=== PATIENT | female | born 1995 | race Caucasian/White ===

== ENCOUNTER 2020-10-10 13:25 | Outpatient (REF) | payer MEDICAID, SELFPAY | END 2020-10-10 13:26 | disposition home or self-care (01) | LOC: HO.LAB 13:25 | PROVIDERS: Visit Provider Internal Medicine | DX: Z20.828 Contact with and (suspected) exposure to other viral communicable diseases (principal) | CPT/HCPCS: C9803; U0003 ==

== ENCOUNTER → 2020-11-06 15:25 | Outpatient (BNVA) | payer MEDICAID, SELFPAY | PROVIDERS: Visit Provider Nurse Practitioner | DX: Z76.89 Persons encountering health services in other specified circumstances (principal) ==

== ENCOUNTER 2020-11-26 09:46 | Outpatient (REF) | payer MEDICAID, SELFPAY | END 2020-11-26 09:47 | disposition home or self-care (01) | LOC: HO.LAB 09:46 | PROVIDERS: Visit Provider Internal Medicine | DX: Z20.822 Contact with and (suspected) exposure to COVID-19 (principal) | CPT/HCPCS: 36415; C9803; U0003 ==

== ENCOUNTER 2021-01-14 09:36 | Outpatient (REF) | payer MEDICAID, SELFPAY ==
[2021-01-14 10:18] LABS: MANUAL DIFF FLAG NO
[2021-01-14 10:24] LABS: Basophils Percent Auto 0.3 % (0-2); Eosinophils Absolute Auto 0.7 X10*3/uL (0.0-0.4); Eosinophils Percent Auto 7.1 % (0-4); Hematocrit 39.8 % (37-47); Hemoglobin 12.4 g/dl (12.0-16.0); Imm Gran Abs Auto 0.04 X10*3/uL (0.00-0.03); Imm Gran Pct Auto 0.4 % (0.0-0.4); Lymphocytes Absolute Auto 2.7 X10*3/uL (1.2-4.9); Lymphocytes Percent Auto 28.2 % (20-40); Mean Corpuscular HGB Conc 31.2 g/dl (31.0-35.0); Mean Corpuscular Hemoglobin 26.5 pg (27.0-33.0); Mean Platelet Volume 11.3 fL (9.4-12.3); Monocytes Absolute Auto 0.8 X10*3/uL (0.1-1.2); Monocytes Percent Auto 8.2 % (2-11); Neutrophils Absolute Auto 5.3 X10*3/uL (2.0-8.3); Neutrophils Percent Auto 55.8 % (45-73); Platelet Count 372 X10*3/uL (160-400); Red Blood Count 4.68 X10*6/uL (4.20-5.50); Red Cell Distribution Width 13.8 % (11.0-16.0); White Blood Count 9.5 X10*3/uL (4.8-10.8)
[2021-01-14 10:44] LABS: Glucose Urine UA NEG (NEG); Leukocyte Esterase Urine TRACE (NEG); Nitrite Urine NEG (NEG); Specific Gravity - Urine >= 1.030 (1.005-1.025); Urine Blood 1+ (NEG); Urine Ketones 5 MG/DL (NEG); Urine Protein TRACE MG/DL (NEG-TRACE)
[2021-01-14 10:54] LABS: Alanine Aminotransferase 12 U/L (0-31); Albumin Level 4.3 g/dL (3.5-5.0); Alkaline Phosphatase 60 U/L (39-117); Anion Gap 12 (12-20); Appearance Urine HAZY; Aspartate Amino Transferase 13 U/L (5-31); Blood Urea Nitrogen 17 mg/dL (9-16); C Reactive Protein 0.44 mg/dL (< or = 0.50); Calcium 9.4 mg/dL (8.4-10.2); Carbon Dioxide 27 mmol/L (22-29); Chloride 105 mmol/L (96-108); Color Urine YELLOW; Estimated Glomerular Filt Rate > 60; Glucose Random 85 mg/dL (60-115); Lipase 8 U/L (8-78); Potassium 4.6 mmol/L (3.3-5.1); Sodium 139 mmol/L (135-145); Total Protein 8.2 g/dL (6.5-8.0)
[2021-01-14 11:10] LABS: Bacteria Urine TRACE /LPF; Mucus Urine 1+ /LPF; Squamous Epithelial Cell Urine 3+ /LPF
== END 2021-01-14 09:37 | disposition home or self-care (01) ==
LOC: HO.LAB 09:36
PROVIDERS: Visit Provider Nurse Practitioner
DX: R19.7 Diarrhea, unspecified (principal); R11.2 Nausea with vomiting, unspecified
CPT/HCPCS: 36415; 80053; 81001; 83690; 85025; 86140

== ENCOUNTER 2021-01-15 12:14 | Outpatient (REF) | payer MEDICAID, SELFPAY | END 2021-01-15 12:15 | disposition home or self-care (01) | LOC: HO.LNP 12:14 | PROVIDERS: Visit Provider Nurse Practitioner | DX: R19.7 Diarrhea, unspecified (principal) | CPT/HCPCS: 87045; 87046 ==

== ENCOUNTER 2021-01-16 12:13 | Outpatient (REF) | payer MEDICAID, SELFPAY ==
--- NOTE | ~2021-01-16 | CT_ITS ---
EXAMINATION: CT ABDOMEN AND PELVIS WITH CONTRAST CLINICAL INFORMATION: Unspecified abdominal pain COMPARISON: Abdominal ultrasound 10/19/2019 TECHNIQUE: Multidetector volumetric images were obtained from the superior aspect of the liver through the pubic symphysis following administration 85 mL of Omnipaque 350 intravenous contrast. Sagittal and coronal reformatted images were obtained on the technologist's workstation. Oral contrast: No This CT examination was performed using dose optimization techniques as appropriate, variously including the following: *Automated exposure control *Adjustment of mA and/or kV according to patient size (this includes techniques or standardized protocols for targeted exams where dose is matched to indication/reason for exam; i.e. extremities or head) *Use of iterative reconstruction technique DLP: 523 mGy-cm FINDINGS: LUNG BASES: The visualized lung bases are unremarkable. LIVER, GALLBLADDER, AND BILIARY TREE: The liver is normal in size, shape, and attenuation. No focal hepatic lesion or biliary ductal dilatation is present. The gallbladder is unremarkable with no evidence of radiopaque gallstones, gallbladder wall thickening, or obvious pericholecystic inflammatory changes. PANCREAS: Unremarkable. SPLEEN: Unremarkable. ADRENAL GLANDS: Unremarkable. KIDNEYS AND URETERS: The kidneys are normal in size, shape, and attenuation. No hydronephrosis, hydroureter, or calculi seen. No perinephric stranding. BLADDER: Unremarkable. GASTROINTESTINAL TRACT: The small and large bowel are unremarkable. The appendix is unremarkable. ABDOMINAL WALL: Fat-containing umbilical hernia. LYMPH NODES: Normal. VASCULAR: Unremarkable. PELVIC VISCERA: Normal CT appearance of the uterus and ovaries for age. OSSEOUS STRUCTURES: Unremarkable. CT/CT abdomen pelvis w con IMPRESSION: No acute CT findings to explain abdominal pain.
[2021-01-16] MEDS: iohexoL 350 MG/ML 100 ML INFUS..BTL 85 ML IV (14:42)
[2021-01-16] MEDS: Barium Sulfate Oral (Mocha) 450 ML ORAL.SUSP 900 ML PO (14:42)
== END 2021-01-16 12:14 | disposition home or self-care (01) ==
LOC: HO.CT 12:13
PROVIDERS: Visit Provider Nurse Practitioner
DX: R10.9 Unspecified abdominal pain (principal); R11.2 Nausea with vomiting, unspecified; R19.7 Diarrhea, unspecified
CPT/HCPCS: 74177; Q9967

== ENCOUNTER → 2021-01-18 11:44 | Outpatient (BNVA) | payer MEDICAID, SELFPAY | PROVIDERS: PCP Physician Assistant; Visit Provider Nurse Practitioner | DX: N39.0 Urinary tract infection, site not specified (principal) ==

== ENCOUNTER 2021-01-22 12:19 | Outpatient (REF) | payer MEDICAID, SELFPAY ==
[2021-01-22 13:05] LABS: Glucose Urine UA NEG (NEG); Leukocyte Esterase Urine 2+ (NEG); Nitrite Urine NEG (NEG); PH 6.5 (5.0-8.0); Specific Gravity - Urine 1.025 (1.005-1.025); Urine Blood TRACE (NEG); Urine Ketones NEG (NEG); Urine Protein NEG (NEG-TRACE)
[2021-01-22 13:06] LABS: Appearance Urine HAZY; Color Urine YELLOW
[2021-01-22 13:09] LABS: Bacteria Urine TRACE /LPF; RBC Urine 0-2 /HPF (0); Squamous Epithelial Cell Urine 3+ /LPF
[2021-01-23 22:11] LABS: Prot Elec - Albumin 4.1 g/dL (3.8-4.8); Prot Elec - Alpha1 0.3 g/dL (0.2-0.3); Prot Elec - Alpha2 0.8 g/dL (0.5-0.9); Prot Elec - Beta 1 0.5 g/dL (0.4-0.6); Prot Elec - Beta 2 0.4 g/dL (0.2-0.5); Prot Elec - Gamma 1.8 g/dL (0.8-1.7); Prot Elec - Total Protein 7.9 g/dL (6.1-8.1)
== END 2021-01-22 12:20 | disposition home or self-care (01) ==
LOC: HO.LAB 12:19
PROVIDERS: PCP Physician Assistant; Visit Provider Nurse Practitioner
DX: B99.9 Unspecified infectious disease (principal); R11.2 Nausea with vomiting, unspecified; R19.7 Diarrhea, unspecified
CPT/HCPCS: 36415; 81001; 84155; 84165

== ENCOUNTER → 2021-02-11 14:55 | Outpatient (BNVA) | payer MEDICAID, SELFPAY | PROVIDERS: PCP Physician Assistant; Visit Provider Nurse Practitioner ==

== ENCOUNTER → 2021-03-26 09:17 | Outpatient (BNVA) | payer MEDICAID, SELFPAY | PROVIDERS: PCP Physician Assistant; Visit Provider Internal Medicine Gastroenterology ==

== ENCOUNTER 2021-05-16 09:07 | Emergency (ER) | payer MEDICAID, SELFPAY ==
--- NOTE | ~2021-05-16 | US_ITS ---
EXAMINATION: ULTRASOUND PELVIS COMPLETE CLINICAL INFORMATION: Pain and spotting COMPARISON: None TECHNIQUE: Transabdominal and transvaginal imaging of pelvis is performed. FINDINGS: The uterus is retroverted and retroflexed measuring 7.9 cm in length, 3.7 cm in AP and 5.0 cm in transverse dimension. No focal lesions seen. Endometrial thickness is 0.7 cm. Small nabothian cysts seen in the cervix. Right ovary measures 3.7 x 2.9 x 2.6 cm and volume 14.6 mL. Previously it measured 4.1 x 2.2 x 2.2 cm. There are small multiple follicles visualized. Left ovary measures 4.0 x 2.7 x 2.5 cm and volume 14.1 mL. There are multiple small follicles noted. A dominant follicle measures 1.6 x 1.6 x 1.5 cm. There is a left adnexal cyst measuring 1.6 x 1.5 x 2.3 cm . There is small to moderate free fluid in the pelvis. US/US pelvic complete IMPRESSION: Unremarkable uterus. Small nabothian cysts in the cervix. Bilateral multiple ovarian follicles with a dominant follicle left ovary. Left adnexal cyst measuring 1.6 x 1.5 x 2.3 cm. Small to moderate amount of free fluid in the pelvis
--- NOTE | ~2021-05-16 | US_ITS ---
EXAMINATION: ULTRASOUND PELVIS COMPLETE CLINICAL INFORMATION: Pain and spotting COMPARISON: None TECHNIQUE: Transabdominal and transvaginal imaging of pelvis is performed. FINDINGS: The uterus is retroverted and retroflexed measuring 7.9 cm in length, 3.7 cm in AP and 5.0 cm in transverse dimension. No focal lesions seen. Endometrial thickness is 0.7 cm. Small nabothian cysts seen in the cervix. Right ovary measures 3.7 x 2.9 x 2.6 cm and volume 14.6 mL. Previously it measured 4.1 x 2.2 x 2.2 cm. There are small multiple follicles visualized. Left ovary measures 4.0 x 2.7 x 2.5 cm and volume 14.1 mL. There are multiple small follicles noted. A dominant follicle measures 1.6 x 1.6 x 1.5 cm. There is a left adnexal cyst measuring 1.6 x 1.5 x 2.3 cm . There is small to moderate free fluid in the pelvis. US/US transvaginal IMPRESSION: Unremarkable uterus. Small nabothian cysts in the cervix. Bilateral multiple ovarian follicles with a dominant follicle left ovary. Left adnexal cyst measuring 1.6 x 1.5 x 2.3 cm. Small to moderate amount of free fluid in the pelvis
--- NOTE | ~2021-05-16 | CT_ITS ---
EXAMINATION: CT ABDOMEN AND PELVIS WITH CONTRAST CLINICAL INFORMATION: Lower abdominal pain with increased white count COMPARISON: January 16, 2021 TECHNIQUE: Multidetector volumetric images were obtained from the superior aspect of the liver through the pubic symphysis following administration 85 mL of Omnipaque 350 intravenous contrast. Sagittal and coronal reformatted images were obtained on the technologist's workstation. Oral contrast: No This CT examination was performed using dose optimization techniques as appropriate, variously including the following: *Automated exposure control *Adjustment of mA and/or kV according to patient size (this includes techniques or standardized protocols for targeted exams where dose is matched to indication/reason for exam; i.e. extremities or head) *Use of iterative reconstruction technique DLP: 686 mGy-cm FINDINGS: LUNG BASES: The visualized lung bases are unremarkable. No pleural or pericardial effusion. LIVER, GALLBLADDER, AND BILIARY TREE: The liver is normal in size, shape, and attenuation. No focal hepatic lesion or biliary ductal dilatation is present. The gallbladder is unremarkable with no evidence of radiopaque gallstones, gallbladder wall thickening, or obvious pericholecystic inflammatory changes. PANCREAS: Unremarkable. No peripancreatic inflammatory change. SPLEEN: Unremarkable. ADRENAL GLANDS: Unremarkable. KIDNEYS AND URETERS: The kidneys are normal in size, shape, and attenuation. No hydronephrosis, hydroureter, or calculi seen. No perinephric stranding. BLADDER: Unremarkable. GASTROINTESTINAL TRACT: No dilated loops of large or small bowel. No free fluid or free gas. No pericolonic inflammatory change. The appendix appears unremarkable. ABDOMINAL WALL: There is a small fat-containing umbilical hernia present. LYMPH NODES: No lymphadenopathy appreciated. VASCULAR: Unremarkable. PELVIC VISCERA: No abnormal mass or free fluid is appreciated. OSSEOUS STRUCTURES: No suspicious destructive bony lesions identified. 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 CT/CT abdomen pelvis w con IMPRESSION: No significant abnormality identified to explain patient's symptoms.
--- NOTE | 2021-05-16 09:26 | ED.FEMALEGU ---
HPI - Female Genitourinary General Chief complaint: Abdominal Pain Stated complaint: pelvic pain, multiple complaints Time Seen by Provider: 05/16/21 09:20 Source: patient Mode of arrival: ambulatory Limitations: no limitations History of Present Illness HPI Narrative: c/o 2 weeks pain in pelvic area, possible UTI one week ago completed amoxicillin, negative STI panel, had short irregular period recently and now still spotting, sent by OB to ED for US MD elicited complaint: vaginal bleeding and pelvic pain Pertinent past history: recurrent UTIs and other (endometriosis) Onset (ago): week(s) (2) Location of symptoms: suprapubic Severity: moderate Quality of pain: cramping, dull and aching Consistency: constant Vaginal discharge: none Vaginal bleeding: scant (spotting) Urinary symptoms: Urgency Exacerbating factors: none Relieving factors: none Associated symptoms: nausea, vomiting and other (some diarrhea) Treatment prior to arrival: none Related Data Previous Rx's Medication Instructions Recorded sulfamethoxazole 800 1 tab PO BID 5 Days #10 tab 01/15/21 mg-trimethoprim 160 mg tablet sucralfate 1 gram tablet 2 g PO BID 30 Days #120 tab 02/11/21 doxycycline hyclate 100 mg PO BID 10 Days #20 cap 05/16/21 hydrocodone-acetaminophen 1 tab PO Q6H PRN #12 tab 05/16/21 metoclopramide HCl [Reglan] 10 mg PO Q6H PRN #20 tab 05/16/21 metronidazole 500 mg PO BID 10 Days #20 tab 05/16/21 Allergies Allergy/AdvReac Type Severity Reaction Status Date / Time ondansetron [From ZOFRAN] AdvReac Intermediate INCREASED Verified 02/11/21 14:56 VOMTING none Allergy Unknown Unknown Uncoded 11/06/20 15:26 Review of Systems Review of Systems: Constitutional : No Weight loss, No Fever, No Chills ENT/Mouth : No sore throat, No Rhinorrhea Eyes: No Swelling, No Redness Cardiovascular : No Chest Pain, No SOB, NoEdema Respiratory : No Cough, No Sputum, No Wheezing Gastrointestinal : Positive Nausea, Positive Vomiting, positive Diarrhea, positive abdominal Pain, No Hematochezia, No Melena Genitourinary : No Dysuria, No Urinary Frequency, No Hematuria, No Urgency, pos irregular bleeding Musculoskeletal : No joint pain, No Myalgias, No Joint Swelling Skin : No Skin Lesions, No rash Neuro : No Weakness, No Numbness, No Dizziness, No Headache Psych : No Anxiety/Panic, No Depression Heme/Lymph: No Bruising, No Lymphadenopathy Endocrine : No Polyuria, No Polydipsia All other systems reviewed and are negative. [facility] Past Medical History Attestation statement: The following information was validated with the patient. Medical History Ankylosing spondylitis Endometriosis Endometriosis determined by laparoscopy GERD (gastroesophageal reflux disease) Surgical History Hx of section Hx of colonoscopy Tubal ligation status Family History Family History Father Colon cancer HTN (hypertension) Diabetes Hypercholesteremia Stage 4 lung cancer Mother Diabetes HTN (hypertension) Hypercholesteremia Social History Social History (Updated 05/16/21 @ 09:39 by Moriah Ryan DO) Household Members: Children Alcohol intake: current Alcohol intake frequency: does not drink Patient Tobacco Use Status: Never used Tobacco Use of substances other than those prescribed or required for medical reasons: No Advance Directives: No Advance Directives Information Provided: No Current occupational status: unemployed and disabled Current occupation: [employer] Physical Exam Vital Signs: Vital Signs: Last Vital Signs Temp 98.4 F 05/16/21 09:38 Pulse 47 L 05/16/21 09:38 Resp 16 05/16/21 09:38 BP 132/73 05/16/21 09:38 Pulse Ox 97 05/16/21 09:38 Body Mass Index 31.5 Appearance: Alert. Oriented X3. No acute distress. Eyes: Pupils equal, round and reactive to light. ENT: Pharynx normal. Neck: Normal inspection. Neck supple. CVS: Normal heart rate and rhythm. Pulses normal. Respiratory: No respiratory distress. Breath sounds normal. Abdomen: Soft and mild suprapubic ttp no rebound or guarding : no CMT no adnexal ttp no discharge Skin: Skin warm and dry. Normal skin color. Normal skin turgor. Extremities: No lower extremity edema. No calf ttp Neuro: Oriented X 3. No motor deficit. No sensory deficit. Course Course Course Narrative: markedly high WBC count - cultures, lactic acid and CT Scan for possible abscess ordered as well, HR in 40s stable BP, EKG ordered elevated WBC count, no fevers, neg lactic acid, no appy or abscess on exam no CMT on PE will treat as PID at this time MDM - Female Genitourinary MDM Narrative Medical decision making narrative: 25 yo female with suprapubic and pelvic pain x 2 weeks possible recent UTI last week given amoxicillin no response, had STI negative panel as well, worried she is after tubal - on exam pain is suprapubic in nature, no RLQ/LLQ pain - at this time labs, US to evaluate cyst, IV toradol for pain dispo per results and findings. Lab Data Result diagrams: 05/16/21 09:42 05/16/21 09:42 Labs: Lab Results 05/16/21 05/16/21 05/16/21 Range/Units 09:42 09:42 10:55 WBC 21.6 H (4.8-10.8) X10*3/uL RBC 4.12 L (4.20-5.50) X10*6/uL Hgb 11.3 L (12.0-16.0) g/dl Hct 36.1 L (37-47) % MCV 87.6 (80-98) fL MCH 27.4 (27.0-33.0) pg MCHC 31.3 (31.0-35.0) g/dl RDW 14.3 (11.0-16.0) % Plt Count 320 (160-400) X10*3/uL MPV 11.4 (9.4-12.3) fL Immature Gran % (Auto) 1.2 H (0.0-0.4) % Neut % (Auto) 80.7 H (45-73) % Lymph % (Auto) 9.3 L (20-40) % [place] % (Auto) 8.7 (2-11) % Eos % (Auto) 0.0 (0-4) % Baso % (Auto) 0.1 (0-2) % Lymph # (Auto) 2.0 (1.2-4.9) X10*3/uL [place] # (Auto) 1.9 H (0.1-1.2) X10*3/uL Eos # (Auto) 0.0 (0.0-0.4) X10*3/uL Baso # (Auto) 0.0 (0.0-0.2) X10*3/uL Abs Immat Gran (auto) 0.27 H (0.00-0.03) X10*3/uL Absolute Neuts (auto) 17.4 H (2.0-8.3) X10*3/uL Absolute Nucleated RBC 0.000 (0.0-0.012) X10*3/uL Nucleated RBC % (auto) 0.0 (0.0-0.2) /100WBC Smear Tech's Comments VERIFIED Sodium 140 (135-145) mmol/L Potassium 4.2 (3.3-5.1) mmol/L Chloride 105 (96-108) mmol/L Carbon Dioxide 27 (22-29) mmol/L Anion Gap 12 (12-20) BUN 20 H (9-16) mg/dL Creatinine 0.74 (0.5-1.4) mg/dL Estim Creat Clear Calc 115.9 Estimated GFR > 60 Random Glucose 141 H D (60-115) mg/dL Lactic Acid (0.5-2.0) mmol/L Calcium 9.2 (8.4-10.2) mg/dL Magnesium 2.8 H (1.6-2.6) mg/dL Total Bilirubin 0.3 (0.0-1.0) mg/dL Direct Bilirubin < 0.2 (0.0-0.5) mg/dL AST 11 (5-31) U/L ALT 17 (0-31) U/L Alkaline Phosphatase 52 (39-117) U/L Total Protein 7.5 (6.5-8.0) g/dL Albumin 4.0 (3.5-5.0) g/dL Lipase 12 (8-78) U/L Beta HCG, Quant < 2 mIU/mL Urine Color YELLOW Urine Appearance CLEAR Urine pH 6.5 (5.0-8.0) Ur Specific [place] 1.020 (1.005-1.025) Urine Protein TRACE (NEG-TRACE) MG/DL Urine Glucose (UA) NEG (NEG) MG/DL Urine Ketones NEG (NEG) MG/DL Urine Blood NEG (NEG) Urine Nitrite NEG (NEG) Ur Leukocyte Esterase NEG (NEG) 06/24/21 Range/Units 11:03 WBC (4.8-10.8) X10*3/uL RBC (4.20-5.50) X10*6/uL Hgb (12.0-16.0) g/dl Hct (37-47) % MCV (80-98) fL MCH (27.0-33.0) pg MCHC (31.0-35.0) g/dl RDW (11.0-16.0) % Plt Count (160-400) X10*3/uL MPV (9.4-12.3) fL Immature Gran % (Auto) (0.0-0.4) % Neut % (Auto) (45-73) % Lymph % (Auto) (20-40) % [place] % (Auto) (2-11) % Eos % (Auto) (0-4) % Baso % (Auto) (0-2) % Lymph # (Auto) (1.2-4.9) X10*3/uL [place] # (Auto) (0.1-1.2) X10*3/uL Eos # (Auto) (0.0-0.4) X10*3/uL Baso # (Auto) (0.0-0.2) X10*3/uL Abs Immat Gran (auto) (0.00-0.03) X10*3/uL Absolute Neuts (auto) (2.0-8.3) X10*3/uL Absolute Nucleated RBC (0.0-0.012) X10*3/uL Nucleated RBC % (auto) (0.0-0.2) /100WBC Smear Tech's Comments Sodium (135-145) mmol/L Potassium (3.3-5.1) mmol/L Chloride (96-108) mmol/L Carbon Dioxide (22-29) mmol/L Anion Gap (12-20) BUN (9-16) mg/dL Creatinine (0.5-1.4) mg/dL Estim Creat Clear Calc Estimated GFR Random Glucose (60-115) mg/dL Lactic Acid 1.8 (0.5-2.0) mmol/L Calcium (8.4-10.2) mg/dL Magnesium (1.6-2.6) mg/dL Total Bilirubin (0.0-1.0) mg/dL Direct Bilirubin (0.0-0.5) mg/dL AST (5-31) U/L ALT (0-31) U/L Alkaline Phosphatase (39-117) U/L Total Protein (6.5-8.0) g/dL Albumin (3.5-5.0) g/dL Lipase (8-78) U/L Beta HCG, Quant mIU/mL Urine Color Urine Appearance Urine pH (5.0-8.0) Ur Specific [place] (1.005-1.025) Urine Protein (NEG-TRACE) MG/DL Urine Glucose (UA) (NEG) MG/DL Urine Ketones (NEG) MG/DL Urine Blood (NEG) Urine Nitrite (NEG) Ur Leukocyte Esterase (NEG) ECG Data Attestation: I personally reviewed and interpreted this ECG as follows: ECG interpretation date: 05/16/21 ECG interpretation time: 11:52 Interpretation: Rate: 46 Rhythm: sinus bradycardia Boykins: normal Normal P waves. Normal FRANCOIS. Normal QRS complex. ST T wave : normal no VANDA qTC: normal prior studies: no acute ischemia The study has been interpreted contemporaneously by me. . Discharge Plan Discharge Clinical Impression: Acute pelvic inflammatory disease (PID), Bradycardia, sinus Leukocytosis Qualifiers: Leukocytosis type: unspecified Qualified Code(s): D72.829 - Elevated white blood cell count, unspecified Patient Disposition: Home, Self-Care Instructions: Pelvic Inflammatory Disease (ED), Bradycardia (ED) Additional Instructions: return to ED for any worsening symptoms or concerns stop taking amoxicillin Prescriptions: New doxycycline hyclate 100 mg capsule 100 mg PO BID 10 Days Qty: 20 RF: 0 hydrocodone-acetaminophen 5-325 mg tablet 1 tab PO Q6H PRN (Reason: pain) Qty: 12 RF: 0 metoclopramide HCl [Reglan] 10 mg tablet 10 mg PO Q6H PRN (Reason: nausea and vomiting) Qty: 20 RF: 0 metronidazole 500 mg tablet 500 mg PO BID 10 Days Qty: 20 RF: 0 No Action sucralfate [Carafate] 1 gram tablet 2 g PO BID 30 Days Qty: 120 RF: 3 sulfamethoxazole-trimethoprim [Bactrim DS] 800-160 mg tablet 1 tab PO BID 5 Days Qty: 10 RF: 0 Referrals: Pamela Campbell PA [Primary Care Provider] - 5 days (follow up Thursday)
[2021-05-16 09:32] VITALS: BP 132/73; PULSE 47; RESP 16; TEMP 36.9; O2SAT 97; BMI 31.5
[2021-05-16 09:38] VITALS: BP 132/73; PULSE 47; RESP 16; TEMP 36.9; O2SAT 97
[2021-05-16] MEDS: Ketorolac Tromethamine 30 MG/ML VIAL IVPUSH (09:51)
[2021-05-16] MEDS: 0.9 % Sodium Chloride 1,000 ML 999 ML IVCONT (09:51)
[2021-05-16 09:52] LABS: Basophils Percent Auto 0.1 % (0-2); Hematocrit 36.1 % (37-47); Hemoglobin 11.3 g/dl (12.0-16.0); Imm Gran Abs Auto 0.27 X10*3/uL (0.00-0.03); Imm Gran Pct Auto 1.2 % (0.0-0.4); Lymphocytes Percent Auto 9.3 % (20-40); MANUAL DIFF FLAG SCAN; Mean Corpuscular HGB Conc 31.3 g/dl (31.0-35.0); Mean Corpuscular Hemoglobin 27.4 pg (27.0-33.0); Mean Corpuscular Volume 87.6 fL (80-98); Mean Platelet Volume 11.4 fL (9.4-12.3); Monocytes Absolute Auto 1.9 X10*3/uL (0.1-1.2); Monocytes Percent Auto 8.7 % (2-11); Neutrophils Absolute Auto 17.4 X10*3/uL (2.0-8.3); Neutrophils Percent Auto 80.7 % (45-73); Platelet Count 320 X10*3/uL (160-400); Red Blood Count 4.12 X10*6/uL (4.20-5.50); Red Cell Distribution Width 14.3 % (11.0-16.0); SCAN SMEAR FLAG 1; White Blood Count 21.6 X10*3/uL (4.8-10.8)
--- NOTE | 2021-05-16 09:59 | ECG_ITS ---
Test Reason : AB PAIN Blood Pressure : / mmHG Vent. Rate : 053 BPM Atrial Rate : 053 BPM P-R Int : 160 ms QRS Dur : 086 ms QT Int : 470 ms P-R-T Axes : 048 016 018 degrees QTc Int : 441 ms Sinus bradycardia Otherwise normal ECG When compared with ECG of 21-MAR-2015 10:41, Nonspecific T wave abnormality no longer evident in Anterior leads Referred By: Moriah Ryan Electronically Signed By:Thomas Matos
[2021-05-16 10:08] LABS: SLIDE REVIEW VERIFIED
[2021-05-16 10:21] LABS: Alanine Aminotransferase 17 U/L (0-31); Alkaline Phosphatase 52 U/L (39-117); Anion Gap 12 (12-20); Aspartate Amino Transferase 11 U/L (5-31); Bilirubin Direct < 0.2 mg/dL (0.0-0.5); Bilirubin Total 0.3 mg/dL (0.0-1.0); Blood Urea Nitrogen 20 mg/dL (9-16); Calcium 9.2 mg/dL (8.4-10.2); Carbon Dioxide 27 mmol/L (22-29); Chloride 105 mmol/L (96-108); Creatinine Clr Calc Pharmacy 115.9; Estimated Glomerular Filt Rate > 60; Glucose Random 141 mg/dL (60-115); Lipase 12 U/L (8-78); Magnesium 2.8 mg/dL (1.6-2.6); Potassium 4.2 mmol/L (3.3-5.1); Sodium 140 mmol/L (135-145); Total Protein 7.5 g/dL (6.5-8.0)
[2021-05-16 10:29] LABS: HCG Quantitative < 2 mIU/mL
[2021-05-16 11:02] LABS: Appearance Urine CLEAR; Color Urine YELLOW; Glucose Urine UA NEG (NEG); Leukocyte Esterase Urine NEG (NEG); Nitrite Urine NEG (NEG); PH 6.5 (5.0-8.0); Urine Blood NEG (NEG); Urine Ketones NEG (NEG); Urine Protein TRACE MG/DL (NEG-TRACE)
[2021-05-16] MEDS: iohexoL 350 MG/ML 100 ML INFUS..BTL 85 ML IV (11:12)
[2021-05-16 11:32] LABS: Lactic Acid 1.8 mmol/L (0.5-2.0)
[2021-05-16] MEDS: cefTRIAXone sodium 1 GM in 0.9 % Sodium Chloride 50 ML IV (11:36)
== END 2021-05-16 12:26 | disposition home or self-care (01) ==
PROVIDERS: Emergency Provider Emergency Medicine; PCP Physician Assistant
DX: N73.0 Acute parametritis and pelvic cellulitis (principal); R00.1 Bradycardia, unspecified; D72.829 Elevated white blood cell count, unspecified
CPT/HCPCS: 36415; 74177; 76830; 76856; 80048; 80076; 81003; 83605; 83690; 83735; 84702; 85025; 87040; 93005; 96361; 96365; 96374; 96375; 99285; J0696; J1885; Q9967

== ENCOUNTER 2021-08-06 13:54 | Outpatient (REF) | payer MEDICAID, SELFPAY | END 2021-08-06 13:55 | disposition home or self-care (01) | LOC: HO.US 13:54 | PROVIDERS: Visit Provider Internal Medicine Gastroenterology | DX: Z13.89 Encounter for screening for other disorder (principal) ==

== ENCOUNTER → 2021-09-27 09:30 | Outpatient (BNVA) | payer MEDICAID, SELFPAY | PROVIDERS: PCP Physician Assistant; Visit Provider Internal Medicine Gastroenterology ==

== ENCOUNTER 2021-10-20 18:36 | Emergency (ER) | payer MEDICAID, SELFPAY ==
--- NOTE | 2021-10-20 | ECG_ITS ---
Test Reason : CHEST PAIN Blood Pressure : / mmHG Vent. Rate : 090 BPM Atrial Rate : 090 BPM P-R Int : 164 ms QRS Dur : 074 ms QT Int : 370 ms P-R-T Axes : 042 013 009 degrees QTc Int : 452 ms Normal sinus rhythm Nonspecific T wave abnormality RSR' or QR pattern in V1 suggests right ventricular conduction delay Abnormal ECG When compared with ECG of 16-MAY-2021 11:44, Vent. rate has increased BY 37 BPM Nonspecific T wave abnormality now evident in Anterolateral leads Referred By: Generic ED Physician Electronically Signed By:ELIDIA CASTRO MD
--- NOTE | ~2021-10-20 | XR_ITS ---
EXAMINATION: XR CHEST CLINICAL INFORMATION: Chest pain. COMPARISON: Chest radiograph dated from 03/21/2020. TECHNIQUE: 2 views of the chest were obtained. FINDINGS: No significant abnormality is noted involving the heart, lungs, mediastinum, bony thorax or soft tissues. XR/XR chest 2V IMPRESSION: Unremarkable examination.
[2021-10-20 20:49] VITALS: BP 115/71; PULSE 83; RESP 18; TEMP 36.3; O2SAT 99; BMI 31.5
--- NOTE | 2021-10-21 00:19 | ED.CHESTPAIN ---
HPI - Chest Pain General Chief Complaint: Chest Pain Stated Complaint: chest pain x3 hours Time Seen by Provider: 10/21/21 00:19 Source: patient Mode of arrival: ambulatory Limitations: no limitations History of Present Illness HPI narrative: Patient with a significant cardiac history in the past complaining of right-sided chest pain for last few hours increases with palpation on movements does have history of ankylosing spondylosis , patient tried ibuprofen without any relief no shortness of breath no fever or chills no cough Related Data Previous Rx's Medication Instructions Recorded sulfamethoxazole 800 1 tab PO BID 5 Days #10 tab 01/15/21 mg-trimethoprim 160 mg tablet (Bactrim DS) sucralfate 1 gram tablet (Carafate) 2 g PO BID 30 Days #120 tab 02/11/21 doxycycline hyclate 100 mg capsule 100 mg PO BID 10 Days #20 cap 05/16/21 hydrocodone 5 mg-acetaminophen 325 1 tab PO Q6H PRN #12 tab 05/16/21 mg tablet metronidazole 500 mg tablet 500 mg PO BID 10 Days #20 tab 05/16/21 nortriptyline 10 mg capsule 10 mg PO BEDTIME #30 cap 09/27/21 peg 3350 240 gram-electrolytes 240 ml PO Q10M #4000 ml 09/27/21 22.72 gram-6.72 g-5.84 g powdr for soln (Gavilyte-C) prochlorperazine maleate 5 mg 5 mg PO Q8H PRN #14 tab 09/27/21 tablet ibuprofen 600 mg tablet 600 mg PO Q6H PRN #20 tab 10/21/21 prednisone 20 mg tablet 40 mg PO DAILY #10 tab 10/21/21 tramadol 50 mg tablet 50 mg PO Q6H PRN #20 tab 10/21/21 Allergies Allergy/AdvReac Type Severity Reaction Status Date / Time ondansetron [From ZOFRAN] AdvReac Intermediate INCREASED Verified 10/20/21 20:49 VOMTING none Allergy Unknown Unknown Uncoded 10/20/21 20:49 Review of Systems Review of Systems: Yes all other systems are reviewed and are negative PMFSH Past Medical History Medical History Ankylosing spondylitis Endometriosis Endometriosis determined by laparoscopy GERD (gastroesophageal reflux disease) Surgical History Hx of section Hx of colonoscopy Tubal ligation status Family History Family History Father Colon cancer HTN (hypertension) Diabetes Hypercholesteremia Stage 4 lung cancer Mother Diabetes HTN (hypertension) Hypercholesteremia Social History Social History Household Members: Children Alcohol intake: current Alcohol intake frequency: does not drink Patient Tobacco Use Status: Never used Tobacco Advance Directives: No Advance Directives Information Provided: No Patient : No Current occupational status: unemployed and disabled Current occupation: [employer] Physical Exam Vital Signs: Vital Signs: Last Vital Signs Temp 97.3 F 10/20/21 20:49 Pulse 77 10/21/21 00:52 Resp 17 10/21/21 00:52 BP 120/68 10/21/21 00:52 Pulse Ox 95 10/21/21 00:52 Body Mass Index 31.5 Appearance: Alert. Oriented X3. No acute distress. ENT: Pharynx normal. Oral Mucosa moist Neck: Normal inspection. Neck supple. CVS: Normal heart rate and rhythm. Pulses normal. Respiratory: No respiratory distress. Equal air entry bilateral, no wheezing/rales/rhonchi, tenderness right intercostal space Abdomen: Soft and nontender. Skin: Skin warm and dry. Normal skin color. Normal skin turgor. Extremities: No lower extremity edema. No calf tenderness Neuro: Oriented X 3. MDM - Chest Pain ECG Data ECG #1: Attestation: I personally reviewed and interpreted this ECG as follows: Interpretation: Normal sinus rhythm heart rate 90 beats per minute nonspecific ST-T changes no acute ischemia normal intervals normal axis Discharge Plan Discharge Clinical Impression: Costalchondritis Patient Disposition: Home, Self-Care Instructions: Costochondritis (ED) Additional Instructions: Take pain medication as prescribed and follow with PCP Prescriptions: New prednisone 20 mg tablet 40 mg PO DAILY Qty: 10 RF: 0 tramadol 50 mg tablet 50 mg PO Q6H PRN (Reason: pain) Qty: 20 RF: 0 ibuprofen 600 mg tablet 600 mg PO Q6H PRN (Reason: pain) Qty: 20 RF: 0 No Action doxycycline hyclate 100 mg capsule 100 mg PO BID 10 Days Qty: 20 RF: 0 hydrocodone-acetaminophen 5-325 mg tablet 1 tab PO Q6H PRN (Reason: pain) Qty: 12 RF: 0 metronidazole 500 mg tablet 500 mg PO BID 10 Days Qty: 20 RF: 0 sucralfate [Carafate] 1 gram tablet 2 g PO BID 30 Days Qty: 120 RF: 3 sulfamethoxazole-trimethoprim [Bactrim DS] 800-160 mg tablet 1 tab PO BID 5 Days Qty: 10 RF: 0 nortriptyline 10 mg capsule 10 mg PO BEDTIME Qty: 30 RF: 2 peg 3350-electrolytes [Gavilyte-C] 240-22.72-6.72 -5.84 gram recon soln 240 ml PO Q10M Qty: 4000 RF: 0 prochlorperazine maleate 5 mg tablet 5 mg PO Q8H PRN (Reason: nausea and vomiting) Qty: 14 RF: 0 Stand Alone Forms: Work/School Release Interventions: ED Discharge Assessment Last Done: 10/21/21 01:05
[2021-10-21 00:52] VITALS: BP 120/68; PULSE 77; RESP 17; O2SAT 95
[2021-10-21] MEDS: Ketorolac Tromethamine 60 MG/2 ML VIAL IM (00:54)
== END 2021-10-21 01:06 | disposition home or self-care (01) ==
PROVIDERS: Emergency Provider Internal Medicine; PCP Physician Assistant
DX: M94.0 Chondrocostal junction syndrome [Tietze] (principal)
CPT/HCPCS: 71046; 93005; 96372; 99284; J1885

== ENCOUNTER 2021-12-26 11:53 | Day surgery (SDC) | payer MEDICAID, SELFPAY ==
--- NOTE | 2021-12-25 10:39 | HO.ANESPROP2 ---
Documented by User: Renee Irizarry NP 12/25/21 10:43 HPI - Anesthesia Eval Consult details Narrative: 26yo F for Upper Endoscopy and Colonoscopy PMFSH Active Problems Active Problems: All Active Problems (Updated 10/22/21 @ 00:01 by Bea Dockery) Recurrent infections (Acute) UTI (urinary tract infection) (Acute) Abdominal pain (Acute) Family history of colon cancer (Acute) Diarrhea (Acute) Nausea and vomiting (Acute) Past Medical History Medical History Ankylosing spondylitis Endometriosis Endometriosis determined by laparoscopy GERD (gastroesophageal reflux disease) Family History Family History Father Colon cancer HTN (hypertension) Diabetes Hypercholesteremia Stage 4 lung cancer Mother Diabetes HTN (hypertension) Hypercholesteremia Surgical History Surgical History (Updated 12/26/21 @ 12:32 by Ramya Cohn RN) Hx of section Hx of colonoscopy Hx of esophagogastroduodenoscopy Tubal ligation status Social History Social History Household Members: Children Alcohol intake: current Alcohol intake frequency: does not drink Patient Tobacco Use Status: Never used Tobacco Use of substances other than those prescribed or required for medical reasons: No Are you DNR?: No Advance Directives: No Advance Directives Information Provided: Yes Current occupational status: unemployed and disabled Current occupation: [employer] Meds Allergies Allergy/AdvReac Type Severity Reaction Status Date / Time ondansetron [From ZOFRAN] AdvReac Intermediate INCREASED Verified 12/26/21 12:32 VOMTING Exam Exam Date and Time: December 25, 2021 1039 Pertinent Lab Results Pertinent Lab Results: Laboratory Tests 05/16/21 05/16/21 09:42 09:42 WBC 21.6 H Hgb 11.3 L Hct 36.1 L Plt Count 320 Sodium 140 Potassium 4.2 Chloride 105 Carbon Dioxide 27 BUN 20 H Creatinine 0.74 Assessment and Plan Assessment Anesthesia Assessment: Chart Reviewed Documented by User: Tatiana Mcmillan MD 12/26/21 14:34 PMFSH Past Medical History Medical History Ankylosing spondylitis Endometriosis Endometriosis determined by laparoscopy GERD (gastroesophageal reflux disease) Functional capacity: independent ambulation Patient : No Family History Family History Father Colon cancer HTN (hypertension) Diabetes Hypercholesteremia Stage 4 lung cancer Mother Diabetes HTN (hypertension) Hypercholesteremia Family history of problems with anesthesia: No Surgical History Surgical History (Updated 12/26/21 @ 12:32 by Ramya Cohn RN) Hx of section Hx of colonoscopy Hx of esophagogastroduodenoscopy Tubal ligation status History of Problems with Anesthesia: No Social History Social History Household Members: Children Alcohol intake: current Alcohol intake frequency: does not drink Patient Tobacco Use Status: Never used Tobacco Use of substances other than those prescribed or required for medical reasons: No Are you DNR?: No Advance Directives: No Advance Directives Information Provided: Yes Current occupational status: unemployed and disabled Current occupation: [employer] Meds Allergies Allergy/AdvReac Type Severity Reaction Status Date / Time ondansetron [From ZOFRAN] AdvReac Intermediate INCREASED Verified 12/26/21 12:32 VOMTING Exam Airway Mallampati Class: III TM Dist: >3cm Neck ROM: Full Heart: RRR Lungs: CTA Assessment and Plan Final Anesthetic Review Family History of Problems with Anesthesia: No History of Problems with Anesthesia: No ASA Class: III Final Preanesthetic Review: No Changes in Pt Med Stat and Consent Obtained/Reviewed Patient Risk: Low Procedure Risk: Low Anesthetic Plan Anesthetic Plan: MAC: Disposition: Standard PACU
[2021-12-26 12:33] VITALS: BMI 31.5
[2021-12-26 13:03] VITALS: BP 106/66; PULSE 84; RESP 16; TEMP 36.9; O2SAT 100
[2021-12-26] MEDS: Sodium Phosphate,Mono-Dibasic 133 ML ENEMA PR (13:06)
[2021-12-26] MEDS: Lactated Ringers 1,000 ML 100 ML IVCONT (13:08)
--- NOTE | 2021-12-26 13:43 | MHC.SHP ---
Pre-Procedural Eval Section A Date of Service: 12/26/21 Section B Chief Complaint: Nausea with Vomiting unspecified, Epigastric pain Relevant Family History (Specify if Yes): No Relevant Social History: None Present Medications: see Short Stay Collaborative assessment Medical History: Significant History (Ankylosing spondylitis Endometriosis Endometriosis determined by laparoscopy GERD (gastroesophageal reflux disease)) History of Previous Operations: Relevant previous surgery/procedure and date(s) (Hx of section Hx of colonoscopy Tubal ligation status) Allergies: Allergies Allergy/AdvReac Type Severity Reaction Status Date / Time ondansetron [From ZOFRAN] AdvReac Intermediate INCREASED Verified 12/26/21 12:32 VOMTING Review of Systems Sugical H&P ROS: Negative: Constitution, Cardiovascular, Respiratory, Neurological, Psychiatric, Hem-Onc, Allergic/Immunologic, Gastrointestinal, Genitourinary, Musculoskeletal, Integumentary, Endocrine and Eyes/Ears/Nose/Throat Exam Surgical H&P Exam: Normal: HEENT, Normal: Heart, Normal: Lungs, Normal: Extremities, Normal: Abdomen, Normal: Skin and Normal: Neurological Plan Diagnosis/Plan: Unchanged I have reviewed the history and physical and performed a pertinent physical examination on my patient. No changes have occurred unless specified.
--- NOTE | 2021-12-26 13:44 | PM.OP ---
Brief Operative Note Date of Service: 12/26/21 Pre-op diagnosis: nausea, vomiting, abdominal pain Post-op diagnosis: same Procedure: see op note Surgeon: Es Joy MD Anesthesia: MAC Was an Green Building Design Specialist used for this Procedure?: No Estimated blood loss (mL): 0 Condition: stable Disposition: PACU
--- NOTE | 2021-12-26 13:44 | W.PM.OPN ---
Operative Note Operative Note Date of Service: 12/26/21 Narrative: Operative Information Procedure Description: EGD, Colonoscopy FLEXIBLE TRANSORAL UPPER GASTROINTESTINAL ENDOSCOPY AND COLONOSCOPY PROCEDURE NOTE UPPER ENDOSCOPY Consent: Indications for the procedure and potential complications of bleeding, perforation, reaction to medications and missed diagnosis were discussed with the patient and informed consent was obtained. Instrument: Olympus GIF H 190 J mid size upper endoscope Monitoring: Vital signs and clinical assessment, continuous EKG monitoring, Pulse oximetry, Carbon Dioxide monitoring and blood pressure monitoring were done throughout the procedure. Procedure: The patient was placed in the left lateral decubitis position and pre-procedure medications were administered and a bite block was placed. The endoscope was inserted into the mouth and advanced under direct vision to the third part of duodenum. A careful inspection was made as the upper endoscope was withdrawn including a retroflexed examination of the proximal stomach; Findings and interventions are described below. Findings: Larynx:normal Esophagus: GE junction at 34 cm, diaphragm hiatus at 36 cm, consistent with 2 cm sliding hiatal hernia, erosive esophagitis with indurated distal esophageal mucosa with bogginess and edema. Bx taken from GEJ, and distal and proximal esophagus in separate jars. Stomach: Normal mucosa. Biopsies were obtained. Grade 2 flap valve on retroflexed examination of the cardia. Duodenum: moderate severe erythema in bulb, bx taken Intervention: Biopsies as noted above Sigmoidoscopy (initially plan was for colonoscopy, patient unable to take prep so sigmoidoscopy done) Instrument: as above Colonoscopy Monitoring: Vital signs and clinical assessment, continuous EKG monitoring, Pulse oximetry, Carbon Dioxide monitoring and blood pressure monitoring were done throughout the procedure. Procedure: The patient was placed in the left lateral decubitis position and pre-procedure medications were administered. After a digital rectal examination of the ano-rectum, the video colonoscope was inserted into the rectum and advanced through the colon to transverse colon The colonoscope was slowly withdrawn in a retrograde panoramic fashion and the colon mucosa was carefully examined including a retroflexed view of the rectum. Findings and interventions are described below. Procedure Difficulty:easy Findings: Transverse Colon -normal Descending Colon:normal Sigmoid Colon: normal Rectum: Retroflexion with small internal hemorrhoids, grade I random colon bx taken Anorectum - normal Impression and Post Procedure Diagnosis: Endoscopy Findings: erosive esophagitis duodenitis hiatal hernia Colonoscopy Findings: internal hemorrhoids Plan: Await Pathology results reassess prep for colonoscopy pending path above High fiber diet leaflet avoid straining at stool, epsom salts and sitz bath, anusol supps or cream trial of high dose PPI Above findings were reviewed with the patient and relevant handouts were provided if indicated.
[2021-12-26 14:30] VITALS: BP 100/52; PULSE 88; RESP 16; TEMP -13.8; TEMP 7; O2SAT 96
--- NOTE | 2021-12-26 14:33 | HO.POSTANES ---
Post Anesthesia Evaluation Post Anesthesia Evaluation Vital Signs: Vital Signs Temp Pulse Resp BP Pulse Ox 12/26/21 13:03 98.5 F 84 16 106/66 100
--- NOTE | 2021-12-26 14:35 | HO.POSTANES ---
Post Anesthesia Evaluation Post Anesthesia Evaluation Vital Signs: Vital Signs Temp Pulse Resp BP Pulse Ox 12/26/21 13:03 98.5 F 84 16 106/66 100 Anesthesia: Monitored Mental Status: Awake Pain Control: Satisfactory Nausea/Vomiting: None Hydration: Adequate Anesthesia-Related Issues: No Anes. Related Issues
[2021-12-26 14:44] VITALS: BP 106/62; PULSE 77; RESP 18; O2SAT 97
== END 2021-12-26 15:31 | disposition home or self-care (01) ==
PROVIDERS: PCP Physician Assistant; Visit Provider Internal Medicine Gastroenterology
PROC: (CPT 45331; principal; 2021-12-26 13:40)
DX: R10.13 Epigastric pain (principal); R11.2 Nausea with vomiting, unspecified; R19.7 Diarrhea, unspecified; Z80.0 Family history of malignant neoplasm of digestive organs; K64.0 First degree hemorrhoids; K20.80 Other esophagitis without bleeding; K29.80 Duodenitis without bleeding; K44.9 Diaphragmatic hernia without obstruction or gangrene; K21.9 Gastro-esophageal reflux disease without esophagitis; M45.9 Ankylosing spondylitis of unspecified sites in spine
CPT/HCPCS: 45331; 43239; 88305; 88342

== ENCOUNTER 2022-01-10 15:17 | Outpatient (REF) | payer MEDICAID, SELFPAY ==
[2022-01-11 13:44] LABS: H Pylori Breath Test Negative (Negative)
== END 2022-01-10 15:18 | disposition home or self-care (01) ==
LOC: HO.LNP 15:17
PROVIDERS: PCP Physician Assistant; Visit Provider Internal Medicine Gastroenterology
DX: R10.9 Unspecified abdominal pain (principal); R11.2 Nausea with vomiting, unspecified
CPT/HCPCS: 83013; 99211

== ENCOUNTER 2022-09-26 09:08 | Emergency (ER) | payer MEDICAID, SELFPAY ==
[2022-09-26 09:20] VITALS: BP 112/67; PULSE 79; RESP 16; TEMP 36.6; O2SAT 99; BMI 33.1
--- NOTE | 2022-09-26 09:43 | ED_ITS ---
HPI - General Adult General Chief complaint: Nausea/Vomiting/Diarrhea Stated complaint: headache, vomiting Time Seen by Provider: 09/26/22 09:42 Source: patient Mode of arrival: ambulatory Limitations: no limitations History of Present Illness HPI narrative: Patient is a 26 year old assigned female at with no medical history presenting to the emergency department today feeling generally unwell. Patient states that for the last few days her and her two children have felt generally unwell. Patient denies any current dizziness, lightheadedness, abdominal pain, nausea, vomiting, fever, chills, blurry vision, double vision, loss of vision, chest pain, difficulty breathing, shortness of breath, back pain, night sweats, pain with urination, increased urinary frequency, increased urinary urgency, blood in her urine or stool, syncope or a near syncopal episode, recent trauma or falls, bowel incontinence, bladder incontinence, bowel retention, bladder retention, or any other complaints at this time. Onset (ago): day(s) (2) Severity: mild Severity scale (1-10): 2 Relieving factors: none Exacerbating factors: none Associated symptoms: denies other symptoms Treatments prior to arrival: none Related Data Previous Rx's Medication Instructions Recorded sulfamethoxazole 800 1 tab PO BID 5 days #10 tabs 01/15/21 mg-trimethoprim 160 mg tablet (Bactrim DS) sucralfate 1 gram tablet (Carafate) 2 g PO BID 30 days #120 tabs 02/11/21 doxycycline hyclate 100 mg capsule 100 mg PO BID 10 days #20 caps 05/16/21 hydrocodone 5 mg-acetaminophen 325 1 tab PO Q6H PRN pain #12 tabs 05/16/21 mg tablet metronidazole 500 mg tablet 500 mg PO BID 10 days #20 tabs 05/16/21 nortriptyline 10 mg capsule 10 mg PO BEDTIME #30 caps 09/27/21 peg 3350 240 gram-electrolytes 240 ml PO Q10M #4,000 mL 09/27/21 22.72 gram-6.72 g-5.84 g powdr for soln (Gavilyte-C) ibuprofen 600 mg tablet 600 mg PO Q6H PRN pain #20 tabs 10/21/21 prednisone 20 mg tablet 40 mg PO DAILY #10 tabs 10/21/21 tramadol 50 mg tablet 50 mg PO Q6H PRN pain #20 tabs 10/21/21 prochlorperazine maleate 5 mg 5 mg PO Q6H PRN nausea and 12/25/21 tablet vomiting 1 day #4 tabs pantoprazole 40 mg tablet,delayed 40 mg PO BID #60 tabs 12/26/21 release Allergies Allergy/AdvReac Type Severity Reaction Status Date / Time ondansetron [From ZOFRAN] AdvReac Intermediate INCREASED Verified 12/26/21 12:32 VOMTING Review of Systems Constitutional: Constitutional: Reports no additional constitutional complaints, Denies chills, Denies fever(s) and Denies night sweats Eyes: Eyes: Reports no additional eye complaints, Denies blurry vision, Denies change in vision, Denies diplopia, Denies eye discharge, Denies loss of vision and Denies eye pain ENT: Denies dizziness Cardiovascular: Cardiovascular: Reports no additional cardiovascular complaints, Denies chest pain, Denies lightheadedness, Denies Loss of Consciousness and Denies dyspnea Respiratory: Respiratory: Reports no additional respiratory complaints and Denies dyspnea Gastrointestinal: Gastrointestinal: Reports no additional gastrointestinal complaints, Denies abdominal pain, Denies melena, Denies hematochezia, Denies change in bowel habits and Denies change in stool character Genitourinary: Genitourinary: Denies hematuria, Denies urinary frequency, Denies dysuria, Denies urinary incontinence, Denies urinary hesitancy and Denies urinary urgency Musculoskeletal: Musculoskeletal: Reports no additional musculoskeletal co mplaints, Denies numbness and Denies tingling Neurologic: Denies dizziness, Denies loss of vision, Denies numbness and Denies tingling Psychiatric: Psychiatric: Reports no additional psychiatric complaints Endocrine: Endocrine: Reports no additional endocrine complaints Hematologic/Lymphatic: Hematologic/Lymphatic: Reports no additional hematologic/lymphatic complaints Allergic/Immunologic: Allergic/Immunologic: Reports no additional allergic/immunologic complaints [facility] Past Medical History Attestation statement: The following information was validated with the patient. Source: old records reviewed Medical History Ankylosing spondylitis Endometriosis Endometriosis determined by laparoscopy GERD (gastroesophageal reflux disease) Surgical History Hx of section Hx of colonoscopy Hx of esophagogastroduodenoscopy Tubal ligation status Family History Family History Father Colon cancer HTN (hypertension) Diabetes Hypercholesteremia Stage 4 lung cancer Mother Diabetes HTN (hypertension) Hypercholesteremia Social History Social History Household Members: Children Alcohol intake: current Alcohol intake frequency: does not drink Patient Tobacco Use Status: Never used Tobacco Advance Directives: No Advance Directives Information Provided: No Current occupational status: unemployed and disabled Current occupation: [employer] Physical Exam ED Vital Signs: Vital Signs - 24 hr 09/26/22 09:20 Temperature 97.9 F Pulse Rate 79 Respiratory Rate 16 Blood Pressure 112/67 Pulse Oximetry 99 Oxygen Delivery Method Room Air BMI result Body Mass Index 33.1 Const General: cooperative, no acute distress, alert and awake Nutritional Appearance: well nourished Orientation/consciousness: patient oriented x3 Limitations: no limitations HENMT Head: Yes normal to inspection and Yes atraumatic Ears: hearing grossly normal bilaterally and external ears normal General nose exam: Normal external nose present, no nasal discharge noted and no epistaxis Face and sinus: Yes normal facial exam, No abrasion and No laceration Mouth: Normal oral and palatal mucosa present, no drooling and no muffled voice Eyes General: appearance normal, both eyes and all related structures Periorbital: periorbital findings normal Eyelids: Yes eyelids normal Conjunctivae: conjunctivae normal Pupils: Equal, round and reactive pupils present EOM: EOMs intact bilaterally Neck Neck: Yes normal visual inspection, Yes full ROM and Yes no lymphadenopathy Chest Chest palpation & inspection: normal inspection of the chest Resp Effort & Inspection: normal respiratory effort and able to speak in complete sentences Auscultation: clear to auscultation bilaterally Cardio Rate: regular rate Rhythm: regular rhythm GI Inspection: Yes normal to inspection Neuro General: patient oriented x3 and moves all extremities Cranial nerves: Yes Equal, round and reactive pupils present Cognition (Neuro): normal cognition Motor exam (neuro): 5/5 motor strength present throughout Sensory Exam: Normal double simultaneous stimulation for sensation Coordination: [id number] test normal Extrem General: Yes normal to inspection, Yes full ROM and Yes capillary refill normal Psych Appearance: grossly normal Mental Status: mental status grossly normal Affect: normal affect Attitude: cooperative Thought process: Normal thought process present Thought content: Normal thought content present Insight: Good insight present (Psych) Medical Decision Making MDM Narrative Medical decision making narrative: Patient is a 26 year old assigned female at with no medical history presenting to the emergency department today feeling generally unwell. Patient's physical exam was unremarkable. Patient's rapid COVID-19, influenza, and RSV tests were negative. I explained my physical exam findings as well as all test results to the patient. I answered all questions asked by the patient. I stressed the importance of the patient taking her medication as prescribed. I stressed the importance of the patient following up with her primary care provider. I stressed the importance of the patient returning to the emergency department immediately if her symptoms were to worsen or if she were to develop any dizziness, shortness of breath, difficulty breathing, chest pain, blurry vision, loss of vision, nausea, vomiting, abdominal pain, fever, chills, back pain, or any other complaints. Patient verbalized agreement and understanding with this treatment plan and discharge. Medical Records Medical records reviewed: Yes I reviewed the patient's medical records. Lab Data Lab results reviewed: Yes I reviewed the patient's lab results. Labs: Lab Results 09/26/22 Range/Units 09:24 Influenza Type A (PCR) NEGATIVE (Negative) Influenza Type B (PCR) NEGATIVE (Negative) RSV RNA Qual (PCR) NEGATIVE (Negative) SARS-CoV-2 RNA (RT-PCR) NEGATIVE (Negative) Discharge Plan Discharge Clinical Impression: Viral illness Patient Disposition: Home, Self-Care Instructions: Viral Syndrome (ED) Additional Instructions: Follow up with your primary care provider. Return to the emergency department immediately if your symptoms worsen or if you develop any dizziness, shortness of breath, difficulty breathing, chest pain, blurry vision, loss of vision, nausea, vomiting, abdominal pain, fever, chills, back pain, or any other complaints. Prescriptions: No Action prochlorperazine maleate 5 mg tablet 5 mg PO Q6H PRN (Reason: nausea and vomiting) 1 Days Qty: 4 0RF doxycycline hyclate 100 mg capsule 100 mg PO BID 10 Days Qty: 20 0RF hydrocodone-acetaminophen 5-325 mg tablet 1 tab PO Q6H PRN (Reason: pain) Qty: 12 0RF metronidazole 500 mg tablet 500 mg PO BID 10 Days Qty: 20 0RF Rx Instructions: do not drink alcohol pantoprazole 40 mg tablet,delayed release (DR/EC) 40 mg PO BID Qty: 60 2RF Rx Instructions: take 1/2 hr before eating on an empty stomach prednisone 20 mg tablet 40 mg PO DAILY Qty: 10 0RF tramadol 50 mg tablet 50 mg PO Q6H PRN (Reason: pain) Qty: 20 0RF ibuprofen 600 mg tablet 600 mg PO Q6H PRN (Reason: pain) Qty: 20 0RF sucralfate [Carafate] 1 gram tablet 2 g PO BID 30 Days Qty: 120 3RF sulfamethoxazole-trimethoprim [Bactrim DS] 800-160 mg tablet 1 tab PO BID 5 Days Qty: 10 0RF nortriptyline 10 mg capsule 10 mg PO BEDTIME Qty: 30 2RF peg 3350-electrolytes [GaviLyte-C] 240-22.72-6.72 -5.84 gram recon soln 240 ml PO Q10M Qty: 4000 0RF Rx Instructions: until fecal effluent is clear Referrals: [facility] Family Medicine [Provider Group] (Call to establish and follow up with a primary care provider. If you already have a primary care provider, please follow up with them. ) [facility] [Provider Group] [facility] [Provider Group] Stand Alone Forms: Work/School Release Print Language: Lithuanian
[2022-09-26 10:23] LABS: Influenza A PCR NEGATIVE (Negative); Influenza B PCR NEGATIVE (Negative); Resp Syncy Virus RNA Qual PCR NEGATIVE (Negative); SARS COV2 PCR INHOUSE NEGATIVE (Negative)
--- NOTE | 2022-09-26 11:00 | PC.NURSE ---
PT EVALUATED BY PROVIDER. SKIN WARM AND DRY. RESP UNLABORED. SPEAKING IN FULL CLEAR SENTENCES. SWAB RESULTS PROVIDED TO PATIENT.
== END 2022-09-26 11:05 | disposition home or self-care (01) ==
PROVIDERS: Emergency Provider Emergency Medicine
DX: B34.9 Viral infection, unspecified (principal); R51.9 Headache, unspecified; Z20.822 Contact with and (suspected) exposure to COVID-19; Z79.899 Other long term (current) drug therapy
CPT/HCPCS: 0241U; 99282; 99283

== ENCOUNTER 2022-11-23 10:39 | Emergency (ER) | payer MEDICAID, SELFPAY ==
[2022-11-23 10:50] VITALS: BP 128/53; PULSE 62; RESP 17; TEMP 36.6; O2SAT 98; BMI 31.5
[2022-11-23 12:08] LABS: MANUAL DIFF FLAG NO
[2022-11-23 12:09] LABS: Basophils Percent Auto 0.3 % (0-2); Eosinophils Absolute Auto 0.6 X10*3/uL (0.0-0.4); Eosinophils Percent Auto 5.3 % (0-4); Hematocrit 37.5 % (37.0-47.0); Imm Gran Abs Auto 0.05 X10*3/uL (0.00-0.03); Imm Gran Pct Auto 0.4 % (0.0-0.4); Lymphocytes Percent Auto 24.7 % (20-40); Mean Corpuscular Hemoglobin 27.1 pg (27.0-33.0); Mean Corpuscular Volume 84.7 fL (80.0-98.0); Mean Platelet Volume 10.6 fL (9.4-12.3); Monocytes Percent Auto 8.5 % (2-11); Neutrophils Absolute Auto 7.3 x10*3/uL (2.0-8.3); Neutrophils Percent Auto 60.8 % (45-73); Platelet Count 328 X10*3/uL (160-400); Red Blood Count 4.43 X10*6/uL (4.20-5.50); Red Cell Distribution Width 13.4 % (11.0-16.0); White Blood Count 11.9 X10*3/uL (4.8-10.8)
[2022-11-23 12:22] LABS: Anion Gap 10 (12-20)
[2022-11-23 12:26] LABS: Alanine Aminotransferase 16 U/L (0-31); Albumin Level 3.9 g/dL (3.5-5.0); Alkaline Phosphatase 56 U/L (39-117); Aspartate Amino Transferase 13 U/L (5-31); Bilirubin Total 0.4 mg/dL (0.0-1.0); Blood Urea Nitrogen 13 mg/dL (9-16); Calcium 9.1 mg/dL (8.4-10.2); Carbon Dioxide 26 mmol/L (22-29); Chloride 106 mmol/L (96-108); Creatinine Clr Calc Pharmacy 119.7; Estimated Glomerular Filt Rate > 60; Glucose Random 103 mg/dL (60-115); Magnesium 2.1 mg/dL (1.6-2.6); Sodium 138 mmol/L (135-145); Total Protein 7.4 g/dL (6.5-8.0)
[2022-11-23 12:28] LABS: Lipase 15 U/L (8-78)
[2022-11-23] MEDS: Metoclopramide HCl 10 MG/2 ML VIAL IVPUSH (12:30)
[2022-11-23] MEDS: 0.9 % Sodium Chloride 1,000 ML 999 ML IVCONT (12:30)
[2022-11-23] MEDS: Ketorolac Tromethamine 30 MG/ML VIAL IVPUSH (12:30)
[2022-11-23 12:36] LABS: Appearance Urine Turbid; Color Urine Yellow; Glucose Urine UA Negative (Negative); Leukocyte Esterase Urine Moderate (2+) (Negative); Nitrite Urine Negative (Negative); PH 5.5 (5.0-9.0); Specific Gravity - Urine >= 1.030 (1.005-1.025); UMIC TRIGGER UACC YES; Urine Blood Negative (Negative); Urine Ketones Negative (Negative); Urine Protein Trace mg/dL (Neg-Trace)
[2022-11-23 12:50] LABS: HCG Quantitative < 2 mIU/mL
[2022-11-23 12:51] LABS: Bacteria Urine Trace (None Seen); RBC Urine 0-2 /HPF (0-2); Squamous Epithelial Cell Urine >20 /HPF (0-2); WBC Urine 0-5 /HPF (0-5)
--- NOTE | 2022-11-23 13:00 | ED.ABDPAIN ---
HPI - Abdominal Pain General Chief Complaint: Abdominal Pain Stated Complaint: back pain Time Seen by Provider: 11/23/22 11:55 Source: patient Mode of arrival: ambulatory Limitations: no limitations History of Present Illness HPI narrative: 26-year-old female with a past medical history of recurrent UTIs, endometriosis, GERD and ankylosing spondylitis presenting to the ER with complaints of abdominal pain and lower back pain for the past 4 days worse today. She reports some URI symptoms as well. She denies any recent travel or sick contacts. She denies any measured fevers, headaches, neck pain/stiffness, trouble swallowing or breathing, chest pain or shortness of breath, dysuria, hematuria, abnormal vaginal discharge, vomiting, diarrhea, constipation, vomiting, black or bloody stools, rashes, urinary bowel incontinence or retention, IV drug use or any other symptoms complaints or concerns at this time. MD elicited complaint: abdominal pain Onset (ago): day(s) (4) Pain Consistency: constant Location: periumbilical, RLQ and R flank Severity: mild Quality: aching Radiation: back Exacerbating factors: nothing Relieving factors: nothing Associated symptoms: nausea and chills Related Data Previous Rx's Medication Instructions Recorded sulfamethoxazole 800 1 tab PO BID 5 days #10 tabs 01/15/21 mg-trimethoprim 160 mg tablet (Bactrim DS) sucralfate 1 gram tablet (Carafate) 2 g PO BID 30 days #120 tabs 02/11/21 doxycycline hyclate 100 mg capsule 100 mg PO BID 10 days #20 caps 05/16/21 hydrocodone 5 mg-acetaminophen 325 1 tab PO Q6H PRN pain #12 tabs 05/16/21 mg tablet metronidazole 500 mg tablet 500 mg PO BID 10 days #20 tabs 05/16/21 nortriptyline 10 mg capsule 10 mg PO BEDTIME #30 caps 09/27/21 peg 3350 240 gram-electrolytes 240 ml PO Q10M #4,000 mL 09/27/21 22.72 gram-6.72 g-5.84 g powdr for soln (Gavilyte-C) ibuprofen 600 mg tablet 600 mg PO Q6H PRN pain #20 tabs 10/21/21 prednisone 20 mg tablet 40 mg PO DAILY #10 tabs 10/21/21 tramadol 50 mg tablet 50 mg PO Q6H PRN pain #20 tabs 10/21/21 prochlorperazine maleate 5 mg 5 mg PO Q6H PRN nausea and 12/25/21 tablet vomiting 1 day #4 tabs pantoprazole 40 mg tablet,delayed 40 mg PO BID #60 tabs 12/26/21 release metoclopramide HCl 10 mg tablet 10 mg PO Q6H PRN nausea and 11/23/22 (Reglan) vomiting #14 tabs nitrofurantoin 100 mg PO BID 7 days #14 caps 11/23/22 monohydrate/macrocrystals 100 mg capsule (Macrobid) Allergies Allergy/AdvReac Type Severity Reaction Status Date / Time ondansetron [From ZOFRAN] AdvReac Intermediate INCREASED Verified 12/26/21 12:32 VOMTING Review of Systems Review of Systems Constitutional : No Weight loss, No Fever, + Chills, No Night Sweats, + Fatigue, + Malaise ENT/Mouth : No Hearing loss, No Ear Pain, No Nasal Congestion, No Sinus Pain, No Hoarseness, No sore throat, No Rhinorrhea, No Swallowing Difficulty Eyes: No Eye Pain, No Swelling, No Redness, No Foreign Body, No Discharge, No Vision Changes Cardiovascular : No Chest Pain, No SOB, No Dyspnea on Exertion, No Orthopnea, No Edema, No Palpitations Respiratory : No Cough, No Sputum, No Wheezing, No Smoke Exposure, No Dyspnea Gastrointestinal : + Nausea, No Vomiting, No Diarrhea, No Constipation, + abdominal Pain, No Hematochezia, No Melena Genitourinary : no irregular bleeding, No Dysuria, No Urinary Frequency, No Hematuria, No Urinary Incontinence, No Urgency, + Flank Pain, No Urinary Flow Changes, No Hesitancy Musculoskeletal : No joint pain, + Myalgias, No Joint Swelling Skin : No Skin Lesions, No rash Neuro : No Weakness, No Numbness, No Paresthesias, No Loss of Consciousness, No Dizziness, No Headache Psych : No Anxiety/Panic, No Depression, No SI/HI/AH/VH, No Social Issues, Heme/Lymph: No Bruising, No Bleeding,No Lymphadenopathy Endocrine : No Polyuria, No Polydipsia, No Temperature Intolerance Yes all other systems are reviewed and are negative PMFSH Past Medical History Attestation statement: The following information was validated with the patient. Source: old records reviewed and nursing notes reviewed Medical History Ankylosing spondylitis Endometriosis Endometriosis determined by laparoscopy GERD (gastroesophageal reflux disease) Surgical History Hx of section Hx of colonoscopy Hx of esophagogastroduodenoscopy Tubal ligation status Family History Family History Father Colon cancer HTN (hypertension) Diabetes Hypercholesteremia Stage 4 lung cancer Mother Diabetes HTN (hypertension) Hypercholesteremia Social History Social History Household Members: Children Alcohol intake: never Patient Tobacco Use Status: Never used Tobacco Smoked in Last 30 Days: No Advance Directives: No Advance Directives Information Provided: No Patient : No Current occupational status: unemployed and disabled Current occupation: [employer] Physical Exam ED Vital Signs: Vital Signs - 24 hr 11/23/22 10:50 Temperature 98 F Pulse Rate 62 Respiratory Rate 17 Blood Pressure 128/53 L Pulse Oximetry 98 Oxygen Delivery Method Room Air BMI result Body Mass Index 31.5 Vital signs have been reviewed and all within normal limits Appearance: Alert. Oriented X3. No acute distress. Head: Normal external exam. Normocephalic. Eyes: PERRLA. EOMI. Conjunctiva and sclera normal. Eyelids normal. ENT: Pharynx normal. Uvula midline. Moist mucous membranes. No trismus noted. No drooling noted. No muffled voice noted. Neck: Normal inspection. Neck supple. FROM. No adenopathy. No meningeal signs. CVS: Normal heart rate and rhythm. Heart sound normal. No murmurs noted. Pulses normal throughout. Respiratory: No respiratory distress. Painless inspiration. Breath sounds normal. No wheezes/rales/rhonchi noted. Chest nontender. No accessory muscle usage noted or decreased air movement noted. Abdomen: Soft and mild tenderness diffusely no point tenderness is noted. Nondistended. No guarding. No rigidity. Bowel sounds normal in all 4 quadrants. No distention noted. No organomegaly noted. No visible injury noted. No rebound tenderness. Negative Rovsing sign. Negative obturator's sign. Negative psoas sign. Negative Coombs sign. Back: No CVA tenderness. Full range of motion noted. Skin: Skin warm and dry. Normal skin color. Normal skin turgor. No rashes/lesions/lacerations noted. Extremities: Extremities exhibit normal range of motion. Extremities nontender. Neuro: Oriented X 3. No motor deficit. No sensory deficit. Reflexes normal. Normal steady gait. CN's II-XII intact bilaterally? Course Course Course Narrative: 26-year-old female with a past medical history of recurrent UTIs, endometriosis, GERD and ankylosing spondylitis presenting to the ER with complaints of abdominal pain and lower back pain for the past 4 days worse today. She reports some URI symptoms as well. She denies any recent travel or sick contacts. She denies any measured fevers, headaches, neck pain/stiffness, trouble swallowing or breathing, chest pain or shortness of breath, dysuria, hematuria, abnormal vaginal discharge, vomiting, diarrhea, constipation, vomiting, black or bloody stools, rashes, urinary bowel incontinence or retention, IV drug use or any other symptoms complaints or concerns at this time. Labs were ordered and patient leukocytosis of 11,000. Anion gap 10. Otherwise all other labs were within normal limits. Serum quant negative for . Patient noted to have leukocytes most likely with UTI. I did order CT scan abdomen pelvis to evaluate for any other acute processes such as kidney stones/pyelonephritis or appendicitis and if that was negative else going to order an ultrasound to evaluate her ovaries although patient called me over reported that she had to be discharged right away due to her son was having emergency and was crying for her therefore she wanted to be discharged I explained her that she should return due to I am unable to rule out any other acute processes such as appendicitis/kidney stone/pyelonephritis or any other processes and patient understands she will return. Medical Decision Making Lab Data MDM Lab Attestation statement: I reviewed the patient's lab results. Result Diagrams: 11/23/22 12:03 11/23/22 12:03 Labs: Lab Results 11/23/22 11/23/22 11/23/22 Range/Units 12:03 12:03 12:03 WBC 11.9 H (4.8-10.8) X10*3/uL RBC 4.43 (4.20-5.50) X10*6/uL Hgb 12.0 (12.0-16.0) g/dl Hct 37.5 (37.0-47.0) % MCV 84.7 (80.0-98.0) fL MCH 27.1 (27.0-33.0) pg MCHC 32.0 (31.0-35.0) g/dl RDW 13.4 (11.0-16.0) % Plt Count 328 (160-400) X10*3/uL MPV 10.6 (9.4-12.3) fL Immature Gran % (Auto) 0.4 (0.0-0.4) % Neut % (Auto) 60.8 (45-73) % Lymph % (Auto) 24.7 (20-40) % [place] % (Auto) 8.5 (2-11) % Eos % (Auto) 5.3 H (0-4) % Baso % (Auto) 0.3 (0-2) % Lymph # (Auto) 3.0 (1.2-4.9) X10*3/uL [place] # (Auto) 1.0 (0.1-1.2) X10*3/uL Eos # (Auto) 0.6 H (0.0-0.4) X10*3/uL Baso # (Auto) 0.0 (0.0-0.2) X10*3/uL Abs Immat Gran (auto) 0.05 H (0.00-0.03) X10*3/uL Absolute Neuts (auto) 7.3 (2.0-8.3) x10*3/uL Absolute Nucleated RBC 0.000 (0.0-0.012) X10*3/uL Nucleated RBC % (auto) 0.0 (0.0-0.2) /100WBC Sodium 138 (135-145) mmol/L Potassium 4.0 (3.3-5.1) mmol/L Chloride 106 (96-108) mmol/L Carbon Dioxide 26 (22-29) mmol/L Anion Gap 10 L (12-20) BUN 13 (9-16) mg/dL Creatinine 0.71 (0.5-1.4) mg/dL Estim Creat Clear Calc 119.7 Estimated GFR > 60 Random Glucose 103 (60-115) mg/dL Calcium 9.1 (8.4-10.2) mg/dL Magnesium 2.1 (1.6-2.6) mg/dL Total Bilirubin 0.4 (0.0-1.0) mg/dL AST 13 (5-31) U/L ALT 16 (0-31) U/L Alkaline Phosphatase 56 (39-117) U/L Total Protein 7.4 (6.5-8.0) g/dL Albumin 3.9 (3.5-5.0) g/dL Lipase 15 (8-78) U/L Beta HCG, Quant < 2 mIU/mL Urine Color Yellow Urine Appearance Turbid Urine pH 5.5 (5.0-9.0) Ur Specific [place] >= 1.030 H (1.005-1.025) Urine Protein Trace (Neg-Trace) mg/dL Urine Glucose (UA) Negative (Negative) mg/dL Urine Ketones Negative (Negative) mg/dL Urine Blood Negative (Negative) Urine Nitrite Negative (Negative) Ur Leukocyte Esterase Moderate (2+) H (Negative) Urine RBC 0-2 (0-2) /HPF Urine WBC 0-5 (0-5) /HPF Ur Squamous Epith Cells >20 (0-2) /HPF Urine Bacteria Trace (None Seen) Hyaline Casts 3-5 (0-2) /LPF Medications Administered Discontinued Medications Generic Name Dose Route Start Last Admin Trade Name Freq PRN Reason Stop Dose Admin Sodium Chloride 1,000 mls @ 999 mls/hr 11/23/22 12:15 11/23/22 12:30 Ns IVCONT 11/23/22 13:15 999 mls/hr .Q1H1M ABDULKADIR Administration Ketorolac Tromethamine 30 mg 11/23/22 12:06 11/23/22 12:30 Ketorolac Tromethamine 30 Mg/Ml Vial IVPUSH 11/23/22 12:07 30 mg ONCE ONE Administration Metoclopramide HCl 10 mg 11/23/22 12:20 11/23/22 12:30 Metoclopramide Hcl 10 Mg/2 Ml Vial IVPUSH 11/23/22 12:21 10 mg ONCE ONE Administration Discharge Plan Discharge Clinical Impression: UTI (urinary tract infection) Patient Disposition: Home, Self-Care Instructions: Urinary Tract Infection in Women (ED) Additional Instructions: You had to leave today therefore we were unable to scan your abdomen and pelvis you could possibly have appendicitis or kidney stone please return as soon as possible for this repeat scan. Prescriptions: New nitrofurantoin monohyd/m-cryst [Macrobid] 100 mg capsule 100 mg PO BID 7 Days Qty: 14 0RF Rx Instructions: must administer with a meal/food metoclopramide HCl [Reglan] 10 mg tablet 10 mg PO Q6H PRN (Reason: nausea and vomiting) Qty: 14 0RF No Action prochlorperazine maleate 5 mg tablet 5 mg PO Q6H PRN (Reason: nausea and vomiting) 1 Days Qty: 4 0RF doxycycline hyclate 100 mg capsule 100 mg PO BID 10 Days Qty: 20 0RF hydrocodone-acetaminophen 5-325 mg tablet 1 tab PO Q6H PRN (Reason: pain) Qty: 12 0RF metronidazole 500 mg tablet 500 mg PO BID 10 Days Qty: 20 0RF Rx Instructions: do not drink alcohol pantoprazole 40 mg tablet,delayed release (DR/EC) 40 mg PO BID Qty: 60 2RF Rx Instructions: take 1/2 hr before eating on an empty stomach prednisone 20 mg tablet 40 mg PO DAILY Qty: 10 0RF tramadol 50 mg tablet 50 mg PO Q6H PRN (Reason: pain) Qty: 20 0RF ibuprofen 600 mg tablet 600 mg PO Q6H PRN (Reason: pain) Qty: 20 0RF sucralfate [Carafate] 1 gram tablet 2 g PO BID 30 Days Qty: 120 3RF sulfamethoxazole-trimethoprim [Bactrim DS] 800-160 mg tablet 1 tab PO BID 5 Days Qty: 10 0RF nortriptyline 10 mg capsule 10 mg PO BEDTIME Qty: 30 2RF peg 3350-electrolytes [GaviLyte-C] 240-22.72-6.72 -5.84 gram recon soln 240 ml PO Q10M Qty: 4000 0RF Rx Instructions: until fecal effluent is clear Referrals: Physician,Unknown J [Primary Care Provider] - (your pcp) Interventions: ED Discharge Assessment Last Done: 11/23/22 13:12 Discharge Date/Time: 11/23/22 13:25
== END 2022-11-23 13:25 | disposition home or self-care (01) ==
PROVIDERS: Physician Assistant Medical; Emergency Provider Emergency Medicine
DX: N39.0 Urinary tract infection, site not specified (principal); M54.50 Low back pain, unspecified; R11.2 Nausea with vomiting, unspecified; R10.9 Unspecified abdominal pain; Z79.899 Other long term (current) drug therapy
CPT/HCPCS: 36415; 80053; 81001; 83690; 83735; 84702; 85025; 96361; 96374; 96375; 99284; 99285; J1885; J2765

== ENCOUNTER 2023-07-07 11:05 | Outpatient (AMB) | payer MEDICAID, SELFPAY ==
--- NOTE | 2023-07-07 11:06 | A.OFFVIS_ITS ---
Intake Vital Signs 07/07/23 11:07 Height 5 ft 3 in Weight 186 lb 8.177 oz BMI 33.0 BP 112/74 Blood Pressure Location Lt brachial Position Sitting Pulse 74 Pulse Source Pulse Oximeter Temp 97.3 F Temp Source Skin Pulse Oximetry (%) 98 Oxygen Delivery Method Room Air Intake Visit Reasons: Ankylosing spondylitis Intake Note: New patient here for ankylosing spondylitis. Previously seen by Dr. Childers at [facility] over a year ago. Dental Patient Coordinator Required: No Accompanied by: Self / Same As Patient Allergies ondansetron [From ZOFRAN] Adverse Reaction (Intermediate, Verified 07/07/23 11:07) INCREASED VOMTING HPI HPI Comments History of Present Illness Details The patient presents for evaluation of multiple areas of pain. She says symptoms began in the lower back when she was about 17. They gradually involved the whole spine up into the thoracic spine and neck region. Other areas that have painful have included the buttock region, lateral hips, knees, and shoulders. She is referred from [facility]. Apparently she did see Dr. Rosa but they did not send any of her notes. The patient states she saw the doctor on a telehealth visit only once. The diagnosis of ankylosing spondylitis was discussed. Her back pain is pretty much constant, it is worse when she rests. There is some radiation of the lumbar pain into the lateral and posterior buttock region. She does recall some MRI scans that were done possibly when she was with [employer]. She has been prescribed various NSAIDs in the past which she said were not helpful but it sounds like also she had significant problems tolerating them in that she had nausea and hea rtburn. Presently she does have a prescription for diclofenac 50 mg that she takes occasionally and she does not think it is helpful. In December 2021 she did have upper endoscopy done that showed some erosive esophagitis. She also gets frequent loose stools but there was no finding of inflammation seen on a colonoscopy at that point. She does not see any hematochezia. She also has problems with the eyes. She had some painful episodes in the left eye with visual deficits. She was told she had optic neuritis and was prescribed some eyedrops but is not sure what they were. She says there was a dispute between the ldr rn and the real estate specialist as to what to do with her prescriptions. She also it sounds like had seen a neurologist once but does not know who that is.Her disrupted care she says is due to COVID restrictions in care. [facility] Medical History Ankylosing spondylitis Endometriosis Endometriosis determined by laparoscopy GERD (gastroesophageal reflux disease) Surgical History Hx of section Hx of colonoscopy Hx of esophagogastroduodenoscopy Tubal ligation status Family History (Updated 07/07/23 @ 11:20 by MARINE Romero) Father Colon cancer HTN (hypertension) Diabetes Hypercholesteremia Stage 4 lung cancer Mother Diabetes HTN (hypertension) Hypercholesteremia Maternal Grandmother Arthritis Multiple sclerosis Paternal Grandmother Arthritis Social History (Updated 07/07/23 @ 11:16 by MARINE Romero) Household Members: Children Household Members Other:: brother Alcohol intake: never Patient Tobacco Use Status: Never used Tobacco Current occupational status: employed, unemployed and disabled 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 She has difficulty moving around because of back and buttock pain. Negative for appetite change, weight change, fever, chills, malaise and fatigue Eyes Details: History of eye inflammation more in the left eye. There was redness, pain and visual changes. Presently however she says that seems to be stable for now. Negative for vision change, dry eyes,headaches and dizziness ENT Details: Negative for hearing change, tinnitus, oral ulcer, nose bleeds and oral dryness. Card Details: Negative chest pain, edema and syncope Resp Details: Negative for SOB, cough and wheezing GI Details: Intermittent heartburn and nausea. Loose nonbloody stools. Negative abdominal pain, bowel changes, constipation and bloody stool. Details: She had a tubal ligation in the past. Negative for dysuria, hematuria, nocturia, decreased force/flow and genital discharge Skin/Breast Details: Negative for itching, rash, hives, Raynaud's symptoms, sun sensitivity, and skin cancer Neuro Details: Negative for epilepsy, palsy, stroke, changes in speech, tingling and weakness Psych Details: Negative for anxiety, depression and stress Endo Details: Negative for polyuria and polydypsia Jon/Lymph Details: Negative for excessive bruising or bleeding. Physical Exam Vital Signs: Last Vital Signs Temp 97.3 F 07/07/23 11:07 Pulse 74 07/07/23 11:07 BP 112/74 07/07/23 11:07 Pulse Ox 98 07/07/23 11:07 Oxygen Delivery Method Room Air 07/07/23 11:07 BMI result Body Mass Index 33.0 APPEARANCE: Patient in no acute distress EYES no redness, pupils equal and reactive to light, eyelids normal EARS: External ear normal, canal clear and tympanic membrane normal. NOSE/SINUS: Airflow through both nares, no nasal discharge, no bleeding THROAT: Oral mucosa moist, no ulcerations NECK: No thyromegaly or masses, no adenopathy, trachea midline. HEART: Regulrar rhythm, S1-S2 heard, no murmurs, rubs or gallops. LUNG: Clear to percussion and auscultation ABD: Normal bowel sounds, no organomegaly, masses. There is some slight mid abdominal tenderness without rebound. EXTREMITIES: No edema, no calf tenderness, normal peripheral pulses. NEURO: Oriented and alert x3. No focal weakness. Reflexes symmetric. Gait normal. SKIN: No inflammatory or neoplastic lesions. Normal color and turgor JOINT EXAM:.?? Cervical Spine:.? Slight pain with extremes of normal range of motion. No tenderness. Thoracic Spine:.? No scoliosis.? Mild pain with lateral flexion or rotation. This seems to be referred to the lower thoracic region. No tenderness on palpation. Lumbar Spine:.? Alignment normal.? Mild to moderate pain with flexion at 30 degrees or any attempted hyperextension. Sirena's test may be gives 2 cm of flexion. There is some paraspinal muscle tenderness. Chest Wall:.? Slight tenderness in the parasternal region but no swelling, increased warmth or erythema. Hands:.? Normal pain-free range of motion with slight tenderness across the MCP joints. No swelling, increased warmth or erythema. 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 Wrists:.? Mild pain with flexion extension at 75 degrees. Slight tenderness but no swelling, increased warmth or erythema. Elbows:. Normal pain-free range of motion without tenderness, swelling, increased warmth or erythema. Shoulders:.?? Mild pain with extremes of normal range of motion. Most this pain is up over the trapezius muscle and laterally. Mild anterior, subacromial and posterior tenderness. No adenopathy, weakness, swelling, increased warmth or erythema. Hips:.? Flexion at 90 degrees or more than 10 degrees of internal or external rotation causes lumbar and lateral buttock pain in both hips. The lateral pain radiates around to the groin as well.. Hip bursa:.? Mild bilateral trochanteric tenderness. Knees:.?? Normal pain-free range of motion without tenderness, swelling, increased warmth or erythema.? There is no effusion or crepitation Ankles:.? Normal pain-free range of motion with slight tenderness medially laterally but no swelling, increased warmth or erythema. Feet:.? Normal pain-free range of motion with slight tenderness across the MTP joints. No sausage digits. No other areas of, swelling, increased warmth or erythema. Tender points:.? Mild tenderness to digital palpation at the occiput, trapezius, second rib, lateral epicondyle, knees, greater trochanter area bilaterally. ? Assessment & Plan Assessment & Plan (1) Low back pain: Code(s): M54.50 - Low back pain, unspecified (2) Hip pain, chronic: Code(s): M25.559 - Pain in unspecified hip; G89.29 - Other chronic pain Plan Low back pain and gradually becoming spinal pain that started when she was 17. Symptoms are bothersome even at rest so this does have the flavor of inflammatory back disease. There use of NSAIDs is equivocal since she cannot really tolerate them because of GI side effects. We need to get more data as to the previous imaging studies. We need more data as to the pathology seen in her eyes. If indeed she had optic neuritis, a potential part of MS, then use of TNF inhibitors would be contraindicated. We will see if we can get the MRIs done at [facility], records from her eye doctor, records from the previous real estate specialist, and records from [facility]. We will check sacroiliac films to see if there is evidence for sacroiliitis. HLA B27, metabolic panel, CRP, CBC and sed rate are also ordered. I am afraid we cannot safely use the NSAIDs because of her erosive esophagitis picture noted about a year ago. We will await the return of some more data and see her back in month or so. In the meantime I think she could take acetaminophen up to 1 g t.i.d.. Orders: Orders HLA B27 Today M54.50 - Low back pain, unspecified XR sacroiliac joint min 3V Today G89.29 - Other chronic pain, M25.559 - Pain in unspecified hip, M54.50 - Low back pain, unspecified Comprehensive Met. Panel Today G89.29 - Other chronic pain, M25.559 - Pain in unspecified hip, M54.50 - Low back pain, unspecified C Reactive Protein Today G89.29 - Other chronic pain, M25.559 - Pain in unspecified hip, M54.50 - Low back pain, unspecified Complete Blood Count Auto Diff Today G89.29 - Other chronic pain, M25.559 - Pain in unspecified hip, M54.50 - Low back pain, unspecified Erythrocyte Sedimentation Rate Today G89.29 - Other chronic pain, M25.559 - Pain in unspecified hip, M54.50 - Low back pain, unspecified Coding Level of Care Code New Pt Level 4 (64872) Diagnoses Low back pain M54.50 Hip pain, chronic M25.559; G8929
[2023-07-07 11:07] VITALS: BP 112/74; PULSE 74; TEMP 36.3; O2SAT 98; BMI 33.0
== END 2023-07-07 12:17 | disposition home or self-care (01) ==
PROVIDERS: PCP Nurse Practitioner Family; Visit Provider Internal Medicine Rheumatology
DX: M54.50 Low back pain, unspecified (principal); M25.559 Pain in unspecified hip; G89.29 Other chronic pain
CPT/HCPCS: 99204

== ENCOUNTER → 2023-07-07 11:05 | Outpatient (BNVA) | payer MEDICAID, SELFPAY | PROVIDERS: PCP Nurse Practitioner Family; Visit Provider Internal Medicine Rheumatology | DX: G89.29 Other chronic pain (principal); M25.559 Pain in unspecified hip; M54.50 Low back pain, unspecified | CPT/HCPCS: 99202 ==

== ENCOUNTER 2023-07-17 08:55 | Outpatient (REF) | payer MEDICAID, SELFPAY ==
--- NOTE | ~2023-07-17 | XR_ITS ---
EXAMINATION: XR SACROILIAC JOINTS CLINICAL INFORMATION: Low back pain, unspecified. COMPARISON: CT abdomen/pelvis 05/16/2021. TECHNIQUE: 3 views of the sacroiliac joints FINDINGS: Symmetric increased sclerosis of the bilateral SI joints. No asymmetric widening. Pelvic rim and pubic symphysis are maintained. No acute fractures or subluxation. No significant soft tissue abnormality. XR/XR sacroiliac joint min 3V IMPRESSION: Symmetric increased sclerosis of the bilateral SI joints, which can be seen in the setting of sacroiliitis. Correlate clinically.
[2023-07-17 09:12] LABS: MANUAL DIFF FLAG NO
[2023-07-17 10:02] LABS: Basophils Absolute Auto 0.1 X10*3/uL (0.0-0.2); Basophils Percent Auto 0.4 % (0-2); Eosinophils Absolute Auto 0.2 X10*3/uL (0.0-0.4); Eosinophils Percent Auto 1.2 % (0-4); Hematocrit 38.5 % (37.0-47.0); Imm Gran Abs Auto 0.05 X10*3/uL (0.00-0.03); Imm Gran Pct Auto 0.4 % (0.0-0.4); Mean Corpuscular HGB Conc 31.2 g/dl (31.0-35.0); Mean Corpuscular Hemoglobin 27.5 pg (27.0-33.0); Mean Corpuscular Volume 88.1 fL (80.0-98.0); Mean Platelet Volume 10.8 fL (9.4-12.3); Monocytes Absolute Auto 0.9 X10*3/uL (0.1-1.2); Monocytes Percent Auto 7.2 % (2-11); Neutrophils Absolute Auto 9.2 x10*3/uL (2.0-8.3); Neutrophils Percent Auto 74.8 % (45-73); Platelet Count 409 X10*3/uL (160-400); Red Blood Count 4.37 X10*6/uL (4.20-5.50); Red Cell Distribution Width 13.5 % (11.0-16.0); White Blood Count 12.3 X10*3/uL (4.8-10.8)
[2023-07-17 10:46] LABS: Erythrocyte Sedimentation Rate 34 MM/HR (0-20)
[2023-07-17 11:01] LABS: Alanine Aminotransferase 13 U/L (0-31); Albumin Level 4.1 g/dL (3.5-5.0); Alkaline Phosphatase 54 U/L (39-117); Anion Gap 11 (12-20); Aspartate Amino Transferase 13 U/L (5-31); Bilirubin Total 0.4 mg/dL (0.0-1.0); Blood Urea Nitrogen 11 mg/dL (9-16); C Reactive Protein 0.51 mg/dL (< or = 0.50); Calcium 9.7 mg/dL (8.4-10.2); Carbon Dioxide 26 mmol/L (22-29); Chloride 107 mmol/L (96-108); Estimated Glomerular Filt Rate > 60; Glucose Random 89 mg/dL (60-115); Potassium 3.9 mmol/L (3.3-5.1); Sodium 140 mmol/L (135-145); Total Protein 8.4 g/dL (6.5-8.0)
[2023-07-18 04:30] LABS: HBS Num1 0.12 mIU/mL (0-7.99); HBc Num1 0.25 S/CO (0.00-0.79); HBsAGNum1 0.37 S/CO (0.00-0.99); Hepatitis A Antibody IgM 0.21 Index (0-0.79); Hepatitis B Core Antibody Nonreactive (Nonreactive); Hepatitis B Surface Antigen Negative (Negative); ~HepC Num1 0.15 S/CO (0.00-0.79); ~Hepatitis A Antibody IgM Nonreactive (Nonreactive); ~Hepatitis B Surface Antibody NONREACTIVE (Nonreactive); ~Hepatitis C Antibody Nonreactive (Nonreactive)
[2023-07-20 15:28] LABS: TS Negative Control Passed; TS Panel A 0; TS Panel B 0; TS Positive Control Passed; TSpotTB Negative (Negative)
[2023-07-23 22:58] LABS: HLA B27 Positive (Negative)
== END 2023-07-17 08:56 | disposition home or self-care (01) ==
LOC: HO.LAB 08:55
PROVIDERS: Visit Provider Internal Medicine Rheumatology
DX: Z11.1 Encounter for screening for respiratory tuberculosis (principal); G89.29 Other chronic pain; M25.559 Pain in unspecified hip; M54.50 Low back pain, unspecified; Z79.899 Other long term (current) drug therapy
CPT/HCPCS: 36415; 72202; 80053; 85025; 85652; 86140; 86481; 86704; 86706; 86709; 86803; 86812; 87340

== ENCOUNTER 2023-08-02 10:54 | Emergency (ER) | payer MEDICAID, SELFPAY ==
[2023-08-02 10:57] VITALS: BP 137/67; PULSE 94; RESP 20; TEMP 36.6; O2SAT 95; BMI 33.7
--- NOTE | 2023-08-02 12:32 | ECG_ITS ---
Test Reason : chest pain Blood Pressure : / mmHG Vent. Rate : 075 BPM Atrial Rate : 075 BPM P-R Int : 160 ms QRS Dur : 084 ms QT Int : 380 ms P-R-T Axes : 038 010 011 degrees QTc Int : 424 ms Normal sinus rhythm with sinus arrhythmia Minimal voltage criteria for LVH, may be normal variant ( R in aVL ) Borderline ECG When compared with ECG of 20-OCT-2021 18:54, Nonspecific T wave abnormality no longer evident in Anterior leads Referred By: Saritha Hernandez Electronically Signed By:DORETHA PEREZ
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
[2023-08-02 12:38] VITALS: BP 124/65; PULSE 74; RESP 18; TEMP 525; TEMP 977; O2SAT 97
[2023-08-02 12:40] VITALS: O2SAT 99
--- NOTE | 2023-08-02 12:43 | ED_ITS ---
HPI - URI/Sore Throat General Chief Complaint: Upper Respiratory Symptoms Stated Complaint: Chest pain/Cough Time Seen by Provider: 08/02/23 12:32 Source: patient Mode of arrival: ambulatory Limitations: no limitations History of Present Illness HPI Narrative: Patient is a 27 year old female with history of GERD and endometriosis who presents to the ED due to upper respiratory symptoms. She was cleaning her house with ajax powder and started to experience a cough, SOB, and chest tightness prior to arrival. She reports that this has happened 2 times before while using the cleaning solution. She explains that the condition was self-limiting the times she experienced it, but she was prompted to go to the ED today due to the chest tightness. She has difficulty taking a deep breath and vomited bile while she was cleaning. She denies a rash, fever, or nausea. Related Data Home Medications Medication Instructions Recorded Confirmed diclofenac sodium 1 % topical gel 2 g topical TID PRN 07/07/23 diclofenac sodium 50 mg 50 mg PO BID PRN 07/07/23 tablet,delayed release famotidine 20 mg tablet 20 mg PO BID 07/07/23 prednisolone acetate 1 % eye 1 drp ophthalmic (eye) QID 07/07/23 drops,suspension Previous Rx's Medication Instructions Recorded metoclopramide HCl 10 mg tablet 10 mg PO Q6H PRN nausea and 11/23/22 (Reglan) vomiting #14 tabs nitrofurantoin 100 mg PO BID 7 days #14 caps 11/23/22 monohydrate/macrocrystals 100 mg capsule (Macrobid) Allergies Allergy/AdvReac Type Severity Reaction Status Date / Time ondansetron [From ZOFRAN] AdvReac Intermediate INCREASED Verified 08/02/23 10:57 VOMTING Review of Systems Review of Systems: Yes all other systems are reviewed and are negative Constitutional: Constitutional: Reports no additional constitutional complaints, Denies body ache(s), Denies chills, Denies fever(s), Denies headache(s) and Denies weakness Eyes: Eyes: Reports no additional eye complaints and Denies change in vision ENT: Reports system reviewed and no additional complaints, except as documented, Denies dizziness, Denies headache(s), Denies nasal congestion, Denies nasal discharge and Denies neck pain Cardiovascular: Cardiovascular: Reports no additional cardiovascular complaints, Reports chest pain, Denies leg edema and Reports dyspnea Respiratory: Respiratory: Reports no additional respiratory complaints, Reports cough and Reports dyspnea Gastrointestinal: Gastrointestinal: Reports no additional gastrointestinal complaints, Denies abdominal pain, Denies diarrhea, Denies nausea and Reports vomiting Genitourinary: Genitourinary: Reports no additional female genitourinary complaints and Denies urinary incontinence Musculoskeletal: Musculoskeletal: Reports no additional musculoskeletal complaints, Denies back pain, Denies arthralgias, Denies joint swelling, Denies neck pain, Denies numbness and Denies tingling Integumentary/Breasts: Skin/Breast: Reports system reviewed and no additional complaints, except as docu and Denies rash Neurologic: Reports system reviewed and no additional complaints, except as documented, Denies Abnormal speech present, Denies dizziness, Denies headache(s), Denies numbness, Denies tingling and Denies weakness PMFSH Past Medical History Attestation statement: The following information was validated with the patient. Source: old records reviewed and nursing notes reviewed Medical History Endometriosis determined by laparoscopy Endometriosis Ankylosing spondylitis GERD (gastroesophageal reflux disease) Surgical History Hx of esophagogastroduodenoscopy Tubal ligation status Hx of section Hx of colonoscopy Family History Family History Father Colon cancer HTN (hypertension) Diabetes Hypercholesteremia Stage 4 lung cancer Mother Diabetes HTN (hypertension) Hypercholesteremia Maternal Grandmother Arthritis Multiple sclerosis Paternal Grandmother Arthritis Social History Social History Household Members: Children Household Members Other:: brother Alcohol intake: never Patient Tobacco Use Status: Never used Tobacco Smoked in Last 30 Days: No Use of substances other than those prescribed or required for medical reasons: No Advance Directives: No Current occupational status: employed, unemployed and disabled 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 Physical Exam Vital Signs: Vital Signs: Last Vital Signs Temp 977 F H 08/02/23 12:38 Pulse 74 08/02/23 12:38 Resp 18 08/02/23 12:38 BP 124/65 08/02/23 12:38 Pulse Ox 99 08/02/23 12:40 O2 Del Method Room Air 08/02/23 12:40 BMI result Body Mass Index 33.7 Const: General: cooperative, healthy appearing, comfortable and no acute distress Orientation/consciousness: patient oriented x3 Limitations: no limitations HEENT: Head: Yes normal to inspection Ears: hearing grossly normal bilaterally General nose exam: Normal external nose present Face and sinus: Yes normal facial exam Mouth: Normal oral and palatal mucosa present Throat: Yes posterior oropharynx normal Eyes: General: appearance normal, both eyes and all related structures Pupils: Equal, round and reactive pupils present Neck: Neck: Yes normal visual inspection Chest: Chest palpation & inspection: normal inspection of the chest Resp: Effort & Inspection: normal respiratory effort Auscultation: clear to auscultation bilaterally Cardio: Rate: regular rate Rhythm: regular rhythm Peripheral pulses: Peripheral pulses 2+ throughout GI: Inspection: Yes normal to inspection Palpation (GI): Soft to palpation and nontender Auscultation: normal bowel sounds Back/Spine/Pelvis: Thoracic/Lumbar Spine: thoracic and lumbar spine normal to inspection Skin: General skin exam: no rashes or lesions noted Neuro: General: patient oriented x3, no focal motor deficits and normal sensation to monofilament Cranial nerves: Yes Equal, round and reactive pupils present Cognition (Neuro): normal cognition Speech: No Abnormal speech present Gait exam (Neuro): Normal gait present Motor exam (neuro): 5/5 motor strength present throughout Extrem: General: Yes normal to inspection Course Course Course Narrative: 1330-Nursing informed me the patient eloped from radiology Medical Decision Making Medical Decision Making [facility] Narrative: Patient is a 27 year old female with history of GERD and endometriosis who presents to the ED due to upper respiratory symptoms. She was cleaning her house with ajax powder and started to experience a cough, SOB, and chest tightness prior to arrival. She reports that this has happened 2 times before while using the cleaning solution. She explains that the condition was self-limiting the times she experienced it, but she was prompted to go to the ED today due to the chest tightness. She has difficulty taking a deep breath and vomited bile while she was cleaning. She denies a rash, fever, or nausea. on exam vitals are stable. Lungs are clear. Patient is well-appearing Will obtain chest x-ray, EKG. Differential Diagnosis Differential Diagnoses: The differential diagnosis associated with the presentation includes Chemical exposure pneumonitis Admission/Observation Consideration of admission/observation: Escalation of care including admission/observation considered Independent Interpretation I performed an independent interpretation of an: EKG and Plain X-Ray Interpretation: I independently reviewed the EKG which shows sinus rhythm with a rate of 75, normal [place], normal QRS, normal QT Radiology Impression Discussion of test interpretation with radiology: I have reviewed the radiologist's reading. Discharge Plan Discharge Clinical Impression: Chest pain Patient Disposition: Elopement Prescriptions: No Action nitrofurantoin monohyd/m-cryst [Macrobid] 100 mg capsule 100 mg PO BID 7 Days Qty: 14 0RF Rx Instructions: must administer with a meal/food metoclopramide HCl [Reglan] 10 mg tablet 10 mg PO Q6H PRN (Reason: nausea and vomiting) Qty: 14 0RF diclofenac sodium 50 mg tablet,delayed release (DR/EC) 50 mg PO BID PRN diclofenac sodium 1 % gel 2 g topical TID PRN famotidine 20 mg tablet 20 mg PO BID prednisolone acetate 1 % drops,suspension 1 drp ophthalmic (eye) QID Discharge Date/Time: 08/02/23 13:24
--- NOTE | 2023-08-02 13:01 | PC.NURSE ---
pa came to bedside to eval- pt c/o cough/cp on inspiration- anterior/center. c/o sob at times at respir. even breathing/+o2 on RA.
== END 2023-08-02 13:24 | disposition left against medical advice (07) ==
LOC: HO.ED 12:37
PROVIDERS: Emergency Provider Emergency Medicine
DX: R07.89 Other chest pain (principal); R05.9 Cough, unspecified; R06.02 Shortness of breath; Z79.899 Other long term (current) drug therapy
CPT/HCPCS: 93005; 99283; 99285

== ENCOUNTER 2023-08-04 08:31 | Outpatient (AMB) | payer MEDICAID, SELFPAY ==
--- NOTE | 2023-08-04 08:13 | A.OFFVIS_ITS ---
Intake Intake Visit Reasons: Ankylosing spondylitis Intake Note: Patient following up on ankylosing spondylitis. 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 She reports still ongoing back pain. She has stopped the anti-inflammatories since she has known esophagitis. She did see her primary doctor apparently at some point at the end of May or early June. She was given an injection. It did not seem to help her pain much. She does know what the injection was. It also seemed to be followed by lightheadedness, sleepiness and more back pain. She currently does not really have any urinary symptoms. She has a tubal ligation and was also told she had endometriosis. I was able to locate MRI scan showing edema at the SI joints. Her x-ray also showed sclerosis at the SI joints. The notes from Ophthalmology indicated they thought she had iritis and not optic neuritis. [facility], [facility] Medical History Endometriosis determined by laparoscopy Endometriosis Ankylosing spondylitis GERD (gastroesophageal reflux disease) Surgical History Hx of esophagogastroduodenoscopy Tubal ligation status Hx of section Hx of colonoscopy Family History Father Colon cancer HTN (hypertension) Diabetes Hypercholesteremia Stage 4 lung cancer Mother Diabetes HTN (hypertension) Hypercholesteremia Maternal Grandmother Arthritis Multiple sclerosis Paternal Grandmother Arthritis Social History Household Members: Children Household Members Other:: brother Alcohol intake: never Patient Tobacco Use Status: Never used Tobacco Current occupational status: employed, unemployed and disabled 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 Negative for appetite change, weight change, fever, chills, malaise Eyes Details: Negative for vision change, dry eyes,headaches and dizziness GI Details: Negative indigestion/heartburn, nausea, abdominal pain, bowel changes, diarrhea, constipation and bloody stool. Details: Negative for dysuria, hematuria, nocturia, decreased force/flow and genital discharge Skin/Breast Details: Negative for itching, rash, hives, Raynaud's symptoms, sun sensitivity, and skin cancer Psych Details: Negative for anxiety, depression and stress Jon/Lymph Details: Negative for excessive bruising or bleeding. Physical Exam No exam today this was a telephonic visit. ? Results Reviewed Results Reviewed: Lab work from July 17: Creatinine 0.74, CRP 0.51, hemoglobin 12.3, ESR 34, transaminases normal, B [address] [address] XRay Report Signed Patient: Zulema Renner MR#: [id number] : 1995 Acct:[id number] Age/Sex: 27 / F ADM Date: 07/17/[address]: Rivera Green MD Ordering Physician: Rivera Green MD Date of Service: 07/17/23 Procedure(s): XR sacroiliac joint min 3V Accession Number(s): [id number] cc: Rivera Green MD~ EXAMINATION: XR SACROILIAC JOINTS CLINICAL INFORMATION: Low back pain, unspecified. COMPARISON: CT abdomen/pelvis 05/16/2021. TECHNIQUE: 3 views of the sacroiliac joints FINDINGS: Symmetric increased sclerosis of the bilateral SI joints. No asymmetric widening. Pelvic rim and pubic symphysis are maintained. No acute fractures or subluxation. No significant soft tissue abnormality. XR/XR sacroiliac joint min 3V IMPRESSION: Symmetric increased sclerosis of the bilateral SI joints, which can be seen in the setting of sacroiliitis. Correlate clinically. Dictated By: Maritza Jensen Assessment & Plan Assessment & Plan (1) Ankylosing spondylitis: Comment: B 27 pos - right SI joint show sacroiliitis on MRI scan from 2016 at [facility] Code(s): M45.9 - Ankylosing spondylitis of unspecified sites in spine Plan HLA B27 positive ankylosing spondylitis. Back and hip pain symptoms have continued. She is not a candidate to take any more NSAIDs because of the finding of esophagitis on endoscopy. The the NSAIDs were also not all that helpful at relieving her symptoms. TNF inhibitor therapy is recommended. She expressed worries about her recurrent UTI. I told her as long she was symptomatic she should seek care for when that occurred. I think it is worth a try to see how she can tolerate Enbrel. A shorter acting TNF inhibitor like Enbrel may allow her to go off the drug quickly if needed during times of infection. I do not think it would affect her endometriosis symptoms. In the meantime she will stay with acetaminophen up to 1 g t.i.d. We will work on getting prior authorization for the use of Enbrel. She will need some teaching in the office on its administration when she gets the product. I am not sure what product she received as an injection from her primary doctor's office. Given the side effects it might have just been some opioid analgesic. It is possible it could have been some ketorolac for a steroid injection. We will try to get some information from that office. The telephone visit today took 15 minutes. Telehealth Telehealth Location of provider rendering services: practice address Location of patient: address on file Patient Identification confirmed using: Name, : Yes Telehealth method: voice only Patient verbally consented to treatment: Yes Patient verbally consented to billing insurance company: Yes Patient informed of any privacy concerns related to visit: Yes Coding Level of Care Code Tele Est Pt Level 3 (18037) Diagnoses Ankylosing spondylitis M45.9
== END 2023-08-04 09:18 | disposition home or self-care (01) ==
LOC: HO.RHE 08:31
PROVIDERS: Visit Provider Internal Medicine Rheumatology
DX: M45.9 Ankylosing spondylitis of unspecified sites in spine (principal)
CPT/HCPCS: 99213

== ENCOUNTER → 2023-08-04 08:31 | Outpatient (BNVA) | payer MEDICAID, SELFPAY | PROVIDERS: Visit Provider Internal Medicine Rheumatology ==

== ENCOUNTER 2023-08-27 09:39 | Emergency (ER) | payer MEDICAID, SELFPAY ==
[2023-08-27 09:56] VITALS: BP 119/68; PULSE 76; RESP 16; TEMP 36.6; O2SAT 100; BMI 33.1
[2023-08-27 10:09] VITALS: BP 115/68; PULSE 58; RESP 18; TEMP 36.6; O2SAT 100
--- NOTE | 2023-08-27 10:17 | PC.NURSE ---
pt c/o dizziness, off balance/room spinning since yesterday morning. n/v. hx of endometriosis, tubes tied 5 yrs ago. pain with palpation lower abd, pressure with urination. denies blood in urine
--- NOTE | 2023-08-27 10:34 | ED.GENADULT ---
HPI - General Adult General Chief complaint: Dizziness Stated complaint: dizzy nausea Time Seen by Provider: 08/27/23 10:34 Source: patient Mode of arrival: ambulatory Limitations: no limitations History of Present Illness HPI narrative: Patient is a 27 year old assigned female at with a history of endometriosis presenting to the emergency department today with dizziness, nausea, and vomiting. Patient states that over the last day she has had dizziness where she feels as though the room is spinning that is worse with movement, nausea, and vomiting. Patient denies any lightheadedness, fever, chills, blurry vision, double vision, loss of vision, chest pain, difficulty breathing, shortness of breath, back pain, night sweats, pain with urination, increased urinary frequency, increased urinary urgency, blood in her urine or stool, syncope or a near syncopal episode, recent trauma or falls, bowel incontinence, bladder incontinence, bowel retention, bladder retention, or any other complaints at this time. Onset (ago): day(s) Relieving factors: none Exacerbating factors: movement Associated symptoms: nausea/vomiting Treatments prior to arrival: none Related Data Home Medications Medication Instructions Recorded Confirmed diclofenac sodium 1 % topical gel 2 g topical TID PRN 07/07/23 Previous Rx's Medication Instructions Recorded etanercept 50 mg/mL (1 mL) 50 mg subcut QWEEK #4 mL 08/06/23 subcutaneous pen injector (Enbrel SureClick) meclizine 25 mg tablet 25 mg PO BID PRN dizziness #14 tabs 08/27/23 Allergies Allergy/AdvReac Type Severity Reaction Status Date / Time ondansetron [From ZOFRAN] AdvReac Intermediate INCREASED Verified 08/27/23 09:56 VOMTING Review of Systems Constitutional: Constitutional: Reports no additional constitutional complaints, Denies chills, Denies fever(s) and Denies night sweats Eyes: Eyes: Reports no additional eye complaints, Denies blurry vision, Denies change in vision, Denies diplopia, Denies eye discharge, Denies loss of vision, Denies eye pain, Denies photophobia and Denies spots in vision ENT: Reports dizziness Cardiovascular: Cardiovascular: Reports no additional cardiovascular complaints, Denies chest pain, Denies lightheadedness, Denies Loss of Consciousness and Denies dyspnea Respiratory: Respiratory: Reports no additional respiratory complaints and Denies dyspnea Gastrointestinal: Gastrointestinal: Reports no additional gastrointestinal complaints, Denies melena, Denies hematochezia, Denies change in bowel habits, Denies change in stool character, Denies constipation, Reports nausea and Reports vomiting (one episode) Genitourinary: Genitourinary: Denies hematuria, Denies urinary frequency, Denies dysuria, Denies urinary incontinence, Denies urinary hesitancy and Denies urinary urgency Musculoskeletal: Musculoskeletal: Reports no additional musculoskeletal complaints, Denies numbness and Denies tingling Neurologic: Reports dizziness, Denies loss of vision, Denies numbness and Denies tingling Comments: reports constant spinning sensation Psychiatric: Psychiatric: Reports no additional psychiatric complaints Endocrine: Endocrine: Reports no additional endocrine complaints Hematologic/Lymphatic: Hematologic/Lymphatic: Reports no additional hematologic/lymphatic complaints Allergic/Immunologic: Allergic/Immunologic: Reports no additional allergic/immunologic complaints PMFSH Past Medical History Attestation statement: The following information was validated with the patient. Source: old records reviewed and nursing notes reviewed Medical History Endometriosis determined by laparoscopy Endometriosis Ankylosing spondylitis GERD (gastroesophageal reflux disease) Surgical History Hx of esophagogastroduodenoscopy Tubal ligation status Hx of section Hx of colonoscopy Family History Family History Father Colon cancer HTN (hypertension) Diabetes Hypercholesteremia Stage 4 lung cancer Mother Diabetes HTN (hypertension) Hypercholesteremia Maternal Grandmother Arthritis Multiple sclerosis Paternal Grandmother Arthritis Social History Social History Household Members: Children Household Members Other:: brother Alcohol intake: never Patient Tobacco Use Status: Never used Tobacco Smoked in Last 30 Days: No Use of substances other than those prescribed or required for medical reasons: No Advance Directives: No Advance Directives Information Provided: Yes Patient : No Current occupational status: employed, unemployed and disabled Current occupation: [employer] Physical Exam ED Vital Signs: Vital Signs - 24 hr 08/27/23 09:56 08/27/23 10:09 08/27/23 10:51 Temperature 98 F 97.8 F Pulse Rate 76 58 89 Respiratory Rate 16 18 Blood Pressure 119/68 115/68 123/69 Pulse Oximetry 100 100 Oxygen Delivery Method Room Air Room Air 08/27/23 10:51 08/27/23 10:52 08/27/23 11:26 Temperature 97.9 F Pulse Rate 81 82 79 Respiratory Rate 16 Blood Pressure 130/67 125/77 128/72 Pulse Oximetry 98 Oxygen Delivery Method Room Air BMI result Body Mass Index 33.1 Const General: cooperative, no acute distress, alert and awake Nutritional Appearance: well nourished Orientation/consciousness: patient oriented x3 Limitations: no limitations HENMT Head: Yes normal to inspection and Yes atraumatic Ears: hearing grossly normal bilaterally and external ears normal General nose exam: Normal external nose present, no nasal discharge noted and no epistaxis Face and sinus: Yes normal facial exam, No abrasion and No laceration Mouth: Normal oral and palatal mucosa present, no drooling and no muffled voice Eyes General: appearance normal, both eyes and all related structures Periorbital: periorbital findings normal Eyelids: Yes eyelids normal Conjunctivae: conjunctivae normal Pupils: Equal, round and reactive pupils present EOM: EOMs intact bilaterally Direct Ophthalmoscopy: No photophobia Neck Neck: Yes normal visual inspection, Yes full ROM and Yes no lymphadenopathy Chest Chest palpation & inspection: normal inspection of the chest Resp Effort & Inspection: normal respiratory effort and able to speak in complete sentences Auscultation: clear to auscultation bilaterally Cardio Rate: regular rate Rhythm: regular rhythm GI Other: Tenderness to palpation of the lower abdomen. Abdomen symmetric, nondistended. Inspection: Yes normal to inspection Palpation (GI): Soft to palpation, not firm, nontender and no guarding Percussion: Yes normal to percussion Auscultation: normal bowel sounds Neuro General: patient oriented x3 and moves all extremities Cranial nerves: Yes Equal, round and reactive pupils present Cognition (Neuro): normal cognition Motor exam (neuro): 5/5 motor strength present throughout Sensory Exam: Normal double simultaneous stimulation for sensation Coordination: [id number] test normal Extrem General: Yes normal to inspection, Yes full ROM and Yes capillary refill normal Psych Appearance: grossly normal Mental Status: mental status grossly normal Affect: normal affect Attitude: cooperative Thought process: Normal thought process present Thought content: Normal thought content present Insight: Good insight present (Psych) Medications Administered Discontinued Medications Generic Name Dose Route Start Last Admin Trade Name Marv PRN Reason Stop Dose Admin Meclizine HCl 50 mg 08/27/23 13:01 08/27/23 13:45 Meclizine Hcl 25 Mg Tablet PO 08/27/23 13:02 50 mg ONCE ONE Administration Medical Decision Making Medical Decision Making [facility] Narrative: Patient is a 27 year old assigned female at with a history of endometriosis presenting to the emergency department today with dizziness, nausea, and vomiting. Patient's physical exam was unremarkable. Patient's blood work was unremarkable. Patient's urine showed no acute process. Patient's EKG was unremarkable. Patient's head CT showed no acute process. I explained my physical exam findings as well as all test results to the patient. I answered all questions asked by the patient. Patient received PO Meclazine which she stated helped her symptoms significantly. I stressed the importance of the patient taking her medication as prescribed. I stressed the importance of the patient following up with her primary care provider. I stressed the importance of the patient returning to the emergency department immediately if her symptoms were to worsen or if she were to develop any dizziness, shortness of breath, difficulty breathing, chest pain, blurry vision, loss of vision, nausea, vomiting, abdominal pain, fever, chills, back pain, or any other complaints. Patient verbalized agreement and understanding with this treatment plan and discharge. Differential Diagnosis Differential Diagnoses: The differential diagnosis associated with the presentation includes BPPV Dizziness Admission/Observation Consideration of admission/observation: Escalation of care including admission/observation considered Patient would have been admitted to the hospital had her work up had any findings where hospital admission was appropriate and her clinical presentation warranted hospital admission. Lab Data MDM Lab Attestation statement: I reviewed the patient's lab results. My interpretation of these studies and their corresponding values is that they are grossly normal. 08/27/23 10:45 08/27/23 10:45 Labs: Lab Results 08/27/23 08/27/23 08/27/23 Range/Units 10:45 10:54 12:49 WBC 12.6 H (4.8-10.8) X10*3/uL RBC 4.56 (4.20-5.50) X10*6/uL Hgb 12.6 (12.0-16.0) g/dl Hct 39.5 (37.0-47.0) % MCV 86.6 (80.0-98.0) fL MCH 27.6 (27.0-33.0) pg MCHC 31.9 (31.0-35.0) g/dl RDW 13.4 (11.0-16.0) % Plt Count 361 (160-400) X10*3/uL MPV 10.3 (9.4-12.3) fL Immature Gran % (Auto) 0.3 (0.0-0.4) % Neut % (Auto) 73.0 (45-73) % Lymph % (Auto) 19.7 L (20-40) % [place] % (Auto) 5.2 (2-11) % Eos % (Auto) 1.4 (0-4) % Baso % (Auto) 0.4 (0-2) % Lymph # (Auto) 2.5 (1.2-4.9) X10*3/uL [place] # (Auto) 0.7 (0.1-1.2) X10*3/uL Eos # (Auto) 0.2 (0.0-0.4) X10*3/uL Baso # (Auto) 0.1 (0.0-0.2) X10*3/uL Abs Immat Gran (auto) 0.04 H (0.00-0.03) X10*3/uL Absolute Neuts (auto) 9.2 H (2.0-8.3) x10*3/uL Absolute Nucleated RBC 0.000 (0.0-0.012) X10*3/uL Nucleated RBC % (auto) 0.0 (0.0-0.2) /100WBC Sodium 137 (135-145) mmol/L Potassium 4.0 (3.3-5.1) mmol/L Chloride 104 (96-108) mmol/L Carbon Dioxide 22 (22-29) mmol/L Anion Gap 15 (12-20) BUN 10 (9-16) mg/dL Creatinine 0.67 (0.5-1.4) mg/dL Estim Creat Clear Calc 128.9 Estimated GFR > 60 Random Glucose 117 H (60-115) mg/dL Calcium 9.5 (8.4-10.2) mg/dL Total Bilirubin 0.4 (0.0-1.0) mg/dL AST 12 (5-31) U/L ALT 11 (0-31) U/L Alkaline Phosphatase 53 (39-117) U/L Total Protein 8.2 H (6.5-8.0) g/dL Albumin 3.9 (3.5-5.0) g/dL Beta HCG, Quant < 2 mIU/mL Urine Color Yellow Urine Appearance Clear Urine pH 6.5 (5.0-9.0) Ur Specific [place] 1.020 (1.005-1.025) Urine Protein Negative (Neg-Trace) mg/dL Urine Glucose (UA) Negative (Negative) mg/dL Urine Ketones Negative (Negative) mg/dL Urine Blood Negative (Negative) Urine Nitrite Negative (Negative) Ur Leukocyte Esterase Negative (Negative) Urine Test NEGATIVE (NEGATIVE) Influenza Type A (PCR) NEGATIVE (Negative) Influenza Type B (PCR) NEGATIVE (Negative) RSV RNA Qual (PCR) NEGATIVE (Negative) SARS-CoV-2 RNA (RT-PCR) NEGATIVE (Negative) Independent Interpretation I performed an independent interpretation of an: CT Scan Interpretation: My interpretation is in agreement with the radiologist's impression of this imaging study. EXAMINATION: CT HEAD WITHOUT CONTRAST CLINICAL INFORMATION: Dizziness COMPARISON: None available. TECHNIQUE: Contiguous axial imaging was performed from the skull base to vertex without intravenous administration of contrast. This CT examination was performed using dose optimization techniques as appropriate, variously including the following: *Automated exposure control *Adjustment of mA and/or kV according to patient size (this includes techniques or standardized protocols for targeted exams where dose is matched to indication/reason for exam; i.e. extremities or head) *Use of iterative reconstruction technique DLP: 613 mGy-cm FINDINGS: No intra or extra-axial fluid collection or hemorrhage, mass or mass effect. Sulci and ventricles normal. Calvarium intact. CT/CT head/brain wo IV con IMPRESSION: No acute intracranial pathology. Dictated By: Live Wen MD Signed By: Electronically signed by Live Wen MD 08/27/23 9957 Radiology Impression Discussion of test interpretation with radiology: I have reviewed the radiologist's reading. Prescription Management I considered prescription management with: Other (patient prescribed meclazine) Discharge Plan Discharge Clinical Impression: Vertigo Patient Disposition: Home, Self-Care Instructions: Vertigo (DC), Dizziness (ED) Additional Instructions: Follow up with your primary care provider. Return to the emergency department immediately if your symptoms worsen or if you develop any dizziness, shortness of breath, difficulty breathing, chest pain, blurry vision, loss of vision, nausea, vomiting, abdominal pain, fever, chills, back pain, or any other complaints. Prescriptions: New meclizine 25 mg tablet 25 mg PO BID PRN (Reason: dizziness) Qty: 14 0RF No Action Enbrel SureClick 50 mg/mL (1 mL) pen injector 50 mg subcut QWEEK Qty: 4 5RF diclofenac sodium 1 % gel 2 g topical TID PRN Referrals: Pamela Campbell PA [Primary Care Provider] - Stand Alone Forms: Work/School Release Interventions: ED Discharge Assessment Last Done: 08/27/23 13:57 Discharge Date/Time: 08/27/23 13:57 Print Language: [place]at[place]
[2023-08-27 10:51] VITALS: BP 123/69; BP 130/67; PULSE 81; PULSE 89
[2023-08-27 10:52] VITALS: BP 125/77; PULSE 82
[2023-08-27 11:26] VITALS: BP 128/72; PULSE 79; RESP 16; TEMP 36.6; O2SAT 98
--- NOTE | 2023-08-27 11:27 | PC.NURSE ---
vss and up to date. pt verbalizing 6/10 pelvic pain that started about a week ago. pt states that the pain is a stabbing sensation. pt still verbalizing that she is dizzy and that the room feels like it is still sitting. light dimmed to comfort. pt resting comfortably in no apparent distress. partner bedside for support. call ayers laced within reach.
--- NOTE | 2023-08-27 12:53 | PC.NURSE ---
flu/rsv/covid swab obtained and sent to lab.
--- NOTE | 2023-08-27 13:01 | PC.NURSE ---
pt speaking w/ provider - pt aware of plan of care at this time.
--- NOTE | 2023-08-27 13:47 | PC.NURSE ---
pt medicated per provider order. pt now awaiting d/c paperwork to be put in provider. will discharge pt when able.
== END 2023-08-27 13:57 | disposition home or self-care (01) ==
PROVIDERS: Emergency Provider Emergency Medicine; PCP Physician Assistant
DX: R42 Dizziness and giddiness (principal); Z20.822 Contact with and (suspected) exposure to COVID-19; Z79.899 Other long term (current) drug therapy
CPT/HCPCS: 0241U; 36415; 70450; 80053; 81003; 81025; 84702; 85025; 99284

== ENCOUNTER 2023-10-28 09:05 | Emergency (ER) | payer MEDICAID, SELFPAY ==
--- NOTE | ~2023-10-28 | XR_ITS ---
EXAMINATION: XR CHEST CLINICAL INFORMATION: SOB COMPARISON: None available. TECHNIQUE: 2 views of the chest were obtained. FINDINGS: No significant abnormality is noted involving the heart, lungs, mediastinum, bony thorax or soft tissues. XR/XR chest 2V IMPRESSION: Unremarkable chest examination.
[2023-10-28 10:57] VITALS: BP 123/46; PULSE 75; RESP 18; TEMP 36.4; O2SAT 100; BMI 33.2
--- NOTE | 2023-10-28 11:04 | ED_ITS ---
HPI - Back Pain/Injury General Chief Complaint: Back Pain/Injury Stated Complaint: Back and Side Pain Time Seen by Provider: 10/28/23 13:28 Related Data Home Medications Medication Instructions Recorded Confirmed diclofenac sodium 1 % topical gel 2 g topical TID PRN 07/07/23 Previous Rx's Medication Instructions Recorded etanercept 50 mg/mL (1 mL) 50 mg subcut QWEEK #4 mL 08/06/23 subcutaneous pen injector (Enbrel SureClick) meclizine 25 mg tablet 25 mg PO BID PRN dizziness #14 tabs 08/27/23 Allergies Allergy/AdvReac Type Severity Reaction Status Date / Time ondansetron [From ZOFRAN] AdvReac Intermediate INCREASED Verified 08/27/23 09:56 VOMTING PMFSH Past Medical History Medical History Endometriosis determined by laparoscopy Endometriosis Ankylosing spondylitis GERD (gastroesophageal reflux disease) Surgical History Hx of esophagogastroduodenoscopy Tubal ligation status Hx of section Hx of colonoscopy Family History Family History Father Colon cancer HTN (hypertension) Diabetes Hypercholesteremia Stage 4 lung cancer Mother Diabetes HTN (hypertension) Hypercholesteremia Maternal Grandmother Arthritis Multiple sclerosis Paternal Grandmother Arthritis Social History Social History Household Members: Children Household Members Other:: brother Alcohol intake: never Patient Tobacco Use Status: Never used Tobacco Advance Directives: No Advance Directives Information Provided: No Current occupational status: employed, unemployed and disabled 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 This is a [id number] presenting to the emergency department with a co mplaint of back pain x 4 days. No trauma or injury, Hx of anklysoing spondylosis. Reporting some shortness of breath with laying down. TTP diffusely throughout back. No fevers, chills, abdominal pain, nausea, vomiting or diarrhea. No urinary symptoms. Ambulatory with steady gait Plan: cxr, viral swabs Reevaluation(s) Reevaluation #1: pt eloped prior to being evaluated. Medical Decision Making Lab Data Labs: Lab Results 10/28/23 10/28/23 Range/Units 12:28 13:10 Urine Color Yellow Urine Appearance Clear Urine pH 6.0 (5.0-9.0) Ur Specific [place] 1.025 (1.005-1.025) Urine Protein Negative (Neg-Trace) mg/dL Urine Glucose (UA) Negative (Negative) mg/dL Urine Ketones Negative (Negative) mg/dL Urine Blood Trace H (Negative) Urine Nitrite Negative (Negative) Ur Leukocyte Esterase Negative (Negative) Urine RBC 3-5 H (0-2) /HPF Urine WBC 0-5 (0-5) /HPF Ur Squamous Epith Cells 3-5 (0-2) /HPF Urine Bacteria None Seen (None Seen) Hyaline Casts 0-2 (0-2) /LPF Influenza Type A (PCR) NEGATIVE (Negative) Influenza Type B (PCR) NEGATIVE (Negative) RSV RNA Qual (PCR) NEGATIVE (Negative) SARS-CoV-2 RNA (RT-PCR) NEGATIVE (Negative) Discharge Plan Discharge Clinical Impression: Back pain Patient Disposition: Left W/O Completing Treatment Prescriptions: No Action Enbrel SureClick 50 mg/mL (1 mL) pen injector 50 mg subcut QWEEK Qty: 4 5RF meclizine 25 mg tablet 25 mg PO BID PRN (Reason: dizziness) Qty: 14 0RF diclofenac sodium 1 % gel 2 g topical TID PRN Discharge Date/Time: 10/28/23 15:05
[2023-10-28 13:20] LABS: Appearance Urine Clear; Color Urine Yellow; Glucose Urine UA Negative (Negative); Leukocyte Esterase Urine Negative (Negative); Nitrite Urine Negative (Negative); Specific Gravity - Urine 1.025 (1.005-1.025); UMIC TRIGGER UACC YES; Urine Blood Trace (Negative); Urine Ketones Negative (Negative); Urine Protein Negative (Neg-Trace)
[2023-10-28 13:22] LABS: Bacteria Urine None Seen (None Seen); Hyaline Casts Urine 0-2 /LPF (0-2); WBC Urine 0-5 /HPF (0-5)
[2023-10-28 13:55] LABS: Influenza A PCR NEGATIVE (Negative); Influenza B PCR NEGATIVE (Negative); Resp Syncy Virus RNA Qual PCR NEGATIVE (Negative); SARS COV2 PCR INHOUSE NEGATIVE (Negative)
== END 2023-10-28 15:05 | disposition left against medical advice (07) ==
PROVIDERS: Physician Assistant Medical; Emergency Provider Emergency Medicine; PCP Physician Assistant
DX: M54.9 Dorsalgia, unspecified (principal); R06.02 Shortness of breath; Z20.822 Contact with and (suspected) exposure to COVID-19; Z20.828 Contact with and (suspected) exposure to other viral communicable diseases
CPT/HCPCS: 0241U; 71046; 81001; 99282; 99283

== ENCOUNTER 2024-02-21 16:27 | Emergency (ER) | payer MEDICAID, SELFPAY ==
[2024-02-21 16:43] VITALS: BP 148/64; PULSE 73; RESP 18; TEMP 36.9; O2SAT 98; BMI 33.4
--- NOTE | 2024-02-21 16:43 | ED.ABDPAIN ---
HPI - Abdominal Pain General Chief Complaint: Abdominal Pain Stated Complaint: severe stomach pain, hernia/ gallbladder? Time Seen by Provider: 02/21/24 18:51 Source: patient Mode of arrival: ambulatory Limitations: no limitations History of Present Illness HPI narrative: 28-year-old female who presents emergency department for evaluation of abdominal pain, abdominal bloating nausea vomiting and decreased appetite. The patient states she does have an umbilical hernia and over the last 2 days she states that the hernia change position and became larger. She states she is also having pain over her umbilical hernia area. Patient has chronic nausea secondary to esophagitis were states that her nausea got worse. She has had a decreased appetite and has not been able to eat or drink. She states the pain is a constant, sharp pain which is 8/10 at its worst. She had no vomiting. She had a bowel movement today at noon. She denied fever, chills, chest pain, shortness of breath. Related Data Home Medications Medication Instructions Recorded Confirmed diclofenac sodium 1 % topical gel 2 g topical TID PRN 07/07/23 Previous Rx's Medication Instructions Recorded etanercept 50 mg/mL (1 mL) 50 mg subcut QWEEK #4 mL 08/06/23 subcutaneous pen injector (Enbrel SureClick) meclizine 25 mg tablet 25 mg PO BID PRN dizziness #14 tabs 08/27/23 promethazine 25 mg tablet 25 mg PO Q6H PRN nausea and 02/21/24 vomiting #14 tabs Allergies Allergy/AdvReac Type Severity Reaction Status Date / Time ondansetron [From ZOFRAN] AdvReac Intermediate INCREASED Verified 02/21/24 16:42 VOMTING Review of Systems Review of Systems Yes all other systems are reviewed and are negative [facility] Past Medical History Medical History Endometriosis determined by laparoscopy Endometriosis Ankylosing spondylitis GERD (gastroesophageal reflux disease) Surgical History Hx of esophagogastroduodenoscopy Tubal ligation status Hx of section Hx of colonoscopy Family History Family History Father Colon cancer HTN (hypertension) Diabetes Hypercholesteremia Stage 4 lung cancer Mother Diabetes HTN (hypertension) Hypercholesteremia Maternal Grandmother Arthritis Multiple sclerosis Paternal Grandmother Arthritis Social History Social History Household Members: Children Household Members Other:: brother Alcohol intake: never Patient Tobacco Use Status: Never used Tobacco Smoked in Last 30 Days: No Use of substances other than those prescribed or required for medical reasons: No Advance Directives: No Advance Directives Information Provided: No Patient : No Current occupational status: employed, unemployed and disabled 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 Exam: General: Awake, alert in no distress Head: Normocephalic, atraumatic EENT: PERRL, Lids normal, sclera normal, conjunctiva normal, nose normal , ears normal, throat without erythema or exudates Neck: Supple, no adenopathy Lung: breath sounds symmetric, no wheezing, rales or rhonchi Chest: symmetric movement, nontender Heart: regular rate and rhythm, normal S1, S2 no murmurs or rubs Abdomen: Patient's abdomen is obese, patient does have periumbilical tenderness with no obvious hernia mass that I can palpate, patient does have a small defect palpable in the superior aspect of the umbilicus which is very tender to palpation, patient has normoactive bowel sounds, no rebound no voluntary or involuntary guarding Back: no vertebral tenderness, no CVAT Extremities: no deformities, moves all extremities symmetrically Neuro: Awake, alert, oriented, normal speech, cranial nerves intact, moves all extremities symmetrically Psych: Pleasant, cooperative Course Course Course Narrative: This is an RME: Additional HPI, ROS, PE not included below will be deferred to primary provider. Patient is a 28-year-old female who presents emergency department for evaluation of severe abdominal pain history of diagnosed 2 years ago, onset severe pain yesterday but worse today. Expressing concern that the palpable lump where her hernia was has migrated lower into the umbilical region, larger in size. Over the past 2 weeks has had difficulty tolerating oral intake without vomiting. Reports normal bowel movement this morning. Medical Decision Making Medical Decision Making [facility] Narrative: 28-year-old female who presents emergency department for evaluation of abdominal pain, abdominal bloating nausea vomiting and decreased appetite. Patient states that the size of her umbilical hernia change in she was very tender over the hernia area. Vital signs were normal. Exam did reveal tenderness palpation of the umbilical area but I do not feel a hernia, she does have tenderness palpation over the superior aspect of the umbilicus. Differential diagnosis: ?Includes but is not limited to to incarcerated umbilical hernia, fat hernia, small-bowel obstruction, viral syndrome, anemia, electrolyte abnormalities Following evaluation was ordered: CBC, CMP, lipase, quantitative beta-hCG, urinalysis, CT scan of the abdomen pelvis with IV and oral contrast Patient was initially treated with the following: Phenergan 12.5 mg IV, Toradol 15 mg IV, normal saline 1 L IV Course: 19:32 My independent interpretation patient's laboratory evaluation as follows: WBC elevated 15,600. CMP was normal. Lipase was normal. Quantitative beta-hCG was below detectable limits. 20:18 Patient did feel better after receiving the above treatment however she needs to leave the emergency department secondary to a family emergency. Patient was prescribed promethazine 25 mg tablets, 1 pill every 6 hours as needed for nausea and vomiting She was advised to follow-up with her GI doctor and to return to the emergency department if her symptoms get worse especially if you developed nausea vomiting, bloated sensation is unable to take medications, food or fluid Admission/Observation Consideration of admission/observation: Escalation of care including admission/observation considered Lab Data [facility] Lab Attestation statement: I reviewed the patient's lab results. 02/21/24 16:54 02/21/24 16:54 Labs: Lab Results 02/21/24 02/21/24 Range/Units 16:54 19:20 WBC 15.6 H (4.8-10.8) X10*3/uL RBC 4.54 (4.20-5.50) X10*6/uL Hgb 12.2 (12.0-16.0) g/dl Hct 38.5 (37.0-47.0) % MCV 84.8 (80.0-98.0) fL MCH 26.9 L (27.0-33.0) pg MCHC 31.7 (31.0-35.0) g/dl RDW 13.2 (11.0-16.0) % Plt Count 354 (160-400) X10*3/uL MPV 10.6 (9.4-12.3) fL Immature Gran % (Auto) 0.4 (0.0-0.4) % Neut % (Auto) 64.7 (45-73) % Lymph % (Auto) 23.8 (20-40) % Glenn % (Auto) 7.4 (2-11) % Eos % (Auto) 3.3 (0-4) % Baso % (Auto) 0.4 (0-2) % Lymph # (Auto) 3.7 (1.2-4.9) X10*3/uL Glenn # (Auto) 1.2 (0.1-1.2) X10*3/uL Eos # (Auto) 0.5 H (0.0-0.4) X10*3/uL Baso # (Auto) 0.1 (0.0-0.2) X10*3/uL Abs Immat Gran (auto) 0.07 H (0.00-0.03) X10*3/uL Absolute Neuts (auto) 10.1 H (2.0-8.3) x10*3/uL Absolute Nucleated RBC 0.000 (0.0-0.012) X10*3/uL Nucleated RBC % (auto) 0.0 (0.0-0.2) /100WBC Sodium 137 (135-145) mmol/L Potassium 3.9 (3.3-5.1) mmol/L Chloride 105 (96-108) mmol/L Carbon Dioxide 26 (22-29) mmol/L Anion Gap 10 L (12-20) BUN 13 (9-16) mg/dL Creatinine 0.75 (0.5-1.4) mg/dL Estim Creat Clear Calc 114.7 Estimated GFR > 60 Random Glucose 115 (60-115) mg/dL Calcium 9.6 (8.4-10.2) mg/dL Total Bilirubin 0.3 (0.0-1.0) mg/dL AST 15 (5-31) U/L ALT 18 (0-31) U/L Alkaline Phosphatase 54 (39-117) U/L Total Protein 8.3 H (6.5-8.0) g/dL Albumin 3.9 (3.5-5.0) g/dL Lipase 13 (8-78) U/L Beta HCG, Quant < 2 mIU/mL Urine Color Yellow Urine Appearance Clear Urine pH 5.5 (5.0-9.0) Ur Specific [place] 1.020 (1.005-1.025) Urine Protein Negative (Neg-Trace) mg/dL Urine Glucose (UA) Negative (Negative) mg/dL Urine Ketones Negative (Negative) mg/dL Urine Blood Trace H (Negative) Urine Nitrite Negative (Negative) Ur Leukocyte Esterase Negative (Negative) Urine RBC 0-2 (0-2) /HPF Urine WBC 0-5 (0-5) /HPF Ur Squamous Epith Cells 0-2 (0-2) /HPF Urine Bacteria None Seen (None Seen) Hyaline Casts 0-2 (0-2) /LPF Prescription Management I considered prescription management with: Other (Antiemetics) Medications Administered Generic Name Dose Route Start Last Admin Trade Name Freq PRN Reason Stop Dose Admin Sodium Chloride 1,000 mls @ 999 mls/hr 02/21/24 19:20 02/21/24 19:35 Ns IV 02/21/24 20:20 999 mls/hr .Q1H1M STA Administration Discontinued Medications Generic Name Dose Route Start Last Admin Trade Name Freq PRN Reason Stop Dose Admin Promethazine HCl 12.5 mg/ 50.5 mls @ 202 mls/hr 02/21/24 19:20 02/21/24 19:34 Sodium Chloride IV 02/21/24 19:21 202 mls/hr ONCE ONE Administration Ketorolac Tromethamine 15 mg 02/21/24 19:20 02/21/24 19:34 Ketorolac Tromethamine 15 Mg/Ml Vial IVPUSH 02/21/24 19:21 15 mg ONCE STA Administration Discharge Plan Discharge Clinical Impression: Hernia, umbilical, Abdominal pain Patient Disposition: Home, Self-Care Instructions: Umbilical Hernia (ED) Additional Instructions: Take Tylenol (acetaminophen) 500 mg pills, 2 pills every 6 hours as needed for pain or fever. Take Phenergan (promethazine) 25 mg tablets, 1 pill every 6 hours as needed for nausea and vomiting Follow-up with your doctor in 2 days. Please return to the emergency department if your symptoms get worse or if you develop any symptoms that are concerning to you. Prescriptions: New promethazine 25 mg tablet 25 mg PO Q6H PRN (Reason: nausea and vomiting) Qty: 14 0RF No Action Enbrel SureClick 50 mg/mL (1 mL) pen injector 50 mg subcut QWEEK Qty: 4 5RF meclizine 25 mg tablet 25 mg PO BID PRN (Reason: dizziness) Qty: 14 0RF diclofenac sodium 1 % gel 2 g topical TID PRN
[2024-02-21 16:58] LABS: MANUAL DIFF FLAG NO
[2024-02-21 17:16] LABS: Basophils Absolute Auto 0.1 X10*3/uL (0.0-0.2); Basophils Percent Auto 0.4 % (0-2); Eosinophils Absolute Auto 0.5 X10*3/uL (0.0-0.4); Eosinophils Percent Auto 3.3 % (0-4); Hematocrit 38.5 % (37.0-47.0); Hemoglobin 12.2 g/dl (12.0-16.0); Imm Gran Abs Auto 0.07 X10*3/uL (0.00-0.03); Imm Gran Pct Auto 0.4 % (0.0-0.4); Lymphocytes Absolute Auto 3.7 X10*3/uL (1.2-4.9); Lymphocytes Percent Auto 23.8 % (20-40); Mean Corpuscular HGB Conc 31.7 g/dl (31.0-35.0); Mean Corpuscular Hemoglobin 26.9 pg (27.0-33.0); Mean Corpuscular Volume 84.8 fL (80.0-98.0); Mean Platelet Volume 10.6 fL (9.4-12.3); Monocytes Absolute Auto 1.2 X10*3/uL (0.1-1.2); Monocytes Percent Auto 7.4 % (2-11); Neutrophils Absolute Auto 10.1 x10*3/uL (2.0-8.3); Neutrophils Percent Auto 64.7 % (45-73); Platelet Count 354 X10*3/uL (160-400); Red Blood Count 4.54 X10*6/uL (4.20-5.50); Red Cell Distribution Width 13.2 % (11.0-16.0); White Blood Count 15.6 X10*3/uL (4.8-10.8)
[2024-02-21 17:31] LABS: Alanine Aminotransferase 18 U/L (0-31); Albumin Level 3.9 g/dL (3.5-5.0); Alkaline Phosphatase 54 U/L (39-117); Anion Gap 10 (12-20); Aspartate Amino Transferase 15 U/L (5-31); Bilirubin Total 0.3 mg/dL (0.0-1.0); Blood Urea Nitrogen 13 mg/dL (9-16); Calcium 9.6 mg/dL (8.4-10.2); Carbon Dioxide 26 mmol/L (22-29); Chloride 105 mmol/L (96-108); Creatinine Clr Calc Pharmacy 114.7; Estimated Glomerular Filt Rate > 60; Glucose Random 115 mg/dL (60-115); Lipase 13 U/L (8-78); Potassium 3.9 mmol/L (3.3-5.1); Sodium 137 mmol/L (135-145); Total Protein 8.3 g/dL (6.5-8.0)
[2024-02-21 17:34] LABS: HCG Quantitative < 2 mIU/mL
[2024-02-21 19:24] VITALS: BP 119/68; PULSE 81; RESP 16; TEMP 36.9; O2SAT 96
[2024-02-21 19:28] LABS: Appearance Urine Clear; Color Urine Yellow; Glucose Urine UA Negative (Negative); Leukocyte Esterase Urine Negative (Negative); Nitrite Urine Negative (Negative); PH 5.5 (5.0-9.0); UMIC TRIGGER UACC YES; Urine Blood Trace (Negative); Urine Ketones Negative (Negative); Urine Protein Negative (Neg-Trace)
[2024-02-21 19:30] LABS: Bacteria Urine None Seen (None Seen); Hyaline Casts Urine 0-2 /LPF (0-2); RBC Urine 0-2 /HPF (0-2); Squamous Epithelial Cell Urine 0-2 /HPF (0-2); WBC Urine 0-5 /HPF (0-5)
[2024-02-21] MEDS: Ketorolac Tromethamine 15 MG/ML VIAL IVPUSH (19:34)
[2024-02-21] MEDS: 0.9 % Sodium Chloride 1,000 ML 999 ML IV (19:35)
[2024-02-21 20:27] VITALS: BP 119/68; PULSE 81; RESP 16; TEMP 36.9; O2SAT 96
== END 2024-02-21 20:28 | disposition home or self-care (01) ==
PROVIDERS: Nurse Practitioner Family; Emergency Provider Emergency Medicine Emergency Medical Services; PCP Physician Assistant
DX: K42.9 Umbilical hernia without obstruction or gangrene (principal); K20.90 Esophagitis, unspecified without bleeding
CPT/HCPCS: 36415; 80053; 81001; 83690; 84702; 85025; 96361; 96374; 96375; 99284; 99285; J1885; J2550

== ENCOUNTER 2024-02-29 08:13 | Outpatient (AMB) | payer MEDICAID, SELFPAY ==
--- NOTE | 2024-02-29 08:22 | A.OFFVIS_ITS ---
Intake Vital Signs 02/29/24 08:23 Height 5 ft 3 in Weight 186 lb 15.232 oz BMI 33.1 BP 104/68 Blood Pressure Location Rt brachial Position Sitting Pulse 89 Pulse Source Pulse Oximeter Pulse Oximetry (%) 98 Oxygen Delivery Method Room Air Intake Visit Reasons: Ankylosing spondylitis/unable to cm MF Intake Note: Pt last seen by Dr Green July 2023. Pain in body, back, in chest especially when sneezes; headaches. Has tried NSAIDS, Mentions she was told she would need injections Patient reports PCP did labs and chest xrays and was told all WNL Assistant Quality Manager Required: No Accompanied by: Self / Same As Patient Allergies ondansetron [From ZOFRAN] Adverse Reaction (Intermediate, Verified 02/29/24 08:31) INCREASED VOMTING Medication List - Last Reconciled 02/29/24 by Nehemias Damian MD diclofenac sodium 1% 2 grams topical TID PRN etanercept (Enbrel SureClick) 50 mg subcut QWEEK promethazine 25 mg PO Q6H PRN HPI HPI Comments History of Present Illness Details 28-year-old female with HLA B27 positive ankylosing spondylitis returns for follow-up. Patient states that she has been having bilateral paraspinal thoracic back pain recently, as well as chest pain. She also has been having bilateral aching and tingling in her right hand when holding the steering wheel. She has not had any episode of uveitis since 01/2023. She did not receive the Enbrel. Most recent history by Dr. Green 07/2023: The patient is called today for a telephonic visit. She reports still ongoing back pain. She has stopped the anti-inflammatories since she has known esophagitis. She did see her primary doctor apparently at some point at the end of May or early June. She was given an injection. It did not seem to help her pain much. She does know what the injection was. It also seemed to be followed by lightheadedness, sleepiness and more back pain. She currently does not really have any urinary symptoms. She has a tubal ligation and was also told she had endometriosis. I was able to locate MRI scan showing edema at the SI joints. Her x-ray also showed sclerosis at the SI joints. The notes from Ophthalmology indicated they thought she had iritis and not optic neuritis. PFSH Medical History (Updated 02/29/24 @ 09:00 by Nehemias Damian MD) Retrobulbar neuritis Iritis of left eye Endometriosis determined by laparoscopy Endometriosis Ankylosing spondylitis GERD (gastroesophageal reflux disease) Surgical History Hx of esophagogastroduodenoscopy Tubal ligation status Hx of section Hx of colonoscopy Family History (Updated 02/29/24 @ 08:56 by Nehemias Damian MD) Father Colon cancer HTN (hypertension) Diabetes Hypercholesteremia Stage 4 lung cancer Mother Diabetes HTN (hypertension) Hypercholesteremia Maternal Grandmother Arthritis Multiple sclerosis Paternal Grandmother Arthritis Sister Multiple sclerosis Social History Household Members: Children Household Members Other:: brother Alcohol intake: never Patient Tobacco Use Status: Never used Tobacco Current occupational status: employed, unemployed and disabled 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 Review of Systems Musc Reports back pain, Reports arthralgias, Reports stiffness and Reports tingling Neuro Reports tingling Physical Exam Vital Signs: Last Vital Signs Pulse 89 02/29/24 08:23 BP 104/68 02/29/24 08:23 Pulse Ox 98 02/29/24 08:23 Oxygen Delivery Method Room Air 02/29/24 08:23 BMI result Body Mass Index 33.1 Const General: cooperative, healthy appearing and comfortable Nutritional Appearance: obese Orientation/consciousness: patient oriented x3 Limitations: no limitations HEENT Head: Yes normocephalic and Yes atraumatic Mouth: moist mucous membranes Resp Effort & Inspection: normal respiratory effort and able to speak in complete sentences Auscultation: clear to auscultation bilaterally Cardio Rate: regular rate Back/Spine/Pelvis Other: Bilateral paraspinal muscle thoracic tenderness Sirena test 10-10.5 cm Bilateral trochanteric bursa area tenderness Neuro General: patient oriented x3 Extrem Other: No active peripheral synovitis Results Reviewed Results Reviewed: Lab work from July 17: Creatinine 0.74, CRP 0.51, hemoglobin 12.3, ESR 34, transaminases normal, B [address] [address] XRay Report Signed Patient: Zulema Renner MR#: [id number] : 1995 Acct:[id number] Age/Sex: 27 / F ADM Date: 07/17/[address]: Rivera Green MD Ordering Physician: Rivera Green MD Date of Service: 07/17/23 Procedure(s): XR sacroiliac joint min 3V Accession Number(s): [id number] cc: Rivera Green MD~ EXAMINATION: XR SACROILIAC JOINTS CLINICAL INFORMATION: Low back pain, unspecified. COMPARISON: CT abdomen/pelvis 05/16/2021. TECHNIQUE: 3 views of the sacroiliac joints FINDINGS: Symmetric increased sclerosis of the bilateral SI joints. No asymmetric widening. Pelvic rim and pubic symphysis are maintained. No acute fractures or subluxation. No significant soft tissue abnormality. XR/XR sacroiliac joint min 3V IMPRESSION: Symmetric increased sclerosis of the bilateral SI joints, which can be seen in the setting of sacroiliitis. Correlate clinically. Dictated By: Maritza Jensen Assessment & Plan Assessment & Plan (1) Ankylosing spondylitis: Comment: B 27 pos - right SI joint show sacroiliitis on MRI scan from 2017 at [facility] iritis Code(s): M45.9 - Ankylosing spondylitis of unspecified sites in spine Qualifiers: Ankylosing spondylitis location: multiple sites in spine Qualified Code(s): M45.0 - Ankylosing spondylitis of multiple sites in spine Plan: This is a 28-year-old female with HLA B27 positive ankylosing spondylitis who presents for follow-up. This is her 1st visit with me. She used to follow-up with Dr. Green. Continues to have axial symptoms and intermittent iritis. Will need to start DMARDs. Patient did not receive Enbrel. Patient's sister was recently diagnosed with multiple sclerosis, her grandmother also had multiple sclerosis. Was evaluated over the last few years for MS, there was no demyelination on imaging studies and CSF studies were unremarkable. However given reported association of TNF inhibitors with demyelinating conditions I would like to avoid it. Patient also has known history of esophagitis. I would also like to avoid IL 17 inhibitors given the association with inflammatory bowel disease. Discussed risks and benefits of Rinvoq. Patient has no history of DVT/PE. She has bilateral tubal ligation. Patient agreed to proceed. Will start prior authorization for Rinvoq. Advised patient to get the 1st dose of Shingrix vaccine before she starts Rinvoq Labs today and before next visit in 3 months (2) High risk medication use: Code(s): Z79.899 - Other jail (current) drug therapy Plan: Discussed risks and benefits of Rinvoq. Slightly increased risk of thrombo embolic events. However this was seen in older patients population with more significant risk factors. Patient denies any history of DVT/PE. She has not on any hormonal therapy. She has bilateral tubal ligation. Discussed increased risk of shingles infection. Advised patient to get the 1st dose of Shingrix before starting Rinvoq Plan I spent 47 minutes reviewing patient's chart, evaluating patient, ordering diagnostic workup, counseling patient and documenting in the chart Orders: Orders Comprehensive Met. Panel Today M25.50 - Pain in unspecified joint Erythrocyte Sedimentation Rate Today M25.50 - Pain in unspecified joint Protein Electrophoresis, Serum Today M25.50 - Pain in unspecified joint Cyclic Citrullinated Peptide Today M25.50 - Pain in unspecified joint Comprehensive Met. Panel 3 Months M45.9 - Ankylosing spondylitis of unspecified sites in spine C Reactive Protein 3 Months M45.9 - Ankylosing spondylitis of unspecified sites in spine Erythrocyte Sedimentation Rate 3 Months M45.9 - Ankylosing spondylitis of unspecified sites in spine Complete Blood Count Auto Diff Today M25.50 - Pain in unspecified joint C Reactive Protein Today M25.50 - Pain in unspecified joint Immunofixation Pnl, Serum Today M25.50 - Pain in unspecified joint Complete Blood Count Auto Diff 3 Months M45.9 - Ankylosing spondylitis of unspecified sites in spine Coding Level of Care Code Est Pt Level 5 (98258) Diagnoses Ankylosing spondylitis of multiple sites in spine M45.0 Ankylosing spondylitis location: multiple sites in spine High risk medication use Z79.899
[2024-02-29 08:23] VITALS: BP 104/68; PULSE 89; O2SAT 98; BMI 33.1
== END 2024-02-29 08:52 | disposition home or self-care (01) ==
PROVIDERS: PCP Physician Assistant; Visit Provider Student in an Organized Health Care Education/Training Program
DX: M45.0 Ankylosing spondylitis of multiple sites in spine (principal); Z79.899 Other long term (current) drug therapy
CPT/HCPCS: 99215

== ENCOUNTER → 2024-02-29 08:13 | Outpatient (BNVA) | payer MEDICAID, SELFPAY | PROVIDERS: PCP Physician Assistant; Visit Provider Student in an Organized Health Care Education/Training Program | DX: M45.0 Ankylosing spondylitis of multiple sites in spine (principal); Z79.899 Other long term (current) drug therapy | CPT/HCPCS: 99212 ==

== ENCOUNTER 2024-03-18 09:27 | Outpatient (REF) | payer MEDICAID, SELFPAY ==
[2024-03-18 09:53] LABS: MANUAL DIFF FLAG NO
[2024-03-18 10:15] LABS: Basophils Percent Auto 0.3 % (0-2); Eosinophils Absolute Auto 0.1 X10*3/uL (0.0-0.4); Eosinophils Percent Auto 1.6 % (0-4); Hematocrit 38.9 % (37.0-47.0); Hemoglobin 12.1 g/dl (12.0-16.0); Imm Gran Abs Auto 0.04 X10*3/uL (0.00-0.03); Imm Gran Pct Auto 0.4 % (0.0-0.4); Lymphocytes Absolute Auto 3.7 X10*3/uL (1.2-4.9); Lymphocytes Percent Auto 41.4 % (20-40); Mean Corpuscular HGB Conc 31.1 g/dl (31.0-35.0); Mean Corpuscular Hemoglobin 26.6 pg (27.0-33.0); Mean Corpuscular Volume 85.5 fL (80.0-98.0); Mean Platelet Volume 10.9 fL (9.4-12.3); Monocytes Absolute Auto 0.7 X10*3/uL (0.1-1.2); Monocytes Percent Auto 7.9 % (2-11); Neutrophils Absolute Auto 4.4 x10*3/uL (2.0-8.3); Neutrophils Percent Auto 48.4 % (45-73); Platelet Count 357 X10*3/uL (160-400); Red Blood Count 4.55 X10*6/uL (4.20-5.50); Red Cell Distribution Width 13.2 % (11.0-16.0)
[2024-03-18 10:33] LABS: Alanine Aminotransferase 17 U/L (0-31); Albumin Level 4.1 g/dL (3.5-5.0); Alkaline Phosphatase 58 U/L (39-117); Anion Gap 9 (12-20); Aspartate Amino Transferase 20 U/L (5-31); Bilirubin Total 0.4 mg/dL (0.0-1.0); Blood Urea Nitrogen 12 mg/dL (9-16); C Reactive Protein 0.25 mg/dL (< or = 0.50); Calcium 9.4 mg/dL (8.4-10.2); Carbon Dioxide 29 mmol/L (22-29); Chloride 105 mmol/L (96-108); Estimated Glomerular Filt Rate > 60; Glucose Random 96 mg/dL (60-115); Potassium 4.3 mmol/L (3.3-5.1); Sodium 139 mmol/L (135-145); Total Protein 8.4 g/dL (6.5-8.0)
[2024-03-18 10:54] LABS: Erythrocyte Sedimentation Rate 21 MM/HR (0-20)
[2024-03-21 13:04] LABS: Prot Elec - Albumin 4.1 g/dL (3.8-4.8); Prot Elec - Alpha1 0.3 g/dL (0.2-0.3); Prot Elec - Alpha2 0.7 g/dL (0.5-0.9); Prot Elec - Beta 1 0.5 g/dL (0.4-0.6); Prot Elec - Beta 2 0.5 g/dL (0.2-0.5); Prot Elec - Total Protein 8.1 g/dL (6.1-8.1)
[2024-03-21 19:08] LABS: Cyclic Citrullinated Peptide <16 UNITS
[2024-03-24 16:28] LABS: IgA 303 mg/dL (47-310); IgG 2023 mg/dL (600-1640); IgM 145 mg/dL (50-300)
== END 2024-03-18 09:28 | disposition home or self-care (01) ==
LOC: HO.LAB 09:27
PROVIDERS: PCP Physician Assistant; Visit Provider Student in an Organized Health Care Education/Training Program
DX: M25.50 Pain in unspecified joint (principal)
CPT/HCPCS: 36415; 80053; 82784; 84165; 85025; 85652; 86140; 86200; 86334

== ENCOUNTER 2024-03-21 13:11 | Outpatient (AMB) | payer MEDICAID, SELFPAY ==
--- NOTE | 2024-03-21 13:11 | A.OFFVIS_ITS ---
Intake Visit Reasons: ER follow up Intake Note: Zulema presents as a telehealth today. CC: She states that today she is having severe heartburn and today she is having diarrhea. She also has other GI concerns that she would like to discuss with the Dr. Allergies ondansetron [From ZOFRAN] Adverse Reaction (Intermediate, Verified 03/21/24 13:11) INCREASED VOMTING HPI HPI ER follow up: Details: 28 yr old f with (plan was for humira but never got it due to MS w/u) and endometriosis being seen for f/u RECAP: She had seen February Rubin before symptoms have been going on for years since young age c/o abdominal pain, usu upper abdomen, and in the epigastric area abdomen swells up and is hard nausea, with vomiting, occ can be coffee colored, or bilious she can have loose stools few times a week tries OTC meds like tums w/ mild relief she said she is being tested for MS (humira was stopped due to optic neuritis) dad with stage 4 CRC celiac testing has been negative, protein EP has been nml She went to the ED with abdo pain and elevated WCC 04/2021 CT without acute path transvag US with free fluid and ovarian cysts noted EGD/COLO: 12/26/21 Endoscopy Findings: erosive esophagitis duodenitis hiatal hernia Colonoscopy Findings: internal hemorrhoids Path: chronic active duodenitis, gastritis, active esophagitis with chronic inflammation at GEJ, reactive appearing lymphoid follicles INTERIM: she has been having choking, nausea she feels food get stuck, even with the first bite once a week going on for 3 months she still has stools which are loose has heartburn she takes pepto--doesnt help she is not losing poor sleep only 3-4 hrs no cannabis she started rinvoq for her A/P: 1/ Episodic sudden bouts of nausea, vomiting, pain, ddx: cyclic vomiting s yndrome, fucntional dyspepsia, gastroapresis, subclinical IBD, acid hypersecretion PLAN: 1/ tPPI with mesalamine 2/ EGD with dilation if no better with rx above [facility] Medical History (Updated 02/29/24 @ 09:00 by Nehemias Damian MD) Retrobulbar neuritis Iritis of left eye Endometriosis determined by laparoscopy Endometriosis Ankylosing spondylitis GERD (gastroesophageal reflux disease) Surgical History Hx of esophagogastroduodenoscopy Tubal ligation status Hx of section Hx of colonoscopy Family History (Updated 02/29/24 @ 08:56 by Nehemias Damian MD) Father Colon cancer HTN (hypertension) Diabetes Hypercholesteremia Stage 4 lung cancer Mother Diabetes HTN (hypertension) Hypercholesteremia Maternal Grandmother Arthritis Multiple sclerosis Paternal Grandmother Arthritis Sister Multiple sclerosis Social History Household Members: Children Household Members Other:: brother Alcohol intake: never Patient Tobacco Use Status: Never used Tobacco Current occupational status: employed, unemployed and disabled 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 Telehealth Platform: [employer] Location of provider rendering services: practice address Location of patient: address on file Patient Identification confirmed using: Name, : Yes Telehealth method: voice only Patient verbally consented to treatment: Yes Patient verbally consented to billing insurance company: Yes Patient informed of any privacy concerns related to visit: Yes Minutes spent on Phone/Video with Pt.: 10 Assessment & Plan Assessment & Plan (1) Diarrhea: Comment: Negative celiac panel, negative stool studies Code(s): R19.7 - Diarrhea, unspecified Category: Medical Plan: A/P: 1/ Episodic sudden bouts of nausea, vomiting, pain, ddx: cyclic vomiting syndrome, fucntional dyspepsia, gastroapresis, subclinical IBD, acid hypersecretion PLAN: 1/ tPPI with mesalamine 2/ EGD with dilation if no better with rx above (2) Nausea and vomiting: Code(s): R11.2 - Nausea with vomiting, unspecified Category: Medical Plan: A/P: 1/ Episodic sudden bouts of nausea, vomiting, pain, ddx: cyclic vomiting syndrome, fucntional dyspepsia, gastroapresis, subclinical IBD, acid hypersecretion PLAN: 1/ tPPI with mesalamine 2/ EGD with dilation if no better with rx above Medications: New mesalamine ER (Apriso) 1.5 grams (4 x 0.375 gram) PO QAM 120 caps 0RF pantoprazole 40 mg PO DAILY 90 tabs 2RF Coding Level of Care Code Tele Est Pt Level 3 (76208) Diagnoses Diarrhea R19.7 Nausea and vomiting R11.2
== END 2024-03-21 13:57 | disposition home or self-care (01) ==
LOC: HO.HGI 13:11
PROVIDERS: PCP Physician Assistant; Visit Provider Internal Medicine Gastroenterology
DX: R19.7 Diarrhea, unspecified (principal); R11.2 Nausea with vomiting, unspecified
CPT/HCPCS: 99213

== ENCOUNTER → 2024-03-21 13:11 | Outpatient (BNVA) | payer MEDICAID, SELFPAY | PROVIDERS: PCP Physician Assistant; Visit Provider Internal Medicine Gastroenterology ==

== ENCOUNTER 2024-03-29 08:22 | Day surgery (SDC) | payer MEDICAID, SELFPAY ==
[2024-03-29] VITALS (15 sets, daily range): BP systolic 107–148; BP diastolic 57–87; PULSE 52–83; RESP 12–20; TEMP 36.2–37.4; O2SAT 87–100; BMI 32.6
--- NOTE | ~2024-03-29 | CT_ITS ---
EXAMINATION: CT ABDOMEN AND PELVIS WITH CONTRAST CLINICAL INFORMATION: Abdominal pain COMPARISON: CT abdomen pelvis 05/16/2021 TECHNIQUE: Multidetector volumetric images were obtained from the superior aspect of the liver through the pubic symphysis following administration 85 mL of Omnipaque 350 intravenous contrast. Sagittal and coronal reformatted images were obtained on the technologist's workstation. Oral contrast: No This CT examination was performed using dose optimization techniques as appropriate, variously including the following: *Automated exposure control *Adjustment of mA and/or kV according to patient size (this includes techniques or standardized protocols for targeted exams where dose is matched to indication/reason for exam; i.e. extremities or head) *Use of iterative reconstruction technique DLP: 608 mGy-cm FINDINGS: LUNG BASES: The visualized lung bases are unremarkable. LIVER, GALLBLADDER, AND BILIARY TREE: The liver is enlarged at 19 cm in cephalocaudad dimension with decreased attenuation consistent with hepatic steatosis. No focal hepatic lesion or biliary ductal dilatation is present. The gallbladder is unremarkable with no evidence of radiopaque gallstones, gallbladder wall thickening, or obvious pericholecystic inflammatory changes. PANCREAS: Unremarkable. SPLEEN: Unremarkable. ADRENAL GLANDS: Unremarkable. KIDNEYS AND URETERS: The kidneys are normal in size, shape, and attenuation. No hydronephrosis, hydroureter, or calculi seen. No perinephric stranding. BLADDER: Unremarkable. GASTROINTESTINAL TRACT: The small and large bowel are unremarkable. The appendix is unremarkable. ABDOMINAL WALL: Small periumbilical hernia seen. A knuckle of portion of the wall of a loop of small bowel is in the hernia sac without obstruction or edema. LYMPH NODES: No retroperitoneal lymphadenopathy VASCULAR: Unremarkable. PELVIC VISCERA: The retroverted uterus and adnexa are unremarkable. A small amount of free fluid is present in the cul-de-sac OSSEOUS STRUCTURES: Unremarkable. CT/CT abdomen pelvis w IV con IMPRESSION: 1. A cause for the patient's abdominal pain has not been found. 2. Incidental note made of an enlarged fatty liver and a small periumbilical hernia. Fleischner guidelines were followed.
[2024-03-29 09:10] LABS: MANUAL DIFF FLAG NO
[2024-03-29 09:14] LABS: Basophils Percent Auto 0.5 % (0-2); Eosinophils Absolute Auto 0.1 X10*3/uL (0.0-0.4); Eosinophils Percent Auto 1.1 % (0-4); Hemoglobin 12.5 g/dl (12.0-16.0); Imm Gran Abs Auto 0.07 X10*3/uL (0.00-0.03); Imm Gran Pct Auto 0.8 % (0.0-0.4); Lymphocytes Absolute Auto 2.9 X10*3/uL (1.2-4.9); Lymphocytes Percent Auto 34.1 % (20-40); Mean Corpuscular HGB Conc 32.1 g/dl (31.0-35.0); Mean Corpuscular Hemoglobin 27.1 pg (27.0-33.0); Mean Corpuscular Volume 84.4 fL (80.0-98.0); Mean Platelet Volume 10.7 fL (9.4-12.3); Monocytes Absolute Auto 0.6 X10*3/uL (0.1-1.2); Neutrophils Absolute Auto 4.8 x10*3/uL (2.0-8.3); Neutrophils Percent Auto 56.5 % (45-73); Platelet Count 351 X10*3/uL (160-400); Red Blood Count 4.62 X10*6/uL (4.20-5.50); Red Cell Distribution Width 13.7 % (11.0-16.0); White Blood Count 8.5 X10*3/uL (4.8-10.8)
[2024-03-29 09:26] LABS: Alanine Aminotransferase 16 U/L (0-31); Alkaline Phosphatase 49 U/L (39-117); Anion Gap 12 (12-20); Aspartate Amino Transferase 15 U/L (5-31); Bilirubin Total 0.4 mg/dL (0.0-1.0); Blood Urea Nitrogen 11 mg/dL (9-16); Calcium 9.4 mg/dL (8.4-10.2); Carbon Dioxide 23 mmol/L (22-29); Chloride 108 mmol/L (96-108); Creatinine Clr Calc Pharmacy 111.9; Estimated Glomerular Filt Rate > 60; Glucose Random 103 mg/dL (60-115); Lipase 11 U/L (8-78); Potassium 4.3 mmol/L (3.3-5.1); Sodium 139 mmol/L (135-145); Total Protein 8.1 g/dL (6.5-8.0)
--- NOTE | 2024-03-29 10:30 | PC.NURSE ---
UMBILICAL HERNIA PAIN X 4. INCREASE PAIN X 4 DAYS.
[2024-03-29] MEDS: Acetaminophen 325 MG TABLET 975 MG PO (11:01)
[2024-03-29] MEDS: iohexoL 350 MG/ML 100 ML INFUS..BTL IV (11:42)
--- NOTE | 2024-03-29 12:59 | ED_ITS ---
HPI - Abdominal Pain General Chief Complaint: Abdominal Pain Stated Complaint: Abd pain-hernia Time Seen by Provider: 03/29/24 09:20 Source: patient Mode of arrival: ambulatory Limitations: no limitations History of Present Illness HPI narrative: 28 year old female hx of c- section years ago, obsity, umbilical hernia, GERD, endometriosis, presents w/ abd pain X months worsening acutely over the past four days. Patient tells me she has had an umbilical hernia for years and it has been bothersome but never this painful. Reports over the past four days it has been constant discomfort. Nothing makes it better or worse. Denies nausea, vomiting, fevers, chills, cp, sob, blood in urine, urinary sx, headache, vision changes. Related Data Previous Rx's ?Medication ?Instructions ?Recorded Rinvoq 15 mg tablet,extended 15 mg PO DAILY #30 tabs 03/02/24 release (upadacitinib) mesalamine 0.375 gram 1.5 g (4 x 0.375 gram) PO QAM #120 03/21/24 capsule,extended release 24 hr caps (Apriso) pantoprazole 40 mg tablet,delayed 40 mg PO DAILY #90 tabs 03/21/24 release Allergies Allergy/AdvReac Type Severity Reaction Status Date / Time ondansetron [From ZOFRAN] AdvReac Intermediate INCREASED Verified 03/29/24 08:54 VOMTING Review of Systems Review of Systems Yes all other systems are reviewed and are negative [facility] Past Medical History Attestation statement: The following information was validated with the patient. Source: old records reviewed and nursing notes reviewed Medical History Retrobulbar neuritis Iritis of left eye Endometriosis determined by laparoscopy Endometriosis Ankylosing spondylitis GERD (gastroesophageal reflux disease) Surgical History Hx of esophagogastroduodenoscopy Tubal ligation status Hx of section Hx of colonoscopy Family History Family History Father Colon cancer HTN (hypertension) Diabetes Hypercholesteremia Stage 4 lung cancer Mother Diabetes HTN (hypertension) Hypercholesteremia Maternal Grandmother Arthritis Multiple sclerosis Paternal Grandmother Arthritis Sister Multiple sclerosis Social History Social History Household Members: Children Household Members Other:: brother Alcohol intake: never Patient Tobacco Use Status: Never used Tobacco Smoked in Last 30 Days: No Use of substances other than those prescribed or required for medical reasons: No Advance Directives: No Advance Directives Information Provided: No Do you have a plan to hurt others: No Plan Patient : No Current occupational status: employed, unemployed and disabled 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 Oriented X3.? No acute distress.? Head: Normocephalic, atraumatic, no step-offs or deformities Eyes: Pupils equal, round and reactive to light.? CVS: Normal heart rate and rhythm.? Pulses normal.? Respiratory: No respiratory distress.? Breath sounds normal.? Abdomen: Soft and +small reducible umbilical hernia around 2 cm x 2 cm , no overlying skin changes normal skin color. TTP throughout abdomen .? Skin: Skin warm and dry.? Normal skin color.? Normal skin turgor.? Extremities: No lower extremity edema.? No calf ttp. 5/5 strength to bilateral upper and lower extremities Neuro: Oriented X 3.? No motor deficit.? No sensory deficit. CN 2-12 intact Course Reevaluation(s) Reevaluation #1: CBC unremarkable. Chemistry no acute findings. HCG negative. CT abdomen pelvis unable to identify a cause for patient's abdominal pain. Incidental note of enlarged fatty liver and a small periumbilical hernia. Patients initial presentation with significant pain and she states it after its reduced it slides back out and lately has become paiinful. Spoke to surgeon oncall Dr. Prajapati who will come evaluate patient. Time: 14:51 Reevaluation #2: Patient will go to the OR for umbilical hernia Dr. Prajapati will admit Time: 15:58 Medical Decision Making Medical Decision Making [facility] Narrative: 28 year old female presents w/ 4 days of severe pain overlying umbilical hernia. PE- small reducible umbilical hernia around 2 cm x 2 cm , no overlying skin changes normal skin color. Hx and pe concerning for umbilical hernia and ? intermittent incarceration/strangulation. Unlikely ischemic bowel. Unlikely appendicitis, cholecystitis, diverticulitis, obstruction. Plan- labs, urine, imaging Differential Diagnosis Differential Diagnoses: The differential diagnosis associated with the presentation includes Hx and pe concerning for umbilical hernia and ? intermittent incarceration/strangulation. Unlikely ischemic bowel. Unlikely appendicitis, cholecystitis, diverticulitis, obstruction. Admission/Observation Consideration of admission/observation: Escalation of care including admission/observation considered possible Consult Healthcare Provider Management of the patient was discussed with: Snapper On (general surgery ) Lab Data [facility] Lab Attestation statement: I reviewed the patient's lab results. 03/29/24 09:06 03/29/24 09:06 Labs: Lab Results 03/29/24 Range/Units 09:06 WBC 8.5 (4.8-10.8) X10*3/uL RBC 4.62 (4.20-5.50) X10*6/uL Hgb 12.5 (12.0-16.0) g/dl Hct 39.0 (37.0-47.0) % MCV 84.4 (80.0-98.0) fL MCH 27.1 (27.0-33.0) pg MCHC 32.1 (31.0-35.0) g/dl RDW 13.7 (11.0-16.0) % Plt Count 351 (160-400) X10*3/uL MPV 10.7 (9.4-12.3) fL Immature Gran % (Auto) 0.8 H (0.0-0.4) % Neut % (Auto) 56.5 (45-73) % Lymph % (Auto) 34.1 (20-40) % [place] % (Auto) 7.0 (2-11) % Eos % (Auto) 1.1 (0-4) % Baso % (Auto) 0.5 (0-2) % Lymph # (Auto) 2.9 (1.2-4.9) X10*3/uL [place] # (Auto) 0.6 (0.1-1.2) X10*3/uL Eos # (Auto) 0.1 (0.0-0.4) X10*3/uL Baso # (Auto) 0.0 (0.0-0.2) X10*3/uL Abs Immat Gran (auto) 0.07 H (0.00-0.03) X10*3/uL Absolute Neuts (auto) 4.8 (2.0-8.3) x10*3/uL Absolute Nucleated RBC 0.000 (0.0-0.012) X10*3/uL Nucleated RBC % (auto) 0.0 (0.0-0.2) /100WBC Sodium 139 (135-145) mmol/L Potassium 4.3 (3.3-5.1) mmol/L Chloride 108 (96-108) mmol/L Carbon Dioxide 23 (22-29) mmol/L Anion Gap 12 (12-20) BUN 11 (9-16) mg/dL Creatinine 0.76 (0.5-1.4) mg/dL Estim Creat Clear Calc 111.9 Estimated GFR > 60 Random Glucose 103 (60-115) mg/dL Calcium 9.4 (8.4-10.2) mg/dL Total Bilirubin 0.4 (0.0-1.0) mg/dL AST 15 (5-31) U/L ALT 16 (0-31) U/L Alkaline Phosphatase 49 (39-117) U/L Total Protein 8.1 H (6.5-8.0) g/dL Albumin 4.0 (3.5-5.0) g/dL Lipase 11 (8-78) U/L Beta HCG, Quant < 2 mIU/mL Independent Interpretation I performed an independent interpretation of an: CT Scan (CT/CT abdomen pelvis w IV con IMPRESSION: 1. A cause for the patient's abdominal pain has not been found. 2. Incidental note made of an enlarged fatty liver and a small periumbilical hernia. Fleischner guidelines were followed.) Radiology Impression Discussion of test interpretation with radiology: I have reviewed the radiologist's reading. External Record Review External record reviewed: Inpatient record, Office record, Outpatient record, Prior outpatient labs, Prior outpatient radiology, Primary care record and Outside ED record Prescription Management I considered prescription management with: Pain Medication (tylenol ) Medications Administered Discontinued Medications Generic Name Dose Route Start Last Admin Trade Name Marv PRN Reason Stop Dose Admin Acetaminophen 975 mg 03/29/24 10:40 03/29/24 11:01 Acetaminophen 325 Mg Tablet PO 03/29/24 10:41 975 mg ONCE ONE Administration Iohexol 100 ml 03/29/24 11:42 03/29/24 11:42 Iohexol 350 Mg/Ml 100 Ml Infus..Btl IV 03/29/24 11:43 85 ml ONCE ONE Administration Ketorolac Tromethamine 30 mg 03/29/24 09:59 03/29/24 11:03 Ketorolac Tromethamine 30 Mg/Ml Vial IVPUSH 03/29/24 10:00 Not Given ONCE ONE Critical Care Time Critical Care Time Critical Care Time: Yes Total Critical Care Time: 35 Attestation: I attest to this time spent taking care of the patient, obtaining history, physical, reviewing labs, imaging, speaking to my attending, specialist or hospitalist. Discharge Plan Discharge Clinical Impression: Hernia, umbilical Patient Disposition: Admitted As Inpatient Additional Instructions: Take your medications as prescribed. If you were prescribed antibiotics today, it is important that you take your medication to their entirety, do not skip any doses, do not finish them early. Follow-up with your primary care provider this week. Return to the emergency department with new or worsening symptoms. In case of emergency call 911 Print Language: Sami
[2024-03-29 14:49] LABS: HCG Quantitative < 2 mIU/mL
--- NOTE | 2024-03-29 16:11 | PHA.MEDREC ---
Pharmacy Consult ? Medication Reconciliation Pharmacy has completed the medication reconciliation. Patient reported she has not started pantoprazole or mesalamine therefore left unconfirmed. Giovanna Olivera, PharmD
--- NOTE | 2024-03-29 16:27 | PM.HPGS ---
History of Present Illness History of Present Illness Date of Service: 03/29/24 Chief complaint: Abd pain Narrative: Zulema Renner is a 28 year old female who comes in complaining of significant abdominal pain. Her labs were within normal limits had a CT scan was carried out which did not reveal any significant findings. She does have a small umbilical hernia with a little edge of knuckle of small bowel present but not causing any obstruction no inflammatory changes surrounding it. Patient complains her umbilical area swells up and then goes back down it has been causing a lot of pain. She denies any nausea vomiting has been passing gas. She has not had a hernia repair in the past. I can see from an old CT scan that she did have a fat containing small umbilical hernia about 4 5 years ago. The emergency room physician was able to push down and maybe reduce a bump that was present there so question whether the bowel may have been a little more jeopardized and plan will be to go in and evaluated better. Patient then went on to say that she has had issues with her gallbladder back in 2017 and 2019 when COVID was going on but kept putting off needing to get her gallbladder out. She is never seen a surgeon for this. She says that the pain that she is having however today is different than the pain with her gallbladder Review of Systems Review of Systems: Yes all other systems are reviewed and are negative PMFSH Past Medical History Medical History Retrobulbar neuritis Iritis of left eye Endometriosis determined by laparoscopy Endometriosis Ankylosing spondylitis GERD (gastroesophageal reflux disease) Family History Family History Father Colon cancer HTN (hypertension) Diabetes Hypercholesteremia Stage 4 lung cancer Mother Diabetes HTN (hypertension) Hypercholesteremia Maternal Grandmother Arthritis Multiple sclerosis Paternal Grandmother Arthritis Sister Multiple sclerosis Surgical History Surgical History Hx of esophagogastroduodenoscopy Tubal ligation status Hx of section Hx of colonoscopy Social History Social History Household Members: Children Household Members Other:: brother Alcohol intake: never Patient Tobacco Use Status: Never used Tobacco Smoked in Last 30 Days: No Use of substances other than those prescribed or required for medical reasons: No Advance Directives: No Advance Directives Information Provided: No Do you have a plan to hurt others: No Plan Patient : No Current occupational status: employed, unemployed and disabled 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 Allergies Allergy/AdvReac Type Severity Reaction Status Date / Time ondansetron [From ZOFRAN] AdvReac Intermediate INCREASED Verified 03/29/24 08:54 VOMTING Active Medications: Current Medications Dextrose/Sodium Chloride (D51/2ns) 1,000 mls @ 100 mls/hr IVCONT .Q10H ABDULKADIR Sodium Chloride (0.9 % Sodium Chloride Flush 3 Ml Syringe) 3 ml IVFLUSH QSHIFT ABDULKADIR Home Medications ?Medication ?Instructions ?Recorded ?Confirmed ?Last Taken ?Type acetaminophen 325 mg tablet 650 mg PO Q6H PRN Pain 03/29/24 03/29/24 Unknown History Physical Exam Vital Signs: Vital Signs: Last Vital Signs Temp 97.9 F 03/29/24 14:47 Pulse 52 03/29/24 14:47 Resp 12 03/29/24 14:47 BP 107/57 L 03/29/24 14:47 Pulse Ox 100 03/29/24 14:47 O2 Del Method Room Air 03/29/24 14:47 BMI result Body Mass Index 32.6 Const: General: cooperative and healthy appearing Orientation/consciousness: patient oriented x3 HEENT: Head: Yes normal to inspection Resp: Effort & Inspection: normal respiratory effort Auscultation: clear to auscultation bilaterally Cardio: Rate: regular rate Rhythm: regular rhythm GI: Other: Abdomen is soft but she is tender especially in the supraumbilical area but no masses noted. No skin changes. She has some guarding no peritoneal signs active bowel sounds Skin: General skin exam: no rashes or lesions noted Neuro: General: patient oriented x3 Cranial nerves: Yes CN's II-XII intact bilaterally Extrem: General: Yes normal to inspection Psych: Appearance: grossly normal Results Results Labs: Short CBC 03/29/24 Range/Units 09:06 WBC 8.5 (4.8-10.8) X10*3/uL Hgb 12.5 (12.0-16.0) g/dl Hct 39.0 (37.0-47.0) % Plt Count 351 (160-400) X10*3/uL BMP 03/29/24 09:06 Sodium 139 Potassium 4.3 Chloride 108 Carbon Dioxide 23 BUN 11 Creatinine 0.76 Calcium 9.4 Liver Function 03/29/24 Range/Units 09:06 Total Bilirubin 0.4 (0.0-1.0) mg/dL AST 15 (5-31) U/L ALT 16 (0-31) U/L Alkaline Phosphatase 49 (39-117) U/L Albumin 4.0 (3.5-5.0) g/dL Abdomen CT scan report/results: report reviewed and image reviewed CT scan - pelvis: report reviewed and image reviewed Additional studies: [address] [address] [address] Scan Report Signed Patient: Zulema Renner MR#: [id number] : 1995 Acct:[id number] Age/Sex: 28 / F ADM Date: 03/29/24 Loc: .ED Attending Dr: Ordering Physician: Nacho Montiel Date of Service: 03/29/24 Procedure(s): CT abdomen pelvis w IV con Accession Number(s): [id number] cc: Nacho Montiel; RUSLAN GUTIERREZ~ EXAMINATION: CT ABDOMEN AND PELVIS WITH CONTRAST CLINICAL INFORMATION: Abdominal pain COMPARISON: CT abdomen pelvis 05/16/2021 TECHNIQUE: Multidetector volumetric images were obtained from the superior aspect of the liver through the pubic symphysis following administration 85 mL of Omnipaque 350 intravenous contrast. Sagittal and coronal reformatted images were obtained on the technologist's workstation. Oral contrast: No This CT examination was performed using dose optimization techniques as appropriate, variously including the following: *Automated exposure control *Adjustment of mA and/or kV according to patient size (this includes techniques or standardized protocols for targeted exams where dose is matched to indication/reason for exam; i.e. extremities or head) *Use of iterative reconstruction technique DLP: 608 mGy-cm FINDINGS: LUNG BASES: The visualized lung bases are unremarkable. LIVER, GALLBLADDER, AND BILIARY TREE: The liver is enlarged at 19 cm in cephalocaudad dimension with decreased attenuation consistent with hepatic steatosis. No focal hepatic lesion or biliary ductal dilatation is present. The gallbladder is unremarkable with no evidence of radiopaque gallstones, gallbladder wall thickening, or obvious pericholecystic inflammatory changes. PANCREAS: Unremarkable. SPLEEN: Unremarkable. ADRENAL GLANDS: Unremarkable. KIDNEYS AND URETERS: The kidneys are normal in size, shape, and attenuation. No hydronephrosis, hydroureter, or calculi seen. No perinephric stranding. BLADDER: Unremarkable. GASTROINTESTINAL TRACT: The small and large bowel are unremarkable. The appendix is unremarkable. ABDOMINAL WALL: Small periumbilical hernia seen. A knuckle of portion of the wall of a loop of small bowel is in the hernia sac without obstruction or edema. LYMPH NODES: No retroperitoneal lymphadenopathy VASCULAR: Unremarkable. PELVIC VISCERA: The retroverted uterus and adnexa are unremarkable. A small amount of free fluid is present in the cul-de-sac OSSEOUS STRUCTURES: Unremarkable. CT/CT abdomen pelvis w IV con IMPRESSION: 1. A cause for the patient's abdominal pain has not been found. 2. Incidental note made of an enlarged fatty liver and a small periumbilical hernia. Fleischner guidelines were followed. Assessment and Plan (1) Hernia, umbilical: Status: Acute Plan 28-year-old female with longstanding umbilical hernia but recently with more of a mass that comes and goes and a lot more tenderness. She came in today with the area being extremely tender and CT scan of the abdomen pelvis looking relatively benign other than a small umbilical hernia with a knuckle of small bowel with just 1 edge the wall incorporated in the hernia sac. No surrounding changes that looked concerning and her white count is normal. However she is extremely tender and despite having the emergency room physician probably reduce this she is still complaining of pain. Plan to carry out laparoscopic look and primary repair of the umbilical hernia. She says that she was told in the past that she needs to have her gallbladder out but over the last several months she has not had any biliary symptoms. She says this is different than those symptoms. As a result today we will just focus on the umbilical hernia and deal with the emergent issues. Risks and benefits were discussed with the patient including but not limited to bleeding infection bowel injury and recurrence and despite this she wishes to proceed. We will plan on looking this and admitting her this afternoon Quality Stroke Does the patient have a stroke diagnosis?: No VTE Prior VTE?: No VTE Risk Level:: Surgical - low VTE Device Contraindication: Treatment Not Indicated VTE Drug Contraindication: Treatment Not Indicated Procedures Date of Service Date of Service: 03/29/24
[2024-03-29] MEDS: Dextrose 5 % and 0.45 % NaCl 1,000 ML 100 ML IVCONT (17:43)
[2024-03-29 19:29] LABS: Appearance Urine Clear; Color Urine Yellow; Glucose Urine UA Negative (Negative); Leukocyte Esterase Urine Negative (Negative); Nitrite Urine Negative (Negative); PH 6.5 (5.0-9.0); Urine Blood Negative (Negative); Urine Ketones Negative (Negative); Urine Protein Negative (Neg-Trace)
--- NOTE | 2024-03-29 20:53 | HO.ANESPROP2 ---
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) Hip pain, chronic (Acute) Low back pain (Acute) GERD (gastroesophageal reflux disease) (Acute) Ankylosing spondylitis (Acute) Endometriosis (Acute) Nausea and vomiting (Acute) Diarrhea (Acute) Family history of colon cancer (Acute) Abdominal pain (Acute) UTI (urinary tract infection) (Acute) Recurrent infections (Acute) Past Medical History Medical History Retrobulbar neuritis Iritis of left eye Endometriosis determined by laparoscopy Endometriosis Ankylosing spondylitis GERD (gastroesophageal reflux disease) Family History Family History Father Colon cancer HTN (hypertension) Diabetes Hypercholesteremia Stage 4 lung cancer Mother Diabetes HTN (hypertension) Hypercholesteremia Maternal Grandmother Arthritis Multiple sclerosis Paternal Grandmother Arthritis Sister Multiple sclerosis Family history of problems with anesthesia: No Surgical History Surgical History Hx of esophagogastroduodenoscopy Tubal ligation status Hx of section Hx of colonoscopy History of Problems with Anesthesia: No Social History Social History Household Members: Children Household Members Other:: brother Alcohol intake: never Patient Tobacco Use Status: Never used Tobacco Smoked in Last 30 Days: No Use of substances other than those prescribed or required for medical reasons: No Advance Directives: No Advance Directives Information Provided: No Do you have a plan to hurt others: No Plan Nutrition Risks: No Nutritional Risk Patient : No Current occupational status: employed, unemployed and disabled 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 Allergies Allergy/AdvReac Type Severity Reaction Status Date / Time ondansetron [From ZOFRAN] AdvReac Intermediate INCREASED Verified 03/29/24 08:54 VOMTING Active Medications: Current Medications Dextrose/Sodium Chloride (D51/2ns) 1,000 mls @ 100 mls/hr IVCONT .Q10H ABDULKADIR Last Admin: 03/29/24 17:43 Dose: 100 mls/hr Sodium Chloride (0.9 % Sodium Chloride Flush 3 Ml Syringe) 3 ml IVFLUSH QSHIFT [facility] Home Medications ?Medication ?Instructions ?Recorded ?Confirmed ?Last Taken ?Type acetaminophen 325 mg tablet 650 mg PO Q6H PRN Pain 03/29/24 03/29/24 Unknown History Exam Height,Weight and Vital Signs: Height 5 ft 3 in Weight 83.6 kg Last Vital Signs Temp 99.4 F 03/29/24 20:35 Pulse 67 03/29/24 20:35 Resp 18 03/29/24 20:35 BP 148/71 H 03/29/24 20:35 Pulse Ox 99 03/29/24 20:35 O2 Del Method Room Air 03/29/24 20:35 Pertinent Lab Results Pertinent Lab Results: Laboratory Tests 03/29/24 03/29/24 09:06 19:21 WBC 8.5 RBC 4.62 Hgb 12.5 Hct 39.0 MCV 84.4 MCH 27.1 MCHC 32.1 RDW 13.7 Plt Count 351 MPV 10.7 Immature Gran % (Auto) 0.8 H Neut % (Auto) 56.5 Lymph % (Auto) 34.1 [place] % (Auto) 7.0 Eos % (Auto) 1.1 Baso % (Auto) 0.5 Lymph # (Auto) 2.9 [place] # (Auto) 0.6 Eos # (Auto) 0.1 Baso # (Auto) 0.0 Abs Immat Gran (auto) 0.07 H Absolute Neuts (auto) 4.8 Absolute Nucleated RBC 0.000 Nucleated RBC % (auto) 0.0 Sodium 139 Potassium 4.3 Chloride 108 Carbon Dioxide 23 Anion Gap 12 BUN 11 Creatinine 0.76 Estim Creat Clear Calc 111.9 Estimated GFR > 60 Random Glucose 103 Calcium 9.4 Total Bilirubin 0.4 AST 15 ALT 16 Alkaline Phosphatase 49 Total Protein 8.1 H Albumin 4.0 Lipase 11 Beta HCG, Quant < 2 Urine Color Yellow Urine Appearance Clear Urine pH 6.5 Ur Specific [place] 1.020 Urine Protein Negative Urine Glucose (UA) Negative Urine Ketones Negative Urine Blood Negative Urine Nitrite Negative Ur Leukocyte Esterase Negative Airway Mallampati Class: II TM Dist: >3cm Neck ROM: Full Loose/Missing/Broken Teeth: No Heart: RRR Lungs: CTA Assessment and Plan Assessment Anesthesia Assessment: Anesthesia Plan Discussed and Chart Reviewed Final Anesthetic Review Family History of Problems with Anesthesia: No History of Problems with Anesthesia: No NPO: Yes ASA Class: III and Emergency Final Preanesthetic Review: No Changes in Pt Med Stat, Meds/Allgs Chart Reviewed, Consent Obtained/Reviewed and Anes Risks/Benef Reviewed Patient Risk: Intermediate Procedure Risk: Intermediate Anesthetic Plan Anesthetic Plan: GA Disposition: Standard PACU
--- NOTE | 2024-03-29 23:03 | W.PM.OPN ---
Operative Note Operative Note Date of Service: 03/29/24 Narrative: Preop diagnosis-= incarcerated umbilical hernia Postop diagnosis-incarcerated umbilical hernia with small bowel Procedure --exploratory laparoscopy with open repair of umbilical hernia Surgeon- Cheryl Anesthesia- general History- patient is a 28-year-old female came in with severe abdominal pain saying that her abdomen has been swelling up and going down on and off over the last couple of days and she has been having pain but it got worse today. She has had some nausea no vomiting burping but also passing gas and having some loose stools. On exam she was very tender on the CT scan of her abdomen and pelvis was done which showed a small umbilical hernia with a knuckle of small bowel incorporated into the hernia sac pending evidence of obstruction or inflammatory changes. Patient was moderately tender on palpation despite the emergency room doctor apparently reducing the hernia. As a result she comes in now for exploration and repair of umbilical hernia Findings- there was a small loop of small bowel that had some petechial erythematous changes which was most likely the piece of bowel that was incarcerated but the looked viable and fine. Umbilical hernia was repaired primarily Procedure--patient was brought to the operative room and under anesthesia guidance was intubated. She had compression stockings placed from before induction received preoperative antibiotics. Her abdomen was prepped and draped in standard surgical fashion. An infraumbilical incision was created after the area was palpated and a bulge was felt at the umbilicus and then reduced. Small fascial defect was felt but there was still a little bit of globular tissue noted under the umbilicus. Getting down into the fascia a Patsy clamp was used to circumferentially come across and around the umbilical stalk and the skin was transected the hernia sac was entered and immediately some small bowel and some fatty tissue was noted in this area. 5 mm trocar was introduced through the fascial defect which was about a cm and pneumoperitoneum established. The 5 mm 0 camera was introduced through the port at the umbilicus defect and the small bowel evaluated. There was a loop of traumatized small bowel noted the length of which had erythematous reaction was probably about 7 cm. Patient was put a little more in head down position to see if the loop would follow side so we could get the full evaluation of this loop of bowel but we were unable to do so. As a result another 5 mm port was then placed under direct visualization in the right upper quadrant area and a grasper was used to come into the peritoneal cavity and grasped the loop of bowel of concern. It was noted the the changes were not as concerning they start to look better and that there was no other bowel that was worrisome. Attention was now focused to the umbilical area and the port was removed and this big globular piece of fat that was now in the preperitoneal space and out through the hernia defect was most likely some of the falciform ligament. Using cautery this was dissected off at the edge of abdominal wall fascia circumferentially. One area that was bleeding and a small vessel was noted was suture ligated. This glob of fat was sent off as hernia sac. Once hemostasis was achieved and the fascial defect examined there was a bowel less than 2 cm but the tissue was fine. It was decided to do a primary repair using Ethibond 1. Suture. For [id number] sutures were used to close the defect and then local was used in this area. A 5 mm port in the right upper quadrant area was still in place and pneumoperitoneum was then reestablished and the camera introduced into the peritoneal cavity. The loop of intestine that had been incarcerated in the hernia looks better and fine and the fascial defect of the hernia looks great from the inside. This port was then removed 1st allowing the air to be evacuated through the port. The umbilicus was then imbricated with 2-0 Vicryl and then 4-0 Monocryl was used to approximate the skin edges in a running subcuticular fashion. Steri-Strips were placed. The port site in the right upper quadrant was also closed and Steri-Strips placed. At the end of the case all sponge instrument and needle counts were correct. Estimated blood loss was about 10 cc. Specimen sent was the hernia sac. Patient received about 500 cc of IV crystalloid. She returned stable to the recovery room after extubation.
[2024-03-29] MEDS: HYDROmorphone HCl 0.5 MG/0.5 ML SYRINGE IVPUSH ×2 (23:08→23:24)
[2024-03-29] MEDS: Metoclopramide HCl 10 MG/2 ML VIAL IVPUSH (23:36)
[2024-03-30] VITALS: BP 115/64; PULSE 53; RESP 20; TEMP 36.1; O2SAT 98
[2024-03-30 00:30] VITALS: BP 115/64; PULSE 55; RESP 20; TEMP 36.1; O2SAT 98; BMI 33.0
[2024-03-30] MEDS: Dextrose 5 % and 0.45 % NaCl 1,000 ML 100 ML IVCONT (01:14)
[2024-03-30 03:31] VITALS: BP 123/64; PULSE 76; RESP 20; TEMP 36.3; O2SAT 96
[2024-03-30] MEDS: Pantoprazole Sodium 40 MG/10 ML VIAL IVPUSH (04:26)
[2024-03-30] MEDS: oxyCODONE HCl Immed Release 5 MG TABLET 10 MG PO (04:26)
[2024-03-30] MEDS: diphenhydrAMINE HCL 50 MG/ML VIAL 25 MG IVPUSH (04:27)
[2024-03-30 07:21] VITALS: BP 94/50; PULSE 73; RESP 18; TEMP 36.7; O2SAT 98
--- NOTE | 2024-03-30 07:38 | PM.PNGS ---
Subjective Subjective Date of Service: 03/30/24 <Susan Gonzalez PA-C - Last Filed: 03/30/24 07:40> 03/30/24 <Danilo Daniels MD - Last Filed: 03/30/24 09:14> Interval history: Feels overall ok, sore at incision sites. Tolerating water and crackers. OOB to bathroom. <Susan Gonzalez PA-C - Last Filed: 03/30/24 07:40> Physical Exam Vital Signs: Vital Signs: Last Vital Signs Temp 98.1 F 03/30/24 07:21 Pulse 73 03/30/24 07:21 Resp 18 03/30/24 07:21 BP 94/50 L 03/30/24 07:21 Pulse Ox 98 03/30/24 07:21 O2 Del Method Room Air 03/30/24 07:21 O2 Flow Rate 94 03/30/24 01:24 BMI result Body Mass Index 33.0 <CARLOS Steward Last Filed: 03/30/24 07:40> Const: General: comfortable, no acute distress and alert <Susan Gonzalez PA-C - Last Filed: 03/30/24 07:40> Orientation/consciousness: patient oriented x3 <CARLOS Steward Last Filed: 03/30/24 07:40> Resp: Effort & Inspection: normal respiratory effort <Susan Gonzalez PA-C - Last Filed: 03/30/24 07:40> GI: Inspection: No distended and Yes incision (dressings intact) <CARLOS Steward Last Filed: 03/30/24 07:40> Palpation (GI): Soft to palpation, Tenderness to palpation present (GI) (incisional) and no guarding <CARLOS Steward Last Filed: 03/30/24 07:40> Percussion: Yes normal to percussion <CARLOS Steward Last Filed: 03/30/24 07:40> Skin: General skin exam: no rashes or lesions noted <CARLOS Steward Last Filed: 03/30/24 07:40> Neuro: General: patient oriented x3 <Susan Gonzalez PA-C - Last Filed: 03/30/24 07:40> Objective Data Active Medications Dextrose/Sodium Chloride (D51/2ns) 1,000 mls @ 100 mls/hr IVCONT .Q10H [facility] Last Admin: 03/30/24 01:14 Dose: 100 mls/hr Documented By: MARGA Metoclopramide HCl (Metoclopramide Hcl 10 Mg/2 Ml Vial) 10 mg IVPUSH Q6H PRN PRN Reason: Nausea and Vomiting Last Admin: 03/29/24 23:36 Dose: 10 mg Documented By: ROSANA Morphine Sulfate (Morphine Sulfate 2 Mg/Ml Cartridge) 2 mg IVPUSH Q3H PRN; Protocol PRN Reason: Pain, Severe (Pain Scale 7-10) Oxycodone HCl (Oxycodone Hcl Immed Release 5 Mg Tablet) 10 mg PO Q4H PRN PRN Reason: Pain, Moderate(Pain Scale 4-6) Last Admin: 03/30/24 04:26 Dose: 10 mg Documented By: MARGA Pantoprazole Sodium (Pantoprazole Sodium 40 Mg/10 Ml Vial) 40 mg IVPUSH DAILY@0630 [facility] Last Admin: 03/30/24 04:26 Dose: 40 mg Documented By: MARGA Sodium Chloride (0.9 % Sodium Chloride Flush 3 Ml Syringe) 3 ml IVFLUSH QSHIFT [facility] Last Admin: 03/30/24 03:48 Dose: Not Given Documented By: MARGA Non-Admin Reason: IV Running <Susan Gonzalez PA-C - Last Filed: 03/30/24 07:40> Labs CBC & Chem 7: 03/29/24 09:06 03/29/24 09:06 <Susan Gonzalez PA-C - Last Filed: 03/30/24 07:40> Labs: Laboratory Results - last 24 hr 03/29/24 03/29/24 09:06 19:21 MCV 84.4 MCH 27.1 MCHC 32.1 RDW 13.7 Plt Count 351 MPV 10.7 Immature Gran % (Auto) 0.8 H Neut % (Auto) 56.5 Lymph % (Auto) 34.1 Chaves % (Auto) 7.0 Eos % (Auto) 1.1 Baso % (Auto) 0.5 Lymph # (Auto) 2.9 Chaves # (Auto) 0.6 Eos # (Auto) 0.1 Baso # (Auto) 0.0 Abs Immat Gran (auto) 0.07 H Absolute Neuts (auto) 4.8 Absolute Nucleated RBC 0.000 Nucleated RBC % (auto) 0.0 Anion Gap 12 Estim Creat Clear Calc 111.9 Estimated GFR > 60 Random Glucose 103 Calcium 9.4 Total Bilirubin 0.4 AST 15 ALT 16 Alkaline Phosphatase 49 Total Protein 8.1 H Albumin 4.0 Lipase 11 Beta HCG, Quant < 2 Urine Color Yellow Urine Appearance Clear Urine pH 6.5 Ur Specific Taberg 1.020 Urine Protein Negative Urine Glucose (UA) Negative Urine Ketones Negative Urine Blood Negative Urine Nitrite Negative Ur Leukocyte Esterase Negative <Susan Gonzalez PA-C - Last Filed: 03/30/24 07:40> Procedures Date of Service Date of Service: 03/30/24 <Susan Gonzalez PA-C - Last Filed: 03/30/24 07:40> 03/30/24 <Danilo Daniels MD - Last Filed: 03/30/24 09:14> Progress Note: A&P Assessment and plan (1) Hernia, umbilical: Status: Acute <Susan Gonzalez PA-C - Last Filed: 03/30/24 07:40> Assessment and Plan: Status post repair Doing well postop Tolerating diet Says she is ready to go home DC instructions given Follow-up in the office Seen and examined independently <Danilo Daniels MD - Last Filed: 03/30/24 09:14> Assessment and Plan: POD #1 s/p exploratory laparoscopy with open repair of umbilical hernia. Doing well post op.Encouraged OOB and ambulation. Will reassess later today. If remains comfortable and tolerating solids, stable for dc to home today. Patient comfortable with plan. <Susan Gonzalez PA-C - Last Filed: 03/30/24 07:40> Time Spent With Patient Time: Total time managing care of this patient today ____ minutes. <Susan Gonzalez PA-C - Last Filed: 03/30/24 07:40> Quality Stroke Does the patient have a stroke diagnosis?: No <Susan Gonzalez PA-C - Last Filed: 03/30/24 07:40> VTE Prior VTE?: No <Susan Gonzalez PA-C - Last Filed: 03/30/24 07:40> VTE Risk Level:: Surgical - low <Susan Gonzalez PA-C - Last Filed: 03/30/24 07:40> VTE Device Contraindication: Treatment Not Indicated <Susan Gonzalez PA-C - Last Filed: 03/30/24 07:40> VTE Drug Contraindication: Treatment Not Indicated <Susan Gonzalez PA-C - Last Filed: 03/30/24 07:40>
[2024-03-30] MEDS: 0.9 % Sodium Chloride Flush 3 ML SYRINGE IVFLUSH (08:09)
--- NOTE | 2024-03-30 08:41 | MHC.CM.PN ---
CM met with Patient at bedside. Patient lives in a multi family house with her Boyfriend, 2 Children and her Brother, while her Mother,Sister, and Niece live on the second floor. 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 Home/self care is the goal and CM has initiated and will follow for dc planning. PCP is Dr. Pamela Campbell and Patient's Mother is her HCP.
--- NOTE | 2024-03-30 09:17 | HO.POSTANES ---
Post Anesthesia Evaluation Post Anesthesia Evaluation Date of Service: 03/29/24 Vital Signs: Vital Signs Temp Pulse Resp BP Pulse Ox O2 Del Method O2 Flow Rate 03/30/24 07:21 98.1 F 73 18 94/50 L 98 Room Air 03/30/24 03:31 97.4 F 76 20 123/64 96 Room Air 03/30/24 01:24 Room Air 94 03/30/24 00:30 97.0 F 55 20 115/64 98 Nasal Cannula 2 03/30/24 00:00 96.9 F 53 20 115/64 98 Nasal Cannula 2 03/29/24 23:42 97.1 F 72 14 112/65 94 Nasal Cannula 2 03/29/24 23:29 65 16 129/73 87 L Nasal Cannula 2 03/29/24 23:27 97.1 F 63 16 131/61 97 Room Air 03/29/24 23:13 63 18 130/73 94 Room Air 03/29/24 23:12 76 16 126/75 99 Room Air 03/29/24 23:08 16 03/29/24 23:07 74 16 131/82 97 Room Air 03/29/24 23:02 83 16 132/78 97 Room Air 03/29/24 22:57 98.9 F 65 19 123/63 98 Room Air Anesthesia: General Endotracheal-GETA Mental Status: Awake Pain Control: Satisfactory Nausea/Vomiting: None Hydration: Adequate Anesthesia-Related Issues: No Anes. Related Issues
--- NOTE | 2024-03-30 10:56 | MHC.CM.PN ---
Patient has been medically cleared for dc to home today, self care.
[2024-03-30 11:32] VITALS: BP 117/62; PULSE 66; RESP 20; O2SAT 98
== END 2024-03-30 12:14 | disposition home or self-care (01) ==
LOC: HO.ED 20:40 → HO.SSS 21:26 → HO.IMC 03-30 00:40
PROVIDERS: Surgery; Emergency Provider Emergency Medicine Emergency Medical Services; PCP Physician Assistant; Visit Provider Physician Assistant
DX: K42.0 Umbilical hernia with obstruction, without gangrene (principal); K21.9 Gastro-esophageal reflux disease without esophagitis; N80.9 Endometriosis, unspecified; E66.9 Obesity, unspecified; Z68.32 Body mass index [BMI] 32.0-32.9, adult; Z79.899 Other long term (current) drug therapy; Z88.8 Allergy status to other drugs, medicaments and biological substances; Z98.890 Other specified postprocedural states
CPT/HCPCS: 49592; 36415; 74177; 80053; 81003; 83690; 84702; 85025; 88302; 96365; 96366; 96375; 99285; C9113; J0690; J1170; J1200; J1885; J2704; J2765; J2795; J3010; Q9967

== ENCOUNTER → 2024-03-29 09:05 | Outpatient (BNV) | payer MEDICAID, SELFPAY | PROVIDERS: Emergency Provider Emergency Medicine Emergency Medical Services; PCP Physician Assistant; Visit Provider Surgery | DX: K42.0 Umbilical hernia with obstruction, without gangrene (principal) | CPT/HCPCS: 49594; 99213; 99223 ==

== ENCOUNTER 2024-04-06 09:15 | Outpatient (AMB) | payer MEDICAID, SELFPAY ==
[2024-04-06 09:30] VITALS: BP 120/67; PULSE 72; BMI 31.9
--- NOTE | 2024-04-06 09:30 | A.OFFVIS_ITS ---
Vital Signs 04/06/24 09:30 Height 5 ft 3 in Weight 180 lb BMI 31.9 BP 120/67 Blood Pressure Location Rt brachial Position Sitting Pulse 72 Intake Visit Reasons: Dr. Luna Umb hernia Intake Note: Patient here s/p umbilical hernia. Reports incisions healing well. Patient c/o: pain, stabbing feeling at lower abd incision. Only taking motrin as needed. SX: 03-29-24. 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 Luna. Patient presents for follow-up. She has minimal incisional discomfort. She has tolerating a diet. Having regular bowel habits. She is increasing her activity level. She has returned to work [employer] Medical History Retrobulbar neuritis Iritis of left eye Endometriosis determined by laparoscopy Endometriosis Ankylosing spondylitis GERD (gastroesophageal reflux disease) Surgical History Hx of esophagogastroduodenoscopy Tubal ligation status Hx of section Hx of colonoscopy Family History Father Colon cancer HTN (hypertension) Diabetes Hypercholesteremia Stage 4 lung cancer Mother Diabetes HTN (hypertension) Hypercholesteremia Maternal Grandmother Arthritis Multiple sclerosis Paternal Grandmother Arthritis Sister Multiple sclerosis Social History Household Members: Family and Children Household Members Other:: brother Housing: House Do you presently have visiting nurse or other home services: No Alcohol intake: never Patient Tobacco Use Status: Never used Tobacco e-Cigarette/Vaping Use: Never Used Second Hand Smoke Exposure: No service: No Current occupational status: employed, unemployed and disabled 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 Incision clean dry and intact healing well Assessment & Plan Assessment & Plan (1) Postop check: Code(s): Z09 - Encounter for follow-up examination after completed treatment for conditions other than malignant neoplasm Category: Surgical Plan Patient has been given local instructions including avoiding strenuous activities for next few weeks time and will otherwise follow-up p.r.n.. All questions answered Coding Level of Care Code New Pt Level 3 (40521) Global (98694) Diagnoses Postop check Z09
== END 2024-04-06 09:41 | disposition home or self-care (01) ==
PROVIDERS: PCP Physician Assistant; Referring Provider Internal Medicine Gastroenterology; Visit Provider Surgery
DX: K42.9 Umbilical hernia without obstruction or gangrene (principal); Z09 Encounter for follow-up examination after completed treatment for conditions other than malignant neoplasm
CPT/HCPCS: 99212

== ENCOUNTER → 2024-04-06 09:15 | Outpatient (BNVA) | payer MEDICAID, SELFPAY | PROVIDERS: PCP Physician Assistant; Referring Provider Internal Medicine Gastroenterology; Visit Provider Surgery | DX: Z09 Encounter for follow-up examination after completed treatment for conditions other than malignant neoplasm (principal); K42.9 Umbilical hernia without obstruction or gangrene | CPT/HCPCS: 99212 ==

== ENCOUNTER 2024-06-16 10:26 | Outpatient (REF) | payer MEDICAID, SELFPAY ==
[2024-06-16 10:38] LABS: MANUAL DIFF FLAG NO
[2024-06-16 11:41] LABS: Basophils Percent Auto 0.4 % (0-2); Eosinophils Absolute Auto 0.2 X10*3/uL (0.0-0.4); Eosinophils Percent Auto 2.2 % (0-4); Hematocrit 40.3 % (37.0-47.0); Hemoglobin 13.1 g/dl (12.0-16.0); Imm Gran Abs Auto 0.02 X10*3/uL (0.00-0.03); Imm Gran Pct Auto 0.2 % (0.0-0.4); Lymphocytes Absolute Auto 3.7 X10*3/uL (1.2-4.9); Lymphocytes Percent Auto 45.5 % (20-40); Mean Corpuscular HGB Conc 32.5 g/dl (31.0-35.0); Mean Corpuscular Hemoglobin 28.3 pg (27.0-33.0); Mean Platelet Volume 11.2 fL (9.4-12.3); Monocytes Absolute Auto 0.6 X10*3/uL (0.1-1.2); Monocytes Percent Auto 7.5 % (2-11); Neutrophils Absolute Auto 3.5 x10*3/uL (2.0-8.3); Neutrophils Percent Auto 44.2 % (45-73); Platelet Count 337 X10*3/uL (160-400); Red Blood Count 4.63 X10*6/uL (4.20-5.50); Red Cell Distribution Width 14.1 % (11.0-16.0)
[2024-06-16 12:14] LABS: Alanine Aminotransferase 29 U/L (0-31); Albumin Level 4.2 g/dL (3.5-5.0); Alkaline Phosphatase 57 U/L (39-117); Anion Gap 12 (12-20); Aspartate Amino Transferase 22 U/L (5-31); Bilirubin Total 0.3 mg/dL (0.0-1.0); Blood Urea Nitrogen 9 mg/dL (9-16); C Reactive Protein < 0.10 mg/dL (< or = 0.50); Calcium 9.6 mg/dL (8.4-10.2); Carbon Dioxide 28 mmol/L (22-29); Chloride 103 mmol/L (96-108); Estimated Glomerular Filt Rate > 60; Glucose Random 104 mg/dL (60-115); Potassium 4.1 mmol/L (3.3-5.1); Sodium 139 mmol/L (135-145); Total Protein 8.4 g/dL (6.5-8.0)
[2024-06-16 12:18] LABS: Erythrocyte Sedimentation Rate 7 MM/HR (0-20)
== END 2024-06-16 10:27 | disposition home or self-care (01) ==
LOC: HO.LAB 10:26
PROVIDERS: PCP Physician Assistant; Visit Provider Student in an Organized Health Care Education/Training Program
DX: M45.9 Ankylosing spondylitis of unspecified sites in spine (principal)
CPT/HCPCS: 36415; 80053; 85025; 85652; 86140

== ENCOUNTER 2024-09-19 09:45 | Outpatient (AMB) | payer MEDICAID, SELFPAY ==
--- NOTE | 2024-09-19 09:46 | MHC.OFFVIS ---
Vital Signs 09/19/24 09:53 Height 5 ft 3 in Weight 196 lb 13.965 oz BMI 34.9 BP 120/70 Blood Pressure Location Rt brachial Position Sitting Pulse 86 Pulse Source Pulse Oximeter Pulse Oximetry (%) 97 Oxygen Delivery Method Room Air Intake Visit Reasons: /CM Intake Note: Patient presents for . Allergies ondansetron [From ZOFRAN] Adverse Reaction (Intermediate, Verified 09/19/24 09:50) INCREASED VOMTING Medication List - Last Reconciled 09/19/24 by Nehemias Damian MD acetaminophen 1,000 mg (2 x 500 mg) PO Q6H PRN acetaminophen ER mg PO amitriptyline 25 mg PO BEDTIME diclofenac sodium 50 mg PO BID docusate sodium (Colace) 100 mg PO BID PRN pantoprazole 40 mg PO DAILY Rinvoq ER (upadacitinib) 15 mg PO DAILY NS HPI Comments Details: 28-year-old female with HLA B27 positive ankylosing spondylitis returns for follow-up. She states that she has been taking Rinvoq regularly for the last 6 months. She is doing much better overall, significantly improved low back/buttock stiffness and pain. She states that she gets intermittent cracking of her elbows. Can not think of any side effects related to Rinvoq. Most recent history by Dr. Green 07/2023: The patient is called today for a telephonic visit. She reports still ongoing back pain. She has stopped the anti-inflammatories since she has known esophagitis. She did see her primary doctor apparently at some point at the end of May or early June. She was given an injection. It did not seem to help her pain much. She does know what the injection was. It also seemed to be followed by lightheadedness, sleepiness and more back pain. She currently does not really have any urinary symptoms. She has a tubal ligation and was also told she had endometriosis. I was able to locate MRI scan showing edema at the SI joints. Her x-ray also showed sclerosis at the SI joints. The notes from Ophthalmology indicated they thought she had iritis and not optic neuritis. [facility] Medical History Retrobulbar neuritis Iritis of left eye Endometriosis determined by laparoscopy Endometriosis Ankylosing spondylitis GERD (gastroesophageal reflux disease) Surgical History History of hernia repair Hx of esophagogastroduodenoscopy Tubal ligation status Hx of section Hx of colonoscopy Family History Father Colon cancer HTN (hypertension) Diabetes Hypercholesteremia Stage 4 lung cancer Mother Diabetes HTN (hypertension) Hypercholesteremia Maternal Grandmother Arthritis Multiple sclerosis Paternal Grandmother Arthritis Sister Multiple sclerosis Social History Household Members: Family and Children Household Members Other:: brother Housing: House Do you presently have visiting nurse or other home services: No Alcohol intake: never Patient Tobacco Use Status: Never used Tobacco e-Cigarette/Vaping Use: Never Used Second Hand Smoke Exposure: No service: No Current occupational status: employed, unemployed and disabled 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 Review of Systems Musc Denies arthralgias, Denies joint swelling and Denies stiffness Physical Exam Vital Signs: Last Vital Signs Pulse 86 09/19/24 09:53 BP 120/70 09/19/24 09:53 Pulse Ox 97 09/19/24 09:53 Oxygen Delivery Method Room Air 09/19/24 09:53 BMI result Body Mass Index 34.9 Const General: cooperative, healthy appearing and comfortable Nutritional Appearance: obese Orientation/consciousness: patient oriented x3 Limitations: no limitations HEENT Head: Yes normocephalic and Yes atraumatic Mouth: moist mucous membranes Resp Effort & Inspection: normal respiratory effort and able to speak in complete sentences Cardio Rate: regular rate Back/Spine/Pelvis Other: Bilateral paraspinal muscle thoracic tenderness resolved No buttock tenderness bilaterally Sirena test 10-15 cm Bilateral trochanteric bursa area tenderness resolved Negative straight leg raise test bilaterally Negative Maxi's test bilaterally Neuro General: patient oriented x3 Extrem Other: No active peripheral synovitis Results Reviewed Results Reviewed: Lab work from July 17: Creatinine 0.74, CRP 0.51, hemoglobin 12.3, ESR 34, transaminases normal, B [address] [address] XRay Report Signed Patient: Zulema Renner MR#: [id number] : 1995 Acct:[id number] Age/Sex: 27 / F ADM Date: 07/17/[address]: Rivera Green MD Ordering Physician: Rivera Green MD Date of Service: 07/17/23 Procedure(s): XR sacroiliac joint min 3V Accession Number(s): [id number] cc: Rivera Green MD~ EXAMINATION: XR SACROILIAC JOINTS CLINICAL INFORMATION: Low back pain, unspecified. COMPARISON: CT abdomen/pelvis 05/16/2021. TECHNIQUE: 3 views of the sacroiliac joints FINDINGS: Symmetric increased sclerosis of the bilateral SI joints. No asymmetric widening. Pelvic rim and pubic symphysis are maintained. No acute fractures or subluxation. No significant soft tissue abnormality. XR/XR sacroiliac joint min 3V IMPRESSION: Symmetric increased sclerosis of the bilateral SI joints, which can be seen in the setting of sacroiliitis. Correlate clinically. Dictated By: Maritza Jensen Assessment & Plan Assessment & Plan (1) Ankylosing spondylitis: Comment: B 27 pos - right SI joint show sacroiliitis on MRI scan from 2017 at [facility] iritis TNF inhibitors avoided due to strong family history of MS Rinvoq started 02/2024 effective Code(s): M45.9 - Ankylosing spondylitis of unspecified sites in spine Category: Medical Qualifiers: Ankylosing spondylitis location: multiple sites in spine Qualified Code(s): M45.0 - Ankylosing spondylitis of multiple sites in spine Plan: This is a 28-year-old female with HLA B27 positive ankylosing spondylitis who presents for follow-up. Doing much better overall since Rinvoq was started last month. It was well tolerated with no side effects. Continue with Rinvoq 15 mg p.o. daily Labs before next visit in 4 months (2) High risk medication use: Code(s): Z79.899 - Other residential (current) drug therapy Category: Medical Plan: Discussed risks and benefits of Rinvoq. Slightly increased risk of thrombo embolic events. However this was seen in older patients population with more significant risk factors. Patient denies any history of DVT/PE. She has not on any hormonal therapy. She has bilateral tubal ligation. Discussed increased risk of shingles infection. Advised patient to get the Shingrix vaccine (3) Contraception management: Code(s): Z30.9 - Encounter for contraceptive management, unspecified Category: Medical Plan: Patient has 2 children and has her tubes tied. She is thinking about having another child. Discussed with patient that there is no data regarding with STARLA inhibitors and use is not recommended in . Discussed that TNF inhibitors may be considered perinatally, but there is a some risk of development of a demyelinating disorder given her strong family history of MS. IL 17 inhibitors may also be considered, according to EULAR the degree of certainty is 4C Plan I spent 27 minutes reviewing patient's chart, evaluating patient, ordering diagnostic workup, counseling patient and documenting in the chart Coding Level of Care Code Est Pt Level 4 (20011) Complex EM visit Add On G2211 Diagnoses Ankylosing spondylitis of multiple sites in spine M45.0 Ankylosing spondylitis location: multiple sites in spine High risk medication use Z79.899 Contraception management Z30.9
[2024-09-19 09:53] VITALS: BP 120/70; PULSE 86; O2SAT 97; BMI 34.9
== END 2024-09-19 10:26 | disposition home or self-care (01) ==
PROVIDERS: PCP Physician Assistant; Visit Provider Student in an Organized Health Care Education/Training Program
DX: M45.0 Ankylosing spondylitis of multiple sites in spine (principal); Z79.899 Other long term (current) drug therapy; Z30.9 Encounter for contraceptive management, unspecified
CPT/HCPCS: 99214; G2211

== ENCOUNTER → 2024-09-19 09:45 | Outpatient (BNVA) | payer MEDICAID, SELFPAY | PROVIDERS: PCP Physician Assistant; Visit Provider Student in an Organized Health Care Education/Training Program | DX: M45.0 Ankylosing spondylitis of multiple sites in spine (principal); Z30.09 Encounter for other general counseling and advice on contraception; Z79.899 Other long term (current) drug therapy | CPT/HCPCS: 99212 ==

== ENCOUNTER 2024-11-20 09:12 | Emergency (ER) | payer MEDICAID, SELFPAY ==
--- NOTE | ~2024-11-20 | XR_ITS ---
CLINICAL HISTORY: cough Chest radiographs, 2 views Comparison: CR/SR - XR CHEST 2V - 10/28/23 11:14 EST Findings: The cardiomediastinal silhouette is not enlarged. Pulmonary vascularity is unremarkable. No focal consolidation or effusion. No pneumothorax. IMPRESSION: No acute cardiopulmonary findings. This document has been electronically signed by: Meek Alex DO on 11/20/2024 10:25:07
[2024-11-20 09:14] VITALS: BP 147/83; PULSE 91; RESP 16; TEMP 36.6; O2SAT 98; BMI 34.6
--- OUTSIDE RECORDS SUMMARY | 2024-11-20 09:14 | XMS_ITS | Continuity of Care Document ---
Author Organization [facility] Address [address] [facility], 3r d Floor, [address] [place] [id number]- Care Team Providers Care Range Aid Name Role Phone Pamela Gomez Primary Care Physician Encounter [facility] Date(s): 10/07/24 - 11/06/24 [facility] [address] [facility] [address] [place] [id number] [[email or web address]] Attending Physician: AdmLartice escalante Admitting Physician: Admtr, [id number] Referring Physician: Admtr, [id number] Encounter Type: Triage Allergies, Adverse Reactions, Alerts Substance Criticality Severity Reaction Reaction Severity Status Zofran 1 Active 1nausea Medications amitriptyline 25 mg oral tablet 25 mg, 1, tablet, By Mouth, Daily at bedtime, # 30 tablet, Refills 5, Tot. Refills 5, Maintenance, 05/27/24 10:26:00 AM EDT, Route to Pharmacy Electronically, [facility] #[id number], please call patitent when ready Start Date: 05/27/24 Status: Ordered Quantity: 30.0 Unit: tablet Repeat number: 6 Bactroban 2% cream 1, applicator, Topically, 2 times a day, # 30 Gm, 0 Refills Start Date: 02/05/08 Stop Date: 02/15/08 Status: Ordered Quantity: 30.0 Unit: g Repeat number: 1 clindamycin 300 mg oral capsule 300 mg, 1, capsule, By Mouth, 3 times a day, # 30 capsule, 0 Refills Start Date: 02/05/08 Stop Date: 02/15/08 Status: Ordered Quantity: 30.0 Unit: capsule Repeat number: 1 Ranitidine 0 Refills, Maintenance, 09/30/18 10:45:57 PM EST Start Date: 09/30/18 Status: Ordered Repeat number: 1 Reglan 10 mg oral tablet 1 tablet = 10 mg, By Mouth, 3 times a day before meals and bedtime, 0 Refills, Maintenance, 09/30/1810:45:41 PM EST Start Date: 09/30/18 Status: Ordered Repeat number: 1 Problem List Condition Confirmation Course Effective Dates Status H ealth Status Informant Endometriosis of ovary Confirmed Active Patient Care team information Care Team Personnel Name: Pamela Gomez Position: Reference Physician Member Role: PCP Address: [address] [place] [address] Telecom: Name: Татьяна Mariano RN Position: [facility] AMB Nurse Member Role: Primary Care Nurse Name: Belkys Montelongo RN Position: [facility] OB RN Member Role: Primary Care Nurse Care Team Related Persons Name: QUINCY BRIDGES Name: KB MATA Insurance Providers Guarantor name: [facility] Plan Information #: 1 Payer: [facility] Member Number: NA Policy Number: NA Group Number: NA Health Plan Information #: 2 [facility] Member Number: NA Policy Number: NA Group Number: NA
--- OUTSIDE RECORDS SUMMARY | 2024-11-20 09:14 | XMS_ITS | Continuity of Care Document ---
Author Organization [facility] Address [address] [place] [address], [address] d Floor, [address] [place] [phone] Care Team Providers Care Astrobiologist Name Role Phone Pamela Gomez Primary Care Physician Encounter [facility] [place] [place] Date(s): 09/02/24 - 11/06/24 [facility] [address] [place] [address] 3rd Floor, [address] [place] [id number] Attending Physician: Not on Staff, Attending MD Encounter Type: Pre-OutPatient One Time Allergies, Adverse Reactions, Alerts Substance Criticality Severity Reaction Reaction Severity Status Zofran 1 Active 1nausea Medications amitriptyline 25 mg oral tablet 25 mg, 1, tablet, By Mouth, Daily at bedtime, # 30 tablet, Refills 5, Tot. Refills 5, Maintenance, 05/27/24 10:26:00 AM EDT, Route to Pharmacy Electronically, [facility] #[id number], please call patitent when ready Start Date: [...] Position: Reference Physician Member Role: PCP Address: [address] [place] [address] Telecom: Name: Татьяна Mariano RN Position: [facility] AMB Nurse Member Role: Primary Care Nurse Name: Belkys Montelongo RN Position: [facility] OB RN Member Role: Primary Care Nurse Care Team Related Persons Name: QUINCY BRIDGES Name: KB MATA Insurance Providers Guarantor name: [employer] Health Plan Information #: 2 Payer: [employer] Member Number: [id number] Policy Number: NA Group Number: NA Health Plan Information #: 1 Payer: [facility] Member Number: [id number] Policy Number: NA Group Number: [id number]
[2024-11-20 09:26] VITALS: BP 133/80; PULSE 96; RESP 18; TEMP 36.6; O2SAT 95
--- NOTE | 2024-11-20 09:27 | ED_ITS ---
HPI - General Adult General Chief complaint: General Medical Stated complaint: Ear infection, headache Time Seen by Provider: 11/20/24 09:25 Source: patient, RN notes reviewed and old records reviewed Mode of arrival: ambulatory History of Present Illness ED Provider: Kisha Biswas PA-C HPI narrative: 28-year-old female with a past medical history of GERD, migraines currently on amitriptyline, presenting to the ED complaining of cough, congestion/rhinorrhea, sore throat, left ear pain radiating to left face/head and mouth x 4 days. Reports nausea and vomiting a few days ago, resolved at present. Denies recent dental procedures, is scheduled for tooth extraction in January. Denies SOB, CP, travel, sick contacts, vision change/loss, drainage from ear, hearing loss Related Data Home Medications ?Medication ?Instructions ?Recorded ?Confirmed acetaminophen 650 mg mg PO 09/19/24 tablet,extended release amitriptyline 25 mg tablet 25 mg PO BEDTIME 09/19/24 diclofenac sodium 50 mg 50 mg PO BID 09/19/24 tablet,delayed release Previous Rx's ?Medication ?Instructions ?Recorded pantoprazole 40 mg tablet,delayed 40 mg PO DAILY #90 tabs 03/21/24 release acetaminophen 500 mg tablet 1,000 mg (2 x 500 mg) PO Q6H PRN 03/30/24 pain #30 tabs docusate sodium 100 mg capsule 100 mg PO BID PRN constipation #30 03/30/24 (Colace) caps Rinvoq 15 mg tablet,extended 15 mg PO DAILY #30 tabs 10/24/24 release (upadacitinib) acetaminophen 500 mg tablet 500 mg PO Q6H PRN fever or pain 11/20/24 (Tylenol Extra Strength) #14 tabs amoxicillin 875 mg-potassium 1 tab PO BID 7 days #14 tabs 11/20/24 clavulanate 125 mg tablet ibuprofen 400 mg tablet 400 mg PO Q6H PRN fever or pain 11/20/24 #14 tabs ofloxacin 0.3 % ear drops 10 drp otic (ear) left DAILY 7 11/20/24 days #5 mL Allergies Allergy/AdvReac Type Severity Reaction Status Date / Time ondansetron [From ZOFRAN] AdvReac Intermediate INCREASED Verified 11/20/24 09:16 VOMTING Review of Systems Review of Systems: Yes all other systems are reviewed and are negative Constitutional: Constitutional: Reports as per [facility] Past Medical History Attestation statement: The following information was validated with the patient. Source: old records reviewed Medical History Retrobulbar neuritis Iritis of left eye Endometriosis determined by laparoscopy Endometriosis Ankylosing spondylitis GERD (gastroesophageal reflux disease) Surgical History History of hernia repair Hx of esophagogastroduodenoscopy Tubal ligation status Hx of section Hx of colonoscopy Family History Family History Father Colon cancer HTN (hypertension) Diabetes Hypercholesteremia Stage 4 lung cancer Mother Diabetes HTN (hypertension) Hypercholesteremia Maternal Grandmother Arthritis Multiple sclerosis Paternal Grandmother Arthritis Sister Multiple sclerosis Social History Social History Household Members: Family and Children Household Members Other:: brother Housing: House Do you presently have visiting nurse or other home services: No Alcohol intake: never Patient Tobacco Use Status: Never used Tobacco e-Cigarette/Vaping Use: Never Used Second Hand Smoke Exposure: No service: No Current occupational status: employed, unemployed and disabled 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 Physical Exam ED Vital Signs: Vital Signs - 24 hr 11/20/24 09:14 11/20/24 09:26 11/20/24 12:12 Temperature 97.9 F 97.8 F 98.1 F Pulse Rate 91 96 74 Respiratory Rate 16 18 18 Blood Pressure 147/83 H 133/80 132/88 Pulse Oximetry 98 95 99 Oxygen Delivery Method Room Air Room Air Room Air 11/20/24 12:24 Temperature 98.1 F Pulse Rate 74 Respiratory Rate 18 Blood Pressure 132/88 Pulse Oximetry 99 Oxygen Delivery Method Room Air BMI result Body Mass Index 34.6 Const General: cooperative, healthy appearing and no acute distress Orientation/consciousness: patient oriented x3 Limitations: no limitations HENMT Other: Dental tc noted to left lower bicuspid. No gingival tenderness, swelling, erythema, fluctuance or induration. No appreciable facial swelling Head: Yes normal to inspection and Yes atraumatic Ears: hearing grossly normal bilaterally, mastoids normal, Abnormal EAC present edema on the left, EAC tenderness on the left (Tragus tenderness) and otic discharge clear on the left and TM abnormal with fluid behind the TM on the left General nose exam: Normal external nose present Face and sinus: Yes normal facial exam and No edema Mouth: no drooling Teeth and gingiva: other Throat: Yes posterior oropharynx normal, Yes tonsils normal, Yes uvula midline, No uvula laterally displaced and No uvular edema Eyes General: appearance normal, both eyes and all related structures EOM: EOMs intact bilaterally Neck Neck: Yes normal visual inspection, Yes full ROM and Yes no meningeal signs Resp Effort & Inspection: normal respiratory effort and no respiratory distress Auscultation: clear to auscultation bilaterally, no crackles and no wheezes Cardio Rate: regular rate Heart sounds: S1 normal heart sound present and S2 normal heart sound present Skin Rashes: no rashes Wounds: no wounds Neuro General: patient oriented x3, tone normal and no meningeal signs Cranial nerves: Yes CN's II-XII intact bilaterally Gait exam (Neuro): Normal gait present Extrem General: Yes normal to inspection Course Course Course Narrative: -1202--viral studies negative. Rapid strep negative -CXR unremarkable > on re-evaluation patient reports symptomatic improvement. Will discharge home with treatment of otitis media and externa Results discussed with patient including worrisome signs and symptoms and strict return precautions, and when to return to the emergency department. They verbalized understanding and feel safe for discharge at this time. Medications Administered Discontinued Medications Generic Name Dose Route Start Last Admin Trade Name Freq PRN Reason Stop Dose Admin Acetaminophen/Butalbital/Caffeine 1 tab 11/20/24 10:01 11/20/24 10:10 Butalb/Acetamin/Caff 50/325/40 Tablet PO 11/20/24 10:02 1 tab ONCE ONE Administration Medical Decision Making Medical Decision Making [facility] Narrative: 28-year-old female with a past medical history of GERD, migraines currently on amitriptyline, presenting to the ED complaining of cough, congestion/rhinorrhea, sore throat, left ear pain radiating to left face/head and mouth x 4 days. On exam vital signs stable, NAD, nontoxic appearing, physical exam as noted above. Concern for viral illness vs otitis media and externa vs pneumonia/bronchitis vs strep pharyngitis vs migraine headache. No evidence of dental infection/abscess. No evidence of [employer]/retropharyngeal abscess. Unlikely mastoiditis or malignant otitis externa. Low suspicion for meningitis/encephalitis, ICH or CVA Plan: CXR, viral studies, rapid strep, migraine treatment Please refer to course for remaining clinical decision making, interpretation of labs/imaging results, and discussions with consultants and/or family members. Differential Diagnosis Differential Diagnoses: The differential diagnosis associated with the presentation includes As above Admission/Observation Consideration of admission/observation: Escalation of care including admission/observation considered Lab Data MDM Lab Attestation statement: I reviewed the patient's lab results. Labs: Lab Results 11/20/24 11/20/24 Range/Units 10:12 10:27 Influenza Type A (PCR) NEGATIVE (Negative) Influenza Type B (PCR) NEGATIVE (Negative) RSV RNA Qual (PCR) NEGATIVE (Negative) SARS-CoV-2 RNA (RT-PCR) NEGATIVE (Negative) S. pyogenes GrpA VEENA Negative (Negative) Independent Interpretation I performed an independent interpretation of an: Plain X-Ray Radiology Impression Discussion of test interpretation with radiology: I have reviewed the radiologist's reading. External Record Review External record reviewed: Inpatient record, Office record, Outpatient record, Prior outpatient labs, Prior outpatient radiology, Primary care record and Outside ED record Tests considered The following testing was considered but not selected: As above Prescription Management I considered prescription management with: Pain Medication and Antibiotic Chronic Conditions Patient?s care impacted by: Other Social Determinants Patient?s care significantly limited by Social Determinants of Health including: Other Social Determinant of Health Discharge Plan Discharge Clinical Impression: Otitis media, Otitis externa Patient Disposition: Home, Self-Care Instructions: Otitis Externa (DC), Ear Infection (ED) Additional Instructions: You tested negative for COVID, flu, RSV Your x-rays unremarkable You have an internal and external ear infection Please use topical and oral antibiotics as prescribed until completion Have close follow-up with your doctor If her symptoms persist or worsen, pain becomes unbearable, you develop fever, hearing loss or drainage from ear return to the emergency department Prescriptions: New amoxicillin-pot clavulanate 875-125 mg tablet 1 tab PO BID 7 Days Qty: 14 0RF ofloxacin 0.3 % drops 10 drp otic (ear) left DAILY 7 Days Qty: 5 0RF acetaminophen [Tylenol Extra Strength] 500 mg tablet 500 mg PO Q6H PRN (Reason: fever or pain) Qty: 14 0RF ibuprofen 400 mg tablet 400 mg PO Q6H PRN (Reason: fever or pain) Qty: 14 0RF No Action Rinvoq 15 mg tablet extended release 24 hr 15 mg PO DAILY Qty: 30 2RF docusate sodium [Colace] 100 mg capsule 100 mg PO BID PRN (Reason: constipation) Qty: 30 0RF acetaminophen 500 mg tablet 1,000 mg PO Q6H PRN (Reason: pain) Qty: 30 0RF pantoprazole 40 mg tablet,delayed release (DR/EC) 40 mg PO DAILY Qty: 90 2RF diclofenac sodium 50 mg tablet,delayed release (DR/EC) 50 mg PO BID amitriptyline 25 mg tablet 25 mg PO BEDTIME acetaminophen 650 mg tablet extended release PO Referrals: Pamela Campbell PA [Primary Care Provider] - 5 days Interventions: ED Discharge Assessment Last Done: 11/20/24 12:24 Discharge Date/Time: 11/20/24 12:24 Print Language: Iraqi
--- NOTE | 2024-11-20 09:28 | PC.NURSE ---
Pt comes to ED today with complaints of L ear pain, migraines, n/v, and sore throat. Pt reports L ear pain x2 weeks 10/10 pain and pressure causing increased migraines that are unrelieved by Tylenol and Amitriptyline. She states n/v x2 days with aches to her teeth and light sensitivity. A&Ox3, VSS, afebrile. Hoarseness and congestion noted. Skin is warm and dry Breaths and speech are even and unlabored. Facial symmetry noted. Pt resting quietly with lights dimmed. Awaiting ED provider.
--- OUTSIDE RECORDS SUMMARY | 2024-11-20 09:29 | XMS_ITS | Continuity of Care Document ---
Author Organization [facility] Address [address] [place] [address], [address] d Floor, [address] [place] [id number]- Care Team Providers Care Automatic Spinning Lathe Setter Name Role Phone Pamela Gomez Primary Care Physician [phone] Encounter [facility] Date(s): 10/07/24 - 11/06/24 [facility] 3rd Floor, [address] [place] [id number] Attending Physician: AdmLatrice escalante Admitting Physician: Admtr Ar8 Referring Physician: Admtr, Ar8 Encounter Type: Triage Allergies, Adverse Reactions, Alerts Substance Criticality Severity Reaction Reaction Severity Status Zofran 1 Active 1nausea Medications amitriptyline 25 mg oral tablet 25 mg, 1, tablet, By Mouth, Daily at bedtime, # 30 tablet, Refills 5, Tot. Refills 5, Maintenance, 05/27/24 10:26:00 AM EDT, Route to Pharmacy Electronically, [facility] #[id number], please call patitent when ready Start Date: [...] Position: Reference Physician Member Role: PCP Address: [address] [place] [address] Telecom: Name: Татьяна Mariano RN Position: [facility] AMB Nurse Member Role: Primary Care Nurse Name: Belkys Montelongo RN Position: [facility] OB RN Member Role: Primary Care Nurse Care Team Related Persons Name: QUINCY BRIDGES Name: KB MATA Insurance Providers Guarantor name: [facility] Information #: 1 Payer: [facility] Member Number: NA Policy Number: NA Group Number: NA Health Plan Information #: 2 [facility]: [facility] Member Number: NA Policy Number: NA Group Number: NA
[2024-11-20] MEDS: Butalb/Acetamin/Caff 50/325/40 TABLET 1 TAB PO (10:10)
[2024-11-20 10:41] LABS: IDNOW Serial# 08D9AD1C; Strep A Nucleic Acid Negative (Negative)
[2024-11-20 11:23] LABS: Influenza A PCR NEGATIVE (Negative); Influenza B PCR NEGATIVE (Negative); Resp Syncy Virus RNA Qual PCR NEGATIVE (Negative); SARS COV2 PCR INHOUSE NEGATIVE (Negative)
[2024-11-20 12:12] VITALS: BP 132/88; PULSE 74; RESP 18; TEMP 36.7; O2SAT 99
[2024-11-20 12:24] VITALS: BP 132/88; PULSE 74; RESP 18; TEMP 36.7; O2SAT 99
== END 2024-11-20 12:24 | disposition home or self-care (01) ==
PROVIDERS: Physician Assistant; Emergency Provider Emergency Medicine; PCP Physician Assistant
DX: H60.92 Unspecified otitis externa, left ear (principal); H66.92 Otitis media, unspecified, left ear; R51.9 Headache, unspecified; R05.9 Cough, unspecified; Z03.818 Encounter for observation for suspected exposure to other biological agents ruled out; Z79.899 Other long term (current) drug therapy
CPT/HCPCS: 0241U; 71046; 87651; 99284

== ENCOUNTER → 2024-11-20 10:01 | Outpatient (BNV) | payer MEDICAID, SELFPAY | PROVIDERS: Emergency Provider Emergency Medicine; PCP Physician Assistant; Visit Provider Radiology Diagnostic Radiology | DX: R05.9 Cough, unspecified (principal) | CPT/HCPCS: 71046 ==

== ENCOUNTER 2024-12-09 17:38 | Emergency (ER) | payer MEDICAID, SELFPAY ==
[2024-12-09 17:46] VITALS: BP 120/73; PULSE 83; RESP 16; TEMP 36.8; O2SAT 98; BMI 35.1
== END 2024-12-09 23:10 | disposition left against medical advice (07) ==
PROVIDERS: Emergency Provider Internal Medicine; PCP Physician Assistant
DX: H92.02 Otalgia, left ear (principal); R51.9 Headache, unspecified; Z53.21 Procedure and treatment not carried out due to patient leaving prior to being seen by health care provider
CPT/HCPCS: 99281

== ENCOUNTER 2025-02-14 09:25 | Outpatient (REF) | payer MEDICAID, SELFPAY ==
[2025-02-14 09:39] LABS: MANUAL DIFF FLAG NO
[2025-02-14 10:40] LABS: Basophils Percent Auto 0.5 % (0-2); Eosinophils Absolute Auto 0.1 X10*3/uL (0.0-0.4); Eosinophils Percent Auto 1.1 % (0-4); Hematocrit 38.9 % (37.0-47.0); Hemoglobin 12.6 g/dl (12.0-16.0); Imm Gran Abs Auto 0.03 X10*3/uL (0.00-0.03); Imm Gran Pct Auto 0.4 % (0.0-0.4); Lymphocytes Absolute Auto 3.6 X10*3/uL (1.2-4.9); Lymphocytes Percent Auto 43.9 % (20-40); Mean Corpuscular HGB Conc 32.4 g/dl (31.0-35.0); Mean Corpuscular Hemoglobin 29.7 pg (27.0-33.0); Mean Corpuscular Volume 91.7 fL (80.0-98.0); Mean Platelet Volume 11.6 fL (9.4-12.3); Monocytes Absolute Auto 0.8 X10*3/uL (0.1-1.2); Neutrophils Absolute Auto 3.6 x10*3/uL (2.0-8.3); Neutrophils Percent Auto 44.1 % (45-73); Platelet Count 315 X10*3/uL (160-400); Red Blood Count 4.24 X10*6/uL (4.20-5.50); Red Cell Distribution Width 13.2 % (11.0-16.0); White Blood Count 8.1 X10*3/uL (4.8-10.8)
[2025-02-14 11:18] LABS: Erythrocyte Sedimentation Rate 10 MM/HR (0-20)
[2025-02-14 12:04] LABS: Alanine Aminotransferase 42 U/L (0-31); Albumin Level 4.2 g/dL (3.5-5.0); Alkaline Phosphatase 71 U/L (39-117); Anion Gap 10 (12-20); Aspartate Amino Transferase 27 U/L (5-31); Bilirubin Total 0.3 mg/dL (0.0-1.0); Blood Urea Nitrogen 12 mg/dL (9-16); C Reactive Protein 0.11 mg/dL (< or = 0.50); Calcium 9.3 mg/dL (8.4-10.2); Carbon Dioxide 22 mmol/L (22-29); Chloride 111 mmol/L (96-108); Estimated Glomerular Filt Rate > 60; Glucose Random 88 mg/dL (60-115); Potassium 4.1 mmol/L (3.3-5.1); Sodium 139 mmol/L (135-145); Total Protein 7.9 g/dL (6.5-8.0)
[2025-02-14 12:40] LABS: HBS Num1 0.04 mIU/mL (0-7.99); HBc Num1 0.12 S/CO (0.00-0.79); HBsAGNum1 0.31 S/CO (0.00-0.99); Hepatitis A Antibody IgM 0.19 Index (0-0.79); Hepatitis B Core Antibody Nonreactive (Nonreactive); Hepatitis B Surface Antigen Negative (Negative); ~HepC Num1 0.21 S/CO (0.00-0.79); ~Hepatitis A Antibody IgM Nonreactive (Nonreactive); ~Hepatitis B Surface Antibody NONREACTIVE (Nonreactive); ~Hepatitis C Antibody Nonreactive (Nonreactive)
[2025-02-16 22:18] LABS: TS Negative Control Passed; TS Panel A 0; TS Panel B 0; TS Positive Control Passed; TSpotTB Negative (Negative)
== END 2025-02-14 09:26 | disposition home or self-care (01) ==
LOC: HO.LAB 09:25
PROVIDERS: PCP Physician Assistant; Visit Provider Student in an Organized Health Care Education/Training Program
DX: M45.0 Ankylosing spondylitis of multiple sites in spine (principal)
CPT/HCPCS: 36415; 80053; 85025; 85652; 86140; 86481; 86704; 86706; 86709; 86803; 87340

== ENCOUNTER 2025-04-22 17:47 | Emergency (ER) | payer MEDICAID, SELFPAY ==
[2025-04-22 18:31] VITALS: BP 132/78; PULSE 90; RESP 18; TEMP 36.6; O2SAT 99; BMI 33.7
--- NOTE | 2025-04-22 18:31 | ED.GENADULT ---
HPI - General Adult General Chief complaint: Upper Respiratory Symptoms Stated complaint: coughing/vomiting/sob Time Seen by Provider: 04/22/25 19:27 Source: patient Mode of arrival: ambulatory Limitations: no limitations History of Present Illness ED Provider: Frank Frias DO HPI narrative: 29-year-old female with past medical history of GERD, migraine and ankylosing spondylitis on monoclonal antibody and diclofenac presents to the ED with 1 week of a cough occasionally productive of white and yellow sputum as well as an episode today in which she felt short of breath shortly after taking Mucinex. The patient denies chest pain. She has had some episodes of vomiting that only occur after a coughing fit. She denies lower extremity pain or swelling. She denies dizziness or passing out episodes. She states she lives with multiple family members at home and no one else has symptoms. She denies history of asthma or tobacco use. She states her cough is worse at night when laying down. Related Data Home Medications ?Medication ?Instructions ?Recorded ?Confirmed acetaminophen 650 mg mg PO 09/19/24 tablet,extended release amitriptyline 25 mg tablet 25 mg PO BEDTIME 09/19/24 diclofenac sodium 50 mg 50 mg PO BID 09/19/24 tablet,delayed release Previous Rx's ?Medication ?Instructions ?Recorded acetaminophen 500 mg tablet 1,000 mg (2 x 500 mg) PO Q6H PRN 03/30/24 pain #30 tabs docusate sodium 100 mg capsule 100 mg PO BID PRN constipation #30 03/30/24 (Colace) caps acetaminophen 500 mg tablet 500 mg PO Q6H PRN fever or pain 11/20/24 (Tylenol Extra Strength) #14 tabs amoxicillin 875 mg-potassium 1 tab PO BID 7 days #14 tabs 11/20/24 clavulanate 125 mg tablet ibuprofen 400 mg tablet 400 mg PO Q6H PRN fever or pain 11/20/24 #14 tabs ofloxacin 0.3 % ear drops 10 drp otic (ear) left DAILY 7 11/20/24 days #5 mL Rinvoq 15 mg tablet,extended 15 mg PO DAILY #30 tabs 02/20/25 release (upadacitinib) pantoprazole 40 mg tablet,delayed 40 mg PO DAILY #90 tabs 04/10/25 release prednisone 20 mg tablet 40 mg (2 x 20 mg) PO DAILY 4 days 04/22/25 #8 tabs Allergies Allergy/AdvReac Type Severity Reaction Status Date / Time ondansetron [From ZOFRAN] AdvReac Intermediate INCREASED Verified 04/22/25 18:34 VOMTING Review of Systems Review of Systems: Yes all other systems are reviewed and are negative [facility]LY [facility] Past Medical History Medical History Retrobulbar neuritis Iritis of left eye Endometriosis determined by laparoscopy Endometriosis Ankylosing spondylitis GERD (gastroesophageal reflux disease) Surgical History History of hernia repair Hx of esophagogastroduodenoscopy Tubal ligation status Hx of section Hx of colonoscopy Family History Family History Father Colon cancer HTN (hypertension) Diabetes Hypercholesteremia Stage 4 lung cancer Mother Diabetes HTN (hypertension) Hypercholesteremia Maternal Grandmother Arthritis Multiple sclerosis Paternal Grandmother Arthritis Sister Multiple sclerosis Social History Social History Household Members: Family and Children Household Members Other:: brother Housing: House Do you presently have visiting nurse or other home services: No Alcohol intake: never Patient Tobacco Use Status: Never used Tobacco e-Cigarette/Vaping Use: Never Used Second Hand Smoke Exposure: No Advance Directives: No Advance Directives Information Provided: No service: No Current occupational status: employed, unemployed and disabled 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 Moist mucous membranes Eyes: PERRL, EOMI Neck: Supple, nontender Chest: No chest wall tenderness Respiratory: Lungs clear to auscultation, no increased work of breathing , occasional cough Cardio: Regular rate and rhythm, no murmur, 2+ radial and DP pulses symmetrically GI: Soft, nondistended, nontender Back: Normal range of motion, nontender Skin: No rash, no lesions Neuro: Alert and oriented to person, place and time, moves all 4 extremities, no focal deficits Extremities: No swelling or tenderness, full range of motion Psych: Calm, alert and cooperative, appropriate behavior Course Course Course Narrative: RME performed by Tatyana Fitch PA-C. Patient is a 29 year old assigned female at presenting to the emergency department with a cough, nausea, and vomiting. Patient states that she has been coughing a lot more lately and that is causing her to vomit. Detailed physical exam and review of systems are deferred to the behavioral health clinician. Labs and swabs ordered. Patient placed back in the waiting room pending room availability and results. Medical Decision Making Medical Decision Making [facility] Narrative: This is a well-appearing, vitally stable patient presenting with a cough. There is no clinical evidence of pneumonia. ECG and lab work are unremarkable. Respiratory swab negative. No signs of pharyngitis. Presentation not consistent with PE, ACS or other dangerous etiology of dyspnea and cough.The patient is on Rinvoq but I suspect she has a bronchitis that may benefit from a short course of steroids. I discussed holding her diclofenac while taking this. I discussed return precautions and the patient has no further questions and agrees with plan. Lab Data [facility] Lab Attestation statement: I reviewed the patient's lab results. Unremarkable labs 04/22/25 18:41 04/22/25 18:41 Labs: Lab Results 04/22/25 04/22/25 Range/Units 18:41 18:42 WBC 10.3 (4.8-10.8) X10*3/uL RBC 4.02 L (4.20-5.50) X10*6/uL Hgb 12.0 (12.0-16.0) g/dl Hct 35.3 L (37.0-47.0) % MCV 87.8 (80.0-98.0) fL MCH 29.9 (27.0-33.0) pg MCHC 34.0 (31.0-35.0) g/dl RDW 13.3 (11.0-16.0) % Plt Count 296 (160-400) X10*3/uL MPV 11.1 (9.4-12.3) fL Immature Gran % (Auto) 0.5 H (0.0-0.4) % Neut % (Auto) 49.6 (45-73) % Lymph % (Auto) 34.5 (20-40) % [place] % (Auto) 10.8 (2-11) % Eos % (Auto) 4.1 H (0-4) % Baso % (Auto) 0.5 (0-2) % Lymph # (Auto) 3.6 (1.2-4.9) X10*3/uL [place] # (Auto) 1.1 (0.1-1.2) X10*3/uL Eos # (Auto) 0.4 (0.0-0.4) X10*3/uL Baso # (Auto) 0.1 (0.0-0.2) X10*3/uL Abs Immat Gran (auto) 0.05 H (0.00-0.03) X10*3/uL Absolute Neuts (auto) 5.1 (2.0-8.3) x10*3/uL Absolute Nucleated RBC 0.000 (0.0-0.012) X10*3/uL Nucleated RBC % (auto) 0.0 (0.0-0.2) /100WBC Sodium 139 (135-145) mmol/L Potassium 3.5 (3.3-5.1) mmol/L Chloride 110 H (96-108) mmol/L Carbon Dioxide 21 L (22-29) mmol/L Anion Gap 12 (12-20) BUN 15 (9-16) mg/dL Creatinine 0.82 (0.5-1.4) mg/dL Estim Creat Clear Calc 104.4 Estimated GFR > 60 Random Glucose 92 (60-115) mg/dL Calcium 9.2 (8.4-10.2) mg/dL Magnesium 2.2 (1.6-2.6) mg/dL Total Bilirubin 0.3 (0.0-1.0) mg/dL AST 36 H (5-31) U/L ALT 45 H (0-31) U/L Alkaline Phosphatase 63 (39-117) U/L Troponin I High Sens < 2.7 (<3.5-17.0) ng/L Total Protein 8.0 (6.5-8.0) g/dL Albumin 4.3 (3.5-5.0) g/dL Beta HCG, Quant < 2 mIU/mL Influenza Type A (PCR) NEGATIVE (Negative) Influenza Type B (PCR) NEGATIVE (Negative) RSV RNA Qual (PCR) NEGATIVE (Negative) SARS-CoV-2 RNA (RT-PCR) NEGATIVE (Negative) S. pyogenes GrpA VEENA Negative (Negative) Independent Interpretation I performed an independent interpretation of an: EKG Interpretation: normal sinus rhythm at 69 beats per minute, normal axis, unremarkable intervals, Borderline LVH, no diagnostic ST wave abnormalities, normal variant T-wave inversion in lead 3, compared to prior dated 08/02/2023 there are no significant changes. Discharge Plan Discharge Clinical Impression: Cough Qualifiers: Cough type: acute Qualified Code(s): R05.1 - Acute cough Patient Disposition: Home, Self-Care Additional Instructions: only take the prescribed for day course of steroids, holding your diclofenac until it is finished. Return with fevers, worsening difficulty breathing, chest discomfort or any other new changes or concerns. Prescriptions: New prednisone 20 mg tablet 40 mg PO DAILY 4 Days Qty: 8 0RF No Action Rinvoq 15 mg tablet extended release 24 hr 15 mg PO DAILY Qty: 30 3RF pantoprazole 40 mg tablet,delayed release (DR/EC) 40 mg PO DAILY Qty: 90 0RF docusate sodium [Colace] 100 mg capsule 100 mg PO BID PRN (Reason: constipation) Qty: 30 0RF acetaminophen 500 mg tablet 1,000 mg PO Q6H PRN (Reason: pain) Qty: 30 0RF amoxicillin-pot clavulanate 875-125 mg tablet 1 tab PO BID 7 Days Qty: 14 0RF ofloxacin 0.3 % drops 10 drp otic (ear) left DAILY 7 Days Qty: 5 0RF acetaminophen [Tylenol Extra Strength] 500 mg tablet 500 mg PO Q6H PRN (Reason: fever or pain) Qty: 14 0RF ibuprofen 400 mg tablet 400 mg PO Q6H PRN (Reason: fever or pain) Qty: 14 0RF diclofenac sodium 50 mg tablet,delayed release (DR/EC) 50 mg PO BID amitriptyline 25 mg tablet 25 mg PO BEDTIME acetaminophen 650 mg tablet extended release PO Print Language: German
--- NOTE | 2025-04-22 18:32 | ECG_ITS ---
Test Reason : SOB Blood Pressure : */* mmHG Vent. Rate : 69 BPM Atrial Rate : 69 BPM P-R Int : 154 ms QRS Dur : 76 ms QT Int : 384 ms P-R-T Axes : 35 4 7 degrees QTcB Int : 411 ms Normal sinus rhythm Minimal voltage criteria for LVH, may be normal variant ( R in aVL ) Borderline ECG When compared with ECG of 02-Aug-2023 12:51, No significant change was found Referred By: Tatyana Fitch Electronically Signed By: FELIPE RODRIGUEZ MD
[2025-04-22 18:52] LABS: MANUAL DIFF FLAG NO
[2025-04-22 18:54] LABS: Basophils Absolute Auto 0.1 X10*3/uL (0.0-0.2); Basophils Percent Auto 0.5 % (0-2); Eosinophils Absolute Auto 0.4 X10*3/uL (0.0-0.4); Eosinophils Percent Auto 4.1 % (0-4); Hematocrit 35.3 % (37.0-47.0); Imm Gran Abs Auto 0.05 X10*3/uL (0.00-0.03); Imm Gran Pct Auto 0.5 % (0.0-0.4); Lymphocytes Absolute Auto 3.6 X10*3/uL (1.2-4.9); Lymphocytes Percent Auto 34.5 % (20-40); Mean Corpuscular Hemoglobin 29.9 pg (27.0-33.0); Mean Corpuscular Volume 87.8 fL (80.0-98.0); Mean Platelet Volume 11.1 fL (9.4-12.3); Monocytes Absolute Auto 1.1 X10*3/uL (0.1-1.2); Monocytes Percent Auto 10.8 % (2-11); Neutrophils Absolute Auto 5.1 x10*3/uL (2.0-8.3); Neutrophils Percent Auto 49.6 % (45-73); Platelet Count 296 X10*3/uL (160-400); Red Blood Count 4.02 X10*6/uL (4.20-5.50); Red Cell Distribution Width 13.3 % (11.0-16.0); White Blood Count 10.3 X10*3/uL (4.8-10.8)
[2025-04-22 19:01] LABS: IDNOW Serial# 6674DD1D; Strep A Nucleic Acid Negative (Negative)
[2025-04-22 19:10] LABS: Alanine Aminotransferase 45 U/L (0-31); Albumin Level 4.3 g/dL (3.5-5.0); Alkaline Phosphatase 63 U/L (39-117); Anion Gap 12 (12-20); Aspartate Amino Transferase 36 U/L (5-31); Bilirubin Total 0.3 mg/dL (0.0-1.0); Blood Urea Nitrogen 15 mg/dL (9-16); Calcium 9.2 mg/dL (8.4-10.2); Carbon Dioxide 21 mmol/L (22-29); Chloride 110 mmol/L (96-108); Creatinine Clr Calc Pharmacy 104.4; Estimated Glomerular Filt Rate > 60; Glucose Random 92 mg/dL (60-115); Magnesium 2.2 mg/dL (1.6-2.6); Potassium 3.5 mmol/L (3.3-5.1); Sodium 139 mmol/L (135-145)
[2025-04-22 19:17] LABS: Troponin-I High Sensitivity < 2.7 ng/L (<3.5-17.0)
[2025-04-22 19:23] LABS: HCG Quantitative < 2 mIU/mL
[2025-04-22 19:28] VITALS: BP 117/76; PULSE 84; RESP 18; TEMP 36.9; O2SAT 95
[2025-04-22 19:32] LABS: Influenza A PCR NEGATIVE (Negative); Influenza B PCR NEGATIVE (Negative); Resp Syncy Virus RNA Qual PCR NEGATIVE (Negative); SARS COV2 PCR INHOUSE NEGATIVE (Negative)
[2025-04-22] MEDS: predniSONE 20 MG TABLET PO (20:17)
[2025-04-22 20:22] VITALS: BP 117/76; PULSE 84; RESP 18; TEMP 36.9; O2SAT 95
== END 2025-04-22 20:23 | disposition home or self-care (01) ==
PROVIDERS: Physician Assistant Medical; Emergency Provider Emergency Medicine; PCP Physician Assistant
DX: R05.1 Acute cough (principal); Z03.818 Encounter for observation for suspected exposure to other biological agents ruled out; Z79.899 Other long term (current) drug therapy
CPT/HCPCS: 0241U; 36415; 80053; 83735; 84484; 84702; 85025; 87651; 93005; 99283; 99285

== ENCOUNTER → 2025-04-22 18:32 | Outpatient (BNV) | payer MEDICAID, SELFPAY | PROVIDERS: Emergency Provider Emergency Medicine; PCP Physician Assistant; Visit Provider Internal Medicine Cardiovascular Disease | DX: R06.02 Shortness of breath (principal) | CPT/HCPCS: 93010 ==

== ENCOUNTER 2025-06-30 09:34 | Outpatient (REF) | payer OTHER, SELFPAY ==
[2025-06-30 13:30] LABS: MANUAL DIFF FLAG NO
[2025-06-30 13:46] LABS: Hematocrit 38.4 % (37.0-47.0); Hemoglobin 12.2 g/dl (12.0-16.0); Imm Gran Abs Auto 0.03 X10*3/uL (0.00-0.03); Imm Gran Pct Auto 0.4 % (0.0-0.4); Lymphocytes Absolute Auto 2.4 X10*3/uL (1.2-4.9); Mean Corpuscular HGB Conc 31.8 g/dl (31.0-35.0); Mean Corpuscular Hemoglobin 28.5 pg (27.0-33.0); Mean Corpuscular Volume 89.7 fL (80.0-98.0); NRBC Abs Auto 0.000 X10*3/uL (0.0-0.012); NRBC Pct Auto 0.0 /100WBC (0.0-0.2); Platelet Count 298 X10*3/uL (160-400); Red Blood Count 4.28 X10*6/uL (4.20-5.50); White Blood Count 7.6 X10*3/uL (4.8-10.8)
[2025-06-30 13:57] LABS: Alanine Aminotransferase 27 U/L (0-31); Albumin Level 4.0 g/dL (3.5-5.0); Alkaline Phosphatase 67 U/L (39-117); Anion Gap 11 (12-20); Aspartate Amino Transferase 25 U/L (5-31); Blood Urea Nitrogen 12 mg/dL (9-16); Calcium 8.7 mg/dL (8.4-10.2); Carbon Dioxide 23 mmol/L (22-29); Chloride 108 mmol/L (96-108); Estimated Glomerular Filt Rate > 60; Potassium 3.8 mmol/L (3.3-5.1); Sodium 138 mmol/L (135-145); Total Protein 7.4 g/dL (6.5-8.0)
[2025-07-03 14:12] LABS: TS Negative Control Passed; TS Panel A 0; TS Panel B 0; TS Positive Control Passed; TSpotTB Negative (Negative)
== END 2025-06-30 09:35 | disposition home or self-care (01) ==
LOC: HO.HKASLDS 09:34
PROVIDERS: Visit Provider Student in an Organized Health Care Education/Training Program
DX: Z11.1 Encounter for screening for respiratory tuberculosis (principal); M45.0 Ankylosing spondylitis of multiple sites in spine
CPT/HCPCS: 36415; 80053; 85025; 85652; 86140; 86481

== ENCOUNTER 2025-07-03 17:14 | Emergency (ER) | payer OTHER, SELFPAY ==
--- NOTE | ~2025-07-03 | US_ITS ---
CLINICAL HISTORY: pelvic pain 1 week US pelvis transabdominal and transvaginal Comparison: CT/OR/SR - CT ABDOMEN PELVIS W IV CON - 03/29/24 11:41 EDT Findings: Transabdominal scanning performed for overall anatomy. Transvaginal scanning performed for additional detail. LMP: 06/30/2025 Uterus is 7.6 cm length. Normal myometrium. Endometrium 11 mm thickness. No lesions. Right ovary 3.8 x 3.5 x 2.2 cm. Small follicles. Left ovary 3.6 x 2.3 x 2.2 cm. Small follicles. 1.6 x 1.1 x 1 cm cyst. Color flow noted in both ovaries. No free fluid. IMPRESSION: 1.1 cm endometrial thickness. Multiple small follicles of the bilateral ovary. PCOS can not be excluded. This document has been electronically signed by: Laila Whalen MD on 07/03/2025 19:37:04
[2025-07-03 18:06] VITALS: BP 117/63; PULSE 82; RESP 18; TEMP 36.9; O2SAT 100; BMI 34.4
--- NOTE | 2025-07-03 18:06 | ED_ITS ---
HPI - General Adult General Chief complaint: Abdominal Pain Stated complaint: pelvic backk pain Time Seen by Provider: 07/03/25 23:08 Source: patient Mode of arrival: ambulatory Limitations: no limitations History of Present Illness ED Provider: Dr. Radha Sanchez HPI narrative: 29-year-old female with history of endometriosis, GERD, frequent UTIs presenting with Suprapubic abdominal pain that is been ongoing for the last week or so. Pain is described as cramping and radiating to her low back and bilateral flanks. She is also having dysuria and feels that she is having a urinary tract infection. No reported fever. Denies nausea or vomiting. Does admit to poor appetite due to pain. Had been feeling well prior to this. Denies cough or cold-type symptoms, vaginal bleeding or discharge. Related Data Home Medications ?Medication ?Instructions ?Recorded ?Confirmed acetaminophen 650 mg mg PO 09/19/24 tablet,extended release amitriptyline 25 mg tablet 25 mg PO BEDTIME 09/19/24 diclofenac sodium 50 mg 50 mg PO BID 09/19/24 tablet,delayed release Previous Rx's ?Medication ?Instructions ?Recorded acetaminophen 500 mg tablet 1,000 mg (2 x 500 mg) PO Q 6H PRN 03/30/24 pain #30 tabs docusate sodium 100 mg capsule 100 mg PO BID PRN const ipation #30 03/30/24 (Colace) caps acetaminophen 500 mg tablet 500 mg PO Q6H PRN fever or pain 11/20/24 (Tylenol Extra Strength) #14 tabs amoxicillin 875 mg-potassium 1 tab PO BID 7 days #14 t abs 11/20/24 clavulanate 125 mg tablet ibuprofen 400 mg tablet 400 mg PO Q6H PRN fever or p ain 11/20/24 #14 tabs ofloxacin 0.3 % ear drops 10 drp otic (ear) left DAILY 7 11/20/24 days #5 mL prednisone 20 mg tablet 40 mg (2 x 20 mg) PO DAILY 4 days 04/22/25 #8 tabs Rinvoq 15 mg tablet,extended 15 mg PO DAILY #30 tabs 0 07/04/25 release (upadacitinib) cephalexin 500 mg capsule 500 mg PO QID 7 days #28 cap s 07/04/25 pantoprazole 40 mg tablet,delayed 40 mg PO DAILY #90 t abs 07/06/25 release Allergies Allergy/AdvReac Type Severity Reaction Status Date / Time ondansetron (From ZOFRAN) AdvReac Intermediate INCREASED Verified 07/03/25 18:09 VOMTING Review of Systems 2 Review of Systems: as per HPI, full review of systems performed and negative but for the above mentioned pertinent positives and negatives. [facility] Past Medical History Medical History Retrobulbar neuritis Iritis of left eye Endometriosis determined by laparoscopy Endometriosis Ankylosing spondylitis GERD (gastroesophageal reflux disease) Surgical History History of hernia repair Hx of esophagogastroduodenoscopy Tubal ligation status Hx of section Hx of colonoscopy Family History Family History Father Colon cancer HTN (hypertension) Diabetes Hypercholesteremia Stage 4 lung cancer Mother Diabetes HTN (hypertension) Hypercholesteremia Maternal Grandmother Arthritis Multiple sclerosis Paternal Grandmother Arthritis Sister Multiple sclerosis Social History Social History Household Members: Family and Children Household Members Other:: brother Housing: House Do you presently have visiting nurse or other home services: No Alcohol intake: never Patient Tobacco Use Status: Never used Tobacco e-Cigarette/Vaping Use: Never Used Second Hand Smoke Exposure: No service: No Current occupational status: employed, unemployed and disabled 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 SKIN: Normal skin color for ethnicity, warm, dry, no rashes noted. HEENT:? Normocephalic, atraumatic, no stridor, dry mucous membranes, dentition intact, EOMI. NECK: Soft, supple, full ROM, midline structures nontender, no step-offs, no deformities, no lymphadenopathy. CHEST: Heart regular rhtyhm, no murmurs, symmetric chest rise and fall. PULMONARY: Clear to auscultation bilaterally, diminished at the bases, no labored breathing, no wheezes/rhales/rhonchi. ABDOMINAL: Soft, nondistended, suprapubic abdominal pain with palpation, no rebound or guarding, no flank tenderness to percussion, positive bowel sounds in all quadrants. : Deferred. MUSCULOSKELETAL: Normal tone, full range of motion, no deformities, no peripheral edema. NEURO: Alert and oriented x3, CN II through XII intact, equal strength and sensation bilateral upper and lower extremities, no focal neurologic deficits.? PSYCHIATRIC: Flat affect, fluid speech, good eye contact and appropriate demeanor. Vital Signs: Vital Signs - 24 hr 07/03/25 18:06 07/03/25 21:33 07/04/25 02:27 Temperature 98.5 F 97.7 F Pulse Rate 82 81 72 Respiratory Rate 18 16 16 Blood Pressure 117/63 129/71 145/73 H Pulse Oximetry 100 99 96 Oxygen Delivery Method Room Air Room Air Room Air BMI result Body Mass Index 34.4 Course Course Course Narrative: This is a rapid medical exam performed by Boy Fuentes NP: Additional HPI, ROS, PE not included below will be deferred to primary provider. Patient is a 29-year-old female with history of endometriosis, GERD, frequent UTIs presenting to the ED with complaint of pelvic and back pain for the past week. Also complains of vaginal itching after finishing her period. Pain (not burning) with urination. Plan: labs, UA Medications Administered Discontinued Medications Generic Name Dose Route Start Last Admin Trade Name Freq PRN Reason Stop Dose Admin Cephalexin HCl 500 mg 07/04/25 02:23 07/04/25 02:34 Cephalexin 500 Mg Capsule PO 07/04/25 02:24 500 mg ONCE ONE Administration Ketorolac Tromethamine 10 mg 07/04/25 02:23 07/04/25 02:34 Ketorolac Tromethamine 10 Mg Tablet PO 07/04/25 02:24 10 mg ONCE ONE Administration Medical Decision Making Medical Decision Making [facility] Narrative: This patient presents today with a chief complaint of pelvic pain. Differential diagnosis is broad and would include ovarian torsion, PID, TOA, if ectopic , pyelonephritis, kidney stone, UTI among many others. A broad-based workup based on history and physical exam was obtained. Patient was given Toradol for pain control. Ultrasound does not show evidence of acute pathology in the pelvis. Endometrial stripe is thick though she is not postmenopausal. Bedside point of care ultrasound does not show evidence of significant hydronephrosis. She has no free fluid in the abdomen. Plan will be to discharge home with prescription for Keflex given her nitrate positive urine and pelvic pain. I discussed importance of follow-up as well as strict return precautions. She understands and agrees with plan for discharge. Discharged home in stable condition. Differential Diagnosis Differential Diagnoses: The differential diagnosis associated with the presentation includes (as above) Admission/Observation Consideration of admission/observation: Escalation of care including admission/observation considered Lab Data MDM Lab Attestation statement: I reviewed the patient's lab results. 07/03/25 20:15 07/03/25 20:15 Labs: Lab Results 07/03/25 07/03/25 Range/Units 20:15 20:47 WBC 13.0 H (4.8-10.8) X10*3/uL RBC 4.32 (4.20-5.50) X10*6/uL Hgb 12.7 (12.0-16.0) g/dl Hct 37.5 (37.0-47.0) % MCV 86.8 (80.0-98.0) fL MCH 29.4 (27.0-33.0) pg MCHC 33.9 (31.0-35.0) g/dl RDW 12.7 (11.0-16.0) % Plt Count 333 (160-400) X10*3/uL MPV 10.9 (9.4-12.3) fL Immature Gran % (Auto) 0.4 (0.0-0.4) % Neut % (Auto) 55.5 (45-73) % Lymph % (Auto) 28.4 (20-40) % [place] % (Auto) 8.2 (2-11) % Eos % (Auto) 7.0 H (0-4) % Baso % (Auto) 0.5 (0-2) % Lymph # (Auto) 3.7 (1.2-4.9) X10*3/uL [place] # (Auto) 1.1 (0.1-1.2) X10*3/uL Eos # (Auto) 0.9 H (0.0-0.4) X10*3/uL Baso # (Auto) 0.1 (0.0-0.2) X10*3/uL Abs Immat Gran (auto) 0.05 H (0.00-0.03) X10*3/uL Absolute Neuts (auto) 7.2 (2.0-8.3) x10*3/uL Absolute Nucleated RBC 0.000 (0.0-0.012) X10*3/uL Nucleated RBC % (auto) 0.0 (0.0-0.2) /100WBC Sodium 141 (135-145) mmol/L Potassium 4.2 (3.3-5.1) mmol/L Chloride 107 (96-108) mmol/L Carbon Dioxide 26 (22-29) mmol/L Anion Gap 12 (12-20) BUN 16 (9-16) mg/dL Creatinine 0.74 (0.5-1.4) mg/dL Estim Creat Clear Calc 117.0 Estimated GFR > 60 Random Glucose 112 (60-115) mg/dL Calcium 9.6 D (8.4-10.2) mg/dL Total Bilirubin 0.3 (0.0-1.0) mg/dL AST 25 (5-31) U/L ALT 31 (0-31) U/L Alkaline Phosphatase 72 (39-117) U/L Total Protein 8.4 H (6.5-8.0) g/dL Albumin 4.5 (3.5-5.0) g/dL Beta HCG, Quant < 2 mIU/mL Urine Color [place] Urine Appearance Clear Urine pH 5.5 (5.0-9.0) Ur Specific [place] >= 1.030 H (1.005-1.025) Urine Protein 100 (2+) H (Neg-Trace) mg/dL Urine Glucose (UA) 100 H (Negative) mg/dL Urine Ketones Negative (Negative) mg/dL Urine Blood Negative (Negative) Urine Nitrite Positive H (Negative) Ur Leukocyte Esterase Negative (Negative) Urine RBC 0-2 (0-2) /HPF Urine WBC 0-5 (0-5) /HPF Ur Squamous Epith Cells 0-2 (0-2) /HPF Urine Bacteria None Seen (None Seen) Hyaline Casts 0-2 (0-2) /LPF Radiology Impression Discussion of test interpretation with radiology: I have reviewed the radiologist's reading. Prescription Management I considered prescription management with: Antibiotic Chronic Conditions Patient?s care impacted by: Other (endometriosis) Discharge Plan Discharge Clinical Impression: UTI (urinary tract infection) Patient Disposition: Home, Self-Care Instructions: Urinary Tract Infection in Women (ED), Pelvic Pain in Women (ED) Additional Instructions: Return to the ER with any new or worsening symptoms including: Worsening pain despite antibiotics, fevers greater than 100?, inability to tolerate your antibiotic, any new symptom that concerns you. Call 911 with any medical emergency. Prescriptions: New cephalexin 500 mg capsule 500 mg PO QID 7 Days Qty: 28 0RF No Action Rinvoq 15 mg tablet extended release 24 hr 15 mg PO DAILY Qty: 30 2RF pantoprazole 40 mg tablet,delayed release (DR/EC) 40 mg PO DAILY Qty: 90 0RF docusate sodium [Colace] 100 mg capsule 100 mg PO BID PRN (Reason: constipation) Qty: 30 0RF acetaminophen 500 mg tablet 1,000 mg PO Q6H PRN (Reason: pain) Qty: 30 0RF prednisone 20 mg tablet 40 mg PO DAILY 4 Days Qty: 8 0RF amoxicillin-pot clavulanate 875-125 mg tablet 1 tab PO BID 7 Days Qty: 14 0RF ofloxacin 0.3 % drops 10 drp otic (ear) left DAILY 7 Days Qty: 5 0RF acetaminophen [Tylenol Extra Strength] 500 mg tablet 500 mg PO Q6H PRN (Reason: fever or pain) Qty: 14 0RF ibuprofen 400 mg tablet 400 mg PO Q6H PRN (Reason: fever or pain) Qty: 14 0RF diclofenac sodium 50 mg tablet,delayed release (DR/EC) 50 mg PO BID amitriptyline 25 mg tablet 25 mg PO BEDTIME acetaminophen 650 mg tablet extended release PO Interventions: ED Discharge Assessment Last Done: 07/04/25 02:46 Discharge Date/Time: 07/04/25 02:47 Print Language: [place]ayan
[2025-07-03 20:19] LABS: MANUAL DIFF FLAG NO
[2025-07-03 20:20] LABS: Hematocrit 37.5 % (37.0-47.0); Hemoglobin 12.7 g/dl (12.0-16.0); Imm Gran Abs Auto 0.05 X10*3/uL (0.00-0.03); Imm Gran Pct Auto 0.4 % (0.0-0.4); Lymphocytes Absolute Auto 3.7 X10*3/uL (1.2-4.9); Mean Corpuscular HGB Conc 33.9 g/dl (31.0-35.0); Mean Corpuscular Hemoglobin 29.4 pg (27.0-33.0); Mean Corpuscular Volume 86.8 fL (80.0-98.0); NRBC Abs Auto 0.000 X10*3/uL (0.0-0.012); NRBC Pct Auto 0.0 /100WBC (0.0-0.2); Platelet Count 333 X10*3/uL (160-400); Red Blood Count 4.32 X10*6/uL (4.20-5.50); White Blood Count 13.0 X10*3/uL (4.8-10.8)
[2025-07-03 20:42] LABS: Alanine Aminotransferase 31 U/L (0-31); Albumin Level 4.5 g/dL (3.5-5.0); Alkaline Phosphatase 72 U/L (39-117); Anion Gap 12 (12-20); Aspartate Amino Transferase 25 U/L (5-31); Blood Urea Nitrogen 16 mg/dL (9-16); Calcium 9.6 mg/dL (8.4-10.2); Carbon Dioxide 26 mmol/L (22-29); Chloride 107 mmol/L (96-108); Creatinine Clr Calc Pharmacy 117.0; Estimated Glomerular Filt Rate > 60; Potassium 4.2 mmol/L (3.3-5.1); Sodium 141 mmol/L (135-145); Total Protein 8.4 g/dL (6.5-8.0)
[2025-07-03 20:54] LABS: Appearance Urine Clear; Glucose Urine UA 100 mg/dL (Negative); PH 5.5 (5.0-9.0); Specific Gravity - Urine >= 1.030 (1.005-1.025); UMIC TRIGGER UACC YES
[2025-07-03 21:16] LABS: UACC Culture Trigger YES
[2025-07-03 21:33] VITALS: BP 129/71; PULSE 81; RESP 16; O2SAT 99
[2025-07-04 02:27] VITALS: BP 145/73; PULSE 72; RESP 16; TEMP 36.5; O2SAT 96
[2025-07-04 02:46] VITALS: BP 145/73; PULSE 72; RESP 16; TEMP 36.5; O2SAT 96
== END 2025-07-04 02:47 | disposition home or self-care (01) ==
PROVIDERS: Registered Nurse Emergency; Emergency Provider Emergency Medicine
DX: N39.0 Urinary tract infection, site not specified (principal); Z87.440 Personal history of urinary (tract) infections
CPT/HCPCS: 36415; 76830; 76856; 80053; 81001; 84702; 85025; 87086; 99284

== ENCOUNTER → 2025-07-03 18:08 | Outpatient (BNV) | payer OTHER, SELFPAY | PROVIDERS: Visit Provider Nuclear Medicine | DX: R10.9 Unspecified abdominal pain (principal) | CPT/HCPCS: 76830; 76856 ==

== ENCOUNTER 2025-07-15 08:33 | Emergency (ER) | payer OTHER, SELFPAY ==
--- NOTE | ~2025-07-15 | CT_ITS ---
CLINICAL HISTORY: lower right abd pain CT abdomen and pelvis with contrast Comparison: 03/29/2024 Findings: The lung bases are clear. The liver is low in attenuation and mildly enlarged. The gallbladder, spleen, adrenal glands and pancreas are unremarkable. The kidneys, ureters and bladder are normal. Fluid present within the endometrial canal. Small bilateral adnexal cysts are present. Moderate fecal retention within the right colon. Normal appendix. Nonspecific soft tissue mass midline within the lower pelvis, reference axial image 80 and sagittal image 54. This measures approximately 3.1 x 3.7 x 3.7 cm. Impression: Moderate fecal retention within the colon particularly in the right colon. Normal appendix. Hepatic steatosis and hepatomegaly. Soft tissue density/mass within the midline anterior pelvic soft tissues between the lower rectus sheath. This is slightly increased from prior. Nonspecific. Further evaluation with ultrasound may be warranted. Correlation with any surgical history in this region. This would certainly be amenable to percutaneous sampling if clinically indicated. This document has been electronically signed by: Antwan Luis MD on 07/15/2025 11:01:40
--- NOTE | ~2025-07-15 | US_ITS ---
CLINICAL HISTORY: lower abd pain soft tissue rectus sheath mass? Ultrasound abdomen limited Comparison: 07/15/2025 Findings: There is a 3.9 x 2.7 x 4.3 cm solid mildly heterogeneous mass within the rectus sheath in the midline anterior to the urinary bladder. Adjacent soft tissues are unremarkable. Impression: 1. 3.9 cm solid mass within the rectus sheath anterior to the urinary bladder. Biopsy recommended. This document has been electronically signed by: Kirsten Zapata MD on 07/15/2025 14:39:48
[2025-07-15 08:36] VITALS: BP 145/71; PULSE 84; RESP 18; TEMP 36.3; O2SAT 96; BMI 34.2
--- OUTSIDE RECORDS SUMMARY | 2025-07-15 08:54 | XMS_ITS | Encounter Summary ---
Author Organization [facility] Address [address] [place] [id number] Phone Care Team Providers Care Tub Attendant Name Role Phone Charissa Rico MD Primary Care Provider [phone] Siobhan Grossman CNM Unavailable Siobhan Cummins CNM Unavailable [phone] Alexsander Roger MD Unavailable Melody Bland NP Unavailable Grecia Garner MD Unavailable Sena Mc CNM Unavailable Jonnathan Guerrero DO Unavailable Charissa Rico MD Unavailable Lindsay Burns CNM Unavailable [phone] Rich Rodas MD Unavailable Ambrosio Mcclellan DO Unavailable Charissa Rico MD Unavailable Prashanth Jalloh Unavailable [phone] Charissa Rico MD Primary Care Provider [phone] Pamela Campbell Primary Care Provider [phone] Encounter Details Date Type Department Care Team (Late st Contact Info) Description 12/11/2020 Transcribe Orders Virtual Department [address] [place] [address] Pamela Campbell PA [address] [place] [address] Exposure to SARS-associated coronavirus (Primary Dx) Social History Tobacco Use Types Packs/Day Years Used Date Smoking Tobacco: Never Smokeless Tobacco: Never Alcohol Use Standard Drinks/Week Comments No 0 (1 standard drink = 0.6 oz pur e alcohol) Comments No Sex and Gender Information Value Date Recorded Sex Assigned at Female 07/22/2018 3:57 PM EDT Legal Sex Female 8:53 PM EDT Gender Identity Female 07/22/2018 3:57 PM EDT Sexual Orientation Straight 08/11/2018 11 :05 AM EDT Occupation Industry Job Start Date Job End Date Working at [employer] Not on file Not on file Not on f ile documented as of this encounter Plan of Treatment Not on file documented as of this encounter Results * COVID-19 PCR Order (12/12/2020 9:47 AM EST) COVID Testing Status Specimen received in analyzing lab. Results should be available within 24 to 48 hrs. [facility] Symptomatic? NO [facility] 12/12/2020 9:47 AM EST 12/12/2020 3:53 PM EST us Pamela BA BODY FLUIDS AND STOOLS ORDERABL ES Final Result [facility] [address] [place] [address] [facility] [address] [place] [address] documented in this encounter Visit Diagnoses Diagnosis Exposure to SARS-associated coronavirus- Primary documented in this encounter Care Teams Tub Attendant Relationship Specialty Start Date End Date Charissa Rico MD PCP - General 09/10/17 06/18/23 Charissa Rico MD [address] [place] [address] PCP - General Family Medicine 06/19/23 01/02/25 Pamela Campbell PA [address] [place] [address] PCP - General Physician Intensive Care Anaesthetist 01/03/25 Siobhan Grossman CNM [address] [place] [address] Historical LMR Provider 09/10/17 05/23/21 Siobhan Cummins CNM [address] [place] [address] Historical LMR Provider 09/10/17 05/23/21 Alexsander Roger MD [address] [place] [address] Historical LMR Provider 09/10/17 05/23/21 Melody Bland NP [address] [place] [address] [email or web address] Historical LMR Provider 09/10/17 05/23/21 Grecia Garner MD [address] [place] [address] Historical LMR Provider 09/10/17 05/23/21 Sena Mc CNM [address] [place] [address] Historical LMR Provider 09/10/17 05/23/21 Jonnathan Guerrero DO [address] [place] [address] Orth[facility] Medicine, [place] [address] Historical LMR Provider 09/10/17 11/30/21 Charissa Rico MD [address] [place] [address] Historical LMR Provider 09/10/17 05/23/21 Lindsay Burns CNM [address] [place] [address] [email or web address] Historical LMR Provider 09/10/17 05/23/21 Rich Rodas MD [address] [place] [address] Historical LMR Provider 09/10/17 Ambrosio Mcclellan DO [address] [place] [address] [email or web address] Historical LMR Provider 09/10/17 11/30/21 Charissa Rico MD [address] [place] [id number] Insurance Assigned Provider 11/27/18 08/01/23 Prashanth Jalloh, [employer] [address] [place] [address] [facility] 04/29/21 10/26/22 documented as of this encounter Additional Source Comments The information contained in this document represents components of the legal health record. It is not the complete legal health record.[facility]
[2025-07-15 08:56] LABS: MANUAL DIFF FLAG NO
[2025-07-15 08:59] LABS: UPreg QC Valid YES
[2025-07-15 08:59] LABS: Hematocrit 37.6 % (37.0-47.0); Hemoglobin 12.7 g/dl (12.0-16.0); Imm Gran Abs Auto 0.04 X10*3/uL (0.00-0.03); Imm Gran Pct Auto 0.4 % (0.0-0.4); Lymphocytes Absolute Auto 2.7 X10*3/uL (1.2-4.9); Mean Corpuscular HGB Conc 33.8 g/dl (31.0-35.0); Mean Corpuscular Hemoglobin 28.9 pg (27.0-33.0); Mean Corpuscular Volume 85.6 fL (80.0-98.0); NRBC Abs Auto 0.000 X10*3/uL (0.0-0.012); NRBC Pct Auto 0.0 /100WBC (0.0-0.2); Platelet Count 310 X10*3/uL (160-400); Red Blood Count 4.39 X10*6/uL (4.20-5.50); White Blood Count 10.5 X10*3/uL (4.8-10.8)
[2025-07-15 09:00] LABS: Appearance Urine Clear; Glucose Urine UA Negative (Negative); PH 6.5 (5.0-9.0); Specific Gravity - Urine 1.015 (1.005-1.025); UMIC TRIGGER UACC YES
[2025-07-15 09:19] LABS: Alanine Aminotransferase 31 U/L (0-31); Albumin Level 4.3 g/dL (3.5-5.0); Alkaline Phosphatase 73 U/L (39-117); Anion Gap 11 (12-20); Aspartate Amino Transferase 26 U/L (5-31); Blood Urea Nitrogen 11 mg/dL (9-16); Calcium 8.9 mg/dL (8.4-10.2); Carbon Dioxide 22 mmol/L (22-29); Chloride 109 mmol/L (96-108); Creatinine Clr Calc Pharmacy 116.5; Estimated Glomerular Filt Rate > 60; Potassium 4.0 mmol/L (3.3-5.1); Sodium 138 mmol/L (135-145); Total Protein 8.0 g/dL (6.5-8.0)
--- NOTE | 2025-07-15 09:26 | ED_ITS ---
HPI - General Adult General Chief complaint: Abdominal Pain Stated complaint: kidney pain Time Seen by Provider: 07/15/25 09:05 Source: patient Mode of arrival: ambulatory Limitations: no limitations History of Present Illness ED Provider: JESENIA Arriaza HPI narrative: 29-year-old female presents with nausea, vomiting, lower abdominal pain ongoing since May acutely worsening over the past week. She reports she was seen here about a week and a half ago they told her she had a urinary infection, she was discharged home with antibiotics which she reports taking. She reports she feels overall unwell and her lower abdomen is constantly in pain she reports a crampy discomfort. She tells me she feels like it is getting worse. She denies sick contacts, headache, vision changes, chest pain, shortness of breath, dizziness, weakness, fevers, chills. Related Data Home Medications ?Medication ?Instructions ?Recorded ?Confirmed acetaminophen 650 mg mg PO 09/19/24 tablet,extended release amitriptyline 25 mg tablet 25 mg PO BEDTIME 09/19/24 diclofenac sodium 50 mg 50 mg PO BID 09/19/24 tablet,delayed release Previous Rx's ?Medication ?Instructions ?Recorded acetaminophen 500 mg tablet 1,000 mg (2 x 500 mg) PO Q 6H PRN 03/30/24 pain #30 tabs docusate sodium 100 mg capsule 100 mg PO BID PRN const ipation #30 03/30/24 (Colace) caps acetaminophen 500 mg tablet 500 mg PO Q6H PRN fever or pain 11/20/24 (Tylenol Extra Strength) #14 tabs amoxicillin 875 mg-potassium 1 tab PO BID 7 days #14 t abs 11/20/24 clavulanate 125 mg tablet ibuprofen 400 mg tablet 400 mg PO Q6H PRN fever or p ain 11/20/24 #14 tabs ofloxacin 0.3 % ear drops 10 drp otic (ear) left DAILY 7 11/20/24 days #5 mL prednisone 20 mg tablet 40 mg (2 x 20 mg) PO DAILY 4 days 04/22/25 #8 tabs Rinvoq 15 mg tablet,extended 15 mg PO DAILY #30 tabs 0 07/04/25 release (upadacitinib) cephalexin 500 mg capsule 500 mg PO QID 7 days #28 cap s 07/04/25 pantoprazole 40 mg tablet,delayed 40 mg PO DAILY #90 t abs 07/06/25 release docusate sodium 100 mg capsule 100 mg PO BID #20 caps 07/15/25 (Colace) ondansetron 4 mg disintegrating 4 mg PO Q6H PRN nausea and 07/15/25 tablet vomiting #14 tabs polyethylene glycol 3350 17 17 g PO BID #238 grams gram/dose oral powder (Miralax) sennosides 8.6 mg tablet (senna) 8.6 mg PO BEDTIME #14 tabs 07/15/25 Allergies Allergy/AdvReac Type Severity Reaction Status Date / Time ondansetron (From ZOFRAN) AdvReac Intermediate INCREASED Verified 07/15/25 08:39 VOMTING Review of Systems 2 Review of Systems: Yes all other systems are reviewed and are negative PMFSH Past Medical History Attestation statement: The following information was validated with the patient. Source: old records reviewed and nursing notes reviewed Medical History Retrobulbar neuritis Iritis of left eye Endometriosis determined by laparoscopy Endometriosis Ankylosing spondylitis GERD (gastroesophageal reflux disease) Surgical History History of hernia repair Hx of esophagogastroduodenoscopy Tubal ligation status Hx of section Hx of colonoscopy Family History Family History Father Colon cancer HTN (hypertension) Diabetes Hypercholesteremia Stage 4 lung cancer Mother Diabetes HTN (hypertension) Hypercholesteremia Maternal Grandmother Arthritis Multiple sclerosis Paternal Grandmother Arthritis Sister Multiple sclerosis Social History Social History Household Members: Family and Children Household Members Other:: brother Housing: House Do you presently have visiting nurse or other home services: No Alcohol intake: never Patient Tobacco Use Status: Never used Tobacco Smoked in Last 30 Days: No e-Cigarette/Vaping Use: Never Used Second Hand Smoke Exposure: No Use of substances other than those prescribed or required for medical reasons: Unknown Advance Directives: No Advance Directives Information Provided: Yes Patient : No service: No Current occupational status: employed, unemployed and disabled 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 Oriented X3.? No acute distress.? Head: Normocephalic, atraumatic, no step-offs or deformities Eyes: Pupils equal, round and reactive to light.? ENT: Pharynx normal.? Neck: Normal inspection.? Neck supple.? CVS: Normal heart rate and rhythm.? Pulses normal.? Respiratory: No respiratory distress.? Breath sounds normal.? Abdomen: Soft and nontender.? Skin: Skin warm and dry.? Normal skin color.? Normal skin turgor.? Extremities: No lower extremity edema.? No calf ttp. 5/5 strength to bilateral upper and lower extremities Back: No midline tenderness, no C-spine tenderness, full range of motion, no CVA tenderness bilaterally Neuro: Oriented X 3.? No motor deficit.? No sensory deficit. CN 2-12 intact Vital Signs: Vital Signs - 24 hr 07/15/25 08:36 07/15/25 13:25 Temperature 97.3 F 98 F Pulse Rate 84 80 Respiratory Rate 18 18 Blood Pressure 145/71 H 117/68 Pulse Oximetry 96 99 Oxygen Delivery Method Room Air Room Air BMI result Body Mass Index 34.2 Vital signs stable Course Reevaluation(s) Reevaluation #1: CBC unremarkable. Chemistry with no acute findings needing intervention. Beta hCG negative. UA without infection. COVID, influenza negative. Abdominal CT with moderate fecal retention within the colon particularly in the right colon normal appendix. Hepatic steatosis and hepatomegaly. Soft tissue density/mass within the midline anterior pelvic soft tissues between the lower rectus sheath. An ultrasound was done for further evaluation of this. Ultrasound confirms this finding recommends biopsy. I did discuss this with Dr. Hui who recommends outpatient follow-up and possible exploratory procedure. Patient aware of these findings. She refused Toradol however is open to Tylenol. I will discharge her home with stool softener. Educated patient on diagnosis and treatment plan, answered all question, patient verbalizes understanding. At this time patient will be discharged home, advised to return with new or worsening symptoms. Educated on worrisome signs and symptoms and when to return. At this time I feel comfortable discharge home. Time: 14:45 Medications Administered Discontinued Medications Generic Name Dose Route Start Last Admin Trade Name Freq PRN Reason Stop Dose Admin Iohexol 100 ml 07/15/25 10:04 07/15/25 10:06 Iohexol 350 Mg/Ml 100 Ml Infus..Btl IV 07/15/25 10:05 85 ml ONCE ONE Administration Medical Decision Making Medical Decision Making [facility] Narrative: 0945 29-year-old female presents with lower abdominal pain, nausea and vomiting since May. According to chart review patient was seen here on 07/03/2025 for similar complaints she was diagnosed with urinary tract infection discharged on antibiotics which she reports she took. At that time she also had an ultrasound pelvic transvaginal which showed a 1.1 cm endometrial thickness small follicles of the bilateral ovaries, PCOS not excluded. Physical exam diffuse abdominal tenderness worse to the lower abdomen on the right. Will rule out appendicitis, UTI, pancreatitis, cholecystitis. Unlikely diverticulitis, acute abdomen. I do not suspect acute ovarian torsion, ectopic patient has history of tubal Plan labs, urine, imaging. Differential Diagnosis Differential Diagnoses: The differential diagnosis associated with the presentation includes (Will rule out appendicitis, UTI, pancreatitis, cholecystitis. Unlikely diverticulitis, acute abdomen. I do not suspect acute ovarian torsion, ectopic patient has history of tubal) Admission/Observation Consideration of admission/observation: Escalation of care including admission/observation considered Consult Healthcare Provider Management of the patient was discussed with: Offshoring Manager (Surgeon) Lab Data [facility] Lab Attestation statement: I reviewed the patient's lab results. 07/15/25 08:50 07/15/25 08:51 Labs: Lab Results 07/15/25 07/15/25 Range/Units 08:50 08:51 WBC 10.5 (4.8-10.8) X10*3/uL RBC 4.39 (4.20-5.50) X10*6/uL Hgb 12.7 (12.0-16.0) g/dl Hct 37.6 (37.0-47.0) % MCV 85.6 (80.0-98.0) fL MCH 28.9 (27.0-33.0) pg MCHC 33.8 (31.0-35.0) g/dl RDW 12.8 (11.0-16.0) % Plt Count 310 (160-400) X10*3/uL MPV 10.8 (9.4-12.3) fL Immature Gran % (Auto) 0.4 (0.0-0.4) % Neut % (Auto) 55.2 (45-73) % Lymph % (Auto) 26.0 (20-40) % Gulf % (Auto) 10.2 (2-11) % Eos % (Auto) 7.6 H (0-4) % Baso % (Auto) 0.6 (0-2) % Lymph # (Auto) 2.7 (1.2-4.9) X10*3/uL Gulf # (Auto) 1.1 (0.1-1.2) X10*3/uL Eos # (Auto) 0.8 H (0.0-0.4) X10*3/uL Baso # (Auto) 0.1 (0.0-0.2) X10*3/uL Abs Immat Gran (auto) 0.04 H (0.00-0.03) X10*3/uL Absolute Neuts (auto) 5.8 (2.0-8.3) x10*3/uL Absolute Nucleated RBC 0.000 (0.0-0.012) X10*3/uL Nucleated RBC % (auto) 0.0 (0.0-0.2) /100WBC Sodium 138 (135-145) mmol/L Potassium 4.0 (3.3-5.1) mmol/L Chloride 109 H (96-108) mmol/L Carbon Dioxide 22 (22-29) mmol/L Anion Gap 11 L (12-20) BUN 11 (9-16) mg/dL Creatinine 0.74 (0.5-1.4) mg/dL Estim Creat Clear Calc 116.5 Estimated GFR > 60 Random Glucose 127 H (60-115) mg/dL Calcium 8.9 D (8.4-10.2) mg/dL Total Bilirubin 0.3 (0.0-1.0) mg/dL AST 26 (5-31) U/L ALT 31 (0-31) U/L Alkaline Phosphatase 73 (39-117) U/L Total Protein 8.0 (6.5-8.0) g/dL Albumin 4.3 (3.5-5.0) g/dL Beta HCG, Quant < 2 mIU/mL Urine Color Yellow Urine Appearance Clear Urine pH 6.5 (5.0-9.0) Ur Specific [place] 1.015 (1.005-1.025) Urine Protein Negative (Neg-Trace) mg/dL Urine Glucose (UA) Negative (Negative) mg/dL Urine Ketones Negative (Negative) mg/dL Urine Blood Negative (Negative) Urine Nitrite Negative (Negative) Ur Leukocyte Esterase Trace H (Negative) Urine RBC 0-2 (0-2) /HPF Urine WBC 0-5 (0-5) /HPF Ur Squamous Epith Cells 0-2 (0-2) /HPF Urine Bacteria None Seen (None Seen) Hyaline Casts 0-2 (0-2) /LPF Urine Test NEGATIVE (NEGATIVE) COVID-19 (JAMMIE) Negative (Negative) COVID-19 Clin Com See Note Influenza Type A (VEENA) Negative (Negative) Influenza A & B Note See Note Independent Interpretation I performed an independent interpretation of an: CT Scan Radiology Impression Discussion of test interpretation with radiology: I have reviewed the radiologist's reading. Critical Care Time Critical Care Time Critical Care Time: Yes Total Critical Care Time: 35 Attestation: I attest to this time spent taking care of the patient, obtaining history, physical, reviewing labs, imaging, treatment of patients condition +/- specialist/hospitalist consult +/- procedure Discharge Plan Discharge Clinical Impression: Nausea and vomiting, Abdominal pain, Mass of abdomen, Hepatomegaly, Constipation Patient Disposition: Home, Self-Care Instructions: Acute Nausea and Vomiting (DC), Abdominal Pain (ED) Additional Instructions: Take your medications as prescribed. If you were prescribed antibiotics today, it is important that you take your medication to their entirety, do not skip any doses, do not finish them early. Follow-up with your primary care provider this week. Return to the emergency department with new or worsening symptoms. Such as fevers, chills, chest pain, shortness of breath, nausea, vomiting, dizziness, headache, vision changes, lethargy In case of emergency call 911 There is a soft tissue density/mass within the midline anterior pelvic region I discuss this with surgery and they would like to see you outpatient. Nothing emergent but this should be done sooner than later. CT abdomen Impression: Moderate fecal retention within the colon particularly in the right colon. Normal appendix. Hepatic steatosis and hepatomegaly. Soft tissue density/mass within the midline anterior pelvic soft tissues between the lower rectus sheath. This is slightly increased from prior. Nonspecific. Further evaluation with ultrasound may be warranted. Correlation with any surgical history in this region. This would certainly be amenable to percutaneous sampling if clinically indicated. Ultrasound Findings: There is a 3.9 x 2.7 x 4.3 cm solid mildly heterogeneous mass within the rectus sheath in the midline anterior to the urinary bladder. Adjacent soft tissues are unremarkable. Impression: 1. 3.9 cm solid mass within the rectus sheath anterior to the urinary bladder. Biopsy recommended. Prescriptions: New ondansetron 4 mg tablet,disintegrating 4 mg PO Q6H PRN (Reason: nausea and vomiting) Qty: 14 0RF sennosides [senna] 8.6 mg tablet 8.6 mg PO BEDTIME Qty: 14 0RF docusate sodium [Colace] 100 mg capsule 100 mg PO BID Qty: 20 0RF polyethylene glycol 3350 [Miralax] 17 gram/dose powder 17 g PO BID Qty: 238 0RF No Action Rinvoq 15 mg tablet extended release 24 hr 15 mg PO DAILY Qty: 30 2RF pantoprazole 40 mg tablet,delayed release (DR/EC) 40 mg PO DAILY Qty: 90 0RF docusate sodium [Colace] 100 mg capsule 100 mg PO BID PRN (Reason: constipation) Qty: 30 0RF acetaminophen 500 mg tablet 1,000 mg PO Q6H PRN (Reason: pain) Qty: 30 0RF prednisone 20 mg tablet 40 mg PO DAILY 4 Days Qty: 8 0RF amoxicillin-pot clavulanate 875-125 mg tablet 1 tab PO BID 7 Days Qty: 14 0RF ofloxacin 0.3 % drops 10 drp otic (ear) left DAILY 7 Days Qty: 5 0RF acetaminophen [Tylenol Extra Strength] 500 mg tablet 500 mg PO Q6H PRN (Reason: fever or pain) Qty: 14 0RF ibuprofen 400 mg tablet 400 mg PO Q6H PRN (Reason: fever or pain) Qty: 14 0RF cephalexin 500 mg capsule 500 mg PO QID 7 Days Qty: 28 0RF diclofenac sodium 50 mg tablet,delayed release (DR/EC) 50 mg PO BID amitriptyline 25 mg tablet 25 mg PO BEDTIME acetaminophen 650 mg tablet extended release PO Referrals: [facility] [Provider Group, General Surgery] - 1 week Gaby Chaparro MD [Primary Care Provider, Internal Medicine] Stand Alone Forms: Work/School Release Print Language: Portuguese
[2025-07-15 09:38] LABS: COVID-19 Test Negative (Negative); IDNOW Serial# 55D5AD1C; IDNOW Serial# 58CA691E
[2025-07-15] MEDS: iohexoL 350 MG/ML 100 ML INFUS..BTL IV (10:06)
[2025-07-15 13:25] VITALS: BP 117/68; PULSE 80; RESP 18; TEMP 36.6; O2SAT 99
[2025-07-15 14:43] LABS: Influenza B2 Negative (Negative)
[2025-07-15 14:50] VITALS: BP 121/89; PULSE 90; RESP 16; O2SAT 99
[2025-07-15 14:59] LABS: Lipase 20 U/L (8-78)
[2025-07-15 15:17] VITALS: BP 121/89; PULSE 90; RESP 16; TEMP -17.7; TEMP 0; O2SAT 99
== END 2025-07-15 15:18 | disposition home or self-care (01) ==
PROVIDERS: Physician Assistant; Emergency Provider Emergency Medicine; PCP Internal Medicine
DX: R11.2 Nausea with vomiting, unspecified (principal); R16.0 Hepatomegaly, not elsewhere classified; K59.00 Constipation, unspecified; R10.2 Pelvic and perineal pain; Z03.818 Encounter for observation for suspected exposure to other biological agents ruled out; Z79.899 Other long term (current) drug therapy
CPT/HCPCS: 74177; 76857; 80053; 81001; 81003; 81025; 83690; 84702; 85025; 87502; 87635; 99285; Q9967

== ENCOUNTER → 2025-07-15 09:26 | Outpatient (BNV) | payer OTHER, SELFPAY | PROVIDERS: Emergency Provider Emergency Medicine; PCP Internal Medicine; Visit Provider Radiology Vascular & Interventional Radiology | DX: K59.00 Constipation, unspecified (principal); K76.0 Fatty (change of) liver, not elsewhere classified; R16.0 Hepatomegaly, not elsewhere classified; R10.9 Unspecified abdominal pain; R19.00 Intra-abdominal and pelvic swelling, mass and lump, unspecified site | CPT/HCPCS: 74177; 76857 ==

== ENCOUNTER 2025-07-27 14:56 | Outpatient (AMB) | payer OTHER, SELFPAY ==
--- NOTE | 2025-07-27 14:58 | MHC.OFFVIS ---
Vital Signs 07/27/25 15:06 Height 5 ft 3 in Weight 195 lb BMI 34.5 BP 127/64 Blood Pressure Location Rt brachial Position Sitting Pulse 89 Intake Visit Reasons: abdominal mass/rectus sheath mass Intake Note: Patient seen at [facility] emergency department for abdominal pain. Here today for evaluation of mass on abdomen. Patient c/o: severe pain since May. Taking Tylenol. At first thought it was UTI, urine test negative but pain is constant. Imaging: Pelvis US~ 07-15-2025 Inspector Materials And Processes Required: No Accompanied by: Self / Same As Patient Allergies ondansetron (From ZOFRAN) Adverse Reaction (Intermediate, Verified 07/27/25 15:04) INCREASED VOMTING Medication List - Last Reconciled 07/27/25 by Danilo Daniels MD acetaminophen 1,000 mg (2 x 500 mg) PO Q6H PRN acetaminophen (Tylenol Extra Strength) 500 mg PO Q6H PRN acetaminophen ER mg PO amitriptyline 25 mg PO BEDTIME diclofenac sodium 50 mg PO BID docusate sodium (Colace) 100 mg PO BID PRN docusate sodium (Colace) 100 mg PO BID ibuprofen 400 mg PO Q6H PRN ofloxacin 0.3% 10 drps otic (ear) left DAILY 7 days pantoprazole 40 mg PO DAILY polyethylene glycol 3350 (Miralax) 17 grams PO BID sennosides (senna) 8.6 mg PO BEDTIME HPI HPI abdominal mass/rectus sheath mass: Details: [age] year old female referred for an abdominal wall mass. She went to the ER last May, because of severe pain on this area above the pubis. Imaging studies including a CAT scan and ultrasound done showed an intramuscular mass about 3.9 cm in widest dimension. She does have a history of endometriosis since she was 16 years old so this has likely to be an endometrioma. She does complain of severe pain in the area and she says that sometimes this can be debilitating. She therefore wants this mass removed. She denies GI complaints She has a history of ankylosing spondylitis and used to be on Rinvoq. She says that she does not take this anymore because of insurance problems. She admits to multiple joint pains. [facility] Medical History (Updated 07/27/25 @ 15:31 by Danilo Daniels MD) Abdominal wall mass of suprapubic region Retrobulbar neuritis Iritis of left eye Endometriosis determined by laparoscopy Endometriosis Ankylosing spondylitis GERD (gastroesophageal reflux disease) Surgical History History of hernia repair Hx of esophagogastroduodenoscopy Tubal ligation status Hx of section Hx of colonoscopy Family History Father Colon cancer HTN (hypertension) Diabetes Hypercholesteremia Stage 4 lung cancer Mother Diabetes HTN (hypertension) Hypercholesteremia Maternal Grandmother Arthritis Multiple sclerosis Paternal Grandmother Arthritis Sister Multiple sclerosis Social History Household Members: Family and Children Household Members Other:: brother Housing: House Do you presently have visiting nurse or other home services: No Alcohol intake: never Patient Tobacco Use Status: Never used Tobacco e-Cigarette/Vaping Use: Never Used Second Hand Smoke Exposure: No service: No Current occupational status: employed, unemployed and disabled Current occupation: [employer] Review of Systems Const Denies chills and Denies fever(s) Card Denies chest pain, Denies dyspnea and Denies dyspnea on exertion Resp Denies cough, Denies dyspnea and Denies dyspnea on exertion GI Denies hematochezia and Denies change in bowel habits Denies hematuria Musc Denies back pain and Denies limited range of motion Neuro Denies focal weakness and Denies convulsions Psych Denies depression and Denies mood swings Physical Exam Vital Signs: Last Vital Signs Pulse 89 07/27/25 15:06 BP 127/64 07/27/25 15:06 BMI result Body Mass Index 34.5 Const General: comfortable and no acute distress Orientation/consciousness: patient oriented x3 Neck Neck: Yes no lymphadenopathy Resp Auscultation: clear to auscultation bilaterally Cardio Rhythm: regular rhythm GI Other: Vague mass on the suprapubic area which appears to be intramuscular, very tender, firm Palpation (GI): Soft to palpation, nontender and no guarding Neuro General: patient oriented x3 Assessment & Plan Assessment & Plan (1) Abdominal wall mass of suprapubic region: Code(s): R19.09 - Other intra-abdominal and pelvic swelling, mass and lump Category: Medical Plan: She has this very tender intramuscular mass on the abdominal wall in the suprapubic area along her old incision. This is likely to be an endometrioma. She describes significant pain and tenderness on this area and and wants this removed I had a long discussion with her about the technique of excision which she will be under anesthesia in the operating room. I reviewed the risks including but not limited to bleeding, infections, chronic pain, the need for mesh repair, injury to underlying bowel, as well as the benefits and alternatives. I explained to her what to expect postoperatively especially with regards to pain control She says she wants to proceed because of her debilitating pain. Coding Level of Care Code New Pt Level 3 (10346) Diagnoses Abdominal wall mass of suprapubic region R19.09
[2025-07-27 15:06] VITALS: BP 127/64; PULSE 89; BMI 34.5
--- OUTSIDE RECORDS SUMMARY | 2025-07-27 16:03 | XMS_ITS | Encounter Summary ---
Author Organization [facility] Address [address] [place] [address] Phone Care Team Providers Care Cotton Machine Operator Name Role Phone Charissa Rico MD Primary Care Provider [phone] Siobhan Grossman CNM Unavailable Siobhan Cummins CNM Unavailable [phone] Alexsander Roger MD Unavailable Melody Bland NP Unavailable [phone] Grecia Garner MD Unavailable [phone] Sena Mc CNM Unavailable [phone] Jonnathan Guerrero DO Unavailable [phone] Charissa Rico MD Unavailable [phone] Lindsay Burns CNM Unavailable [phone] Rich Rodas MD Unavailable [phone] Ambrosio Mcclellan DO Unavailable [phone] Charissa Rico MD Unavailable [phone] Charissa Rico MD Unavailable [phone] Prashanth Jalloh Unavailable [phone] Charissa Rico MD Primary Care Provider [phone] Pamela Campbell Primary Care Provider Encounter Details Date Type Department Care Team (Late st Contact Info) Description 01/07/2018 Procedure Pass [facility], Ct Scan - [address] [address] Social History Tobacco Use Types Packs/Day Years [...] Start Date Job End Date Working at [employer] Not on file Not on file Not on f ile documented as of this encounter Plan of Treatment Not on file documented as of this encounter Visit Diagnoses Not on filedocumented in this encounter Care Teams Cotton Machine Operator Relationship Specialty Start Date End Date Charissa Rico MD PCP - General 09/10/17 06/18/23 Charissa Rico MD [address] [place] [address] PCP - General Family Medicine 06/19/23 01/02/25 Pamela Campbell PA [address] [place] [address] PCP - General Physician Torch Straightener 01/03/25 Siobhan Grossman CNM [address] [place] [address], [facility] [address] [place] [address] [email or web address] Historical LMR Provider 09/10/17 05/23/21 Siobhan Cummins CNM [address] [place] [address] Historical LMR Provider 09/10/17 05/23/21 Alexsander Roger MD [address] [place] [address] Historical LMR Provider 09/10/17 05/23/21 Melody Bland NP [address] [place] [address] [email or web address] Historical LMR Provider 09/10/17 05/23/21 Grecia Garner MD [address] [place] [address] [email or web address] Historical LMR Provider 09/10/17 05/23/21 Sena Mc CNM [address] [place] [address] [email or web address] Historical LMR Provider 09/10/17 05/23/21 Jonnathan Guerrero DO [address] [place] [address] Orthopedics & Sports Medicine, [facility] [place] [address] Historical LMR Provider 09/10/17 11/30/21 Charissa Rico MD [address] [place] [address] Historical LMR Provider 09/10/17 05/23/21 Lindsay Burns CNM [address] [address] Historical LMR Provider 09/10/17 05/23/21 Rich Rodas MD [address] [place] [address] Historical LMR Provider 09/10/17 Ambrosio Mcclellan DO [address] [place] [address] [email or web address] Historical LMR Provider 09/10/17 11/30/21 Charissa Rico MD [address] [place] [address] Insurance Assigned Provider 02/20/18 09/25/18 Charissa Rico MD [address] [place] [address] Insurance Assigned Provider 11/27/18 08/01/23 Prashanth Jalloh, [address] [address] iCMP Social Work 04/29/21 10/26/22 documented as of this encounter Additional Source Comments The information contained in this document represents components of the legal health record. It is not the complete legal health record.[facility]
--- OUTSIDE RECORDS SUMMARY | 2025-07-27 16:03 | XMS_ITS | Encounter Summary ---
Author Organization [facility] Address [address] [place] [address] Phone Care Team Providers Care Transfer Knitter Name Role Phone Charissa Rico MD Primary Care Provider [phone] Siobhan Grossman CNM Unavailable Siobhan Cummins CNM Unavailable [phone] Alexsander Roger MD Unavailable Melody Bland [...] MD Unavailable [phone] Prashanth Jalloh Unavailable [phone] Charissa Rico MD Primary Care Provider [phone] Pamela Campbell Primary Care Provider Encounter Details Date Type Department Care Team (Late st Contact Info) Description 01/08/2018 Ancillary Orders Virtual Department 30 [place] [address] Amy Calderon PA [address] [place] [address] [email or web address] Pelvic pain Social History Tobacco Use Types Packs/Day Years [...] Start Date Job End Date Working at [employer] Not on file Not on file Not on f ile documented as of this encounter Plan of Treatment Not on file documented as of this encounter Results * US PELVIS TRANSABDOMINAL PLUS TRANSVAGINAL (01/08/2018 11:32 AM EST) Anatomical Region Laterality Modality Pelvis, Uterus/Adnexa Ultrasound 01/08/2018 11:3 7 AM EST Impressions 01/08/2018 11:42 AM EST Mild prominence in size of both ovaries with multiple follicular cysts bilaterally. More dominant 1.5 cm cyst on the left evident. Trace amount of free fluid in the pelvis. The uterus is retroflexed with a 1.2 cm endometrial stripe. S/S: Pelvic pain, right lower quadrant pain, left ovarian cyst POS - [id number] Narrative 01/08/2018 11:42 AM EST COMPARISON: CT abdomen and pelvis January 07, 2018 FINDINGS: The uterus measures 7.8 x 4.2 x 5.2 cm in size with a 12 mm endometrial stripe. The exam is performed both transabdominal and transvaginal techniques. The uterus appears retroflexed. Both ovaries are mildly enlarged with multiple bilateral follicular cysts. There is a more dominant cyst on the left measuring 1.5 cm in diameter. A trace amount of free fluid is seen in the cul-de-sac. Procedure Note Petr Gabriel MD - 01/08/2018 COMPARISON: CT abdomen and pelvis January 07, 2018 FINDINGS: The uterus measures 7.8 x 4.2 x 5.2 cm in size with a 12 mm endometrialstripe. The exam is performed both transabdominal and transvaginal techniques. The uterus appears retroflexed. Both ovaries are mildly enlarged with multiple bilateral follicular cysts.There is a more dominant cyst on the left measuring 1.5 cm in diameter. A trace amount of free fluid is seen in the cul-de-sac. IMPRESSION: Mild prominence in size of both ovaries with multiple follicular cystsbilaterally. More dominant 1.5 cm cyst on the left evident. Trace amountof free fluid in the pelvis. The uterus is retroflexed with a 1.2 cm endometrial stripe. S/S: Pelvic pain, right lower quadrant pain, left ovarian cyst POS - [id number] us Amy BA IMG US PELVIS Final Resul t documented in this encounter Visit Diagnoses Diagnosis Pelvic pain Pelvic pain documented in this encounter Care Teams Transfer Knitter Relationship Specialty Start Date End Date Charissa Rico MD [email or web address] PCP - General 09/10/17 06/18/23 Charissa Rico MD [address] [place] [address] PCP - General Family Medicine 06/19/23 01/02/25 Pamela Campbell PA [address] [place] [address] PCP - General Physician Drawing Checker 01/03/25 Siobhan Grossman CNM [address] [address] Historical LMR Provider 09/10/17 05/23/21 Siobhan Cummins CNM [address] [place] [address] Historical LMR Provider 09/10/17 05/23/21 Alexsander Roger MD [address] [place] [address] Historical LMR Provider 09/10/17 05/23/21 Melody Bland NP [address] [place] [address] [email or web address] Historical LMR Provider 09/10/17 05/23/21 Grecia Garner MD [address] [place] [address] Historical LMR Provider 09/10/17 05/23/21 Sena Mc CNM [address] [place] [address] Historical LMR Provider 09/10/17 05/23/21 Jonnathan Guerrero DO [address] [place] [address] Orthopedics & Sports Medicine, [place], [place] [id number] Historical LMR Provider 09/10/17 11/30/21 Charissa Rico MD [address] [place] [address] Historical LMR Provider 09/10/17 05/23/21 Lindsay Burns CNM [address] [place] [address] Historical LMR Provider 09/10/17 05/23/21 Rich Rodas MD [address] [place] [address] Historical LMR Provider 09/10/17 Ambrosio Mcclellan DO [address] [place] [address] [email or web address] Historical LMR Provider 09/10/17 11/30/21 Charissa Rico MD [address] [place] [address] Insurance Assigned Provider 02/20/18 09/25/18 Charissa Rico MD [address] [place] [address] Insurance Assigned Provider 11/27/18 08/01/23 Prashanth Jalloh, BENDING FRAME OPERATOR [address] [place] [address] iCMP Social Work 04/29/21 10/26/22 documented as of this encounter Additional Source Comments The information contained in this document represents components of the legal health record. It is not the complete legal health record.[facility]
--- OUTSIDE RECORDS SUMMARY | 2025-07-27 16:03 | XMS_ITS | Encounter Summary ---
Author Organization [facility] Address [address] [place] [address] Phone Care Team Providers Care Pensions Retirement Plan Specialist Name Role Phone Charissa Rico MD Primary Care Provider [phone] Siobhan Grossman CNM Unavailable Siobhan Cummins CNM Unavailable [phone] Alexsander Roger MD Unavailable Melody Bland [...] MD Unavailable [phone] Prashanth Jalloh Unavailable [phone] Charissa Rico MD Primary Care Provider [phone] Pamela Campbell Primary Care Provider [phone] Encounter Details Date Type Department Care Team (Late st Contact Info) Description 12/31/2017 Ancillary Orders [facility] External Provider Virtual Department [address] [place] [address] Vitor Ramos MD [address] [address] Abdominal pain, unspecified abdominal location; Diarrhea, unspecified type Social History Tobacco Use Types Packs/Day Years [...] Start Date Job End Date Working at [employer] Not on file Not on file Not on f ile documented as of this encounter Plan of Treatment Not on file documented as of this encounter Results * US ABDOMEN LIMITED RIGHT UPPER QUADRANT (02/19/2018 9:37 AM EDT) Anatomical Region Laterality Modality Abdomen Ultrasound 02/19/2018 9:47 AM EDT Impressions 02/19/2018 9:48 AM EDT No findings to account for the patient's pain and vomiting. POS [id number] Narrative 02/19/2018 9:48 AM EDT COMPARISON: CT abdomen pelvis 01/07/2018. Abdominal ultrasound 02/13/2016. LIMITED ABDOMEN ULTRASOUND FINDINGS: Liver: Normal. Gallbladder/Biliary Tree: Gallbladder is normal. Previous sludge and gallbladder wall ringdown artifact are no longer visualized. The common bile duct measures 4 mm. Pancreas: Imaged pancreas is normal. The pancreatic tail is obscured by bowel gas. Right Kidney: No hydronephrosis. Upper abdominal aorta/IVC: Unremarkable. Procedure Note Berkley Salamanca MD - 02/19/2018 COMPARISON: CT abdomen pelvis 01/07/2018. Abdominal ultrasound02/13/2016. LIMITED ABDOMEN ULTRASOUND FINDINGS: Liver: Normal. Gallbladder/Biliary Tree: Gallbladder is normal. Previous sludge andgallbladder wall ringdown artifact are no longer visualized. The commonbile duct measures 4 mm. Pancreas: Imaged pancreas is normal. The pancreatic tail is obscured bybowel gas. Right Kidney: No hydronephrosis. Upper abdominal aorta/IVC: Unremarkable. IMPRESSION: No findings to account for the patient's pain and vomiting. POS [id number] us Vitor Ramos MD IMG US ABDOMEN Final Result documented in this encounter Visit Diagnoses Diagnosis Abdominal pain, unspecified abdominal location Diarrhea, unspecified type Abdominal pain, unspecified abdominal location Diarrhea, unspecified type documented in this encounter Care Teams Pensions Retirement Plan Specialist Relationship Specialty Start Date End Date Charissa Rico MD PCP - General 09/10/17 06/18/23 Charissa Rico MD [address] [place] [address] PCP - General Family Medicine 06/19/23 01/02/25 Pamela Campbell PA [address] [place] [address] PCP - General Physician Hypoid Gear Generator 01/03/25 Siobhan Grossman CNM [address] [place] [address] [email or web address] Historical LMR Provider 09/10/17 05/23/21 Siobhan Cummins CNM [address] [place] [address] Historical LMR Provider 09/10/17 05/23/21 Alexsander Roger MD [address] [place] [address] Historical LMR Provider 09/10/17 05/23/21 Melody Bland NP [address] [place] [address] [email or web address] Historical LMR Provider 09/10/17 05/23/21 Grecia Garner MD [address] [place] [address] [email or web address] Historical LMR Provider 09/10/17 05/23/21 Sena Mc CNM [address] [place] [address] [email or web address] Historical LMR Provider 09/10/17 05/23/21 Jonnathan Guerrero DO [address] [place] [address] Orthopedics & Sports Medicine, [facility] [place] [address] Historical LMR Provider 09/10/17 11/30/21 Charissa Rico MD [address] [place] [address] Historical LMR Provider 09/10/17 05/23/21 Lindsay Burns CNM [address] [address] Historical LMR Provider 09/10/17 05/23/21 Rich Rodas MD [address] [place] [address] Historical LMR Provider 09/10/17 Ambrosio Mcclellan DO [address] [place] [address] [email or web address] Historical LMR Provider 09/10/17 11/30/21 Charissa Rico MD [address] [place] [address] Insurance Assigned Provider 02/20/18 09/25/18 Charissa Rico MD [address] [place] [address] Insurance Assigned Provider 11/27/18 08/01/23 Prashanth Jalloh, [address] [address] iCMP Social Work 04/29/21 10/26/22 documented as of this encounter Additional Source Comments The information contained in this document represents components of the legal health record. It is not the complete legal health record.[facility]
--- OUTSIDE RECORDS SUMMARY | 2025-07-27 16:03 | XMS_ITS | Encounter Summary ---
Author Organization [facility] Address [address] [place] [address] Phone Care Team Providers Care Splicer Helper Name Role Phone Charissa Rico MD Primary Care Provider [phone] Siobhan Grossman CNM Unavailable Siobhan Cummins CNM Unavailable [phone] Alexsander Roger MD Unavailable Melody Bland NP Unavailable Grecia Garner MD Unavailable Sena Mc CNM Unavailable Jonnathan Guerrero DO Unavailable Charissa Rico MD Unavailable Lindsay Burns CNM Unavailable [phone] Rich Rodas MD Unavailable Ambrosio Mcclellan DO Unavailable Charissa Rico MD Unavailable Prashanth Jalloh Unavailable [phone] Charissa Rico MD Primary Care Provider [phone] Pamela Campbell Primary Care Provider [phone] Encounter Details Date Type Department Care Team (Late st Contact Info) Description 12/11/2020 Transcribe Orders Virtual Department [address] [place] [address] Pamela Campbell PA [address] [place] [address] Exposure to SARS-associated coronavirus (Primary Dx) Social [...] Start Date Job End Date Working at [employer] Not on file Not on file Not on f ile documented as of this encounter Plan of Treatment Not on file documented as of this encounter Results * COVID-19 PCR Order (12/12/2020 9:47 AM EST) COVID Testing Status Specimen received in analyzing lab. Results should be available within 24 to 48 hrs. [facility] Symptomatic? NO [facility] 12/12/2020 9:47 AM EST 12/12/2020 3:53 PM EST us Pamela BA BODY FLUIDS AND STOOLS ORDERABL ES Final Result [facility] [address] [place] [address] [facility] [address] [place] [address] documented in this encounter Visit Diagnoses Diagnosis Exposure to SARS-associated coronavirus- Primary documented in this encounter Care Teams Splicer Helper Relationship Specialty Start Date End Date Charissa Rico MD PCP - General 09/10/17 06/18/23 Charissa Rico MD [address] [place] [address] PCP - General Family Medicine 06/19/23 01/02/25 Pamela Campbell PA [address] [place] [address] PCP - General Physician Records Custodian 01/03/25 Siobhan Grossman CNM [address] [place] [address] Historical LMR Provider 09/10/17 05/23/21 Siobhan Cummins CNM [address] [place] [address] Historical LMR Provider 09/10/17 05/23/21 Alexsander Roger MD [address] [place] [address] Historical LMR Provider 09/10/17 05/23/21 Melody Bland NP [address] [place] [address] [email or web address] Historical LMR Provider 09/10/17 05/23/21 Grecia Garner MD [address] [place] [address] Historical LMR Provider 09/10/17 05/23/21 Sena Mc CNM [address] [place] [address] Historical LMR Provider 09/10/17 05/23/21 Jonnathan Guerrero DO [address] [place] [address] Orthopedics & Sports Medicine, [place] [address] Historical LMR Provider 09/10/17 11/30/21 Charissa Rico MD [address] [place] [address] Historical LMR Provider 09/10/17 05/23/21 Lindsay Burns CNM [address] [place] [address] [email or web address] Historical LMR Provider 09/10/17 05/23/21 Rich Rodas MD [address] [place] [address] Historical LMR Provider 09/10/17 Ambrosio Mcclellan DO [address] [place] [address] [email or web address] Historical LMR Provider 09/10/17 11/30/21 Charissa Rico MD [address] [place] [address] Insurance Assigned Provider 11/27/18 08/01/23 Prashanth Jalloh, C[employer] [address] [place] [address] [facility] 04/29/21 10/26/22 documented as of this encounter Additional Source Comments The information contained in this document represents components of the legal health record. It is not the complete legal health record.[facility]
--- OUTSIDE RECORDS SUMMARY | 2025-07-27 16:03 | XMS_ITS | Encounter Summary ---
Author Organization [facility] Address [address] [place] [address] Phone Care Team Providers Care Hide Mill Worker Name Role Phone Charissa Rico MD Primary Care Provider [phone] Siobhan Grossman CNM Unavailable Siobhan Cummins CNM Unavailable Alexsander Roger MD Unavailable Melody Bland NP Unavailable [phone] Grecia Garner MD Unavailable Sena Mc CNM Unavailable [phone] Jonnathan Guerrero DO Unavailable [phone] Charissa Rico MD Unavailable [phone] Lindsay Burns CNM Unavailable + [phone] Rich Rodas MD Unavailable [phone] Ambrosio Mcclellan DO Unavailable [phone] Charissa Rico MD Unavailable [phone] Prashanth Jalloh Unavailable [phone] Charissa Rico MD Primary Care Provider [phone] Pamela Campbell Primary Care Provider [phone] Encounter Details Date Type Department Care Team (Late st Contact Info) Description 01/24/2019 Procedure Pass OR Admitting Dept - Virtual Department 30 [place] [address] Social History Tobacco Use Types Packs/Day Years [...] Start Date Job End Date Working at [employer] Not on file Not on file Not on f ile documented as of this encounter Plan of Treatment Not on file documented as of this encounter Visit Diagnoses Not on filedocumented in this encounter Care Teams Hide Mill Worker Relationship Specialty Start Date End Date Charissa Rico MD PCP - General 09/10/17 06/18/23 Charissa Rico MD [address] [place] [address] PCP - General Family Medicine 06/19/23 01/02/25 Pamela Campbell PA [address] [place] [address] PCP - General Physician Information Security Director 01/03/25 Siobhan Grossman CNM [address] [place] [address] [email or web address] Historical LMR Provider 09/10/17 05/23/21 Siobhan Cummins CNM [address] [place] [email or web address] Historical LMR Provider 09/10/17 05/23/21 Alexsander Roger MD [address] [address] Historical LMR Provider 09/10/17 05/23/21 Melody Bland NP [address] [place] [address] [email or web address] Historical LMR Provider 09/10/17 05/23/21 Grecia Garner MD [address] [place] [address] [email or web address] Historical LMR Provider 09/10/17 05/23/21 Sena Mc CNM [address] [place] [address] Historical LMR Provider 09/10/17 05/23/21 Jonnathan Guerrero DO [address] [place] [address] Orthopedics & Sports Medicine, [facility] [place] [address] Historical LMR Provider 09/10/17 11/30/21 Charissa Rico MD [address] [place] [address] Historical LMR Provider 09/10/17 05/23/21 Lindsay Burns CNM [address] [address] [email or web address] Historical LMR Provider 09/10/17 05/23/21 Rich Rodas MD [address] [address] Historical LMR Provider 09/10/17 Ambrosio Mcclellan DO 30 [place] [address] [email or web address] Historical LMR Provider 09/10/17 11/30/21 Charissa Rico MD 70 [place] [address] Insurance Assigned Provider 11/27/18 08/01/23 Prashanth Jalloh, MEDICINE AND HEALTH SERVICE MANAGER 10 [place] [address] [email or web address] iCMP Social Work 04/29/21 10/26/22 documented as of this encounter Additional Source Comments The information contained in this document represents components of the legal health record. It is not the complete legal health record.[facility]
--- OUTSIDE RECORDS SUMMARY | 2025-07-27 16:03 | XMS_ITS | Encounter Summary ---
Author Organization [facility] Address [address] [place] [address] Phone Care Team Providers Care Choirmaster Name Role Phone Charissa Rico MD Primary Care Provider [phone] Siobhan Grossman CNM Unavailable Siobhan Cummins CNM Unavailable [phone] Alexsander Roger MD Unavailable Melody Bland NP Unavailable Grecia Garner MD Unavailable Sena Mc CNM Unavailable [phone] Jonnathan Guerrero DO Unavailable Charissa Rico MD Unavailable [phone] Lindsay Burns CNM Unavailable [phone] Rich Rodas MD Unavailable [phone] Ambrosio Mcclellan DO Unavailable [phone] Charissa Rico MD Unavailable Prashanth Jalloh Unavailable [phone] Charissa Rico MD Primary Care Provider [phone] Pamela Campbell Primary Care Provider [phone] Encounter Details Date Type Department Care Team (Late st Contact Info) Description 01/07/2019 Procedure Pass [facility] L&D Procedures 30 [place] [address] Social History Tobacco Use Types Packs/Day Years [...] Start Date Job End Date Working at [employer] Not on file Not on file Not on f ile documented as of this encounter Plan of Treatment Not on file documented as of this encounter Visit Diagnoses Not on filedocumented in this encounter Care Teams Choirmaster Relationship Specialty Start Date End Date Charissa Rico MD PCP - General 09/10/17 06/18/23 Charissa Rico MD [address] [place] [address] PCP - General Family Medicine 06/19/23 01/02/25 Pamela Campbell PA [address] [place] [address] PCP - General Physician Button Station Worker 01/03/25 Siobhan Grossman CNM [address] [place] [address] [email or web address] Historical LMR Provider 09/10/17 05/23/21 Siobhan Cummins CNM [address] [place] [address] Historical LMR Provider 09/10/17 05/23/21 Alexsander Roger MD [address] [place] [address] Historical LMR Provider 09/10/17 05/23/21 Melody Bland NP [address] [place] [address] [email or web address] Historical LMR Provider 09/10/17 05/23/21 Grecia Garner MD [address] [place] [address] [email or web address] Historical LMR Provider 09/10/17 05/23/21 Sena Mc CNM [address] [place] [address] Historical LMR Provider 09/10/17 05/23/21 Jonnathan Guerrero DO [address] [place] [address] Orthopedics & Sports Medicine, [facility] [place] [address] Historical LMR Provider 09/10/17 11/30/21 Charissa Rico MD [address] [place] [address] Historical LMR Provider 09/10/17 05/23/21 Lindsay Burns CNM [address] [address] [email or web address] Historical LMR Provider 09/10/17 05/23/21 Rich Rodas MD [address] [address] Historical LMR Provider 09/10/17 Ambrosio Mcclellan DO 30 [place] [address] [email or web address] Historical LMR Provider 09/10/17 11/30/21 Charissa Rico MD 70 [place] [address] Insurance Assigned Provider 11/27/18 08/01/23 Prashanth Jalloh, FURNACE BUILDER 10 [place] [address] [email or web address] iCMP Social Work 04/29/21 10/26/22 documented as of this encounter Additional Source Comments The information contained in this document represents components of the legal health record. It is not the complete legal health record.[facility]
--- OUTSIDE RECORDS SUMMARY | 2025-07-27 16:03 | XMS_ITS | Encounter Summary ---
Author Organization [facility] Address [address] [place] [address] Phone Care Team Providers Care Distribution Center Supervisor Name Role Phone Charissa Rico MD Primary Care Provider [phone] Siobhan Grossman CNM Unavailable Siobhan Cummins CNM Unavailable [phone] Alexsander Roger MD Unavailable Melody Bland [...] MD Unavailable [phone] Prashanth Jalloh Unavailable [phone] Charissa Rico MD Primary Care Provider [phone] Pamela Campbell Primary Care Provider Encounter Details Date Type Department Care Team (Late st Contact Info) Description 09/16/2018 Ancillary Orders Virtual Department 30 [place] [address] Vitor Ramos MD [address] [address] RUQ pain; Abnormal LFTs Social History Tobacco Use Types Packs/Day Years Used Date Smoking Tobacco: Never Smokeless Tobacco: Never Alcohol Use Standard Drinks/Week Comments No 0 (1 standard drink = 0.6 oz pur e alcohol) Comments Yes Sex and Gender Information Value Date Recorded Sex Assigned at Female 07/22/2018 3:57 PM EDT Legal Sex Female 8:53 PM EDT Gender Identity Female 07/22/2018 3:57 PM EDT Sexual Orientation Straight 08/11/2018 11 :05 AM EDT Occupation Industry Job Start Date Job End Date Working at [employer] Not on file Not on file Not on f ile documented as of this encounter Plan of Treatment Not on file documented as of this encounter Results * US ABDOMEN LIMITED RIGHT UPPER QUADRANT (09/17/2018 9:43 AM EDT) Anatomical Region Laterality Modality Abdomen Ultrasound 09/17/2018 4:26 PM EDT Impressions 09/17/2018 4:29 PM EDT Gallbladder debris/sludge the within otherwise unremarkable gallbladder, as in prior study. POS - [id number] Narrative 09/17/2018 4:29 PM EDT EXAM: US ABDOMEN LIMITED RIGHT UPPER QUADRANT HISTORY: UL RUQ COMPARISON: July 22, 2018 TECHNIQUE: Limited ultrasound examination of right upper quadrant of abdomen was performed and multiple static images obtained. FINDINGS: EXAM: US ABDOMEN LIMITED RIGHT UPPER QUADRANT HISTORY: UL RUQ COMPARISON: February 19, 2018 TECHNIQUE: Limited ultrasound examination of right upper quadrant of abdomen was performed and multiple static images obtained. FINDINGS: PANCREAS: Partially obscured by the overlying gas. Visualized portions of the pancreas appear unremarkable. LIVER: The liver demonstrates normal contour and homogeneous echotexture. No focal lesion demonstrated in the provided images. GALLBLADDER/BILIARY: Mobile echogenic material identified within the nondistended gallbladder, likely debris and/or sludge. No gallbladder wall thickening or pericholecystic fluid. Common bile duct demonstrates a normal diameter and measures 0.2 cm. RIGHT KIDNEY: No hydronephrosis. Upper AORTA and IVC: Visualized upper portions of aorta and inferior vena cava are unremarkable. Other: No free fluid demonstrated. Procedure Note Ebony Shaw MD - 09/17/2018 EXAM: US ABDOMEN LIMITED RIGHT UPPER QUADRANT HISTORY: UL RUQ COMPARISON: July 22, 2018 TECHNIQUE: Limited ultrasound examination of right upper quadrant ofabdomen was performed and multiple static images obtained. FINDINGS: EXAM: US ABDOMEN LIMITED RIGHT UPPER QUADRANT HISTORY: UL RUQ COMPARISON: February 19, 2018 TECHNIQUE: Limited ultrasound examination of right upper quadrant ofabdomen was performed and multiple static images obtained. FINDINGS: PANCREAS: Partially obscured by the overlying gas. Visualized portions ofthe pancreas appear unremarkable. LIVER: The liver demonstrates normal contour and homogeneous echotexture.No focal lesion demonstrated in the provided images. GALLBLADDER/BILIARY: Mobile echogenic material identified within thenondistended gallbladder, likely debris and/or sludge. No gallbladder wallthickening or pericholecystic fluid. Common bile duct demonstrates anormal diameter and measures 0.2 cm. RIGHT KIDNEY: No hydronephrosis. Upper AORTA and IVC: Visualized upper portions of aorta and inferior venacava are unremarkable. Other: No free fluid demonstrated. IMPRESSION: Gallbladder debris/sludge the within otherwise unremarkable gallbladder,as in prior study. POS - [id number] Vitor Ramos MD [facility] US ABDOMEN Final Result documented in this encounter Visit Diagnoses Diagnosis RUQ pain Abdominal pain, right upper quadrant Abnormal LFTs RUQ pain Abdominal pain, right upper quadrant Abnormal LFTs documented in this encounter Care Teams Distribution Center Supervisor Relationship Specialty Start Date End Date Charissa Rico MD [email or web address] PCP - General 09/10/17 06/18/23 Charissa Rico MD [address] [place] [address] PCP - General Family Medicine 06/19/23 01/02/25 Pamela Campbell PA [address] [place] [address] PCP - General Physician Cancer Registrar 01/03/25 Siobhan Grossman CNM [address] [place] [address] Historical LMR Provider 09/10/17 05/23/21 Siobhan Cummins CNM [address] [place] [address] Historical LMR Provider 09/10/17 05/23/21 Alexsander Roger MD [address] [place] [address] Historical LMR Provider 09/10/17 05/23/21 Melody Bland NP [address] [place] [address] [email or web address] Historical LMR Provider 09/10/17 05/23/21 Grecia Garner MD [address] [place] [address] Historical LMR Provider 09/10/17 05/23/21 Sena Mc CNM [address] [place] [address] Historical LMR Provider 09/10/17 05/23/21 Jonnathan Guerrero DO [address] [place] [address] Orthopedics & Sports Medicine, [place] [address] Historical LMR Provider 09/10/17 11/30/21 Charissa Rico MD [address] [place] [address] Historical LMR Provider 09/10/17 05/23/21 Lindsay Burns CNM [address] [place] [address] Historical LMR Provider 09/10/17 05/23/21 Rich Rodas MD [address] [place] [address] Historical LMR Provider 09/10/17 Ambrosio Mcclellan DO [address] [place] [address] [email or web address] Historical LMR Provider 09/10/17 11/30/21 Charissa Rico MD [address] [place] [address] Insurance Assigned Provider 02/20/18 09/25/18 Charissa Rico MD 70 [place] [address] [email or web address] Insurance Assigned Provider 11/27/18 08/01/23 Prasahnth Jalloh LICSW 10 [place] [address] [email or web address] iCMP Social Work 04/29/21 10/26/22 documented as of this encounter Additional Source Comments The information contained in this document represents components of the legal health record. It is not the complete legal health record.[facility]
--- OUTSIDE RECORDS SUMMARY | 2025-07-27 16:03 | XMS_ITS | Encounter Summary ---
Author Organization [facility] Address [address] [place] [address] Phone Care Team Providers Care Surgical Instrument Maker Name Role Phone Charissa Rico MD Primary Care Provider [phone] Siobhan Grossman CNM Unavailable Siobhan Cummins CNM Unavailable [phone] Alexsander Roger MD Unavailable Melody Bland [...] MD Unavailable [phone] Prashanth Jalloh Unavailable [phone] Charissa Rico MD Primary Care Provider [phone] Pamela Campbell Primary Care Provider Encounter Details Date Type Department Care Team (Late st Contact Info) Description 12/31/2017 Ancillary Orders [facility] External Provider Virtual Department 30 [place] [address] Vitor Ramos MD [address] [place] [address] [email or web address] Abdominal pain, unspecified abdominal location Social History Tobacco Use Types Packs/Day Years [...] Start Date Job End Date Working at [email or web address] Not on file Not on file Not on f ile documented as of this encounter Plan of Treatment Not on file documented as of this encounter Visit Diagnoses Diagnosis Abdominal pain, unspecified abdominal location documented in this encounter Care Teams Surgical Instrument Maker Relationship Specialty Start Date End Date Charissa Rico MD PCP - General 09/10/17 06/18/23 Charissa Rico MD [address] [place] [address] PCP - General Family Medicine 06/19/23 01/02/25 Pamela Campbell PA [address] [place] [address] PCP - General Physician Billing Control Clerk 01/03/25 Siobhan Grossman CNM [address] [place] [address], [address] [place] [address] Historical LMR Provider 09/10/17 05/23/21 Siobhan Cummins CNM [address] [place] [address] Historical LMR Provider 09/10/17 05/23/21 Alexsander Roger MD [address] [place] [address] Historical LMR Provider 09/10/17 05/23/21 Melody Bland NP [address] [place] [address] [email or web address] Historical LMR Provider 09/10/17 05/23/21 Grecia Garner MD [address] [place] [address] Historical LMR Provider 09/10/17 05/23/21 Sena Mc CNM [address] [place] [address] Historical LMR Provider 09/10/17 05/23/21 Jonnathan Guerrero DO [address] [place] [address] Orthopedics & Sports Medicine, [place] [address] Historical LMR Provider 09/10/17 11/30/21 Charissa Rico MD [address] [place] [address] Historical LMR Provider 09/10/17 05/23/21 Lindsay Burns CNM [address] [place] [address] Historical LMR Provider 09/10/17 05/23/21 Rich Rodas MD [address] [place] [address] Historical LMR Provider 09/10/17 Ambrosio Mcclellan DO [address] [place] [address] [email or web address] Historical LMR Provider 09/10/17 11/30/21 Charissa Rico MD [address] [place] [address] Insurance Assigned Provider 02/20/18 09/25/18 Charissa Rico MD [address] [place] [address] Insurance Assigned Provider 11/27/18 08/01/23 Prashanth Jalloh LICSW 10 [place] [address] iCMP Social Work 04/29/21 10/26/22 documented as of this encounter Additional Source Comments The information contained in this document represents components of the legal health record. It is not the complete legal health record.[facility]
--- OUTSIDE RECORDS SUMMARY | 2025-07-27 16:04 | XMS_ITS | Encounter Summary ---
Author Organization [facility] Address [address] [place] [phone] Phone Care Team Providers Care Enzyme Chemist Name Role Phone Charissa Rico MD Primary Care Provider [phone] Siobhan Grossman CNM Unavailable Siobhan Cummins CNM Unavailable [phone] Alexsander Roger MD Unavailable Melody Bland [...] MD Unavailable [phone] Prashanth Jalloh Unavailable [phone] Charissa Rico MD Primary Care Provider [phone] Pamela Campbell Primary Care Provider [phone] Encounter Details Date Type Department Care Team (Latest Contact Info) Description 07/28/2018 Transcribe Orders [facility] [address] [place] [address] Siobhan Osullivan PA-C [address] [place] [address] [email or web address] Elevated LFTs (Primary Dx); Loss of weight; Hyperemesis Social History Tobacco Use Types Packs/Day Years [...] Start Date Job End Date Working at [email or web address] Not on file Not on file Not on f ile documented as of this encounter Plan of Treatment Not on file documented as of this encounter Results * Ferritin (07/28/2018 2:00 PM EDT) FERRITIN 79 13 - 150 ug/L [facility] Blood 07/28/2018 2:00 PM EDT 07/28/2018 2:09 PM EDT us Siobhan Osullivan PA-C LAB BLOOD ORDERABLES Final Resu lt [address] [address] * (ABNORMAL) TSH (07/28/2018 2:00 PM EDT) TSH <0.01(L) 0.27 - 4.20 uIU/mL [facility] Blood 07/28/2018 2:00 PM EDT 07/28/2018 2:09 PM EDT us Siobhan Osullivan PA-C LAB BLOOD ORDERABLES Final Resu lt [address] [address] * Iron and iron binding capacity (07/28/2018 2:00 PM EDT) IRON 62 30 - 160 ug/dL [facility] IRON BINDING CAPACITY 342 228 - 428 ug/dL [facility] TRANSFERRIN SATURAT. 18 15 - 50 % [facility] Blood 07/28/2018 2:00 PM EDT 07/28/2018 2:09 PM EDT us Siobhan Osullivan PA-C LAB BLOOD ORDERABLES Final Resu lt Performing Organization Address [facility]/ZIP Co de Phone Number [address] [address] * Hepatitis C antibody, qualitative (07/28/2018 2:00 PM EDT) HCV Negative Negative [facility] Comment: This is a screening test and should be confirmed with molecular testing Blood 07/28/2018 2:00 PM EDT 07/28/2018 2:09 PM EDT us Siobhan Osullivan PA-C LAB BLOOD ORDERABLES Final Resu lt Performing Organization Address City/[facility]/ZIP Co de Phone Number [address] [address] * Hepatitis B surface antigen (07/28/2018 2:00 PM EDT) HBV SURFACE ANTIGEN Negative Negative [facility] Blood 07/28/2018 2:00 PM EDT 07/28/2018 2:09 PM EDT us Siobhan Osullivan PA-C LAB BLOOD ORDERABLES Final Resu lt Performing Organization Address City/[facility]/ZIP Co de Phone Number [address] [address] * Hepatitis A antibody, IgM (07/28/2018 2:00 PM EDT) Hepatitis A Antibody, IgM Negative Negative [facility] Blood 07/28/2018 2:00 PM EDT 07/28/2018 2:09 PM EDT us Siobhan Osullivan PA-C LAB BLOOD ORDERABLES Final Resu lt Performing Organization Address City/[facility]/ZIP Co de Phone Number [facility] [address] [place] [address] * (ABNORMAL) Comprehensive metabolic panel (07/28/2018 2:00 PM EDT) SODIUM 137 133 - 146 mmol/L [facility] POTASSIUM 4.1 3.3 - 5.1 mmol/L [facility] CHLORIDE 100 96 - 108 mmol/L [facility] CO2 24 21 - 35 mmol/L [facility] BUN 7 6 - 19 mg/dL [facility] CREATININE <0.50(L) 0.5 - 1.5 mg/dL [facility] GLUCOSE 79 70 - 99 mg/dL [facility] ALBUMIN 4.1 3.9 - 4.8 g/dL [facility] TOTAL PROTEIN 7.5 6.5 - 8.0 g/dL [facility] CALCIUM 9.6 8.4 - 10.3 mg/dL [facility] ALKALINE PHOSPHATASE 57 39 - 117 U/L [facility] TOTAL BILIRUBIN 0.6 0.0 - 1.2 mg/dL [facility] AST 99(H) 0 - 37 U/L [facility] ALT 245(H) 0 - 40 U/L [facility] GLOBULIN 3.4 1 - 4.8 g/dL [facility] EGFR Not Done >59 mL/min/1.7 3m2 [facility] ANION GAP 17 10 - 20 mmol/L [facility] Blood 07/28/2018 2:00 PM EDT 07/28/2018 2:09 PM EDT us Siobhan Osullivan PA-C LAB BLOOD ORDERABLES Final Resu lt [facility] [address] [place] [address] * Ceruloplasmin (07/28/2018 2:00 PM EDT) CERULOPLASMIN,S 46.8 20.0 - 51.0 mg/dL [facility] DPT OF LAB MED AND PAT+ Blood 07/28/2018 2:00 PM EDT 07/28/2018 2:09 PM EDT us Siobhan Osullivan PA-C LAB BLOOD ORDERABLES Final Resu lt Performing Organization Address City/[facility] Co de Phone Number [facility] DPT OF LAB MED AND PAT+ [address] [place] [address] * (ABNORMAL) CBC (07/28/2018 2:00 PM EDT) WBC 12.57(H) 3.40 - 11.20 K/uL [facility] RBC 4.31 3.80 - 4.80 M/uL [facility] HGB 12.2 12.0 - 15.0 g/dL [facility] HCT 36.9 36.0 - 46.0 % [facility] PLT 277 130 - 400 K/uL [facility] MCV 85.6 79.0 - 98.0 fL [facility] MCH 28.3 27.0 - 34.8 pg [facility] MCHC 33.1 31.5 - 36.0 g/dL [facility] RDW 13.2 10.8 - 14.6 % [facility] MPV 12.0 9.4 - 12.4 fl [facility] NRBC 0.00 /100 WBCs [facility] ABSOLUTE NRBC 0.00 K/uL [facility] Blood 07/28/2018 2:00 PM EDT 07/28/2018 2:09 PM EDT us Siobhan Osullivan PA-C LAB BLOOD ORDERABLES Final Resu lt Performing Organization Address City/[facility]/ZIP Co de Phone Number [facility] [address] [place] [address] * Tissue transglutaminase IgA (07/28/2018 2:00 PM EDT) TTG IGA ANTIBODY <1.2 <4.0 (Negative) U/mL [facility] DPT OF LAB MED AND PAT+ Blood 07/28/2018 2:00 PM EDT 07/28/2018 2:09 PM EDT Siobhan Osullivan PA-C LAB BLOOD ORDERABLES Final Resu lt Performing Organization Address [facility] Co de Phone Number [facility] DPT OF LAB MED AND PAT+ [address] [place] [address] * Smooth Muscle Antibody (07/28/2018 2:00 PM EDT) ANTI-SMOOTH MUSCLE AB Negative Negative [facility] DPT OF LAB MED AND PAT+ Comment: (NOTE) ADDITIONAL INFORMATION This test was developed and its performance characteristics determined by [facility] in a manner consistent with CLIA requirements. This test has not been cleared or approved by the U.S. Food and Drug Administration. Blood 07/28/2018 2:00 PM EDT 07/28/2018 2:09 PM EDT Siobhan Osullivan PA-C LAB BLOOD ORDERABLES Final Resu lt [facility] DPT OF LAB MED AND PAT+ [address] [place] [address] * (ABNORMAL) Antinuclear antibody (LISA) (07/28/2018 2:00 PM EDT) LISA SCREEN ON HEP 2 Positive(A ) Negative [facility] Comment:An LISA Titer has bee n reflexed. The results will follow. Blood 07/28/2018 2:00 PM EDT 07/28/2018 2:09 PM EDT Siobhan Osullivan PA-C LAB BLOOD ORDERABLES Final Resu lt [facility] [address] [place] [address] * Anti-Mitochondrial Antibody (AMA) (07/28/2018 2:00 PM EDT) MITOCHONDRIAL AB M2 <0.1 <0.1 (Negative) U [facility] DPT OF LAB MED AND PAT+ Blood 07/28/2018 2:00 PM EDT 07/28/2018 2:09 PM EDT us Siobhan Osullivan PA-C LAB BLOOD ORDERABLES Final Resu lt Performing Organization Address City/[facility]/ZIP Co de Phone Number [facility] DPT OF LAB MED AND PAT+ [address] [place] [address] * (ABNORMAL) [id number]-[id number] phenotyping (07/28/2018 2:00 PM EDT) ALPHA 1 ANTITRYPSIN 256(H) 100 - 190 mg/dL [facility] DPT OF LAB MED AND PAT+ A1A PHENOTYPE MM bands [facility] DPT OF LAB MED AND PAT+ Blood 07/28/2018 2:00 PM EDT 07/28/2018 2:09 PM EDT us Siobhan Osullivan PA-C LAB BLOOD ORDERABLES Final Resu lt Performing Organization Address City/[facility]/ZIP Co de Phone Number [facility] DPT OF LAB MED AND PAT+ [address] [place] [address] documented in this encounter Visit Diagnoses Diagnosis Elevated LFTs- Primary Other abnormal blood chemistry Loss of weight Hyperemesis Persistent vomiting documented in this encounter Care Teams Enzyme Chemist Relationship Specialty Start Date End Date Charissa Rico MD PCP - General 09/10/17 06/18/23 Charissa Rico MD [address] [place] [id number] PCP - General Family Medicine 06/19/23 01/02/25 Pamela Campbell PA [address] [place] [address] PCP - General Physician District Plant Supervisor 01/03/25 Siobhan Grossman CNM [address] [place] [address] Historical LMR Provider 09/10/17 05/23/21 Siobhan Cummins CNM [address] [place] [address] Historical LMR Provider 09/10/17 05/23/21 Alexsander Roger MD [address] [place] [address] Historical LMR Provider 09/10/17 05/23/21 Melody Bland NP [address] [place] [address] [email or web address] Historical LMR Provider 09/10/17 05/23/21 rGecia Garner MD [address] [place] [address] Historical LMR Provider 09/10/17 05/23/21 Sena Mc CNM [address] [place] [address] Historical LMR Provider 09/10/17 05/23/21 Jonnathan Guerrero DO [address] [place] [address] [facility], [place] [address] Historical LMR Provider 09/10/17 11/30/21 Charissa Rico MD [address] [place] [address] Historical LMR Provider 09/10/17 05/23/21 Lindsay Burns CNM [address] [place] [address] [email or web address] Historical LMR Provider 09/10/17 05/23/21 Rihc Rodas MD [address] [place] [address] Historical LMR Provider 09/10/17 Ambrosio Mcclellan DO [address] [place] [address] [email or web address] Historical LMR Provider 09/10/17 11/30/21 Charissa Rico MD [address] [place] [address] Insurance Assigned Provider 02/20/18 09/25/18 Charissa Rico MD [address] [place] [address] [email or web address] Insurance Assigned Provider 11/27/18 08/01/23 Prashanth Jalloh LICSW [address] [place] [address] [email or web address] Social Work 04/29/21 10/26/22 documented as of this encounter Additional Source Comments The information contained in this document represents components of the legal health record. It is not the complete legal health record.[facility]
--- OUTSIDE RECORDS SUMMARY | 2025-07-27 16:04 | XMS_ITS | Clinical Summary ---
Author Organization [facility] Address [address] [place] [phone] Phone Care Team Providers Care Kelly Machine Operator Name Role Phone Rich Rodas MD Unavailable [phone] Pamela Campbell Primary Care Provider [phone] Allergies Active Allergy Reactions Criticality Noted Date Comments Ondansetron 01/03/2025 nausea Medications raNITIdine (ZANTAC) 150 MG tablet Take 150 mg by mouth 2 (two) times a day. Active acetaminophen (TYLENOL) 500 MG tablet Take 500 mg by mouth as needed for pain (specific location in comments). Active DICLOFENAC SODIUM ORAL Take 50 mg by mouth daily. Active norethindrone-e .estradiol-iron (TAYTULLA) 1 mg-20 mcg (24)/75 mg (4) CapIndications: Menometrorrhagi a Take 1 tablet by mouth daily. 28 capsule 11 9 Active Additional Information Patient not taking.Reported on 07/27/2020 ibuprofen (ADVIL,MOTRIN) 400 MG tablet Take 800 mg by mouth as needed. 2 9 Active AMOXICILLIN ORAL Take by mouth. Started 07/26. 7 days for wisdom teeth removal Active amitriptyline (ELAVIL) 25 MG tablet Take 25 mg by mouth nightly at bedtime. Active RINVOQ 15 mg ER 24 hr tablet Take 15 mg by mouth daily. 5 Active topiramate (TOPAMAX) 50 MG tablet Take 50 mg by mouth nightly at bedtime. 5 Active pantoprazole (PROTONIX) 40 MG tablet Take 40 mg by mouth daily. Active Active Problems Problem Noted Date Diagnosed Date Iron deficiency anemia 11/26/2018 Overview (01/02/2019): 01/02/2019 - Ferritin 10. Iron infusion given. Hgb electrophoresis done 12/2015 normal. Hgb 10.3 at 28 weeks (October) Hgb 8.2 November Hgb 8.4 December Trochanteric bursitis 11/26/2018 Gallbladder sludge 09/29/2018 Assessment & Plan (09/29/2018 8:16 AM EST): The patient's abdominal ultrasound done on 09/17/18 showed debris/sludge in an otherwise unremarkable gallbladder. History of cholestasis during 07/19/20 Overview (07/19/2018): Patient with h/o cholestasis pf last time and reports she was itching throughout . Currently reports itching again - has not had her Bile Acids and LFTs tested yet thought they were ordered (patient reports lack of insurance as the cause). Reviewed with OB - patient to have labs today, 07/16/18. -Severe cholestasis is defined as bile acids over 40 micromol/L, and accounts for about 20 percent of cases. -Aminotransferase levels should be evaluated using the laboratory s cut-off for the general population - Because pruritus can precede the rise in serum bile acids by several weeks, recommend repeating laboratory tests weekly if total bile acid and aminotransferase levels are initially normal. Treatment of ICP: two main goals: ?Reducing bothersome symptoms - Can prescribe Ursodial 300mg PO TID Although pruritus is bothersome, ICP is not associated with other serious maternal sequelae. ?Reducing the risk of morbidity and mortality Given risk of IUFD with cholestasis - will recommend delivery between 36-36 6/7 weeks again. Although the benefit of testing is unproven, most clinicians follow these pregnancies with testing in the third trimester to potentially identify a fetus at risk that could benefit from a delivery at < 36 weeks. As such, if ICP is diagnosed, recommend testing weekly from 28 weeks. 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 Naturally occurring antibodies to M and N are seen in a small percentage of the general population in the absence of exposure to allogeneic blood. Anti-M rarely causes hemolytic disease of the fetus and since it is typically IgM. Severe HDFN due to anti-M may occur if the antibody is a high-titer IgG at 37 C rather than room temperature Per patient's prior records an 06/30/18 Titer <1.1 however I am unable to see this report. FOB is not available to be tested for antigen status. Provided reassurance however recommend:. 1. Obtaining an antibody screen her at [facility] and ask blood bank for : Titer as well as antibody type (IgG vs IgM). Recommend following titers monthly if IgG. If titers rising will re-consult to discuss surveillance for anemia. 2. Notify blood bank and discuss best timing for T+S to be sure that blood is available for patient at the time of section. 07/27/18 - Anti-M present. I called blood bank and they state that the have re-evaluated the antibody and it is a COLD antibody, which means not active at body temperature and thus not clinically significant, and will not pose a problem for blood matching. They did not think it was necessary to do a titer. Thus, no further testing is necessary. Please inform patient of this at next appointment. (MG) Assessment & Plan (01/07/2019 9:48 AM EST): 2 units of PRBC are available for transfusion prn. Assessment & Plan (10/05/2018 12:31 PM EST): Cold antibody reviewed with pt and no need for follow up testing. Assessment & Plan (09/29/2018 7:59 AM EST): The patient's RBC antibody issue may affect the presenting issue of surgical procedure (s) and may increase the risk of slow healing wound (s), infection (s), kidney, lung and/or heart problems. Stable and/or controlled chronic conditions may reduce complications associated with your chronic condition (s). Assessment & Plan (02/25/2018 2:47 PM EDT): informed of this today, and that she should carry card in wallet with this info in case of emergency Irregular bleeding 10/26/2017 Assessment & Plan (12/31/2017 6:16 PM EST): Plan for dx laparoscopy to assess for EMS Assessment & Plan (10/26/2017 2:57 PM EST): Normal exam results and negative test reviewed. Will await CGC results. If negative, to call with menses for Depo Provera appt. To call if has increased pelvic pain or other concerns. Resolved Problems Problem Noted Date Diagnosed Date Resolved Date care following delivery 01/10/2019 01/25/2019 Encounter for sterilization 01/07/2019 01/25/2019 Assessment & Plan (01/07/2019 9:46 AM EST): Bilateral tubal ligation performed at time of RCS Maternal iron deficiency ane erin affecting in third trimester, antepartum 01/02/2019 01/25/2019 Assessment & Plan (01/07/2019 9:47 AM EST): Pre-op HCT is 28. EBL with RCS was 600 cc. 2 units of PRBC are available for transfusion prn. Assessment & Plan (01/02/2019 11:58 AM EST): Pt counseled for iron infusion. States she had one with last and no side effects. Side effects which are usually mild, including but not limited to, headache, metallic taste in mouth and joint aches discussed. Advised pt side effects could last a few days. She may also experience constipation or loose bowels. Advised pt if she experiences chest pain, dizziness, mouth swelling or difficulty breathing in the days following the infusion she needs to seek immediate medical care. 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 Given symptoms and previous history of cholestasis in , will treat this as such and plan on twice weekly testing with delivery at 37 weeks. Assessment & Plan (01/07/2019 9:49 AM EST): Normal monitoring. Repeat C/S performed at 36 5/7 due to this diagnosis labor in third trime ster without delivery 11/25/2018 01/25/2019 Antepartum placenta abruptio, third trimester 10/28/20 18 01/25/2019 Overview (01/01/2019): Has not had any further bleeding. Placental abruption in second trimester 10/01/2018 02/14/2019 Overview (11/25/2018): [place] and [place] [facility] [place] Per the patient, they recommended transfer to [facility]. U/S from 10/01 at [facility] - 1.8 x 1.1 area at caudal margin of a bilobed placenta - marginal abruption suspected, 22+ weeks Abdominal pain, RUQ 09/28/2018 01/26/20 19 Assessment & Plan (09/29/2018 8:00 AM EST): This 22 week female complains of right upper quadrant abdominal pain. The details of her symptoms do not seem consistent with biliary colic. I will order a repeat ultrasound and some labs. She will also see her high-risk power transmission engineer providers. Pelvic pain affecting pregna ncy in second trimester, antepartum 09/02/2018 01/25/2019 Assessment & Plan (09/07/2018 9:21 AM EDT): Seen 09/02 at 18w4d with c/o pelvic pressure and pain. Also having some trouble starting urine stream. Pain is not better or worse in any particular position and it is constant, with occasional flares. Denies abnl discharge, bleeding. She is infrequently sexually active, no concern for STI. Last intercourse was very painful. Pt has a h/o chronic pelvic pain / endometriosis confirmed by laparoscopy. Not feeling FM yet. A: Gen: Alert, cooperative. Well-appearing on today's exam Abdomen: Soft, gravid, non-tender. No masses palpable, no organomegaly. No notable scarring. Pelvic: External Genitalia: Normal architecture, without lesions. No inguinal lymphadenopathy. Vagina: Mucosa is pink with normal rugae. No abnormal discharge or lesions. GC/CT collected Cervix: Normal appearance, without discharge or lesions. Very tender with bimanual exam, mild CMT, most tender to palpation on posterior vaginal wall. Cervix LTC Uterus: 18 weeks size and shape. Anteverted position. Non-tender. Mobile Adnexa: No adnexal masses or tenderness bilaterally. Microscopic wet-mount exam shows negative for pathogens, normal epithelial cells. P: urine culture, GC/CT, ultrasound If all of these are normal, will assume pelvic floor dysfunction s/t h/o endometriosis and chronic pelvic pain, will refer to pelvic floor PT Maternal varicella, non-immune 08/02/2018 01/25/2019 Overview (08/02/2018): equivocal Abnormal results of liver function studies 07/24/2018 01/25/2019 Overview (07/27/2018): Elevated enzymes, bilirubin; GI appt 07/28/18 Assessment & Plan (09/29/2018 7:56 AM EST): 08/02/18 labs showed a WBC of 27, AST 116, & ALT 220. Lipase was normal at 22. 08/11/18 WBC was 18.53, AST 188 and ALT 454. Her LFTs had normalized in 08/2018. Hyperemesis affecting , antepartum 07/19/2018 01/25/2019 Overview (01/01/2019): S/P course of glucocorticoids. Feeling much better. Now using reglan and zantac. Still vomiting once or twice a day but is able to eat and is gaining weight. Rx for VB6 and unisom sent to pharmacy as insurance would not cover diclegis. Overall after 7kg weight loss in first trimester, she has maintained a stable weight since 12 weeks. Assessment & Plan (01/07/2019 9:48 AM EST): Poorly controlled during . Delivered by RCS Encounter for supervision of other normal , second trimester 07/08/2018 10/28/2018 Overview (07/08/2018): CNM Childbirth Ed? Group PN care? * Rh A + Tdap * Hgb * GTT * GBS * PPBC * Hx of section 07/08/201801/25 Overview (01/01/2019): Hx C/s for intolerance in the context of chorioamnionitis following a prolonged induction of labor for cholestasis in 2015. Surgery was uncomplicated; by Dr Irizarry Has chosen RCS with TL Assessment & Plan (01/07/2019 9:48 AM EST): RCS with TL performed 01/07/2019 RLQ abdominal pain 9 Immunizations Immunization Administration Dates Next Due COVID-19 (Pre-09/14) [email or web address] Vaccine, mRNA, PF 09/05/2021 DTP 01/20/1996,10/22/1995,04/22/1995 Dtap, 5 Pertussis Antigens 04/28/2000,12/21/1996 HPV,quadrivalent 04/29/2012,02/06/2009, 8 Hepatitis A, ped/adol, 2 dose 03/09/2014, 011 Hepatitis B 01/20/1996,02/20/1995,1994 Hib,PRP-T 12/21/1996, 6,10/22/1995,04/22 IPV 04/28/2000, 6,10/22/1995,04/22 Influenza Quadrivalent Prese rvative Free IM 09/19/2021,01/30/2020,10/28/2018,12/02,10/10/2016 Influenza, Unspecified Formulation 06/27/2015 MMR 04/28/2000,12/21/1996 Meningococcal ACWY, unspecif ied formulation 10/12/2007 Meningococcal MCV4P 11/11/2007 Tdap 11/18/2018,01/28/2016,11/11/2007 Varicella 04/28/2000,01/15/1998 Family History Medical History Relation Comments Hypertension Father Anxiety disorder Mother Depression Mother Diabetes Sister Relation Status Comments Father Maternal Grandfather Alive Maternal Grandmother Mother Paternal Grandfather Paternal Grandmother Alive Sister Social History Tobacco Use Types Packs/Day Years Used Date Smoking Tobacco: Never Smokeless Tobacco: Never Alcohol Use Standard Drinks/Week Comments No 0 (1 standard drink = 0.6 oz pur e alcohol) Education Answer Date Recorded Are you interested in more education? Not on jazmyn e 03/20/2023 Are you concerned about learning? Not on file 03/20/2023 No 03/20/2023 No 03/20/2023 Digital Access Answer Date Recorded No 04/17/2023 No 04/17/2023 Reliable internet access at home? Not on file 04/17/2023 Device with a working camera? Not on file Intimate Partner Violence Answer Date R ecorded Are you denied basic needs s uch as food, clothing, or medical care? No 01/03/2025 In the past 12 months have y ou been in a relationship with a person who hurts, threatens, or tries to control you? No 01/03/2025 Are you denied basic needs s uch as food, clothing, or medical care? No 01/03/2025 In the past 12 months have y ou been in a relationship with a person who hurts, threatens, or tries to control you? No 01/03/2025 Comments No Sex and Gender Information Value Date Recorded Sex Assigned at Female 07/22/2018 3:57 PM EDT Legal Sex Female 8:53 PM EDT Gender Identity Female 07/22/2018 3:57 PM EDT Sexual Orientation Straight 08/11/2018 11 :05 AM EDT Occupation Industry Job Start Date Job End Date Working at [employer] Not on file Not on file Not on f ile Last Filed Vital Signs Vital Sign Reading Time Taken Comments Blood Pressure 130/68 01/03/2025 5:31 PM EST Pulse 79 01/03/2025 5:31 PM EST Temperature 36.7 C (98.1 F) 01/03/2025 5:31 PM EST Respiratory Rate 16 01/03/2025 5:31 PM EST Oxygen Saturation 99% 01/03/2025 5:31 PM EST Inhaled Oxygen Concentration - - Weight 87.5 kg (193 lb) 01/03/2025 5:31 PM EST Height 160 cm (5' 3 ) 07/27/2020 4:21 PM EDT Body Mass Index 34.19 07/27/2020 4:21 PM EDT Plan of Treatment Health Maintenance Due Date Last Done Comments HEPATITIS A VACCINES (2 of 2 - 2-dose series) 09/08/2014 03/09/2014, 04/24/2011 SMOKING STATUS SCREENING (Once After 26 Yrs) 2020 COVID-19 VACCINE (3 - Pfizer risk series) 10/03/2021 09/05/2021, 08/15/2021 PNEUMOCOCCAL VACCINES (0-49 years) (2 of 2 - PPSV23) 12/03/2021 10/08/2021 DEPRESSION SCREENING 05/06/2022 05/06/2021 PAP SMEAR 09/20/2024 09/20/2021, 04/23/2016 INFLUENZA VACCINE (#1) 2025 , 01/30/2020, 10/28/2018, Additional history exists Adult Td,Tdap Booster 11/18/2028 11/18/2018 , 01/28/2016, 11/11/2007 HIB VACCINES Completed 12/21/1996, 12/25, 10/22/1995, Additional history exists MENINGOCOCCAL VACCINES (ACWY) Aged Out 11/11/2007, 10/12/2007 No longer eligibl e based on patient's age to complete this topic HIV ONE-TIME SCREENING (18-65 YEARS) Completed 07/27/2018 HEPATITIS C SCREENING Completed 07/17/2023 , 07/28/2018, 07/23/2018 MENINGOCOCCAL VACCINES (B) Aged Out N o longer eligible based on patient's age to complete this topic Medical Devices Not on file Procedures Procedure Name Priority Date/Time Associated Diagnosis Comments PAP TEST Routine 09/20/2021 12:00 AM EDT HEPATITIS C ANTIBODY, QUALITATIVE Routine 07/28/2018 2:00 PM EDT Elevated LFTs Loss of weight Hyperemesis from Last 3 Months or Most Recently Relevant to Health Maintenance Results * Pap Smear (09/20/2021 12:00 AM EDT) 09/20/2021 09/23/2021 8:5 7 AM EDT Narrative SEE NARRATIVE - 09/30/2021 1:12 [place] [address] Shipyard Supervisor: Christi Quinones MD TECHNICAL SOLUTION ARCHITECT Cytology Report FINAL DIAGNOSIS A. PAP SMEAR (SUREPATH) CE: SPECIMEN ADEQUACY: Satisfactory for evaluation; transformation zone present. INTERPRETATION: NEGATIVE FOR INTRAEPITHELIAL LESION OR MALIGNANCY. Electronically Signed Out By: ACE Guzman(ASCP) The Pap test is a screening test primarily for squamous cancers and precursors and has associated false-negative and false-positive results. New technologies such as liquid-based preparations may decrease but will not eliminate all false-negative results. Regular sampling and follow-up of unexplained clinical signs and symptoms are recommended to minimize false negative results. CLINICAL HISTORY Date of Last Menstrual Period: Not Provided Menstrual History: Unknown Other Clinical Conditions: Screening Pap SPECIMEN SOURCE A: PAP SMEAR (SUREPATH) CE Patient Name: ZULEMA JI : 1995 (Age: 25) Sex: F Institution: [facility] Location: [facility] Date of Collection: 09/20/2021 Date of Reported: 09/30/2021 13:12 Results to: JESENIA Grimes us Unknown Unknown CYTOLOGY ORDERABLES Final Res ult SEE NARRATIVE * Hepatitis C antibody, qualitative (07/28/2018 2:00 PM EDT) HCV Negative Negative [facility] Comment: This is a screening test and should be confirmed with molecular testing Blood 07/28/2018 2:00 PM EDT 07/28/2018 2:09 PM EDT Siobhan Osullivan PA-C LAB BLOOD ORDERABLES Final Resu lt [address] [address] from Last 3 Months or Most Recently Relevant to Health Maintenance Insurance [facility] Advance Directives For more information, please contact: [phone] (9AM - 5PM [facility], Thursday-Thursday) Documents on File Type Date Recorded 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 Expl anation Healthcare Proxy 01/12/2019 12:11 PM * Full Code (Presumed) (Latest Code Status on File) Date Activated Date Inactivated Comments 01/07/2019 9:53 AM 01/11/2019 4:45 PM * Full Code (Presumed) Date Activated Date Inactivated Comments 01/07/2019 5:18 AM 01/07/2019 9:53 AM * Full Code (Presumed) Date Activated Date Inactivated Comments 01/01/2019 8:08 PM 01/01/2019 11:47 PM * Full Code (Presumed) Date Activated Date Inactivated Comments 11/25/2018 12:41 PM 11/25/2018 7:51 PM * Full Code (Presumed) Date Activated Date Inactivated Comments 10/25/2018 11:17 AM 10/25/2018 4:22 PM Care Teams Kelly Machine Operator Relationship Specialty Start Date End Date Pamela Campbell PA [address] [place] [id number] PCP - General Physician Hr Advisor 01/03/25 Rich Rodas MD [address] [place] [address] [address] [place] [address] [email or web address] Historical LMR Provider 09/10/17 Additional Source Comments The information contained in this document represents components of the legal health record. It is not the complete legal health record.[facility]
--- OUTSIDE RECORDS SUMMARY | 2025-07-27 16:04 | XMS_ITS | Encounter Summary ---
Author Organization [facility] Address [address] [place] [phone] Phone Care Team Providers Care Jewel Flat Surfacer Name Role Phone Charissa Rico MD Primary Care Provider [phone] Siobhan Grossman CNM Unavailable Siobhan Cummins CNM Unavailable [phone] Alexsander Roger MD Unavailable Melody Bland [...] MD Unavailable [phone] Prashanth Jalloh Unavailable [phone] Charissa Rico MD Primary Care Provider [phone] Pamela Campbell Primary Care Provider [phone] Encounter Details Date Type Department Care Team (Latest Contact Info) Description 08/12/2018 Transcribe Orders [facility] [address] [place] [address] Siobhan Osullivan PA-C [address] [place] [address] [email or web address] Elevated liver function tests (Primary Dx) Social History Tobacco Use Types [...] Start Date Job End Date Working at [employer] Not on file Not on file Not on f ile documented as of this encounter Plan of Treatment Not on file documented as of this encounter Visit Diagnoses Diagnosis Elevated liver function tests- Primary Other abnormal blood chemistry documented in this encounter Care Teams Jewel Flat Surfacer Relationship Specialty Start Date End Date Charissa Rico MD PCP - General 09/10/17 06/18/23 Charissa Rico MD [address] [place] [id number] PCP - General Family Medicine 06/19/23 01/02/25 Pamela Campbell PA [address] [place] [id number] PCP - General Physician Steno Typist 01/03/25 Siobhan Grossman CNM [address] [place] [address], [facility] [address] [place] [phone] Historical LMR Provider 09/10/17 05/23/21 Siobhan Cummins CNM [address] [place] [address] Historical LMR Provider 09/10/17 05/23/21 Alexsander Roger MD [address] [place] [address] Historical LMR Provider 09/10/17 05/23/21 Melody Bland NP [address] [place] [address] [email or web address] Historical LMR Provider 09/10/17 05/23/21 Grecia Garner MD [address] [place] [email or web address] Historical LMR Provider 09/10/17 05/23/21 Sena Mc CNM [address] [place] [address] Historical LMR Provider 09/10/17 05/23/21 Jonnathan Guerrero DO [address] [place] [address] [facility], [place] [address] Historical LMR Provider 09/10/17 11/30/21 Charissa Rico MD [address] [place] [phone] Historical LMR Provider 09/10/17 05/23/21 Lindsay Burns CNM [address] [place] [phone] Historical LMR Provider 09/10/17 05/23/21 Rich Rodas MD [address] [place] [address] Historical LMR Provider 09/10/17 Ambrosio Mcclellan DO [address] [place] [phone] [email or web address] Historical LMR Provider 09/10/17 11/30/21 Charissa Rico MD [address] [place] [phone] Insurance Assigned Provider 02/20/18 09/25/18 Charissa Rico MD [address] [place] [address] Insurance Assigned Provider 11/27/18 08/01/23 Prashanth Jalloh, [address] [address] [employer] Social Work 04/29/21 10/26/22 documented as of this encounter Additional Source Comments The information contained in this document represents components of the legal health record. It is not the complete legal health record.[facility]
--- OUTSIDE RECORDS SUMMARY | 2025-07-27 16:04 | XMS_ITS | Encounter Summary ---
Author Organization [facility] Address [address] [place] [address] Phone Care Team Providers Care Blueprinting Machine Operator Name Role Phone Charissa Rico MD Primary Care Provider [phone] Siobhan Grossman CNM Unavailable Siobhan Cummins CNM Unavailable [phone] Alexsander Roger MD Unavailable Melody Bland [...] MD Unavailable [phone] Prashanth Jalloh Unavailable [phone] Charissa Rico MD Primary Care Provider [phone] Pamela Campbell Primary Care Provider Encounter Details Date Type Department Care Team (Late st Contact Info) Description 03/18/2018 Procedure Pass OR Admitting Dept - Virtual Department [address] [place] [address] Social History Tobacco Use Types Packs/Day Years [...] Start Date Job End Date Working at [employer] Not on file Not on file Not on f ile documented as of this encounter Plan of Treatment Not on file documented as of this encounter Visit Diagnoses Not on filedocumented in this encounter Care Teams Blueprinting Machine Operator Relationship Specialty Start Date End Date Charissa Rico MD PCP - General 09/10/17 06/18/23 Charissa Rico MD [address] [place] [phone] PCP - General Family Medicine 06/19/23 01/02/25 Pamela Campbell PA [address] [place] [address] PCP - General Physician [employer] 01/03/25 Siobhan Grossman CNM [address] [place] [phone] [email or web address] Historical LMR Provider 09/10/17 05/23/21 Siobhan Cummins CNM [address] [place] [address] Historical LMR Provider 09/10/17 05/23/21 Alexsander Roger MD [address] [place] [address] Historical LMR Provider 09/10/17 05/23/21 Melody Bland NP [address] [place] [phone] [email or web address] Historical LMR Provider 09/10/17 05/23/21 Grecia Garner MD [address] [place] [phone] [email or web address] Historical LMR Provider 09/10/17 05/23/21 Sena Mc CNM [address] [place] [address] Historical LMR Provider 09/10/17 05/23/21 Jonnathan Guerrero DO [address] [place] [address] Orthopedics & Sports Medicine, [facility] [place] [address] Historical LMR Provider 09/10/17 11/30/21 Charissa Rico MD [address] [place] [address] Historical LMR Provider 09/10/17 05/23/21 Lindsay Burns CNM [address] [place] [address] Historical LMR Provider 09/10/17 05/23/21 Rich Rodas MD [address] [place] [address] Historical LMR Provider 09/10/17 Ambrosio Mcclellan DO [address] [place] [address] [email or web address] Historical LMR Provider 09/10/17 11/30/21 Charissa Rico MD [address] [place] [address] Insurance Assigned Provider 02/20/18 09/25/18 Charissa Rico MD [address] [place] [phone] Insurance Assigned Provider 11/27/18 08/01/23 Prashanth Jalloh, [address] [address] [employer] Social Work 04/29/21 10/26/22 documented as of this encounter Additional Source Comments The information contained in this document represents components of the legal health record. It is not the complete legal health record.[facility]
== END 2025-07-27 15:30 | disposition home or self-care (01) ==
LOC: HO.HGS 14:57
PROVIDERS: PCP Internal Medicine; Visit Provider Surgery
DX: R19.09 Other intra-abdominal and pelvic swelling, mass and lump (principal)
CPT/HCPCS: 99203

== ENCOUNTER → 2025-07-27 14:56 | Outpatient (BNVA) | payer OTHER, SELFPAY | PROVIDERS: PCP Internal Medicine; Visit Provider Surgery | DX: R19.09 Other intra-abdominal and pelvic swelling, mass and lump (principal) | CPT/HCPCS: 99202 ==

== ENCOUNTER 2025-08-03 08:43 | Outpatient (AMB) | payer OTHER, SELFPAY ==
[2025-08-03 08:49] VITALS: BP 130/80; PULSE 92; O2SAT 99
--- NOTE | 2025-08-03 08:49 | A.OFFVIS_ITS ---
Vital Signs 08/03/25 08:49 Weight 196 lb 13.965 oz BP 130/80 Blood Pressure Location Rt brachial Position Sitting Pulse 92 Pulse Source Pulse Oximeter Pulse Oximetry (%) 99 Oxygen Delivery Method Room Air Intake Visit Reasons: Intake Note: New patient Patient presents for . Accompanied by: Self / Same As Patient Allergies ondansetron (From ZOFRAN) Adverse Reaction (Intermediate, Verified 07/27/25 15:04) INCREASED VOMTING HPI HPI : Details: She has been Off of Rinvoq since April because insurance will not cover it. She has pain and popping in hips. Morning stiffness is all day. Relieved with hot bath temporarily. Tylenol is ineffective. She has painful hands with difficulty driving. has parenthesis in feet radiating to knees (new) since April. Unable to sleep due to back pain and pain on her sides. When she was on Rinvoq she did not experience any pain or stiffness. She felt well on Rinvoq. She went to ER for pelvic pain. She has 4cm mass in pelvic region. She has appt 08/18 to remove mass. Father had colon cancer with metastases and 3 years ago. 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 Heart Doctor order MRI brain. Grandmother had MS. No recent infections. She has tried topical diclofenac gel, and lidocaine patch without benefit. She has pain in her right upper quadrant region. She is nauseous and vomits. [facility] Medical History (Updated 08/03/25 @ 09:44 by Mitchell Tabor MD) Abdominal wall mass of suprapubic region Retrobulbar neuritis Iritis of left eye Endometriosis determined by laparoscopy Endometriosis Ankylosing spondylitis GERD (gastroesophageal reflux disease) Surgical History History of hernia repair Hx of esophagogastroduodenoscopy Tubal ligation status Hx of section Hx of colonoscopy Family History Father Colon cancer HTN (hypertension) Diabetes Hypercholesteremia Stage 4 lung cancer Mother Diabetes HTN (hypertension) Hypercholesteremia Maternal Grandmother Arthritis Multiple sclerosis Paternal Grandmother Arthritis Sister Multiple sclerosis Social History Household Members: Family and Children Household Members Other:: brother Housing: House Do you presently have visiting nurse or other home services: No Alcohol intake: never Patient Tobacco Use Status: Never used Tobacco e-Cigarette/Vaping Use: Never Used Second Hand Smoke Exposure: No service: No Current occupational status: employed, unemployed and disabled 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 Good respiratory effort Skin: No lesions seen MSK: Tender to palpate right 1st extensor compartment. Positive Tari. No tenderness of joints. No dactylitis. Normal range of motion of upper extremities and lower extremities. She has pain in groin region with external rotation of hips. Bilateral trochanteric bursa tenderness found. Tender SI joints. No lumbar spinous process tenderness. Limited full lumbar flexion. Results Reviewed Results Reviewed: CT abdomen June 2025 reviewed. Labs in expanse reviewed. Assessment & Plan Assessment & Plan (1) Ankylosing spondylitis: Comment: Since being off of Rinvoq it has exacerbated ankylosing spondylitis. She has uncontrolled pain and stiffness. Failed conservative measures. She is unable to work. We discussed trying to get Rinvoq approved. Patient was in remission on Rinvoq. Forcing her to change DMARD therapy to Xeljanz may result in unnecessary suffering as it takes 2-3 months for full benefit, possibility of subjecting her to new side effects and disability. We discussed side effects of Xeljanz including hyperlipidemia and anemia. She is currently being investigated for a mass in her pelvis with plan for removal August 18. She also has a history of left eye optic neuritis and scleritis being followed up recently by radioisotope technologist who has ordered an MRI of her brain. Rheumatology history: Diagnosed with ankylosing spondylitis with HLA B27 positive. Right SI joint show sacroiliitis on MRI scan from 2016 at [facility]. X-ray SI joints 2022 with bilateral sacroiliitis. She has history of Intermittent iritis. She was having recurrent UTIs when she started Humira in his was discontinued after 3 doses because of infections. She has a history of recurrent UTIs an endometriosis. Failed Cosentyx. TNF inhibitors avoided due to strong family history of MS (grandmother). Rinvoq started 02/2024 effective- 04/2025 insurance would not cover. In the past she has tried diclofenac p.o. and naproxen without benefit prior to peptic ulcer disease. Code(s): M45.9 - Ankylosing spondylitis of unspecified sites in spine Category: Medical Qualifiers: Ankylosing spondylitis location: multiple sites in spine Qualified Code(s): M45.0 - Ankylosing spondylitis of multiple sites in spine Plan: Rinvoq PA Labs from June 2025 reviewed. I have ordered inflammatory markers this visit. Avoiding oral NSAIDs due to history of peptic ulcer disease (2) De Quervain's tenosynovitis, bilateral: Code(s): M65.4 - Radial styloid tenosynovitis [de Quervain] Category: Medical Plan: Brace prescribed OT prescribed (3) Greater trochanteric bursitis of both hips: Code(s): M70.61 - Trochanteric bursitis, right hip; M70.62 - Trochanteric bursitis, left hip Category: Medical Plan: PT prescribed Can consider cortisone injection in the future (4) Right upper quadrant pain: Comment: Chronic, unclear etiology. Unable to sleep on right side due to pain. She also has a history of chronic nausea and vomiting on background of GERD. She has been on pantoprazole for very long time without benefit. Code(s): R10.11 - Right upper quadrant pain Category: Medical Plan: She has an appointment on August 15 with PCP. I recommend discussing right upper quadrant pain, nausea and vomiting with PCP. Orders: Orders Erythrocyte Sedimentation Rate Today M45.0 - Ankylosing spondylitis of multiple sites in spine C Reactive Protein Today M45.0 - Ankylosing spondylitis of multiple sites in spine OT Evaluation and Treatment Today M65.4 - Radial styloid tenosynovitis [de Quervain] PT Evaluation and Treatment Today M70.61 - Trochanteric bursitis, right hip, M70.62 - Trochanteric bursitis, left hip Medications: New arm brace (Wrist Brace) As directed Bilateral thumb spica splints Dx: de quervain's tenosynovitis 2 ea 0RF Coding Level of Care Code Est Pt Level 5 (71841) Complex EM visit Add On G2211 Diagnoses Ankylosing spondylitis of multiple sites in spine M45.0 Ankylosing spondylitis location: multiple sites in spine De Quervain's tenosynovitis, bilateral M65.4 Greater trochanteric bursitis of both hips M70.61; M70.62 Right upper quadrant pain R10.11 Time Spent (min) 40
--- OUTSIDE RECORDS SUMMARY | 2025-08-03 09:45 | XMS_ITS | Encounter Summary ---
Author Organization [facility] Address [address] [place] [address] Phone Care Team Providers Care Commonwealth Attorney Name Role Phone Charissa Rico MD Primary Care Provider [phone] Siobhan Grossman CNM Unavailable Siobhan Cummins CNM Unavailable [phone] Alexsander Roger MD Unavailable Melody Bland [...] MD Unavailable [phone] Prashanth Jalloh Unavailable [phone] Charissa Rico MD Primary Care Provider [phone] Pamela Campbell Primary Care Provider Encounter Details Date Type Department Care Team (Late st Contact Info) Description 09/16/2018 Ancillary Orders Virtual Department 30 [place] [address] Vitor Ramos MD [address] [address] RUQ pain; Abnormal LFTs Social History Tobacco [...] Start Date Job End Date Working at [email or web address] Not on file Not on file Not [...] gallbladder, as in prior study. POS - [id number] Narrative 09/17/2018 4:29 PM EDT EXAM: US [...] unremarkable gallbladder,as in prior study. POS - [id number] Vitor Ramos MD [facility] US ABDOMEN Final Result documented in this encounter Visit Diagnoses Diagnosis RUQ pain Abdominal pain, right upper quadrant Abnormal LFTs RUQ pain Abdominal pain, right upper quadrant Abnormal LFTs documented in this encounter Care Teams Commonwealth Attorney Relationship Specialty Start Date End Date Charissa Rico MD PCP - General 09/10/17 06/18/23 Charissa Rico MD [address] [place] [address] PCP - General Family Medicine 06/19/23 01/02/25 Pamela Campbell PA [address] [place] [address] PCP - General Physician Singe Machine Operator 01/03/25 Siobhan Grossman CNM [address] [place] [address] Historical LMR Provider 09/10/17 05/23/21 Siobhan Cummins CNM [address] [place] [address] Historical LMR Provider 09/10/17 05/23/21 Alexsander Roger MD [address] [place] [address] Historical LMR Provider 09/10/17 05/23/21 Melody Bland NP [address] [place] [address] [email or web address] Historical LMR Provider 09/10/17 05/23/21 Grecia Garner MD [address] [place] [email or web address] Historical LMR Provider 09/10/17 05/23/21 Sena Mc CNM [address] [place] [address] Historical LMR Provider 09/10/17 05/23/21 Jonnathan Guerrero DO [address] [place] [address] Orth[facility]ics [facility] Sports Medicine, [place] [address] Historical LMR Provider 09/10/17 11/30/21 Charissa Rico MD [address] [place] [address] Historical LMR Provider 09/10/17 05/23/21 Lindsay Burns CNM [address] [place] [address] Historical LMR Provider 09/10/17 05/23/21 Rich Rodas MD [address] [place] [address] Historical LMR Provider 09/10/17 Ambrosio Mcclellan DO [address] [place] [address] [email or web address] Historical LMR Provider 09/10/17 11/30/21 Charissa Rico MD [address] [place] [address] Insurance Assigned Provider 02/20/18 09/25/18 Charissa Rico MD [address] [place] [address] [email or web address] Insurance Assigned Provider 11/27/18 08/01/23 Prashanth Jalloh LICSW [address] [place] [address] [email or web address] iCMP Social Work 04/29/21 10/26/22 documented as of this encounter Additional Source Comments The information contained in this document represents components of the legal health record. It is not the complete legal health record.[facility]
--- OUTSIDE RECORDS SUMMARY | 2025-08-03 09:45 | XMS_ITS | Encounter Summary ---
Author Organization [facility] Address [address] [place] [address] Phone Care Team Providers Care Supervisor Scouring Pads Name Role Phone Charissa Rico MD Primary Care Provider [phone] Siobhan Grossman CNM Unavailable Siobhan Cummins CNM Unavailable [phone] Alexsander Roger MD Unavailable Melody Bland NP Unavailable Grecia Garner MD Unavailable Sena Mc CNM Unavailable [phone] Jonnathan Guerrero DO Unavailable Charissa Rico MD Unavailable [phone] Lindsay Burns CNM Unavailable [phone] Rich Rodas MD Unavailable [phone] Ambrosio Mcclellan DO Unavailable [phone] Charissa Rico MD Unavailable [phone] Prashanth Jalloh Unavailable [phone] Charissa Rico MD Primary Care Provider [phone] Pamela Campbell Primary Care Provider [phone] Encounter Details Date Type Department Care Team (Late st Contact Info) Description 01/07/2019 Procedure Pass [facility] L[facility]D Procedures [address] [place] [address] Social History Tobacco Use Types Packs/Day Years [...] Start Date Job End Date Working at [employer] Not on file Not on file Not on f ile documented as of this encounter Plan of Treatment Not on file documented as of this encounter Visit Diagnoses Not on filedocumented in this encounter Care Teams Supervisor Scouring Pads Relationship Specialty Start Date End Date Charissa Rico MD PCP - General 09/10/17 06/18/23 Charissa Rico MD [address] [place] [address] PCP - General Family Medicine 06/19/23 01/02/25 Pamela Campbell PA [address] [place] [address] PCP - General Physician Land Development Project Manager 01/03/25 Siobhan Grossman CNM [address] [place] [address] [email or web address] Historical LMR Provider 09/10/17 05/23/21 Siobhan Cummins CNM [address] [place] [address] Historical LMR Provider 09/10/17 05/23/21 Alexsander Roger MD [address] [place] [address] Historical LMR Provider 09/10/17 05/23/21 Melody Bland NP [address] [place] [address] [email or web address] Historical LMR Provider 09/10/17 05/23/21 Grecia Garner MD [address] [place] [address] [email or web address] Historical LMR Provider 09/10/17 05/23/21 Sena Mc CNM [address] [place] [address] Historical LMR Provider 09/10/17 05/23/21 Jonnathan Guerrero DO [address] [place] [address] Orthopedics & Sports Medicine, [facility] [place] [address] Historical LMR Provider 09/10/17 11/30/21 Charissa Rico MD [address] [place] [address] Historical LMR Provider 09/10/17 05/23/21 Lindsay Burns CNM [address] [address] [email or web address] Historical LMR Provider 09/10/17 05/23/21 Rich Rodas MD [address] [address] Historical LMR Provider 09/10/17 Ambrosio Mcclellan DO [address] [place] [address] [email or web address] Historical LMR Provider 09/10/17 11/30/21 Charissa Rico MD [address] [place] [address] Insurance Assigned Provider 11/27/18 08/01/23 Prashanth Jalloh, MEDIA INTERN [address] [place] [address] [email or web address] iCMP Social Work 04/29/21 10/26/22 documented as of this encounter Additional Source Comments The information contained in this document represents components of the legal health record. It is not the complete legal health record.[facility]
--- OUTSIDE RECORDS SUMMARY | 2025-08-03 09:45 | XMS_ITS | Encounter Summary ---
Author Organization [facility] Address [address] [place] [address] Phone Care Team Providers Care Hose Suspender Cutter Name Role Phone Charissa Rico MD Primary Care Provider [phone] Siobhan Grossman CNM Unavailable Siobhan Cummins CNM Unavailable [phone] Alexsander Roger MD Unavailable Melody Bland NP Unavailable +[phone] Grecia Garner MD Unavailable Sena Mc CNM Unavailable [phone] Jonnathan Guerrero DO Unavailable [phone] Charissa Rico MD Unavailable +[phone] Lindsay uBrns CNM Unavailable + [phone] Rich Rodas MD Unavailable +[phone] Ambrosio Mcclellan DO Unavailable +[phone] Charissa Rico MD Unavailable +[phone] Prashanth Jalloh Unavailable [phone] Charissa Rico MD Primary Care Provider [phone] Pamela Campbell Primary Care Provider [phone] Encounter Details Date Type Department Care Team (Late st Contact Info) Description 01/24/2019 Procedure Pass OR Admitting Dept - Virtual Department 30 [place] [address] Social History Tobacco Use Types Packs/Day Years [...] Start Date Job End Date Working at [employer] Not on file Not on file Not on f ile documented as of this encounter Plan of Treatment Not on file documented as of this encounter Visit Diagnoses Not on filedocumented in this encounter Care Teams Hose Suspender Cutter Relationship Specialty Start Date End Date Charissa Rico MD PCP - General 09/10/17 06/18/23 Charissa Rico MD [address] [place] [address] PCP - General Family Medicine 06/19/23 01/02/25 Pamela Campbell PA [address] [place] [address] PCP - General Physician Cadd Instructor 01/03/25 Siobhan Grossman CNM [address] [place] [address] [email or web address] Historical LMR Provider 09/10/17 05/23/21 Siobhan Cummins CNM [address] [place] [address] Historical LMR Provider 09/10/17 05/23/21 Alexsander Roger MD [address] [address] Historical LMR Provider 09/10/17 05/23/21 Melody Bland NP [address] [place] [address] [email or web address] Historical LMR Provider 09/10/17 05/23/21 Grecia Garner MD [address] [place] [address] [email or web address] Historical LMR Provider 09/10/17 05/23/21 Sena Mc CNM [address] [place] [address] Historical LMR Provider 09/10/17 05/23/21 Jonnathan Guerrero DO [address] [place] [address] Orthopedics & Sports Medicine, [facility] [place] [address] Historical LMR Provider 09/10/17 11/30/21 Charissa Rico MD [address] [place] [address] Historical LMR Provider 09/10/17 05/23/21 Lindsay Burns CNM [address] [address] [email or web address] Historical LMR Provider 09/10/17 05/23/21 Rich Rodas MD [address] [address] Historical LMR Provider 09/10/17 Ambrosio Mcclellan DO 30 [place] [address] [email or web address] Historical LMR Provider 09/10/17 11/30/21 Charissa Rico MD 70 [place] [address] Insurance Assigned Provider 11/27/18 08/01/23 Prashanth Jalloh, INCIDENT HANDLER 10 [place] [address] [email or web address] Social Work 04/29/21 10/26/22 documented as of this encounter Additional Source Comments The information contained in this document represents components of the legal health record. It is not the complete legal health record.[facility]
--- OUTSIDE RECORDS SUMMARY | 2025-08-03 09:45 | XMS_ITS | Encounter Summary ---
Author Organization [facility] Address [address] [place] [address] Phone Care Team Providers Care Toy Stuffer Name Role Phone Charissa Rico MD Primary Care Provider [phone] Siobhan Grossman CNM Unavailable Siobhan Cummins CNM Unavailable [phone] Alexsander Roger MD Unavailable Melody Bland NP Unavailable Grecia Garner MD Unavailable Sena Mc CNM Unavailable Jonnathan Guerrero DO Unavailable Charissa Rico MD Unavailable Lindsay Burns CNM Unavailable [phone] Rich Rodas MD Unavailable Ambrosio Mcclellan DO Unavailable Charissa Rico MD Unavailable Prashanth Jalloh Unavailable [phone] Charissa Rico MD Primary Care Provider [phone] Pamela Campbell Primary Care Provider [phone] Encounter Details Date Type Department Care Team (Late st Contact Info) Description 12/11/2020 Transcribe Orders Virtual Department 30 [place] [address] Pamela Campbell PA [address] [place] [address] Exposure to SARS-associated coronavirus (Primary Dx) Social [...] Start Date Job End Date Working at [employer] Not on file Not on file Not on f ile documented as of this encounter Plan of Treatment Not on file documented as of this encounter Results * COVID-19 PCR Order (12/12/2020 9:47 AM EST) COVID Testing Status Specimen received in analyzing lab. Results should be available within 24 to 48 hrs. [facility] Symptomatic? NO [facility] 12/12/2020 9:47 AM EST 12/12/2020 3:53 PM EST us Pamela BA BODY FLUIDS AND STOOLS ORDERABL ES Final Result [facility] [address] [place] [address] [facility] [address] [place] [address] documented in this encounter Visit Diagnoses Diagnosis Exposure to SARS-associated coronavirus- Primary documented in this encounter Care Teams Toy Stuffer Relationship Specialty Start Date End Date Charissa Rico MD PCP - General 09/10/17 06/18/23 Charissa Rico MD [address] [place] [address] PCP - General Family Medicine 06/19/23 01/02/25 Pamela Campbell PA [address] [place] [address] PCP - General Physician Mechanic Welder 01/03/25 Siobhan Grossman CNM [address] [place] [address] Historical LMR Provider 09/10/17 05/23/21 Siobhan Cummins CNM [address] [place] [address] Historical LMR Provider 09/10/17 05/23/21 Alexsander Roger MD [address] [place] [address] Historical LMR Provider 09/10/17 05/23/21 Melody Bland NP [address] [place] [address] [email or web address] Historical LMR Provider 09/10/17 05/23/21 Grecia Garner MD [address] [place] [address] Historical LMR Provider 09/10/17 05/23/21 Sena Mc CNM [address] [place] [address] Historical LMR Provider 09/10/17 05/23/21 Jonnathan Guerrero DO [address] [place] [address] Orthopedics & Sports Medicine, [place] [address] Historical LMR Provider 09/10/17 11/30/21 Charissa Rico MD [address] [place] [address] Historical LMR Provider 09/10/17 05/23/21 Lindsay Burns CNM [address] [place] [address] [email or web address] Historical LMR Provider 09/10/17 05/23/21 Rich Rodas MD [address] [place] [address] Historical LMR Provider 09/10/17 Ambrosio Mcclellan DO [address] [place] [address] [email or web address] Historical LMR Provider 09/10/17 11/30/21 Charissa Rico MD [address] [place] [address] Insurance Assigned Provider 11/27/18 08/01/23 Prashanth Jalloh, CASE MANAGEMENT RN 10 [place] [address] [facility] 04/29/21 10/26/22 documented as of this encounter Additional Source Comments The information contained in this document represents components of the legal health record. It is not the complete legal health record.[facility]
--- OUTSIDE RECORDS SUMMARY | 2025-08-03 09:45 | XMS_ITS | Encounter Summary ---
Author Organization [facility] Address [address] [place] [address] Phone Care Team Providers Care Plasma Processor Name Role Phone Charissa Rico MD Primary Care Provider [phone] Siobhan Grossman CNM Unavailable Siobhan Cummins CNM Unavailable [phone] Alexsander Roger MD Unavailable Melody Bland NP Unavailable [phone] Grecia Garner MD Unavailable [phone] Sena Mc CNM Unavailable [phone] Jonnathan Guerrero DO Unavailable [phone] Charissa Rico MD Unavailable +[phone] Lindsay Bunrs CNM Unavailable + [phone] Rich Rodas MD Unavailable +[phone] Ambrosio Mcclellan DO Unavailable [phone] Charissa Rico MD Unavailable [phone] Charissa Rico MD Unavailable [phone] Prashanth Jalloh Unavailable [phone] Charissa Rico MD Primary Care Provider [phone] Pamela Campbell Primary Care Provider Encounter Details Date Type Department Care Team (Late st Contact Info) Description 01/08/2018 Ancillary Orders Virtual Department 30 [place] [address] Amy Calderon PA [address] [place] [address] [email or web address] Pelvic pain Social History Tobacco Use [...] Start Date Job End Date Working at [employer] Not on file Not on file Not [...] pain documented in this encounter Care Teams Plasma Processor Relationship Specialty Start Date End Date Charissa Rico MD PCP - General 09/10/17 06/18/23 Charissa Rico MD [address] [place] [address] PCP - General Family Medicine 06/19/23 01/02/25 Pamela Campbell PA [address] [place] [address] PCP - General Physician Gut Puller 01/03/25 Siobhan Grossman CNM [address] [address] Historical LMR Provider 09/10/17 05/23/21 Siobhan Cummins CNM [address] [place] [address] Historical LMR Provider 09/10/17 05/23/21 Alexsander Roger MD [address] [place] [address] Historical LMR Provider 09/10/17 05/23/21 Melody Bland NP [address] [place] [address] [email or web address] Historical LMR Provider 09/10/17 05/23/21 Grecia Garner MD [address] [place] [address] Historical LMR Provider 09/10/17 05/23/21 Sena Mc CNM [address] [place] [address] Historical LMR Provider 09/10/17 05/23/21 Jonnathan Guerrero DO [address] [place] [address] Orthopedics & Sports Medicine, [place], [place] [phone] Historical LMR Provider 09/10/17 11/30/21 Charissa Rico MD [address] [place] [address] Historical LMR Provider 09/10/17 05/23/21 Lindsay Burns CNM [address] [place] [address] Historical LMR Provider 09/10/17 05/23/21 Rich Rodas MD [address] [place] [address] Historical LMR Provider 09/10/17 Ambrosio Mcclellan DO [address] [place] [address] [email or web address] Historical LMR Provider 09/10/17 11/30/21 Charissa Rico MD [address] [place] [address] Insurance Assigned Provider 02/20/18 09/25/18 Charissa Rico MD [address] [place] [address] Insurance Assigned Provider 11/27/18 08/01/23 Prashanth Jalloh, RELAY SHOP SUPERVISOR 10 [place] [address] iCMP Social Work 04/29/21 10/26/22 documented as of this encounter Additional Source Comments The information contained in this document represents components of the legal health record. It is not the complete legal health record.[facility]
--- OUTSIDE RECORDS SUMMARY | 2025-08-03 09:46 | XMS_ITS | Encounter Summary ---
Author Organization [facility] Address [address] [place] [address] Phone Care Team Providers Care Personnel Research Scientist Name Role Phone Charissa Rico MD Primary Care Provider [phone] Siobhan Grossman CNM Unavailable Siobhan Cummins CNM Unavailable [phone] Alexsander Roger MD Unavailable Melody Bland NP Unavailable [phone] Grecia Garner MD Unavailable +[phone] Sena Mc CNM Unavailable [phone] Jonnathan Guerrero DO Unavailable [phone] Charisas Rico MD Unavailable +[phone] Lindsay Burns CNM Unavailable + [phone] Rich Rodas MD Unavailable +[phone] Ambrosio Mcclellan DO Unavailable +[phone] Charissa Rico MD Unavailable [phone] Charissa Rico MD Unavailable +[phone] Prashanth Jalloh Unavailable [phone] Charissa Rico MD Primary Care Provider [phone] Pamela Campbell Primary Care Provider Encounter Details Date Type Department Care Team (Late st Contact Info) Description 12/31/2017 Ancillary Orders [facility] External Provider Virtual Department 30 [place] [address] Vitor Ramos MD [address] [place] [address] [email or web address] Abdominal pain, unspecified abdominal location Social History [...] Start Date Job End Date Working at [email or web address] Not on file Not on file Not on f ile documented as of this encounter Plan of Treatment Not on file documented as of this encounter Visit Diagnoses Diagnosis Abdominal pain, unspecified abdominal location documented in this encounter Care Teams Personnel Research Scientist Relationship Specialty Start Date End Date Charissa Rico MD PCP - General 09/10/17 06/18/23 Charissa Rico MD [address] [place] [address] PCP - General Family Medicine 06/19/23 01/02/25 Pamela Campbell PA [address] [place] [address] PCP - General Physician Cover Cutter Machine 01/03/25 Siobhan Grossman CNM [address] [place] [address], [address] [place] [address] Historical LMR Provider 09/10/17 05/23/21 Siobhan Cummins CNM [address] [place] [address] Historical LMR Provider 09/10/17 05/23/21 Alexsander Roger MD [address] [place] [address] Historical LMR Provider 09/10/17 05/23/21 Melody Bland NP [address] [place] [address] [email or web address] Historical LMR Provider 09/10/17 05/23/21 Grecia Garner MD [address] [place] [address] Historical LMR Provider 09/10/17 05/23/21 Sena Mc CNM [address] [place] [address] Historical LMR Provider 09/10/17 05/23/21 Jonnathan Guerrero DO [address] [place] [address] Orthopedics & Sports Medicine, [place] [address] Historical LMR Provider 09/10/17 11/30/21 Charissa Rico MD [address] [place] [address] Historical LMR Provider 09/10/17 05/23/21 Lindsay Burns CNM [address] [place] [address] Historical LMR Provider 09/10/17 05/23/21 Rich Rodas MD [address] [place] [address] Historical LMR Provider 09/10/17 Ambrosio Mcclellan DO [address] [place] [address] [email or web address] Historical LMR Provider 09/10/17 11/30/21 Cahrissa Rico MD [address] [place] [address] Insurance Assigned Provider 02/20/18 09/25/18 Charissa Rico MD [address] [place] [address] Insurance Assigned Provider 11/27/18 08/01/23 Prashanth Jalloh LICSW 10 [place] [address] iCMP Social Work 04/29/21 10/26/22 documented as of this encounter Additional Source Comments The information contained in this document represents components of the legal health record. It is not the complete legal health record.[facility]
--- OUTSIDE RECORDS SUMMARY | 2025-08-03 09:46 | XMS_ITS | Encounter Summary ---
Author Organization [facility] Address [address] [place] [address] Phone Care Team Providers Care Pony Ride Operator Name Role Phone Charissa Rico MD Primary Care Provider [phone] Siobhan Grossman CNM Unavailable Siobhan Cummins CNM Unavailable [phone] Alexsander Roger MD Unavailable Melody Bland NP Unavailable +[phone] Grecia Garner MD Unavailable +[phone] Sena Mc CNM Unavailable [phone] Jonnathan Guerrero DO Unavailable [phone] Charissa Rico MD Unavailable +[phone] Lindsay Burns CNM Unavailable + [phone] Rich Rodas MD Unavailable +[phone] Ambrosio Mcclellan DO Unavailable +[phone] Charisas Rico MD Unavailable +[phone] Charissa Rico MD Unavailable +[phone] Prashanth Jalloh Unavailable [phone] Charissa Rico MD Primary Care Provider [phone] Pamela Campbell Primary Care Provider Encounter Details Date Type Department Care Team (Late st Contact Info) Description 01/07/2018 Procedure Pass [facility], Ct Scan - [address] [address] Social History Tobacco Use Types Packs/Day Years [...] Start Date Job End Date Working at [employer] Not on file Not on file Not on f ile documented as of this encounter Plan of Treatment Not on file documented as of this encounter Visit Diagnoses Not on filedocumented in this encounter Care Teams Pony Ride Operator Relationship Specialty Start Date End Date Charissa Rico MD PCP - General 09/10/17 06/18/23 Charissa Rico MD [address] [place] [address] PCP - General Family Medicine 06/19/23 01/02/25 Pamela Campbell PA [address] [place] [address] PCP - General Physician Medical Cash Poster 01/03/25 Siobhan Grossman CNM [address] [place] [address], [facility] [address] [place] [address] [email or web address] Historical LMR Provider 09/10/17 05/23/21 Siobhan Cummins CNM [address] [place] [address] [email or web address] Historical LMR Provider 09/10/17 05/23/21 Alexsander Roger MD [address] [place] [address] Historical LMR Provider 09/10/17 05/23/21 Melody Bland NP [address] [place] [address] [email or web address] Historical LMR Provider 09/10/17 05/23/21 Grecia Garner MD [address] [place] [address] [email or web address] Historical LMR Provider 09/10/17 05/23/21 Sena Mc CNM [address] [place] [address] [email or web address] Historical LMR Provider 09/10/17 05/23/21 Jonnathan Guerrero DO [address] [place] [address] Orthopedics & Sports Medicine, [facility] [place] [address] Historical LMR Provider 09/10/17 11/30/21 Charissa Rico MD [address] [place] [address] Historical LMR Provider 09/10/17 05/23/21 Lindsay Burns CNM [address] [address] Historical LMR Provider 09/10/17 05/23/21 Rich Rodas MD [address] [place] [address] Historical LMR Provider 09/10/17 Ambrosio Mcclellan DO [address] [place] [address] [email or web address] Historical LMR Provider 09/10/17 11/30/21 Charissa Rico MD [address] [place] [address] Insurance Assigned Provider 02/20/18 09/25/18 Charissa Rico MD [address] [place] [address] Insurance Assigned Provider 11/27/18 08/01/23 Prashanth Jalloh, [address] [address] iCMP Social Work 04/29/21 10/26/22 documented as of this encounter Additional Source Comments The information contained in this document represents components of the legal health record. It is not the complete legal health record.[facility]
--- OUTSIDE RECORDS SUMMARY | 2025-08-03 09:46 | XMS_ITS | Clinical Summary ---
Author Organization [facility] Address [address] [facility] [address] [place] [address] Phone Care Team Providers Care Car Hiker Name Role Phone Rich Rodas MD Unavailable [phone] Pamela Campbell Primary Care Provider [phone] Allergies Active Allergy Reactions Criticality Noted Date [...] 1. Obtaining an antibody screen her at [facility] and ask blood bank for : [...] Overview (11/25/2018): Was seen and evaluated at [facility]. Per the patient, they recommended transfer to [facility]. U/[facility] from 10/01 at [facility] - 1.8 x 1.1 area at caudal [...] labs. 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 Pelvic pain affecting pregna ncy in [...] Immunization Administration Dates Next Due COVID-19 (Pre-09/14) [facility] Vaccine, mRNA, PF 09/05/2021 DTP 01/20/1996,10/22/1995,04/22/1995 Dtap, [...] Start Date Job End Date Working at [employer] Not on file Not on file Not [...] SEE NARRATIVE - 09/30/2021 1:12 [place] [address] Rod Welder: Christi Quinones MD CREDIT AND COLLECTIONS REPRESENTATIVE Cytology Report FINAL DIAGNOSIS A. PAP SMEAR [...] : 1995 (Age: 25) Sex: F Institution: [facility] Location: [facility] Date of Collection: 09/20/2021 Date of Reported: 09/30/2021 13:12 Results to: JESENIA Grimes us Unknown Unknown CYTOLOGY ORDERABLES Final Res ult SEE NARRATIVE * Hepatitis C antibody, qualitative (07/28/2018 2:00 PM EDT) HCV Negative Negative [facility] Comment: This is a screening test and should be confirmed with molecular testing Blood 07/28/2018 2:00 PM EDT 07/28/2018 2:09 PM EDT Siobhan Osullivan PA-C LAB BLOOD ORDERABLES Final Resu lt [address] [address] from Last 3 Months or Most Recently Relevant to Health Maintenance Insurance [facility] Advance Directives For more information, please contact: [phone] (9AM - 5PM [facility], Thursday-Thursday) Documents on File Type Date Recorded Patient Warehouse Distribution Specialist Expl anation Healthcare Proxy 01/12/2019 12:11 PM [...] 11:17 AM 10/25/2018 4:22 PM Care Teams Car Hiker Relationship Specialty Start Date End Date Pamela Campbell PA [address] [place] [address] PCP - General Physician Civil Engineering Drafter 01/03/25 Rich Rodas MD [address] [place] [address] [facility] [address] [place] [address] [email or web address] Historical LMR Provider 09/10/17 Additional Source Comments The information contained in this document represents components of the legal health record. It is not the complete legal health record.[facility]
--- OUTSIDE RECORDS SUMMARY | 2025-08-03 09:46 | XMS_ITS | Encounter Summary ---
Author Organization [facility] Address [address] [place] [address] Phone Care Team Providers Care Heel Buffer Name Role Phone Charissa Rico MD Primary Care Provider [phone] Siobhan Grossman CNM Unavailable Siobhan Cummins CNM Unavailable [phone] Alexsander Roger MD Unavailable Melody Bland [...] MD Unavailable [phone] Prashanth Jalloh Unavailable [phone] Charissa Rico MD Primary Care Provider [phone] Pamela Campbell Primary Care Provider Encounter Details Date Type Department Care Team (Latest Contact Info) Description 07/28/2018 Transcribe Orders [facility] [address] [place] [address] Siobhan Osullivan PA-C [address] [place] [address] [email or web address] Elevated LFTs (Primary Dx); Loss of weight; [...] Start Date Job End Date Working at [employer] Not on file Not on file Not on f ile documented as of this encounter Plan of Treatment Not on file documented as of this encounter Results * Ferritin (07/28/2018 2:00 PM EDT) FERRITIN 79 13 - 150 ug/L [facility] Blood 07/28/2018 2:00 PM EDT 07/28/2018 2:09 PM EDT us Siobhan Osullivan PA-C LAB BLOOD ORDERABLES Final Resu lt [address] [address] * (ABNORMAL) TSH (07/28/2018 2:00 PM EDT) TSH <0.01(L) 0.27 - 4.20 uIU/mL [facility] Blood 07/28/2018 2:00 PM EDT 07/28/2018 2:09 PM EDT us Siobhan Osullivan PA-C LAB BLOOD ORDERABLES Final Resu lt [address] [address] * Iron and iron binding capacity (07/28/2018 2:00 PM EDT) IRON 62 30 - 160 ug/dL [facility] IRON BINDING CAPACITY 342 228 - 428 ug/dL [facility] TRANSFERRIN SATURAT. 18 15 - 50 % [facility] Blood 07/28/2018 2:00 PM EDT 07/28/2018 2:09 PM EDT us Siobhan Osullivan PA-C LAB BLOOD ORDERABLES Final Resu lt Performing Organization Address [facility]/ZIP Co de Phone Number [address] [address] * Hepatitis C antibody, qualitative (07/28/2018 2:00 PM EDT) HCV Negative Negative [facility] Comment: This is a screening test and should be confirmed with molecular testing Blood 07/28/2018 2:00 PM EDT 07/28/2018 2:09 PM EDT us Siobhan Osullivan PA-C LAB BLOOD ORDERABLES Final Resu lt Performing Organization Address City/[facility]/ZIP Co de Phone Number [address] [address] * Hepatitis B surface antigen (07/28/2018 2:00 PM EDT) HBV SURFACE ANTIGEN Negative Negative [facility] Blood 07/28/2018 2:00 PM EDT 07/28/2018 2:09 PM EDT us Siobhan Osullivan PA-C LAB BLOOD ORDERABLES Final Resu lt Performing Organization Address City/[facility]/ZIP Co de Phone Number [address] [address] * Hepatitis A antibody, IgM (07/28/2018 2:00 PM EDT) Hepatitis A Antibody, IgM Negative Negative [facility] Blood 07/28/2018 2:00 PM EDT 07/28/2018 2:09 PM EDT us Siobhan Osullivan PA-C LAB BLOOD ORDERABLES Final Resu lt Performing Organization Address City/[facility]/ZIP Co de Phone Number [facility] [address] [place] [address] * (ABNORMAL) Comprehensive metabolic panel (07/28/2018 2:00 PM EDT) SODIUM 137 133 - 146 mmol/L [facility] POTASSIUM 4.1 3.3 - 5.1 mmol/L [facility] CHLORIDE 100 96 - 108 mmol/L [facility] CO2 24 21 - 35 mmol/L [facility] BUN 7 6 - 19 mg/dL [facility] CREATININE <0.50(L) 0.5 - 1.5 mg/dL [facility] GLUCOSE 79 70 - 99 mg/dL [facility] ALBUMIN 4.1 3.9 - 4.8 g/dL [facility] TOTAL PROTEIN 7.5 6.5 - 8.0 g/dL [facility] CALCIUM 9.6 8.4 - 10.3 mg/dL [facility] ALKALINE PHOSPHATASE 57 39 - 117 U/L [facility] TOTAL BILIRUBIN 0.6 0.0 - 1.2 mg/dL [facility] AST 99(H) 0 - 37 U/L [facility] ALT 245(H) 0 - 40 U/L [facility] GLOBULIN 3.4 1 - 4.8 g/dL [facility] EGFR Not Done >59 mL/min/1.7 3m2 [facility] ANION GAP 17 10 - 20 mmol/L [facility] Blood 07/28/2018 2:00 PM EDT 07/28/2018 2:09 PM EDT us Siobhan Osullivan PA-C LAB BLOOD ORDERABLES Final Resu lt [facility] [address] [place] [address] * Ceruloplasmin (07/28/2018 2:00 PM EDT) CERULOPLASMIN,S 46.8 20.0 - 51.0 mg/dL [facility] LAB MED AND PAT+ Blood 07/28/2018 2:00 PM EDT 07/28/2018 2:09 PM EDT us Siobhan Osullivan PA-C LAB BLOOD ORDERABLES Final Resu lt Performing Organization Address City/[facility] Co de Phone Number [facility] LAB MED AND PAT+ [address] [place] [address] * (ABNORMAL) CBC (07/28/2018 2:00 PM EDT) WBC 12.57(H) 3.40 - 11.20 K/uL [facility] RBC 4.31 3.80 - 4.80 M/uL [facility] HGB 12.2 12.0 - 15.0 g/dL [facility] HCT 36.9 36.0 - 46.0 % [facility] PLT 277 130 - 400 K/uL [facility] MCV 85.6 79.0 - 98.0 fL [facility] MCH 28.3 27.0 - 34.8 pg [facility] MCHC 33.1 31.5 - 36.0 g/dL [facility] RDW 13.2 10.8 - 14.6 % [facility] MPV 12.0 9.4 - 12.4 fl [facility] NRBC 0.00 /100 WBCs [facility] ABSOLUTE NRBC 0.00 K/uL [facility] Blood 07/28/2018 2:00 PM EDT 07/28/2018 2:09 PM EDT us Siobhan Osullivan PA-C LAB BLOOD ORDERABLES Final Resu lt Performing Organization Address City/[facility]/ZIP Co de Phone Number [facility] [address] [place] [address] * Tissue transglutaminase IgA (07/28/2018 2:00 PM EDT) TTG IGA ANTIBODY <1.2 <4.0 (Negative) U/mL [facility] OF LAB MED AND PAT+ Blood 07/28/2018 2:00 PM EDT 07/28/2018 2:09 PM EDT Siobhan Osullivan PA-C LAB BLOOD ORDERABLES Final Resu lt Performing Organization Address [facility] Co de Phone Number [facility] LAB MED AND PAT+ [address] [place] [address] * Smooth Muscle Antibody (07/28/2018 2:00 PM EDT) ANTI-SMOOTH MUSCLE AB Negative Negative [facility] LAB MED AND PAT+ Comment: (NOTE) ADDITIONAL INFORMATION This test was developed and its performance characteristics determined by [facility] in a manner consistent with CLIA requirements. This test has not been cleared or approved by the U.S. Food and Drug Administration. Blood 07/28/2018 2:00 PM EDT 07/28/2018 2:09 PM EDT Siobhan Osullivan PA-C LAB BLOOD ORDERABLES Final Resu lt [facility] OF LAB MED AND PAT+ [address] [place] [address] * (ABNORMAL) Antinuclear antibody (LISA) (07/28/2018 2:00 PM EDT) LISA SCREEN ON HEP 2 Positive(A ) Negative [facility] Comment:An LISA Titer has bee n reflexed. The results will follow. Blood 07/28/2018 2:00 PM EDT 07/28/2018 2:09 PM EDT Siobhan Osullivan PA-C LAB BLOOD ORDERABLES Final Resu lt [facility] [address] [place] [address] * Anti-Mitochondrial Antibody (AMA) (07/28/2018 2:00 PM EDT) MITOCHONDRIAL AB M2 <0.1 <0.1 (Negative) U [facility] OF LAB MED AND PAT+ Blood 07/28/2018 2:00 PM EDT 07/28/2018 2:09 PM EDT us Siobhan Osullivan PA-C LAB BLOOD ORDERABLES Final Resu lt Performing Organization Address City/[facility]/ZIP Co de Phone Number [facility] LAB MED AND PAT+ [address] [place] [address] * (ABNORMAL) Svndy-[id number] phenotyping (07/28/2018 2:00 PM EDT) ALPHA 1 ANTITRYPSIN 256(H) 100 - 190 mg/dL [facility] OF LAB MED AND PAT+ A1A PHENOTYPE MM bands [facility] MED AND PAT+ Blood 07/28/2018 2:00 PM EDT 07/28/2018 2:09 PM EDT us Siobhan Osullivan PA-C LAB BLOOD ORDERABLES Final Resu lt Performing Organization Address City/[facility]/ZIP Co de Phone Number [facility] LAB MED AND PAT+ [address] [place] [address] documented in this encounter Visit Diagnoses Diagnosis Elevated LFTs- Primary Other abnormal blood chemistry Loss of weight Hyperemesis Persistent vomiting documented in this encounter Care Teams Heel Buffer Relationship Specialty Start Date End Date Charissa Rico MD PCP - General 09/10/17 06/18/23 Charissa Rico MD [address] [place] [address] PCP - General Family Medicine 06/19/23 01/02/25 Pamela Campbell PA [address] [place] [address] PCP - General Physician Edi Analyst 01/03/25 Siobhan Grossman CNM [address] [place] [address] Historical LMR Provider 09/10/17 05/23/21 Siobhan Cummins CNM [address] [place] [address] Historical LMR Provider 09/10/17 05/23/21 Alexsander Roger MD [address] [place] [address] Historical LMR Provider 09/10/17 05/23/21 Melody Bland NP [address] [place] [address] [email or web address] Historical LMR Provider 09/10/17 05/23/21 Grecia Garner MD [address] [place] [address] Historical LMR Provider 09/10/17 05/23/21 Sena Mc CNM [address] [place] [address] Historical LMR Provider 09/10/17 05/23/21 Jonnathan Guerrero DO [address] [place] [address] [facility], [place] [address] Historical LMR Provider 09/10/17 11/30/21 Charissa Rico MD [address] [place] [address] Historical LMR Provider 09/10/17 05/23/21 Lindsay Burns CNM [address] [place] [address] [email or web address] Historical LMR Provider 09/10/17 05/23/21 Rich Rodas MD [address] [place] [address] Historical LMR Provider 09/10/17 Ambrosio Mcclellan DO [address] [place] [address] [email or web address] Historical LMR Provider 09/10/17 11/30/21 Charissa Rico MD [address] [place] [address] Insurance Assigned Provider 02/20/18 09/25/18 Charissa Rico MD [address] [place] [address] [email or web address] Insurance Assigned Provider 11/27/18 08/01/23 Prashanth Jalloh LICSW [address] [place] [address] [email or web address] [email or web address] Social Work 04/29/21 10/26/22 documented as of this encounter Additional Source Comments The information contained in this document represents components of the legal health record. It is not the complete legal health record.[facility]
--- OUTSIDE RECORDS SUMMARY | 2025-08-03 09:46 | XMS_ITS | Encounter Summary ---
Author Organization [facility] Address [address] [place] [address] Phone Care Team Providers Care Saxophone Player Name Role Phone Charissa Rico MD Primary Care Provider [phone] Siobhan Grossman CNM Unavailable Siobhan Cummins CNM Unavailable [phone] Alexsander Roger MD Unavailable Melody Bland [...] MD Unavailable [phone] Prashanth Jalloh Unavailable [phone] Charissa Rico MD Primary Care Provider [phone] Pamela Campbell Primary Care Provider Encounter Details Date Type Department Care Team (Late st Contact Info) Description 03/18/2018 Procedure Pass OR Admitting Dept - Virtual Department [address] [place] [address] Social History Tobacco Use Types Packs/Day Years [...] Start Date Job End Date Working at [employer] Not on file Not on file Not on f ile documented as of this encounter Plan of Treatment Not on file documented as of this encounter Visit Diagnoses Not on filedocumented in this encounter Care Teams Saxophone Player Relationship Specialty Start Date End Date Charissa Rico MD PCP - General 09/10/17 06/18/23 Charissa Rico MD [address] [place] [address] PCP - General Family Medicine 06/19/23 01/02/25 Pamela Campbell PA [address] [place] [address] PCP - General Physician Forensic Nurse 01/03/25 Siobhan Grossman CNM [address] [place] [address] [email or web address] Historical LMR Provider 09/10/17 05/23/21 Siobhan Cummins CNM [address] [place] [address] Historical LMR Provider 09/10/17 05/23/21 Alexsander Roger MD [address] [place] [address] Historical LMR Provider 09/10/17 05/23/21 Melody Bland NP [address] [place] [address] [email or web address] Historical LMR Provider 09/10/17 05/23/21 Grecia Garner MD [address] [place] [address] [email or web address] Historical LMR Provider 09/10/17 05/23/21 Sena Mc CNM [address] [place] [address] Historical LMR Provider 09/10/17 05/23/21 Jonnathan Guerrero DO [address] [place] [address] Orthopedics [facility] Sports Medicine, [facility] [place] [address] Historical LMR Provider 09/10/17 11/30/21 Charissa Rico MD [address] [place] [address] Historical LMR Provider 09/10/17 05/23/21 Lindsay Burns CNM [address] [place] [address] Historical LMR Provider 09/10/17 05/23/21 Rich Rodas MD [address] [place] [address] Historical LMR Provider 09/10/17 Ambrosio Mcclellan DO [address] [place] [address] [email or web address] Historical LMR Provider 09/10/17 11/30/21 Charissa Rico MD [address] [place] [address] Insurance Assigned Provider 02/20/18 09/25/18 Charissa Rico MD [address] [place] [address] Insurance Assigned Provider 11/27/18 08/01/23 Prashanth Jalloh, [address] [address] iCMP Social Work 04/29/21 10/26/22 documented as of this encounter Additional Source Comments The information contained in this document represents components of the legal health record. It is not the complete legal health record.[facility]
== END 2025-08-03 09:34 | disposition home or self-care (01) ==
LOC: HO.RHES 08:43
PROVIDERS: PCP Physician Assistant; Visit Provider Internal Medicine Rheumatology
DX: M45.0 Ankylosing spondylitis of multiple sites in spine (principal); M65.4 Radial styloid tenosynovitis [de Quervain]; M70.61 Trochanteric bursitis, right hip; M70.62 Trochanteric bursitis, left hip; R10.11 Right upper quadrant pain
CPT/HCPCS: 99215; G2211

== ENCOUNTER 2025-08-03 08:43 | Outpatient (REF) | payer OTHER, SELFPAY | END 2025-08-03 08:44 | disposition home or self-care (01) | LOC: HO.HKASLDS 08:43 | PROVIDERS: PCP Physician Assistant; Visit Provider Internal Medicine Rheumatology | DX: M45.0 Ankylosing spondylitis of multiple sites in spine (principal); M70.61 Trochanteric bursitis, right hip; M70.62 Trochanteric bursitis, left hip; R10.11 Right upper quadrant pain | CPT/HCPCS: 36415; 85652; 86140; 99212 ==

== ENCOUNTER 2025-08-18 08:55 | Day surgery (SDC) | payer OTHER, SELFPAY ==
--- OUTSIDE RECORDS SUMMARY | 2025-07-27 23:59 | XMS_ITS | Continuity of Care Document ---
Author Organization [facility] Address [address] [place] [phone]- Care Team Providers Care Human Insights Lead Ads Marketing Name Role Phone Pamela Gomez Primary Care Physician [id number] Date(s): 07/20/25 - 07/27/[address] [address]- Encounter Diagnosis Pelvic mass in female(Discharge Diagnosis) - 07/20/25 Hepatic steatosis(Discharge Diagnosis) - 07/20/25 Ankylosing spondylitis(Discharge Diagnosis) - 07/20/25 Migraine(Discharge Diagnosis) - 07/20/25 Attending Physician: Alexa Beckman Encounter Type: Office Visit Allergies, Adverse Reactions, Alerts Substance Criticality Severity Reaction Reaction Severity Status Zofran 1 Active 1nausea Immunizations Given and Recorded Vaccine Date Status Refusal Reason pneumococcal 13-valent vaccine 10/08/21 Recorded influenza virus vaccine, inactivated 09/19/21 Lopez rded influenza virus vaccine, inactivated 01/30/20 Lopez rded influenza virus vaccine, inactivated 10/28/18 Lopez rded influenza virus vaccine, inactivated 12/02/17 Lopez rded influenza virus vaccine, inactivated 10/10/16 Lopez rded SARS-CoV-2 (COVID-19) mRNA BNT-162b2 vac 09/05/21 Recorded SARS-CoV-2 (COVID-19) mRNA BNT-162b2 vac 08/15/21 Recorded tetanus/diphtheria/pertussis, acel(Tdap) 11/18/18 Recorded tetanus/diphtheria/pertussis, acel(Tdap) 11/11/07 Recorded Meningococcal Conjugate Vaccine 10/12/07 Recorded Varicella Virus Vaccine 04/28/00 Recorded Varicella Virus Vaccine 01/15/98 Recorded Measles/Mumps/Rubella Virus Vaccine 04/28/00 Recor ded Measles/Mumps/Rubella Virus Vaccine 12/21/96 Recor ded diphtheria/tetanus/pertussis, acel(DTaP) 04/28/00 Recorded diphtheria/tetanus/pertussis, acel(DTaP) 12/21/96 Recorded diphtheria/tetanus/pertussis, acel(DTaP) 01/20/96 Recorded diphtheria/tetanus/pertussis, acel(DTaP) 10/22/95 Recorded diphtheria/tetanus/pertussis, acel(DTaP) 04/22/95 Recorded Haemophilus B Conj Vaccine (oldterm) 12/21/96 Lopez rded Haemophilus B Conj Vaccine (oldterm) 01/20/96 Lopez rded Haemophilus B Conj Vaccine (oldterm) 10/22/95 Lopez rded Haemophilus B Conj Vaccine (oldterm) 04/22/95 Lopez rded Hepatitis B Vaccine (old term) 01/20/96 Recorded Hepatitis B Vaccine (old term) 02/20/95 Recorded Hepatitis B Vaccine (old term) 94 Recorded Medications acetaminophen 500 mg oral tablet 20 each, 0 Refill(s), TAKE 1 TABLET BY MOUTH EVERY 4 TO 6 HOURS NEEDED, 0 Refills, 07/11/25 1:49:00 PM EDT, Partial fill upon patient request if the prescription is for a schedule II opioid drug. Start Date: 07/11/25 Status: Ordered Medication Dispense Status: Completed Total Allowed Fills: 1 Fills Dispensed: 0 amitriptyline 25 mg oral tablet 30 each, 0 Refill(s), TAKE 1 TABLET BY MOUTH DAILY AT BEDTIME, Refills 0, 07/11/25 1:50:00 PM EDT, Partial fill upon patient request if the prescription is for a schedule II opioid drug. Start Date: 07/11/25 Status: Ordered Medication Dispense Status: Completed Total Allowed Fills: 1 Fills Dispensed: 0 diclofenac sodium 50 mg oral delayed release tablet 60 each, 0 Refill(s), TAKE 1 TABLET BY MOUTH TWICE DAILY NEEDED, 0 Refills, 07/11/25 1:50:00 PM EDT, Partial fill upon patient request if the prescription is for a schedule II opioid drug. Start Date: 07/11/25 Status: Ordered Medication Dispense Status: Completed Total Allowed Fills: 1 Fills Dispensed: 0 Ranitidine 0 Refills, Maintenance, 09/30/18 10:45:57 PM EST Start Date: 09/30/18 Status: Ordered Medication Dispense Status: Completed Total Allowed Fills: 1 Fills Dispensed: 0 Reglan 10 mg oral tablet 1 tablet = 10 mg, By Mouth, 3 times a day before meals and bedtime, 0 Refills, Maintenance, 09/30/1810:45:41 PM EST Start Date: 09/30/18 Status: Ordered Medication Dispense Status: Completed Total Allowed Fills: 1 Fills Dispensed: 0 topiramate 50 mg oral tablet 1 tablet = 50 mg, By Mouth, Daily at bedtime, # 30 tablet, 6 Refills, Maintenance, 12/22/24 2:31:00 PM EST, Tablet, [id number], Partial fill upon patient request if the prescription is for a schedule II opioid drug. Start Date: 12/22/24 Stop Date: 07/20/25 Status: Ordered Medication Dispense Status: Completed Quantity: 30.0 Unit: tablet Total Allowed Fills: 7 Fills Dispensed: 0 Mental Status Mental Status Assessment Assessment Assessment Component Result Effecti ve Date Patient Health Questionnaire 2 item (PHQ-2) total score [Reported] 2 07/20/25 Problem List Condition Confirmation Course Effective Dates Status H ealth Status Informant Ankylosing spondylitis Confirmed Active Endometriosis determined by laparoscopy Confirmed Active Endometriosis of ovary Confirmed Active GERD (gastroesophageal reflux disease) Confirmed Active Migraine Confirmed Active Frequent UTI Confirmed Active Retrobulbar neuritis Confirmed Active Hepatic steatosis Confirmed Active Diagnosis Diagnosis Type Effective Dates Health Status Clinical Service Informant Pelvic mass in female Discharge Diagnosis 07/20/25 Hepatic steatosis Discharge Diagnosis 07/20/25 Ankylosing spondylitis Discharge Diagnosis 07/20/25 Migraine Discharge Diagnosis 07/20/25 Vital Signs Most recent to oldest [Reference Range]: 1 Weight 90 kg (07/20/25 11:30 AM) Oxygen Saturation [94-100 %] 97 % (07/20/25 11:30 AM) Pulse Rate [55-90 bpm] 89 bpm (07/20/25 11:30 AM) Blood Pressure [90-138/55-84 mm Hg] 124/ 81mm Hg (07/20/25 11:30 AM) Temperature [96.8-100.4 DegF] 97.7 DegF (07/20/25 11:30 AM) Mode of Delivery (Oxygen) Room air (07/20/25 11:30 AM) Blood pressure sites Arm, left (07/20/25 11:30 AM) Temperature Route Oral (07/20/25 11:30 AM) Weight Obtained Via Standing scale (07/20/25 11:30 AM) Social History Social History Type Response Sexual Orientation Self described orien tation: ; Straight or heterosexual Gender Identity Gender identity: Sex Sex Representation Female (finding) Note * Fernando Delgadoed: PERFORM Event Display: Patient Education/Instruction Authored Date: [id number] Ambulatory Adult Visit Summary [facility] [address] [place] [address] Name: EDDIE IJ : 1995?? Visit: 07/20/2025 11:27?? Ambulatory Visit Instructions ?? Your Care Team Primary Care Provider Pamela Gomez? This Visit Provider Alexa Beckman Your Diagnosis Pelvic mass in female Hepatic steatosis Vitals Signs Temperature: 97.7 DegF Weight: 90 kg Pulse Rate: 89 bpm ?? Systolic Blood Pressure: 124 mm Hg ?? Diastolic Blood Pressure: 81 mm Hg ?? Oxygen Saturation: 97 % ?? What to do next Scheduled Follow-Up Appointments Thursday 10:40 AM EDT ?? Type: Return With: Amada Coombs NP Where: [facility] [address] [place] [address]- Status: Pending Thursday 4:10 PM EDT ?? Type: New Patient Visit With: Amada Coombs NP [facility] [address] [place] [address]- Status: Pending Thursday 9:00 AM EST ?? Type: Return With: Siva ROSE, Talia Srivastava Where: [facility] [address] [place] [address], [address] [place] [address]- Status: Pending Medications The list below reflects the information in our records and provided by you today along with any changes made during this visit. Please continue your medications until treatment is completed or stopped by your provider. If this is different from the information you have or there are other questions,please contact the prescribing provider. What How Much When Instructions Unchanged Acetaminophen (acetaminophen 500 mg oral tablet) Special Instructions: 20 each, 0 Refill(s), TAKE 1 TABLET BY MOUTH EVERY 4 TO 6 HOURS NEEDED ?? Unchanged amiTRIPTYLINE (amitriptyline 25 mg oral tablet) Special Instructions: 30 each, 0 Refill(s), TAKE 1 TABLET BY MOUTH DAILY AT BEDTIME ?? Unchanged Diclofenac (diclofenac sodium 50 mg oral delayed release tablet) Special Instructions: 60 each, 0 Refill(s), TAKE 1 TABLET BY MOUTH TWICE DAILY NEEDED ?? Unchanged Metoclopramide (Reglan 10 mg oral tablet) 1 tab(s) Oral 3 times a day before meals and bedtime Unchanged Ranitidine Unchanged Topiramate (topiramate 50 mg oral tablet) 1 tab(s) Oral Daily at Bedtime Duration: 30 Days Ordering Physician: Remi Quintana NP Medications and Immunizations Administered Medications Given During Visit No medications given during this visit.?? Allergies (NKA means No Known Allergies) Zofran Common Emergency Awareness Tips IS IT A STROKE? Act FAST and Check for these signs: FACE Does the face look uneven? ARM Does one arm drift down? SPEECH Does their speech sound strange? TIME Call at any sign of stroke ?? Heart Attack Signs Chest discomfort: Most heart attacks involve discomfort in the center of the chest and lasts more than a few minutes, or goes away and comes back. It can feel like uncomfortable pressure, squeezing, fullness or pain. Discomfort in upper body: Symptoms can include pain or discomfort in one or both arms, back, neck, jaw or stomach. Shortness of breath: With or without discomfort. Other signs: Breaking out in a cold sweat, nausea, or lightheaded. Remember, MINUTES DO MATTER. If you experience any of these heart attack warning signs, call to get immediate medical attention! ?? Smoking can increase your chances of developing chronic health problems and can cause harmful effects to other family members in your house. If you smoke, you are strongly encouraged to quit. Please call [employer] at [phone] or [phone] ([phone]) or log in to [email or web address] for referrals to smoking cessation programs. ?? The National Suicide Prevention Hotline is available 15/06 if you or someone you know needs to find a reason to keep living. By calling 6-053-648-[employer] (4280) you'll be connected to a skilled, trained counselor at a crisis center in your area. [employer] Portal You can view and manage your care through the patient portal or by using a health care nanda of your choosing. [employer] is a website that allows you to securely view your medical information including your hospital discharge summary, office visit summaries, medications and follow-up visits. You can also request appointments, renew medications, and request access to your medical information using a health care nanda of your choosing, or just ask a question. You can enroll at [email or web address] or register during your next office visit. [facility], in keeping with [facility] guidance, no longer requires face masks for staff, patientsor visitors in most situations. Similiar to time spent indoors at other locations, there is the chance that you were exposed to repiratory viruses during your time with us (such as flu or COVID-19). If you develop symptoms concerning for a viral respiratory infection, please seek testing (and treatment if indicated) from your medical provider or home test kit. ?? Disclaimer: The information provided is of a general nature and is intended to be used in conjunction with the recommendations and advice of your health care practitioner. Every effort has been made to ensure that the information provided is accurate and complete at the time it is provided to you however, as your needs change, or, as new information becomes available, different or additional instructions may be required. ?? If you have questions, please consult with your primary care provider or pharmacist, as appropriate. This information is not intended to serve as substitution for assessment and evaluation by a qualified health care provider. If you do not have a primary care provider, you may find a [facility] [employer] provider by calling [employer] at [phone]. Patient Care team information Care Team Personnel Name: Pamela Gomez Position: Reference Physician Member Role: PCP Address: [address] [place] [address]- Telecom: Name: Татьяна Mariano RN Position: [facility] Nurse Member Role: Primary Care Nurse Care Team Related Persons Name: CHAVEZ BRIDGESNETH Name: KB MATA Insurance Providers Guarantor name: EDDIE IJ [employer] Plan Information #: 1 Payer: [facility] [employer] Payer Identifier: NA Member Number: [id number] Group Number: [id number] Subscriber Identifier: [id number] Relationship to Subscriber: self Coverage Type: NA Coverage Verification Date: NA Telecom: NA Address: Health Plan Information #: 2 Payer: [facility] Payer Identifier: NA Member Number: [id number] Group Number: [id number] Subscriber Identifier: [id number] Relationship to Subscriber: self Coverage Type: Medicaid (Managed Care) Coverage Verification Date: Telecom: Address:
--- OUTSIDE RECORDS SUMMARY | 2025-07-29 23:59 | XMS_ITS | Continuity of Care Document ---
Author Organization [facility] Address [address] [facility], [address] d Floor, [address] [place] [address]- Care Team Providers Care Data Collection Technician Name Role Phone Pamela Gomez Primary Care Physician [place] [facility] [place]s): 06/29/25 - 07/29/25 [facility] [address] [place] [address], [address] [place] [address] Encounter Type: Triage Allergies, Adverse Reactions, Alerts [...] Refills, Maintenance, 12/22/24 2:31:00 PM EST, Tablet, [id number], Partial fill upon patient request if the prescription is for a schedule II opioid drug. Start Date: 12/22/24 Stop Date: 07/20/25 Status: Ordered Medication Dispense Status: Completed Quantity: 30.0 Unit: tablet Total Allowed Fills: 7 Fills Dispensed: 0 Problem List Condition Confirmation Course Effective Dates Status H ealth Status Informant Ankylosing spondylitis Confirmed Active Endometriosis determined by laparoscopy Confirmed Active Endometriosis of ovary Confirmed Active GERD (gastroesophageal reflux disease) Confirmed Active Migraine Confirmed Active Frequent UTI Confirmed Active Retrobulbar neuritis Confirmed Active Hepatic steatosis Confirmed Active Social History Social History Type Response Sexual Orientation Self described orien tation: ; Straight or heterosexual Gender Identity Gender identity: Sex Sex Representation Female (finding) Patient Care team information Care Team Personnel Name: Pamela Gomez Position: Reference Physician Member Role: PCP Address: [address] [place] [address] Telecom: Name: Татьяна Mariano RN Position: [facility] Nurse Member Role: Primary Care Nurse Care Team Related Persons Name: QUINCY BRIDGES Name: KB MATA Insurance Providers Guarantor name: EDDIE JI Health Plan Information #: 1 Payer: [facility] [employer] Payer Identifier: NA Member Number: [id number] Group Number: [id number] Subscriber Identifier: NA Relationship to Subscriber: self Coverage Type: NA Coverage Verification Date: NA Telecom: Address: Health Plan Information #: 2 Payer: [facility] Payer Identifier: NA Member Number: [id number] Group Number: [id number] Subscriber Identifier: NA Relationship to Subscriber: self Coverage Type: Medicaid (Managed Care) Coverage Verification Date: NA Telecom: NA Address: NA
--- OUTSIDE RECORDS SUMMARY | 2025-07-31 16:19 | XMS_ITS | Encounter Summary ---
Author Organization [facility] Address [address] [place] [address] Phone Care Team Providers Care Meat Hostess Name Role Phone Charissa Rico MD Primary Care Provider [phone] Siobhan Grossman CNM Unavailable Siobhan Cummins CNM Unavailable [phone] Alexsander Roger MD Unavailable Melody Bland NP Unavailable [phone] Grecia Garner MD Unavailable [phone] Sena Mc CNM Unavailable [phone] Jonnathan Guerrero DO Unavailable [phone] Charissa Rico MD Unavailable [phone] Lindsay Burns CNM Unavailable [phone] Rich Rodas MD Unavailable [phone] Ambrosio Mcclellan DO Unavailable [phone] Charissa Rico MD Unavailable [phone] Charissa Rico MD Unavailable [phone] Prashanth Jalloh Unavailable Charissa Rico MD Primary Care Provider [phone] Pamela Campbell Primary Care Provider [phone] Encounter Details Date Type Department Care Team (Latest Contact Info) Description 07/28/2018 Transcribe Orders [facility] [address] [place] [address] Siobhan Osullivan PA-C [address] [place] [address] [email or web address] Elevated LFTs (Primary Dx); Loss of weight; [...] Start Date Job End Date Working at [employer] Not on file Not on file Not on f ile documented as of this encounter Plan of Treatment Not on file documented as of this encounter Results * Ferritin (07/28/2018 2:00 PM EDT) FERRITIN 79 13 - 150 ug/L [facility] Blood 07/28/2018 2:00 PM EDT 07/28/2018 2:09 PM EDT us Siobhan Osullivan PA-C LAB BLOOD ORDERABLES Final Resu lt [address] [address] * (ABNORMAL) TSH (07/28/2018 2:00 PM EDT) TSH <0.01(L) 0.27 - 4.20 uIU/mL [facility] Blood 07/28/2018 2:00 PM EDT 07/28/2018 2:09 PM EDT us Siobhan Osullivan PA-C LAB BLOOD ORDERABLES Final Resu lt [address] [address] * Iron and iron binding capacity (07/28/2018 2:00 PM EDT) IRON 62 30 - 160 ug/dL [facility] IRON BINDING CAPACITY 342 228 - 428 ug/dL [facility] TRANSFERRIN SATURAT. 18 15 - 50 % [facility] Blood 07/28/2018 2:00 PM EDT 07/28/2018 2:09 PM EDT us Siobhan Osullivan PA-C LAB BLOOD ORDERABLES Final Resu lt Performing Organization Address [facility]/ZIP Co de Phone Number [address] [address] * Hepatitis C antibody, qualitative (07/28/2018 2:00 PM EDT) HCV Negative Negative [facility] Comment: This is a screening test and should be confirmed with molecular testing Blood 07/28/2018 2:00 PM EDT 07/28/2018 2:09 PM EDT us Siobhan Osullivan PA-C LAB BLOOD ORDERABLES Final Resu lt Performing Organization Address City/[facility]/ZIP Co de Phone Number [address] [address] * Hepatitis B surface antigen (07/28/2018 2:00 PM EDT) HBV SURFACE ANTIGEN Negative Negative [facility] Blood 07/28/2018 2:00 PM EDT 07/28/2018 2:09 PM EDT us Siobhan Osullivan PA-C LAB BLOOD ORDERABLES Final Resu lt Performing Organization Address City/[facility]/ZIP Co de Phone Number [address] [address] * Hepatitis A antibody, IgM (07/28/2018 2:00 PM EDT) Hepatitis A Antibody, IgM Negative Negative [facility] Blood 07/28/2018 2:0 0 PM EDT 07/28/2018 2:09 PM EDT us Siobhan Osullivan PA-C LAB BLOOD ORDERABLES Final Resu lt Performing Organization Address City/State/[facility] Co de Phone Number [facility] [address] [place] [address] * (ABNORMAL) Comprehensive metabolic panel (07/28/2018 2:00 PM EDT) SODIUM 137 133 - 146 mmol/L [facility] POTASSIUM 4.1 3.3 - 5.1 mmol/L [facility] CHLORIDE 100 96 - 108 mmol/L [facility] CO2 24 21 - 35 mmol/L [facility] BUN 7 6 - 19 mg/dL [facility] CREATININE <0.50(L) 0.5 - 1.5 mg/dL [facility] GLUCOSE 79 70 - 99 mg/dL [facility] ALBUMIN 4.1 3.9 - 4.8 g/dL [facility] TOTAL PROTEIN 7.5 6.5 - 8.0 g/dL [facility] CALCIUM 9.6 8.4 - 10.3 mg/dL [facility] ALKALINE PHOSPHATASE 57 39 - 117 U/L [facility] TOTAL BILIRUBIN 0.6 0.0 - 1.2 mg/dL [facility] AST 99(H) 0 - 37 U/L [facility] ALT 245(H) 0 - 40 U/L [facility] GLOBULIN 3.4 1 - 4.8 g/dL [facility] EGFR Not Done >59 mL/min/1.7 3m2 [facility] ANION GAP 17 10 - 20 mmol/L [facility] Blood 07/28/2018 2:00 PM EDT 07/28/2018 2:09 PM EDT Siobhan Osullivan PA-C LAB BLOOD ORDERABLES Final Resu lt [facility] [address] [place] [address] * Ceruloplasmin (07/28/2018 2:00 PM EDT) CERULOPLASMIN,S 46.8 20.0 - 51.0 mg/dL [facility] DPT OF LAB MED AND PAT+ Blood 07/28/2018 2:00 PM EDT 07/28/2018 2:09 PM EDT us Siobhan Osullivan PA-C LAB BLOOD ORDERABLES Final Resu lt Performing Organization Address City/[facility] Co de Phone Number [facility] DPT OF LAB MED AND PAT+ [address] [place] [address] * (ABNORMAL) CBC (07/28/2018 2:00 PM EDT) WBC 12.57(H) 3.40 - 11.20 K/uL [facility] RBC 4.31 3.80 - 4.80 M/uL [facility] HGB 12.2 12.0 - 15.0 g/dL [facility] HCT 36.9 36.0 - 46.0 % [facility] PLT 277 130 - 400 K/uL [facility] MCV 85.6 79.0 - 98.0 fL [facility] MCH 28.3 27.0 - 34.8 pg [facility] MCHC 33.1 31.5 - 36.0 g/dL [facility] RDW 13.2 10.8 - 14.6 % [facility] MPV 12.0 9.4 - 12.4 fl [facility] NRBC 0.00 /100 WBCs [facility] ABSOLUTE NRBC 0.00 K/uL [facility] Blood 07/28/2018 2:00 PM EDT 07/28/2018 2:09 PM EDT us Siobhan Osullivan PA-C LAB BLOOD ORDERABLES Final Resu lt Performing Organization Address City/[facility]/ZIP Co de Phone Number [facility] [address] [place] [address] * Tissue transglutaminase IgA (07/28/2018 2:00 PM EDT) TTG IGA ANTIBODY <1.2 <4.0 (Negative) U/mL [facility] DPT OF LAB MED AND PAT+ Blood 07/28/2018 2:00 PM EDT 07/28/2018 2:09 PM EDT Siobhan Osullivan PA-C LAB BLOOD ORDERABLES Final Resu lt Performing Organization Address [facility] de Phone Number [facility] DPT OF LAB MED AND PAT+ [address] [place] [address] * Smooth Muscle Antibody (07/28/2018 2:00 PM EDT) ANTI-SMOOTH MUSCLE AB Negative Negative [facility] DPT OF LAB MED AND PAT+ Comment: (NOTE) ADDITIONAL INFORMATION This test was developed and its performance characteristics determined by [facility] in a manner consistent with CLIA requirements. This test has not been cleared or approved by the U.S. Food and Drug Administration. Blood 07/28/2018 2:00 PM EDT 07/28/2018 2:09 PM EDT Siobhan Osullivan PA-C LAB BLOOD ORDERABLES Final Resu lt Performing Organization Address [facility] Co de Phone Number [facility] DPT OF LAB MED AND PAT+ [address] [place] [address] * (ABNORMAL) Antinuclear antibody (LISA) (07/28/2018 2:00 PM EDT) LISA SCREEN ON HEP 2 Positive(A ) Negative [facility] Comment:An LISA Titer has bee n reflexed. The results will follow. Blood 07/28/2018 2:00 PM EDT 07/28/2018 2:09 PM EDT Siobhan Osullivan PA-C LAB BLOOD ORDERABLES Final Resu lt [facility] [address] [place] [address] * Anti-Mitochondrial Antibody (AMA) (07/28/2018 2:00 PM EDT) MITOCHONDRIAL AB M2 <0.1 <0.1 (Negative) U [facility] DPT OF LAB MED AND PAT+ Blood 07/28/2018 2:00 PM EDT 07/28/2018 2:09 PM EDT us Siobhan Osullivan PA-C LAB BLOOD ORDERABLES Final Resu lt Performing Organization Address City/[facility]/ZIP Co de Phone Number [facility] DPT OF LAB MED AND PAT+ [address] [place] [address] * (ABNORMAL) Cfkvj-[id number] phenotyping (07/28/2018 2:00 PM EDT) ALPHA 1 ANTITRYPSIN 256(H) 100 - 190 mg/dL [facility] DPT OF LAB MED AND PAT+ A1A PHENOTYPE MM bands [facility] DPT OF LAB MED AND PAT+ Blood 07/28/2018 2:00 PM EDT 07/28/2018 2:09 PM EDT us Siobhan Osullivan PA-C LAB BLOOD ORDERABLES Final Resu lt Performing Organization Address City/[facility]/ZIP Co de Phone Number [facility] DPT OF LAB MED AND PAT+ [address] [place] [address] documented in this encounter Visit Diagnoses Diagnosis Elevated LFTs- Primary Other abnormal blood chemistry Loss of weight Hyperemesis Persistent vomiting documented in this encounter Care Teams Meat Hostess Relationship Specialty Start Date End Date Charissa Rico MD PCP - General 09/10/17 06/18/23 Charissa Rico MD [address] [place] [address] PCP - General Family Medicine 06/19/23 01/02/25 Pamela Campbell PA [address] [place] [address] PCP - General Physician Adoption Counselor 01/03/25 Siobhan Grossman CNM [address] [place] [address] Historical LMR Provider 09/10/17 05/23/21 Siobhan Cummins CNM [address] [place] [address] Historical LMR Provider 09/10/17 05/23/21 Alexsander Roger MD [address] [place] [address] Historical LMR Provider 09/10/17 05/23/21 Melody Bland NP [address] [place] [address] [email or web address] Historical LMR Provider 09/10/17 05/23/21 Grecia Garner MD [address] [place] [address] Historical LMR Provider 09/10/17 05/23/21 Sena Mc CNM [address] [place] [address] Historical LMR Provider 09/10/17 05/23/21 Jonnathan Guerrero DO [address] [place] [address] [facility], [place] [address] Historical LMR Provider 09/10/17 11/30/21 Charissa Rico MD [address] [place] [address] Historical LMR Provider 09/10/17 05/23/21 Lindsay Burns CNM [address] [place] [address] [email or web address] Historical LMR Provider 09/10/17 05/23/21 Rich Rodas MD [address] [place] [address] Historical LMR Provider 09/10/17 Ambrosio Mcclellan DO [address] [place] [address] [email or web address] Historical LMR Provider 09/10/17 11/30/21 Charissa Rico MD [address] [place] [address] Insurance Assigned Provider 02/20/18 09/25/18 Charissa Rico MD [address] [place] [address] [email or web address] Insurance Assigned Provider 11/27/18 08/01/23 Prashanth Jalloh BEEF RIBBER [address] [place] [address] [email or web address] [email or web address] Social Work 04/29/21 10/26/22 documented as of this encounter Additional Source Comments The information contained in this document represents components of the legal health record. It is not the complete legal health record.[facility]
--- OUTSIDE RECORDS SUMMARY | 2025-07-31 16:19 | XMS_ITS | Encounter Summary ---
Author Organization [facility] Address [address] [place] [address] Phone Care Team Providers Care Director Geothermal Operations Name Role Phone Charissa Rico MD Primary Care Provider [phone] Siobhan Grossman CNM Unavailable Siobhan Cummins CNM Unavailable [phone] Alexsander Roger MD Unavailable Melody Bland NP Unavailable Grecia Garner MD Unavailable Sena Mc CNM Unavailable Jonnathan Guerrero DO Unavailable Charissa Rico MD Unavailable Lindsay Burns CNM Unavailable [phone] Rich Rodas MD Unavailable Ambrosio Mcclellan DO Unavailable Charissa Rico MD Unavailable Prashanth Jalloh Unavailable [phone] Chraissa Rico MD Primary Care Provider [phone] Pamela Campbell Primary Care Provider [phone] Encounter Details Date Type Department Care Team (Late st Contact Info) Description 12/11/2020 Transcribe Orders Virtual Department [address] [place] [address] Pamela Campbell PA [address] [place] [address] Exposure to SARS-associated coronavirus (Primary Dx) Social [...] Start Date Job End Date Working at [employer] Not on file Not on file Not on f ile documented as of this encounter Plan of Treatment Not on file documented as of this encounter Results * COVID-19 PCR Order (12/12/2020 9:47 AM EST) COVID Testing Status Specimen received in analyzing lab. Results should be available within 24 to 48 hrs. [facility] Symptomatic? NO [facility] 12/12/2020 9:47 AM EST 12/12/2020 3:53 PM EST us Pamela BA BODY FLUIDS AND STOOLS ORDERABL ES Final Result [facility] [address] [place] [address] [facility] [address] [place] [address] documented in this encounter Visit Diagnoses Diagnosis Exposure to SARS-associated coronavirus- Primary documented in this encounter Care Teams Director Geothermal Operations Relationship Specialty Start Date End Date Charissa Rico MD PCP - General 09/10/17 06/18/23 Charissa Rico MD [address] [place] [address] PCP - General Family Medicine 06/19/23 01/02/25 Pamela Campbell PA [address] [place] [address] PCP - General Physician Chief Operating Officer 01/03/25 Siobhan Grossman CNM [address] [place] [address] Historical LMR Provider 09/10/17 05/23/21 Siobhan Cummins CNM [address] [place] [address] Historical LMR Provider 09/10/17 05/23/21 Alexsander Roger MD [address] [place] [address] Historical LMR Provider 09/10/17 05/23/21 Melody Bland NP [address] [place] [address] [email or web address] Historical LMR Provider 09/10/17 05/23/21 Grecia Garner MD [address] [place] [address] Historical LMR Provider 09/10/17 05/23/21 Sena Mc CNM [address] [place] [address] Historical LMR Provider 09/10/17 05/23/21 Jonnathan Guerrero DO [address] [place] [address] [facility], [place] [address] Historical LMR Provider 09/10/17 11/30/21 Charissa Rico MD [address] [place] [address] Historical LMR Provider 09/10/17 05/23/21 Lindsay Burns CNM [address] [place] [address] [email or web address] Historical LMR Provider 09/10/17 05/23/21 Rich Rodas MD [address] [place] [address] Historical LMR Provider 09/10/17 Ambrosio Mcclellan DO [address] [place] [address] [email or web address] Historical LMR Provider 09/10/17 11/30/21 Charissa Rico MD [address] [place] [address] Insurance Assigned Provider 11/27/18 08/01/23 Prashanth Jalloh, RESEARCH DAIRY FARM SUPERVISOR [address] [place] [address] [facility] Social Work 04/29/21 10/26/22 documented as of this encounter Additional Source Comments The information contained in this document represents components of the legal health record. It is not the complete legal health record.[facility]
--- OUTSIDE RECORDS SUMMARY | 2025-07-31 16:19 | XMS_ITS | Encounter Summary ---
Author Organization [facility] Address [address] [place] [address] Phone Care Team Providers Care Honey Blender Name Role Phone Charissa Rico MD Primary Care Provider [phone] Siobhan Grossman CNM Unavailable Siobhan Cummins CNM Unavailable [phone] Alexsander Roger MD Unavailable Melody Bland [...] MD Unavailable [phone] Prashanth Jalloh Unavailable [phone] Charissa Rico MD Primary Care Provider [phone] Pamela Campbell Primary Care Provider Encounter Details Date Type Department Care Team (Late st Contact Info) Description 01/08/2018 Ancillary Orders Virtual Department [address] [place] [address] Amy Calderon PA [address] [place] [address] [email or web address] Pelvic pain Social History Tobacco Use [...] Start Date Job End Date Working at [employer] Not on file Not on file Not [...] pain documented in this encounter Care Teams Honey Blender Relationship Specialty Start Date End Date Charissa Rico MD [email or web address] PCP - General 09/10/17 06/18/23 Charissa Rico MD [address] [place] [address] PCP - General Family Medicine 06/19/23 01/02/25 Pamela Campbell PA [address] [place] [address] PCP - General Physician Storage Management Consultant 01/03/25 Siobhan Grossman CNM [address] [address] Historical LMR Provider 09/10/17 05/23/21 Siobhan Cummins CNM [address] [place] [address] Historical LMR Provider 09/10/17 05/23/21 Alexsander Roger MD [address] [place] [address] Historical LMR Provider 09/10/17 05/23/21 Melody Bland NP [address] [place] [address] [email or web address] Historical LMR Provider 09/10/17 05/23/21 Grecia Garner MD [address] [place] [address] Historical LMR Provider 09/10/17 05/23/21 Sena Mc CNM [address] [place] [address] Historical LMR Provider 09/10/17 05/23/21 Jonnathan Guerrero DO [address] [place] [address] [facility], [place], [place] [phone] Historical LMR Provider 09/10/17 11/30/21 Charissa Rico MD [address] [place] [address] Historical LMR Provider 09/10/17 05/23/21 Lindsay Burns CNM [address] [place] [address] Historical LMR Provider 09/10/17 05/23/21 Rich Rodas MD [address] [place] [address] Historical LMR Provider 09/10/17 Ambrosio Mcclellan DO [address] [place] [address] [email or web address] Historical LMR Provider 09/10/17 11/30/21 Charissa Rico MD [address] [place] [address] Insurance Assigned Provider 02/20/18 09/25/18 Charissa Rico MD [address] [place] [address] Insurance Assigned Provider 11/27/18 08/01/23 Prashanth Jalloh, EMBOSSING PRESS OPERATOR APPRENTICE [address] [place] [address] iCMP Social Work 04/29/21 10/26/22 documented as of this encounter Additional Source Comments The information contained in this document represents components of the legal health record. It is not the complete legal health record.[facility]
--- OUTSIDE RECORDS SUMMARY | 2025-07-31 16:19 | XMS_ITS | Encounter Summary ---
Author Organization [facility] Address [address] [place] [address] Phone Care Team Providers Care Protein Chemist Name Role Phone Charissa Rico MD Primary Care Provider [phone] Siobhan Grossman CNM Unavailable Siobhan Cummins CNM Unavailable [phone] Alexsander Roger MD Unavailable Melody Bland [...] MD Unavailable [phone] Prashanth Jalloh Unavailable [phone] Charissa Rico MD Primary Care Provider [phone] Pamela Campbell Primary Care Provider [phone] Encounter Details Date Type Department Care Team (Late st Contact Info) Description 12/31/2017 Ancillary Orders [facility] External Provider Virtual Department [address] [place] [address] Vitor Ramos MD [address] [place] [address] [email or web address] Abdominal pain, unspecified abdominal location Social History [...] Start Date Job End Date Working at [employer] Not on file Not on file Not on f ile documented as of this encounter Plan of Treatment Not on file documented as of this encounter Visit Diagnoses Diagnosis Abdominal pain, unspecified abdominal location documented in this encounter Care Teams Protein Chemist Relationship Specialty Start Date End Date Charissa Rico MD PCP - General 09/10/17 06/18/23 Charissa Rico MD [address] [place] [address] PCP - General Family Medicine 06/19/23 01/02/25 Pamela Campbell PA [address] [place] [address] PCP - General Physician Data Warehouse Specialist 01/03/25 Siobhan Grossman CNM [address] [place] [address], [address] [place] [address] Historical LMR Provider 09/10/17 05/23/21 Siobhan Cummins CNM [address] [place] [address] [email or web address] Historical LMR Provider 09/10/17 05/23/21 Alexsander Roger MD [address] [place] [address] Historical LMR Provider 09/10/17 05/23/21 Melody Bland NP [address] [place] [address] [email or web address] Historical LMR Provider 09/10/17 05/23/21 Grecia Garner MD [address] [place] [email or web address] Historical LMR Provider 09/10/17 05/23/21 Sena Mc CNM [address] [place] [address] Historical LMR Provider 09/10/17 05/23/21 Jonnathan Guerrero DO [address] [place] [address] [facility], [place] [address] Historical LMR Provider 09/10/17 11/30/21 Charissa Rico MD [address] [place] [address] Historical LMR Provider 09/10/17 05/23/21 Lindsay Burns CNM [address] [place] [address] Historical LMR Provider 09/10/17 05/23/21 Rich Rodas MD [address] [place] [address] Historical LMR Provider 09/10/17 Ambrosio Mcclellan DO [address] [place] [address] [email or web address] Historical LMR Provider 09/10/17 11/30/21 Charissa Rico MD [address] [place] [address] Insurance Assigned Provider 02/20/18 09/25/18 Charissa Rico MD [address] [place] [address] Insurance Assigned Provider 11/27/18 08/01/23 Prashanth Jalloh LICSW [address] [place] [address] iCMP Social Work 04/29/21 10/26/22 documented as of this encounter Additional Source Comments The information contained in this document represents components of the legal health record. It is not the complete legal health record.[facility]
--- OUTSIDE RECORDS SUMMARY | 2025-07-31 16:19 | XMS_ITS | Encounter Summary ---
Author Organization [facility] Address [address] [place] [address] Phone Care Team Providers Care Cd Mixer Name Role Phone Charissa Rico MD Primary Care Provider [phone] Siobhan Grossman CNM Unavailable Siobhan Cummins CNM Unavailable [phone] Alexsander Roger MD Unavailable Melody Bland [...] MD Unavailable [phone] Prashanth Jalloh Unavailable [phone] Charissa Rico MD Primary Care Provider [phone] Pamela Campbell Primary Care Provider Encounter Details Date Type Department Care Team (Latest Contact Info) Description 08/12/2018 Transcribe Orders [facility] [address] [place] [address] Siobhan Osullivan PA-C [address] [place] [address] [email or web address] Elevated liver function tests (Primary Dx) Social [...] Start Date Job End Date Working at [employer] Not on file Not on file Not on f ile documented as of this encounter Plan of Treatment Not on file documented as of this encounter Visit Diagnoses Diagnosis Elevated liver function tests- Primary Other abnormal blood chemistry documented in this encounter Care Teams Cd Mixer Relationship Specialty Start Date End Date Charissa Rico MD PCP - General 09/10/17 06/18/23 Charissa Rico MD [address] [place] [address] 10785 PCP - General Family Medicine 06/19/23 01/02/25 Pamela Campbell PA [address] [place] [address] PCP - General Physician Singer And Unloader 01/03/25 Siobhan Grossman CNM [address] [place] [address], [facility] [address] [place] [address] Historical LMR Provider 09/10/17 05/23/21 Siobhan Cummins CNM [address] [place] [address] Historical LMR Provider 09/10/17 05/23/21 Alexsander Roger MD [address] [place] [address] Historical LMR Provider 09/10/17 05/23/21 Melody Bland NP [address] [place] [address] [email or web address] Historical LMR Provider 09/10/17 05/23/21 Grecia Garner MD [address] [place] [address] Historical LMR Provider 09/10/17 05/23/21 Sena Mc CNM [address] [place] [address] Historical LMR Provider 09/10/17 05/23/21 Jonnathan Guerrero DO [address] [place] [address] Orthopedics & Sports Medicine, [place] [address] Historical LMR Provider 09/10/17 11/30/21 Charissa Rico MD [address] [place] [address] Historical LMR Provider 09/10/17 05/23/21 Lindsay Burns CNM [address] [place] [address] Historical LMR Provider 09/10/17 05/23/21 Rich Rodas MD [address] [place] [address] Historical LMR Provider 09/10/17 Ambrosio Mcclellan DO [address] [place] [address] [email or web address] Historical LMR Provider 09/10/17 11/30/21 Charissa Rico MD [address] [place] [address] Insurance Assigned Provider 02/20/18 09/25/18 Charissa Rico MD [address] [place] [address] 25952 Insurance Assigned Provider 11/27/18 08/01/23 Prashanth Jalloh, [address] [address] iCMP Social Work 04/29/21 10/26/22 documented as of this encounter Additional Source Comments The information contained in this document represents components of the legal health record. It is not the complete legal health record.[facility]
--- OUTSIDE RECORDS SUMMARY | 2025-07-31 16:19 | XMS_ITS | Encounter Summary ---
Author Organization [facility] Address [address] [place] [address] Phone Care Team Providers Care Bioinformatics Engineer Name Role Phone Charissa Rico MD Primary Care Provider [phone] Siobhan Grossman CNM Unavailable Siobhan Cummins CNM Unavailable [phone] Alexsander Roger MD Unavailable Melody Bland NP Unavailable [phone] Grecia Garner MD Unavailable Sena Mc CNM Unavailable [phone] Jonnathan Guerrero DO Unavailable [phone] Charissa Rico MD Unavailable [phone] Lindsay Burns CNM Unavailable + [phone] Rich Rodas MD Unavailable [phone] Ambrosio Mcclellan DO Unavailable [phone] Charissa Rico MD Unavailable [phone] Prashanth Jalloh Unavailable [phone] Charissa Rico MD Primary Care Provider [phone] Pamela Campbell Primary Care Provider [phone] Encounter Details Date Type Department Care Team (Late st Contact Info) Description 01/24/2019 Procedure Pass OR Admitting Dept - Virtual Department 30 [place] [address] Social History Tobacco Use Types Packs/Day Years [...] Start Date Job End Date Working at [employer] Not on file Not on file Not on f ile documented as of this encounter Plan of Treatment Not on file documented as of this encounter Visit Diagnoses Not on filedocumented in this encounter Care Teams Bioinformatics Engineer Relationship Specialty Start Date End Date Charissa Rico MD PCP - General 09/10/17 06/18/23 Charissa Rico MD [address] [place] [address] PCP - General Family Medicine 06/19/23 01/02/25 Pamela Campbell PA [address] [place] [address]953 PCP - General Physician Solutions Consultant 01/03/25 Siobhan Grossman CNM [address] [place] [address] [email or web address] Historical LMR Provider 09/10/17 05/23/21 Siobhan Cummins CNM [address] [place] [email or web address] Historical LMR Provider 09/10/17 05/23/21 Alexsander Roger MD [address] [address] Historical LMR Provider 09/10/17 05/23/21 Melody Bland NP [address] [place] [address] [email or web address] Historical LMR Provider 09/10/17 05/23/21 Grecia Garner MD [address] [place] [address] [email or web address] Historical LMR Provider 09/10/17 05/23/21 Sena Mc CNM [address] [place] [address] Historical LMR Provider 09/10/17 05/23/21 Jonnathan Guerrero DO [address] [place] [address] Orthopedics & Sports Medicine, [place] [address] Historical LMR Provider 09/10/17 11/30/21 Cahrissa Rico MD [address] [place] [address] Historical LMR Provider 09/10/17 05/23/21 Lindsay Burns CNM [address] [address] [email or web address] Historical LMR Provider 09/10/17 05/23/21 Rich Rodas MD [address] [address] Historical LMR Provider 09/10/17 Ambrosio Mcclellan DO 30 [place] [address] [email or web address] Historical LMR Provider 09/10/17 11/30/21 Charissa Rico MD [address] [place] [address] Insurance Assigned Provider 11/27/18 08/01/23 Prashanth Jalloh, PROCESSING OPERATOR [address] [place] [address] [email or web address] iCMP Social Work 04/29/21 10/26/22 documented as of this encounter Additional Source Comments The information contained in this document represents components of the legal health record. It is not the complete legal health record.[facility]
--- OUTSIDE RECORDS SUMMARY | 2025-07-31 16:19 | XMS_ITS | Encounter Summary ---
Author Organization [facility] Address [address] [place] [address] Phone Care Team Providers Care Sodium Methylate Operator Name Role Phone Charissa Rico MD Primary Care Provider [phone] Siobhan Grossman CNM Unavailable Siobhan Cummins CNM Unavailable [phone] Alexsander Roger MD Unavailable Melody Bland NP Unavailable Grecia Garner MD Unavailable Sena Mc CNM Unavailable [phone] Jonnathan Guerrero DO Unavailable Charissa Rico MD Unavailable [phone] Lindsay Burns CNM Unavailable + [phone] Rich Rodas MD Unavailable [phone] Ambrosio Mcclellan DO Unavailable [phone] Charissa Rico MD Unavailable [phone] Prashanth Jalloh Unavailable [phone] Charissa Rico MD Primary Care Provider [phone] Pamela Campbell Primary Care Provider [phone] Encounter Details Date Type Department Care Team (Late st Contact Info) Description 01/07/2019 Procedure Pass [facility] L&D Procedures 30 [place] [address] Social History Tobacco Use Types Packs/Day Years [...] Start Date Job End Date Working at [employer] Not on file Not on file Not on f ile documented as of this encounter Plan of Treatment Not on file documented as of this encounter Visit Diagnoses Not on filedocumented in this encounter Care Teams Sodium Methylate Operator Relationship Specialty Start Date End Date Charissa Rico MD PCP - General 09/10/17 06/18/23 Charissa Rico MD [address] [place] [address] PCP - General Family Medicine 06/19/23 01/02/25 Pamela Campbell PA [address] [place] [address] 85[address] PCP - General Physician Multilith Operator 01/03/25 Siobhan Grossman CNM [address] [place] [address] [email or web address] Historical LMR Provider 09/10/17 05/23/21 Siobhan Cummins CNM [address] [place] [address] Historical LMR Provider 09/10/17 05/23/21 Alexsander Roger MD [address] [place] [address] Historical LMR Provider 09/10/17 05/23/21 Melody Bland NP [address] [place] [address] [email or web address] Historical LMR Provider 09/10/17 05/23/21 Grecia Garner MD [address] [place] [address] [email or web address] Historical LMR Provider 09/10/17 05/23/21 Sena Mc CNM [address] [place] [address] Historical LMR Provider 09/10/17 05/23/21 Jonnathan Guerrero DO [address] [place] [address] Orthopedics & Sports Medicine, [facility] [place] [address] Historical LMR Provider 09/10/17 11/30/21 Charissa Rico MD [address] [place] [address] Historical LMR Provider 09/10/17 05/23/21 Lindsay Burns CNM [address] [address] [email or web address] Historical LMR Provider 09/10/17 05/23/21 Rich Rodas MD [address] [address] Historical LMR Provider 09/10/17 Ambrosio Mcclellan DO 30 [place] [address] [email or web address] Historical LMR Provider 09/10/17 11/30/21 Charissa Rico MD [address] [place] [address] Insurance Assigned Provider 11/27/18 08/01/23 Prashanth Jalloh, MACHINE CONTAINER WASHER [address] [place] [address] [email or web address] iCMP Social Work 04/29/21 10/26/22 documented as of this encounter Additional Source Comments The information contained in this document represents components of the legal health record. It is not the complete legal health record.[facility]
--- OUTSIDE RECORDS SUMMARY | 2025-07-31 16:19 | XMS_ITS | Encounter Summary ---
Author Organization [facility] Address [address] [place] [address] Phone Care Team Providers Care Line Helper Name Role Phone Charissa Rico MD Primary Care Provider [phone] Soibhan Grossman CNM Unavailable Siobhan Cummins CNM Unavailable [phone] Alexsander Roger MD Unavailable Melody Bland [...] MD Unavailable [phone] Prashanth Jalloh Unavailable [phone] Charissa Rico MD Primary Care Provider [phone] Pamela Campbell Primary Care Provider Encounter Details Date Type Department Care Team (Late st Contact Info) Description 12/31/2017 Ancillary Orders [facility] External Provider Virtual Department 30 [place] [address] Vitor Ramos MD [address] [address] Abdominal pain, unspecified abdominal location; Diarrhea, unspecified [...] Start Date Job End Date Working at [employer] Not on file Not on file Not [...] for the patient's pain and vomiting. POS [id number] Narrative 02/19/2018 9:48 AM EDT COMPARISON: CT [...] Upper abdominal aorta/IVC: Unremarkable. Procedure Note Berkley Salamnaca MD - 02/19/2018 COMPARISON: CT abdomen pelvis [...] for the patient's pain and vomiting. POS [id number] us Vitor Ramos MD IMG US ABDOMEN Final Result documented in this encounter Visit Diagnoses Diagnosis Abdominal pain, unspecified abdominal location Diarrhea, unspecified type Abdominal pain, unspecified abdominal location Diarrhea, unspecified type documented in this encounter Care Teams Line Helper Relationship Specialty Start Date End Date Charissa Rico MD PCP - General 09/10/17 06/18/23 Charissa Rico MD [address] [place] [address] PCP - General Family Medicine 06/19/23 01/02/25 Pamela Campbell PA [address] [place] [address] PCP - General Physician Wound Care Technician 01/03/25 Siobhan Grossman CNM [address] [place] [address] [email or web address] Historical LMR Provider 09/10/17 05/23/21 Siobhan Cummins CNM [address] [place] [address] Historical LMR Provider 09/10/17 05/23/21 Alexsander Roger MD [address] [place] [address] Historical LMR Provider 09/10/17 05/23/21 Melody Bland NP [address] [address] [email or web address] Historical LMR Provider 09/10/17 05/23/21 Grecia Garner MD [address] [place] [address] [email or web address] Historical LMR Provider 09/10/17 05/23/21 Sena Mc CNM [address] [place] [address] [email or web address] Historical LMR Provider 09/10/17 05/23/21 Jonnathan Guerrero DO [address] [place] [address] Orthopedics & Sports Medicine, [facility] [place] [address] Historical LMR Provider 09/10/17 11/30/21 Charissa Rico MD [address] [place] [address] Historical LMR Provider 09/10/17 05/23/21 Lindsay Burns CNM [address] [address] Historical LMR Provider 09/10/17 05/23/21 Rich Rodas MD [address] [place] [address] Historical LMR Provider 09/10/17 Ambrosio Mcclellan DO [address] [place] [address] [email or web address] Historical LMR Provider 09/10/17 11/30/21 Charissa Rico MD [address] [place] [address] Insurance Assigned Provider 02/20/18 09/25/18 Charissa Rcio MD [address] [place] [address] Insurance Assigned Provider 11/27/18 08/01/23 Prashanth Jalloh, [address] [address] iCMP Social Work 04/29/21 10/26/22 documented as of this encounter Additional Source Comments The information contained in this document represents components of the legal health record. It is not the complete legal health record.[facility]
--- OUTSIDE RECORDS SUMMARY | 2025-07-31 16:19 | XMS_ITS | Encounter Summary ---
Author Organization [facility] Address [address] [place] [address] Phone Care Team Providers Care Sales Coordinator Name Role Phone Charissa Rico MD Primary Care Provider [phone] Siobhan Grossman CNM Unavailable Siobhan Cummins CNM Unavailable [phone] Alexsander Roger MD Unavailable Melody Bland [...] MD Unavailable [phone] Prashanth Jalloh Unavailable [phone] Charissa Rico MD Primary Care Provider [phone] Pamela Campbell Primary Care Provider [phone] Encounter Details Date Type Department Care Team (Late st Contact Info) Description 03/18/2018 Procedure Pass OR Admitting Dept - Virtual Department 30 [place] [address] Social History Tobacco Use Types Packs/Day Years [...] Start Date Job End Date Working at [employer] Not on file Not on file Not on f ile documented as of this encounter Plan of Treatment Not on file documented as of this encounter Visit Diagnoses Not on filedocumented in this encounter Care Teams Sales Coordinator Relationship Specialty Start Date End Date Charissa Rico MD PCP - General 09/10/17 06/18/23 Charissa Rico MD [address] [place] [address] PCP - General Family Medicine 06/19/23 01/02/25 Pamela Campbell PA [address] [place] [address] PCP - General Physician Time Piece Repairer 01/03/25 Siobhan Grossman CNM [address] [place] [address] [email or web address] Historical LMR Provider 09/10/17 05/23/21 Siobhan Cummins CNM [address] [place] [address] Historical LMR Provider 09/10/17 05/23/21 Alexsander Roger MD [address] [place] [address] Historical LMR Provider 09/10/17 05/23/21 Melody Bland NP [address] [place] [address] [email or web address] Historical LMR Provider 09/10/17 05/23/21 Grecia Garner MD [address] [place] [address] [email or web address] Historical LMR Provider 09/10/17 05/23/21 Sena Mc CNM [address] [place] [address] Historical LMR Provider 09/10/17 05/23/21 Jonnathan Guerrero DO [address] [place] [address] Orthopedics & Sports Medicine, [facility] [place] [address] Historical LMR Provider 09/10/17 11/30/21 Charissa Rico MD [address] [place] [address] Historical LMR Provider 09/10/17 05/23/21 Lindsay Burns CNM [address] [place] [address] Historical LMR Provider 09/10/17 05/23/21 Rich Rodas MD [address] [place] [address] Historical LMR Provider 09/10/17 Ambrosio Mcclellan DO [address] [place] [address] [email or web address] Historical LMR Provider 09/10/17 11/30/21 Charissa Rico MD [address] [place] [address] Insurance Assigned Provider 02/20/18 09/25/18 Charissa Rico MD [address] [place] [address] 30885 Insurance Assigned Provider 11/27/18 08/01/23 Prashanth Jalloh, [address] [address] iCMP Social Work 04/29/21 10/26/22 documented as of this encounter Additional Source Comments The information contained in this document represents components of the legal health record. It is not the complete legal health record.[facility]
--- OUTSIDE RECORDS SUMMARY | 2025-07-31 16:19 | XMS_ITS | Encounter Summary ---
Author Organization [facility] Address [address] [place] [address] Phone Care Team Providers Care Care Program Resident Name Role Phone Charissa Rico MD Primary [...] MD Unavailable [phone] Prashanth Jalloh Unavailable [phone] Charissa Rico MD Primary Care Provider [phone] Pamela Campbell Primary Care Provider Encounter Details Date Type Department Care Team (Late st Contact Info) Description 01/07/2018 Procedure Pass [facility], Ct Scan - [address] [address] Social History Tobacco Use Types Packs/Day Years [...] Start Date Job End Date Working at [employer] Not on file Not on file Not on f ile documented as of this encounter Plan of Treatment Not on file documented as of this encounter Visit Diagnoses Not on filedocumented in this encounter Care Teams Care Program Resident Relationship Specialty Start Date End Date Charissa Rico MD PCP - General 09/10/17 06/18/23 Charissa Rico MD [address] [place] [address] PCP - General Family Medicine 06/19/23 01/02/25 Pamela Campbell PA [address] [place] [address] PCP - General Physician Apprentice Architect 01/03/25 Siobhan Grossman CNM [address] [place] [address], [facility] [address] [place] [address] [email or web address] Historical LMR Provider 09/10/17 05/23/21 Siobhan Cummins CNM [address] [place] [address] Historical LMR Provider 09/10/17 05/23/21 Alexsander Roger MD [address] [place] [address] Historical LMR Provider 09/10/17 05/23/21 Melody Bland NP [address] [place] [address] [email or web address] Historical LMR Provider 09/10/17 05/23/21 Grecia Garner MD [address] [place] [address] [email or web address] Historical LMR Provider 09/10/17 05/23/21 Sena Mc CNM [address] [place] [address] [email or web address] Historical LMR Provider 09/10/17 05/23/21 Jonnathan Guerrero DO [address] [place] [address] Orthopedics & Sports Medicine, [place] [address] Historical LMR Provider 09/10/17 11/30/21 Charissa Rico MD [address] [place] [address] Historical LMR Provider 09/10/17 05/23/21 Lindsay Burns CNM [address] [address] Historical LMR Provider 09/10/17 05/23/21 Rich Rodas MD [address] [place] [address] Historical LMR Provider 09/10/17 Ambrosio Mcclellan DO [address] [place] [address] [email or web address] Historical LMR Provider 09/10/17 11/30/21 Charissa Rico MD [address] [place] [address] Insurance Assigned Provider 02/20/18 09/25/18 Charissa Rico MD [address] [place] [address] 64014 Insurance Assigned Provider 11/27/18 08/01/23 Prashanth Jalloh, [address] [address] iCMP Social Work 04/29/21 10/26/22 documented as of this encounter Additional Source Comments The information contained in this document represents components of the legal health record. It is not the complete legal health record.[facility]
--- OUTSIDE RECORDS SUMMARY | 2025-07-31 16:19 | XMS_ITS | Encounter Summary ---
Author Organization [facility] Address [address] [place] [address] Phone Care Team Providers Care Clay Digger Name Role Phone Charissa Rico MD Primary Care Provider [phone] Siobhan Grossman CNM Unavailable Siobhan Cummins CNM Unavailable [phone] Alexsander Roger MD Unavailable Melody Bland NP Unavailable [phone] Grecia Garner MD Unavailable [phone] Sena Mc CNM Unavailable [phone] Jonnathan Guerrero DO Unavailable [phone] Charissa Rico MD Unavailable [phone] Lindasy Burns CNM Unavailable [phone] Rich Rodas MD Unavailable [phone] Ambrosio Mcclellan DO Unavailable [phone] Charissa Rico MD Unavailable [phone] Charissa Rico MD Unavailable [phone] Prashanth Jalloh Unavailable [phone] Charissa Rico MD Primary Care Provider [phone] Pamela Campbell Primary Care Provider Encounter Details Date Type Department Care Team (Late st Contact Info) Description 09/16/2018 Ancillary Orders Virtual Department [address] [place] [address] Vitor Ramos MD [address] [address] [email or web address] RUQ pain; Abnormal LFTs Social History Tobacco [...] Start Date Job End Date Working at [employer] Not on file Not on file Not [...] gallbladder, as in prior study. POS - [id number] Narrative 09/17/2018 4:29 PM EDT EXAM: US [...] unremarkable gallbladder,as in prior study. POS - [id number] Vitor Ramos MD [facility] [place] ABDOMEN Final Result documented in this encounter Visit Diagnoses Diagnosis RUQ pain Abdominal pain, right upper quadrant Abnormal LFTs RUQ pain Abdominal pain, right upper quadrant Abnormal LFTs documented in this encounter Care Teams Clay Digger Relationship Specialty Start Date End Date Charissa Rico MD [email or web address] PCP - General 09/10/17 06/18/23 Charissa Rico MD [address] [place] [address] PCP - General Family Medicine 06/19/23 01/02/25 Pamela Campbell PA [address] [place] [address] PCP - General Physician Propeller Tester 01/03/25 Siobhan Grossman CNM [address] [place] [address] Historical LMR Provider 09/10/17 05/23/21 Siobhan Cummins CNM [address] [place] [address] Historical LMR Provider 09/10/17 05/23/21 Alexsander Roger MD [address] [place] [address] Historical LMR Provider 09/10/17 05/23/21 Melody Bland NP [address] [place] [address] [email or web address] Historical LMR Provider 09/10/17 05/23/21 Grecia Garner MD [address] [place] [address] Historical LMR Provider 09/10/17 05/23/21 Sena Mc CNM [address] [place] [address] Historical LMR Provider 09/10/17 05/23/21 Jonnathan Guerrero DO [address] [place] [address] Orth[facility] Sports Medicine, [place] [address] Historical LMR Provider 09/10/17 11/30/21 Charissa Rico MD [address] [place] [address] Historical LMR Provider 09/10/17 05/23/21 Lindsay Burns CNM [address] [place] [address] Historical LMR Provider 09/10/17 05/23/21 Rich Rodas MD [address] [place] [address] Historical LMR Provider 09/10/17 Ambrosio Mcclellan DO [address] [place] [address] [email or web address] Historical LMR Provider 09/10/17 11/30/21 Charissa Rico MD [address] [place] [address] Insurance Assigned Provider 02/20/18 09/25/18 Charissa Rico MD [address] [place] [address] [email or web address] Insurance Assigned Provider 11/27/18 08/01/23 Prashanht Jalloh LICSW 10 [place] [address] [email or web address] [employer] Social Work 04/29/21 10/26/22 documented as of this encounter Additional Source Comments The information contained in this document represents components of the legal health record. It is not the complete legal health record.[facility]
--- OUTSIDE RECORDS SUMMARY | 2025-07-31 16:19 | XMS_ITS | Clinical Summary ---
Author Organization [facility] Address [address] [facility] [address] [place] [address] Phone Care Team Providers Care Engineering Intern Name Role Phone Rich Rodas MD Unavailable [phone] Pamela Campbell Primary Care Provider Allergies Active Allergy Reactions Criticality Noted Date [...] 1. Obtaining an antibody screen her at [facility] and ask blood bank for : Titer [...] Overview (11/25/2018): [place] [facility] Per the patient, they recommended transfer to [facility]. U/S from 10/01 at [facility] - 1.8 x 1.1 area at caudal [...] labs. She will also see her high-risk career development associate providers. Pelvic pain affecting pregna ncy in [...] Immunization Administration Dates Next Due COVID-19 (Pre-09/14) [employer] Vaccine, mRNA, PF 09/05/2021 DTP 01/20/1996,10/22/1995,04/22/1995 Dtap, [...] Start Date Job End Date Working at [employer] Not on file Not on file Not [...] SEE NARRATIVE - 09/30/2021 1:12 [place] [address] Preschool Principal: Christi Quinones MD KRAFT MILL OPERATOR Cytology Report FINAL DIAGNOSIS A. PAP SMEAR [...] : 1995 (Age: 25) Sex: F Institution: [facility] Location: [facility] Date of Collection: 09/20/2021 Date of Reported: 09/30/2021 13:12 Results to: JESENIA Grimes us Unknown Unknown CYTOLOGY ORDERABLES Final Res ult SEE NARRATIVE * Hepatitis C antibody, qualitative (07/28/2018 2:00 PM EDT) HCV Negative Negative [facility] Comment: This is a screening test and should be confirmed with molecular testing Blood 07/28/2018 2:00 PM EDT 07/28/2018 2:09 PM EDT Siobhan Osullivan PA-C LAB BLOOD ORDERABLES Final Resu lt [address] [address] from Last 3 Months or Most Recently Relevant to Health Maintenance Insurance [facility] Advance Directives For more information, please contact: [phone] (9AM - 5PM [facility], Thursday-Thursday) Documents on File Type Date Recorded Patient Assistant Family Teacher Expl anation Healthcare Proxy 01/12/2019 12:11 PM [...] 11:17 AM 10/25/2018 4:22 PM Care Teams Engineering Intern Relationship Specialty Start Date End Date Pamela Campbell PA [address] [place] [address] PCP - General Physician Explosives Mixer Operator 01/03/25 Rich Rodas MD [address] [place] [address] [facility] [address] [place] [address] [email or web address] Historical LMR Provider 09/10/17 Additional Source Comments The information contained in this document represents components of the legal health record. It is not the complete legal health record.[facility]
[2025-08-16 09:51] VITALS: BMI 34.5
--- NOTE | 2025-08-16 10:48 | HO.ANESPROP2 ---
Documented by User: Kisha Madison NP 08/16/25 10:50 HPI - Anesthesia Eval Consult details Narrative: 29 yr old female for excision abdominal wall intramuscular mass Ankylosing spondylitis of multiple sites in spine: sees rheum, off Rinvoq since April 2025 due to insurance problems Recently treated for iritis PMFSH Active Problems Active Problems: All Active Problems Right upper quadrant pain (Acute) Greater trochanteric bursitis of both hips (Acute) De Quervain's tenosynovitis, bilateral (Acute) PUD (peptic ulcer disease) (Acute) Contraception management (Acute) Immunization counseling (Acute) Postop check (Acute) Hernia, umbilical (Acute) High risk medication use (Acute) director long term care use of drug (Acute) Hip pain, chronic (Acute) Low back pain (Acute) Recurrent infections (Acute) UTI (urinary tract infection) (Acute) Abdominal pain (Acute) Family history of colon cancer (Acute) Diarrhea (Acute) Nausea and vomiting (Acute) Abdominal wall mass of suprapubic region (Acute) GERD (gastroesophageal reflux disease) (Acute) Ankylosing spondylitis (Acute) Endometriosis (Acute) Past Medical History Medical History Abdominal wall mass of suprapubic region Retrobulbar neuritis Iritis of left eye Endometriosis determined by laparoscopy Ankylosing spondylitis GERD (gastroesophageal reflux disease) Family History Family History Father Colon cancer HTN (hypertension) Diabetes Hypercholesteremia Stage 4 lung cancer Mother Diabetes HTN (hypertension) Hypercholesteremia Maternal Grandmother Arthritis Multiple sclerosis Paternal Grandmother Arthritis Sister Multiple sclerosis Family history of problems with anesthesia: No Surgical History Surgical History History of hernia repair Hx of esophagogastroduodenoscopy Tubal ligation status Hx of section Hx of colonoscopy History of Problems with Anesthesia: No Social History Social History Household Members: Family and Children Household Members Other:: brother Housing: House Do you presently have visiting nurse or other home services: No Alcohol intake: never Patient Tobacco Use Status: Never used Tobacco e-Cigarette/Vaping Use: Never Used Second Hand Smoke Exposure: No Use of substances other than those prescribed or required for medical reasons: No Advance Directives: No Advance Directives Information Provided: Yes service: No Current occupational status: employed, unemployed and disabled 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 Allergies Allergy/AdvReac Type Severity Reaction Status Date / Time ondansetron (From ZOFRAN) AdvReac Intermediate INCREASED Verified 07/27/25 15:04 VOMTING Home Medications ?Medication ?Instructions ?Recorded ?Confirmed ?Last Taken ?Type amitriptyline 25 mg tablet 25 mg PO BEDTIME 09/19/24 08/16/25 Unknown History diclofenac sodium 50 mg 50 mg PO BID 09/19/24 08/16/25 Unknown History tablet,delayed release topiramate 50 mg tablet 50 mg PO DAILY 08/03/25 08/16/25 Unknown History Exam Height,Weight and Vital Signs: Height 5 ft 3 in Weight 88.451 kg Pertinent Lab Results Pertinent Lab Results: Laboratory Tests 07/15/25 07/15/25 08:50 08:51 WBC 10.5 RBC 4.39 Hgb 12.7 Hct 37.6 Plt Count 310 Sodium 138 Potassium 4.0 BUN 11 Creatinine 0.74 Assessment and Plan Final Anesthetic Review Family History of Problems with Anesthesia: No History of Problems with Anesthesia: No Documented by User: Catie Murrieta MD 08/18/25 12:57 [facility] Past Medical History Medical History Abdominal wall mass of suprapubic region Retrobulbar neuritis Iritis of left eye Endometriosis determined by laparoscopy Ankylosing spondylitis GERD (gastroesophageal reflux disease) Family History Family History Father Colon cancer HTN (hypertension) Diabetes Hypercholesteremia Stage 4 lung cancer Mother Diabetes HTN (hypertension) Hypercholesteremia Maternal Grandmother Arthritis Multiple sclerosis Paternal Grandmother Arthritis Sister Multiple sclerosis Surgical History Surgical History History of hernia repair Hx of esophagogastroduodenoscopy Tubal ligation status Hx of section Hx of colonoscopy Social History Social History Household Members: Family and Children Household Members Other:: brother Housing: House Do you presently have visiting nurse or other home services: No Alcohol intake: never Patient Tobacco Use Status: Never used Tobacco e-Cigarette/Vaping Use: Never Used Second Hand Smoke Exposure: No Use of substances other than those prescribed or required for medical reasons: No Advance Directives: No Advance Directives Information Provided: Yes service: No Current occupational status: employed, unemployed and disabled 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 Allergies Allergy/AdvReac Type Severity Reaction Status Date / Time ondansetron (From ZOFRAN) AdvReac Intermediate INCREASED Verified 07/27/25 15:04 VOMTING Home Medications ?Medication ?Instructions ?Recorded ?Confirmed ?Last Taken ?Type amitriptyline 25 mg tablet 25 mg PO BEDTIME 09/19/24 08/16/25 Unknown History diclofenac sodium 50 mg 50 mg PO BID 09/19/24 08/16/25 Unknown History tablet,delayed release topiramate 50 mg tablet 50 mg PO DAILY 08/03/25 08/16/25 Unknown History Exam Airway Mallampati Class: II TM Dist: >3cm Neck ROM: Full Loose/Missing/Broken Teeth: No Heart: RRR Lungs: CTA Assessment and Plan Assessment Anesthesia Assessment: Anesthesia Plan Discussed and Chart Reviewed Final Anesthetic Review NPO: Yes ASA Class: II Final Preanesthetic Review: Meds/Allgs Chart Reviewed, Consent Obtained/Reviewed and Anes Risks/Benef Reviewed Patient Risk: Low Procedure Risk: Low Anesthetic Plan Anesthetic Plan: GA Disposition: Standard PACU
[2025-08-18 09:52] VITALS: BMI 34.9
[2025-08-18] MEDS: Lactated Ringers 1,000 ML 100 ML IVCONT (10:01)
[2025-08-18 10:03] VITALS: BP 122/76; PULSE 70; RESP 16; TEMP 36.6; O2SAT 98
--- NOTE | 2025-08-18 12:37 | MHC.SHP ---
Pre-Procedural Eval Section A - 24 Hr Update-Section A only Date of Service: 08/18/25 The patient is an INPATIENT: No Changes since office visit: No Cold of Flu in the past 2 weeks, No New Medical Problems, No Changes in Medication and No Patient answered all questions The patient has been examined within 24 hours of the surgical procedure. The History & Physical has been completed within 30 days and I have reviewed it.: Yes Section B - Complete if H&P > 30 days Chief Complaint: Other intra-abdominal and pelvic swelling, mass Allergies: Allergies Allergy/AdvReac Type Severity Reaction Status Date / Time ondansetron (From ZOFRAN) AdvReac Intermediate INCREASED Verified 07/27/25 15:04 VOMTING Plan I have reviewed the history and physical and performed a pertinent physical examination on my patient. No changes have occurred unless specified. Time Spent With Patient Time: Total time managing care of this patient today ____ minutes.
[2025-08-18 14:10] VITALS: BP 113/61; PULSE 91; RESP 16; TEMP 36.5; O2SAT 100
[2025-08-18 14:15] VITALS: BP 113/66; PULSE 93; RESP 18; O2SAT 98
--- NOTE | 2025-08-18 14:16 | W.PM.OPN ---
Operative Note Operative Note Date of Service: 08/18/25 Narrative: Preop diagnosis: Abdominal wall mass, intramuscular Postop diagnosis: The same, rule out endometrioma Procedure: Excision of an intramuscular abdominal wall mass, possible endometrioma Surgeon: Danilo Daniels MD restaurant assistant manager: JESENIA Sellers The patient is 29 year old female with note of an intra-abdominal mass in the intramuscular layer suggestive of an endometrioma. In view of pain she wanted to proceed with the excision. She understood the technique of the planned procedure as well as the risks, benefits and alternatives. She understood what to expect postoperatively She was brought in the operating room. She was placed supine under general anesthesia via endotracheal tube. The area of the abdominal wall mass was prepped and draped in the usual sterile fashion. A surgical time-out was done. This was on the incision on the lower abdomen I infiltrated the planned line of incision with lidocaine 1%. I made the incision in the skin overlying this palpable mass with a blade 15. This carried down with electrocautery through the full-thickness of the thick subcutaneous fat down to the fascia. The fascia was incised and I proceeded to palpate the mass. This was a very vague indurated mass poorly defined margins. I used electrocautery to carve of the mass from within the intramuscular area circumferentially. There was oozing areas which we had to control periodically with electrocautery Circumferentially dissection was achieved. This mass was about over 3 cm in diameter, poorly defined, indurated. There was note of some dark serous fluid within areas of the specimen I copiously irrigated. Once hemostasis was confirmed, I reapposed the anterior sheath with Polysorb 2-0 simple sutures. The deep subcutaneous layer was reapposed with Polysorb 3-0 simple interrupted sutures. Skin closure was achieved with Polysorb 4-0 subcuticular running stitch. The area was infiltrated with a Marcaine 0.5% for postop analgesia. Dressings were applied and the procedure was completed She tolerated procedure well. There were no immediate complications. Initial and final counts of sponges and instruments were correct. Estimated blood loss about 25 cc. This was extubated without difficulty and transferred to the recovery room with stable vital signs.
[2025-08-18 14:20] VITALS: BP 120/67; PULSE 88; RESP 18; O2SAT 98
[2025-08-18 14:25] VITALS: BP 127/76; PULSE 88; RESP 16; O2SAT 98
[2025-08-18 14:40] VITALS: BP 135/85; PULSE 79; RESP 15; TEMP 36.1; O2SAT 97
== END 2025-08-18 15:38 | disposition home or self-care (01) ==
PROVIDERS: PCP Internal Medicine; Visit Provider Surgery
PROC: (CPT 22900; principal; 2025-08-18 13:00)
DX: R19.09 Other intra-abdominal and pelvic swelling, mass and lump (principal); N80.129 Deep endometriosis of ovary, unspecified ovary; M45.9 Ankylosing spondylitis of unspecified sites in spine; H46.10 Retrobulbar neuritis, unspecified eye; H20.022 Recurrent acute iridocyclitis, left eye; K21.9 Gastro-esophageal reflux disease without esophagitis; Z79.1 Long term (current) use of non-steroidal anti-inflammatories (NSAID); Z79.899 Other long term (current) drug therapy; Z88.8 Allergy status to other drugs, medicaments and biological substances; Z98.890 Other specified postprocedural states
CPT/HCPCS: 22900; 88304; J0690; J1100; J1200; J1885; J2003; J2250; J2704; J2795; J3010

== ENCOUNTER → 2025-08-18 08:55 | Outpatient (BNV) | payer OTHER, SELFPAY | PROVIDERS: PCP Internal Medicine; Visit Provider Surgery | DX: R19.00 Intra-abdominal and pelvic swelling, mass and lump, unspecified site (principal); N80.129 Deep endometriosis of ovary, unspecified ovary | CPT/HCPCS: 11403 ==

== ENCOUNTER 2025-08-31 09:36 | Outpatient (AMB) | payer OTHER, SELFPAY ==
--- NOTE | 2025-08-31 09:37 | A.OFFVIS_ITS ---
Vital Signs 08/31/25 09:44 Weight 198 lb BP 131/71 Blood Pressure Location Rt brachial Position Sitting Pulse 68 Intake Visit Reasons: S/P excision abdominal wall intramuscular mass Intake Note: Patient here s/p excision of an intramuscular abdominal wall mass, possible endometrioma. Patient c/o: itch along incision. Reports site healing well. Denies bleeding, pain. No longer taking rx pain meds. Surgery (): 08-18-2025 Youth Career Specialist Required: No Accompanied by: Self / Same As Patient Allergies ondansetron (From ZOFRAN) Adverse Reaction (Intermediate, Verified 08/31/25 09:43) INCREASED VOMTING HPI HPI S/P excision abdominal wall intramuscular mass: Details: Ms. Renner is a 29 year old female here for a wound check following excision of an intramuscular abdominal wall mass on 08/18/[address] Daniels. She tolerated the procedure well. She only took a few of the percocet tablets following the procedure. She reports feeling well today with only mild soreness and itching at the incision site. She is eating ok. She does report constipation with small hard bowel movements every few days which is not normal for her. She otherwise has no concerns. Pathology reviewed. [facility] Medical History (Updated 08/31/25 @ 09:59 by Susan Gonzalez PA-C) Abdominal wall mass of suprapubic region Retrobulbar neuritis Iritis of left eye Endometriosis determined by laparoscopy Ankylosing spondylitis GERD (gastroesophageal reflux disease) Surgical History (Updated 08/31/25 @ 08:45 by MARINE Smyth) Hx of surgical procedure (08/18/25) History of hernia repair Hx of esophagogastroduodenoscopy Tubal ligation status Hx of section Hx of colonoscopy Family History Father Colon cancer HTN (hypertension) Diabetes Hypercholesteremia Stage 4 lung cancer Mother Diabetes HTN (hypertension) Hypercholesteremia Maternal Grandmother Arthritis Multiple sclerosis Paternal Grandmother Arthritis Sister Multiple sclerosis Social History Household Members: Family and Children Household Members Other:: brother Housing: House Do you presently have visiting nurse or other home services: No Alcohol intake: never Patient Tobacco Use Status: Never used Tobacco e-Cigarette/Vaping Use: Never Used Second Hand Smoke Exposure: No service: No Current occupational status: employed, unemployed and disabled 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 Review of Systems Const Denies chills and Denies fever(s) GI Reports as per HPI, Denies nausea and Denies vomiting Skin/Breast Denies rash Physical Exam Vital Signs: Last Vital Signs Pulse 68 08/31/25 09:44 BP 131/71 08/31/25 09:44 Const General: comfortable, no acute distress and alert Orientation/consciousness: patient oriented x3 Resp Effort & Inspection: normal respiratory effort GI Other: abdomen soft, nondistended her incision site at prior pfannsteil scar is well approximated and well healed without surrounding erythema, she does have mild induration underlying Skin General skin exam: no rashes or lesions noted Neuro General: patient oriented x3 and moves all extremities Results Reviewed Results Reviewed: Soft tissue, abdominal wall mass, excision: Endometrioma, transected at the margins Assessment & Plan Assessment & Plan (1) Abdominal wall mass of suprapubic region: Code(s): R19.09 - Other intra-abdominal and pelvic swelling, mass and lump Category: Medical (2) Constipation: Code(s): K59.00 - Constipation, unspecified Category: Medical Plan 29 year old female s/p excision of an intramuscular abdominal wall mass on 08/18/25. Pathology revealed endometrioma as expected and this was discussed with the patient. She tolerated the procedure well and her incision is well healed without evidence of infection. She does report continued constipation and she was instructed to take a stool softener twice a day until she begins to go normally. A presciption for colace was sent to her pharmacy. She was also instructed to increase her water and fiber intake or use a fiber supplementation such as miralax or citrucel daily. She can follow up as needed if her constipation persists or develops new concerns. All questions answered and she is comfortable with the plan. Medications: New docusate sodium (Colace) 100 mg PO BID 30 caps 0RF Coding Level of Care Code Global (67326) Diagnoses Abdominal wall mass of suprapubic region R19.09 Constipation K59.00
[2025-08-31 09:44] VITALS: BP 131/71; PULSE 68
== END 2025-08-31 09:49 | disposition home or self-care (01) ==
LOC: HO.HGS 09:36
PROVIDERS: PCP Physician Assistant; Visit Provider Physician Assistant Surgical
DX: R19.09 Other intra-abdominal and pelvic swelling, mass and lump (principal); K59.00 Constipation, unspecified
CPT/HCPCS: 99024

== ENCOUNTER → 2025-08-31 09:36 | Outpatient (BNVA) | payer OTHER, SELFPAY | PROVIDERS: PCP Physician Assistant; Visit Provider Physician Assistant Surgical | DX: R19.09 Other intra-abdominal and pelvic swelling, mass and lump (principal); K59.00 Constipation, unspecified | CPT/HCPCS: 99212 ==

== ENCOUNTER 2025-11-09 13:26 | Outpatient (REF) | payer OTHER, SELFPAY ==
--- OUTSIDE RECORDS SUMMARY | 2025-11-09 17:35 | XMS_ITS | Encounter Summary ---
Author Organization [facility] Address [address] [place] [address] Phone Care Team Providers Care Carpet Technician Name Role Phone Charissa Rico MD Primary Care Provider [phone] Siobhan Grossman CNM Unavailable Siobhan Cummins CNM Unavailable [phone] Alexsander Roger MD Unavailable Melody Bland NP Unavailable [phone] Grecia Garner MD Unavailable Sena Mc CNM Unavailable [phone] Jonnathan Guerrero DO Unavailable Charissa Rico MD Unavailable [phone] Lindsay Burns CNM Unavailable [phone] Rich Rodas MD Unavailable [phone] Ambrosio Mcclellan DO Unavailable [phone] Charissa Rico MD Unavailable [phone] Charissa Rico MD Unavailable [phone] Prashanth Jalloh Unavailable [phone] Charissa Rico MD Primary Care Provider [phone] Pamela Campbell Primary Care Provider [phone] Charissa Rico MD Unavailable [phone] Encounter Details Date Type Department Care Team (Late st Contact Info) Description 09/16/2018 Ancillary Orders Virtual Department 30 [place] [address] Vitor Ramos MD [address] [address] [email or web address] RUQ pain; Abnormal LFTs Social History Tobacco [...] Start Date Job End Date Working at [employer] Not on file Not on file Not [...] gallbladder, as in prior study. POS - [id number] Narrative 09/17/2018 4:29 PM EDT EXAM: US [...] unremarkable gallbladder,as in prior study. POS - [id number] us Vitor Ramos MD IM US ABDOMEN Final Result documented in this encounter Visit Diagnoses Diagnosis RUQ pain Abdominal pain, right upper quadrant Abnormal LFTs RUQ pain Abdominal pain, right upper quadrant Abnormal LFTs documented in this encounter Care Teams Carpet Technician Relationship Specialty Start Date End Date Charissa Rico MD PCP - General 09/10/17 06/18/23 Charissa Rico MD [address] [place] [address] PCP - General Family Medicine 06/19/23 01/02/25 Pamela Campbell PA [address] [place] [address] PCP - General Physician Senior Quality Engineer 01/03/25 Siobhan Grossman CNM [address] [place] [address] Historical LMR Provider 09/10/17 05/23/21 Siobhan Cummins CNM [address] [place] [address] Historical LMR Provider 09/10/17 05/23/21 Alexsander Roger MD [address] [place] [address] Historical LMR Provider 09/10/17 05/23/21 Melody Bland NP [address] [place] [address] [email or web address] Historical LMR Provider 09/10/17 05/23/21 Grecia Garner MD [address] [place] [address] Historical LMR Provider 09/10/17 05/23/21 Sena Mc CNM [address] [place] [address] Historical LMR Provider 09/10/17 05/23/21 Jonnathan Guerrero DO [address] [place] [address] Orthopedics & Sports Medicine, [place] [address] Historical LMR Provider 09/10/17 11/30/21 Charissa Rico MD [address] [place] [address] Historical LMR Provider 09/10/17 05/23/21 Lindsay Burns CNM [address] [place] [address] Historical LMR Provider 09/10/17 05/23/21 Rich Rodas MD [address] [place] [address] Historical LMR Provider 09/10/17 Ambrosio Mcclellan DO [address] [place] [address] [email or web address] Historical LMR Provider 09/10/17 11/30/21 Charissa Rico MD [address] [place] [address] Insurance Assigned Provider 02/20/18 09/25/18 Charissa Rico MD [address] [place] [address] [email or web address] Insurance Assigned Provider 11/27/18 08/01/23 Prashanth Jalloh CORDWOOD CUTTER [address] [place] [address] [email or web address] [facility] Grassroots Organizer 04/29/21 10/26/22 Charissa Rico MD [address] [place] [address] [email or web address] Insurance Assigned Provider 10/07/25 documented as of this encounter Additional Source Comments The information contained in this document represents components of the legal health record. It is not the complete legal health record.[facility]
--- OUTSIDE RECORDS SUMMARY | 2025-11-09 17:35 | XMS_ITS | Clinical Summary ---
Author Organization [facility] Address [address] [place] [address] [place] [address] Phone Care Team Providers Care Tower Hoist Operator Name Role Phone Rich Rodas MD Unavailable Pamela Campbell Primary Care Provider [phone] Charissa Rico MD Unavailable [phone] Allergies Active Allergy Reactions Criticality Noted Date [...] 1. Obtaining an antibody screen her at [facility] and ask blood bank [...] Overview (11/25/2018): Was seen and evaluated at [facility]. Per the patient, they recommended transfer to [facility]. [place] [facility] [place] 1.8 x 1.1 [...] labs. 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 Pelvic pain affecting pregna ncy in [...] Immunization Administration Dates Next Due COVID-19 (Pre-09/14) [employer] Vaccine, mRNA, PF 09/05/2021 DTP 01/20/1996,10/22/1995,04/22/1995 Dtap, [...] Start Date Job End Date Working at [email or web address] Not on file Not on file Not [...] VACCINES (0-49 years) (2 of 2 - PPSV23, PCV20, or PCV21) 12/03/2021 10/08/2021 DEPRESSION SCREENING 05/06/2022 05/06/2021 PAP [...] HEPATITIS C SCREENING Completed 07/17/2023 , 07/28/2018, 07/28/2018, Additional history exists MENINGOCOCCAL VACCINES (B) Aged Out N o [...] SEE NARRATIVE - 09/30/2021 1:12 [place] [address] Web Marketing Specialist: Christi Quinones MD DELICATESSEN STORE MANAGER Cytology Report FINAL DIAGNOSIS A. PAP SMEAR [...] : 1995 (Age: 25) Sex: F Institution: [facility] Location: [facility] Date of Collection: 09/20/2021 Date of Reported: 09/30/2021 13:12 Results to: JESENIA Grimes us Unknown Unknown MD CYTOLOGY ORDERABLES Final Res ult SEE NARRATIVE * Hepatitis C antibody, qualitative (07/28/2018 2:00 PM EDT) HCV Negative Negative [facility] Comment: This is a screening test and should be confirmed with molecular testing Blood 07/28/2018 2:00 PM EDT 07/28/2018 2:09 PM EDT Siobhan Osullivan PA-C LAB BLOOD BKR ORDERABLES Final Result [facility] [address] [place] [address] from Last 3 Months or Most Recently Relevant to Health Maintenance Insurance [facility] [place] [phone] Advance Directives For more information, please contact: [phone] (9AM - 5PM [facility], Thursday-Thursday) Documents on File Type Date Recorded Patient Nozzle Operator Expl anation Healthcare Proxy 01/12/2019 12:11 PM [...] 11:17 AM 10/25/2018 4:22 PM Care Teams Tower Hoist Operator Relationship Specialty Start Date End Date Pamela Campbell PA [address] [place] [address] PCP - General Physician Aluminum Container Tester 01/03/25 Rich Rodas MD [address] [place] [address], [facility] [email or web address] [address] [place] [address] [email or web address] Historical LMR Provider 09/10/17 Charissa Rico MD [address] [place] [address] [email or web address] Insurance Assigned Provider 10/07/25 Additional Source Comments The information contained in this document represents components of the legal health record. It is not the complete legal health record.[facility]
--- OUTSIDE RECORDS SUMMARY | 2025-11-09 17:35 | XMS_ITS | Encounter Summary ---
Author Organization [facility] Address [address] [place] [address] Phone Care Team Providers Care Information Services Tech Name Role Phone Charissa Rico MD Primary Care Provider [phone] Siobhan Grossman CNM Unavailable Siobhan Cummins CNM Unavailable [phone] Alexsander Roger MD Unavailable Melody Bland [...] MD Unavailable [phone] Prashanth Jalloh Unavailable [phone] Charissa Rico MD Primary Care Provider [phone] Pamela Campbell Primary Care Provider [phone] Charissa Rico MD Unavailable Encounter Details Date Type Department Care Team (Late st Contact Info) Description 01/08/2018 Ancillary Orders Virtual Department [address] [place] [address] Amy Calderon PA-C [address] [place] [address] [email or web address] Pelvic pain Social History Tobacco Use [...] Start Date Job End Date Working at [employer] Not on file Not on file Not [...] ovarian cyst POS - [id number] us Amy Calderon PA-C IMG US PELVIS Final Res ult documented in this encounter Visit Diagnoses Diagnosis Pelvic pain Pelvic pain documented in this encounter Care Teams Information Services Tech Relationship Specialty Start Date End Date Charissa Rico MD PCP - General 09/10/17 06/18/23 Charissa Rico MD [address] [place] [address] PCP - General Family Medicine 06/19/23 01/02/25 Pamela Campbell PA [address] [place] [address] PCP - General Physician Stonecutter 01/03/25 Siobhan Grossman CNM [address] [place] [address] Historical LMR Provider 09/10/17 05/23/21 Siobhan Cummins CNM [address] [place] [address] Historical LMR Provider 09/10/17 05/23/21 Alexsander Roger MD [address] [place] [address] Historical LMR Provider 09/10/17 05/23/21 Melody Bland NP [address] [place] [address] [email or web address] Historical LMR Provider 09/10/17 05/23/21 Grecia Garner MD [address] [place] [address] Historical LMR Provider 09/10/17 05/23/21 Sena Mc CNM [address] [place] [address] Historical LMR Provider 09/10/17 05/23/21 Jonnathan Guerrero DO [address] [place] [address] Orthopedics & Sports Medicine, [place] [address] Historical LMR Provider 09/10/17 11/30/21 Charissa Rico MD [address] [place] [address] Historical LMR Provider 09/10/17 05/23/21 Lindsay Burns CN [address] [place] [address] [email or web address] Historical LMR Provider 09/10/17 05/23/21 Rich Rodas MD [address] [place] [address] [email or web address] Historical LMR Provider 09/10/17 Ambrosio Mcclellan DO [address] [place] [address] [email or web address] Historical LMR Provider 09/10/17 11/30/21 Charissa Rico MD [address] [place] [address] [email or web address] Insurance Assigned Provider 02/20/18 09/25/18 Charissa Rico MD [address] [place] [address] [email or web address] Insurance Assigned Provider 11/27/18 08/01/23 Prashanth Jalloh, [address] [address] [email or web address] PHCM Bond Underwriter 04/29/21 10/26/22 Charissa Rico MD [address] [place] [address] [email or web address] Insurance Assigned Provider 10/07/25 documented as of this encounter Additional Source Comments The information contained in this document represents components of the legal health record. It is not the complete legal health record.[facility]
--- OUTSIDE RECORDS SUMMARY | 2025-11-09 17:35 | XMS_ITS | Encounter Summary ---
Author Organization [facility] Address [address] [place] [address] Phone Care Team Providers Care Steam Finisher Name Role Phone Charissa Rico MD Primary Care Provider [phone] Siobhan Grossman CNM Unavailable Siobhan Cummins CNM Unavailable [phone] Alexsander Roger MD Unavailable Melody Bland [...] MD Unavailable [phone] Prashanth Jalloh Unavailable [phone] Charissa Rico MD Primary Care Provider [phone] Pamela Campbell Primary Care Provider [phone] Charissa Rico MD Unavailable Encounter Details Date Type Department Care Team (Late st Contact Info) Description 01/07/2018 Procedure Pass [facility], Ct Scan - [address] [address] Social History Tobacco Use Types Packs/Day Years [...] Start Date Job End Date Working at [employer] Not on file Not on file Not on f ile documented as of this encounter Plan of Treatment Not on file documented as of this encounter Visit Diagnoses Not on filedocumented in this encounter Care Teams Steam Finisher Relationship Specialty Start Date End Date Charissa Rico MD PCP - General 09/10/17 06/18/23 Charissa Rico MD [address] [place] [address] PCP - General Family Medicine 06/19/23 01/02/25 Pamela Campbell PA [address] [place] [address] PCP - General Physician Pony Rougher 01/03/25 Siobhan Grossman CNM [address] [place] [address], [address] [place] [address] Historical LMR Provider 09/10/17 05/23/21 Siobhan Cummins CNM [address] [place] [address] Historical LMR Provider 09/10/17 05/23/21 Alexsander Roger MD [address] [place] [address] Historical LMR Provider 09/10/17 05/23/21 Melody Bland NP [address] [place] [address] [email or web address] Historical LMR Provider 09/10/17 05/23/21 Grecia Garner MD [address] [place] [address] [email or web address] Historical LMR Provider 09/10/17 05/23/21 Sena Mc CNM [address] [place] [address] Historical LMR Provider 09/10/17 05/23/21 Jonnathan Guerrero DO [address] [place] [address] Orthopedics & Sports Medicine, [facility] [place] [address] Historical LMR Provider 09/10/17 11/30/21 Charissa Rico MD [address] [place] [address] Historical LMR Provider 09/10/17 05/23/21 Lindsay Burns CNM [address] [place] [address] Historical LMR Provider 09/10/17 05/23/21 Rich Rodas MD [address] [place] [address] Historical LMR Provider 09/10/17 Ambrosio Mcclellan DO [address] [place] [address] [email or web address] Historical LMR Provider 09/10/17 11/30/21 Charissa Rico MD [address] [place] [address] Insurance Assigned Provider 02/20/18 09/25/18 Charissa Rico MD [address] [place] [address] Insurance Assigned Provider 11/27/18 08/01/23 Prashanth Jalloh MECHANIC CHIEF [address] [place] [address] [facility] Manufacturing Engineering Technologist 04/29/21 10/26/22 Charissa Rico MD [address] [place] [address] Insurance Assigned Provider 10/07/25 documented as of this encounter Additional Source Comments The information contained in this document represents components of the legal health record. It is not the complete legal health record.[facility]
--- OUTSIDE RECORDS SUMMARY | 2025-11-09 17:35 | XMS_ITS | Encounter Summary ---
Author Organization [facility] Address [address] [place] [address] Phone Care Team Providers Care Voice Over Artist Name Role Phone Charissa Rico MD Primary Care Provider [phone] Siobhan Grossman CNM Unavailable Siobhan Cummins CNM Unavailable [phone] Alexsander Roger MD Unavailable Melody Bland [...] MD Unavailable [phone] Prashanth Jalloh Unavailable [phone] Charissa Rico MD Primary Care Provider [phone] Pamela Campbell Primary Care Provider [phone] Charissa Rico MD Unavailable Encounter Details Date Type Department Care Team (Late st Contact Info) Description 12/31/2017 Ancillary Orders [facility] External Provider Virtual Department [address] [place] [address] Vitor Ramos MD 10 [facility] 2 [place] [address] [email or web address] Abdominal pain, unspecified abdominal location; Diarrhea, unspecified [...] Start Date Job End Date Working at [email or web address] Application Not on file Not on file Not [...] for the patient's pain and vomiting. POS [id number] Narrative 02/19/2018 9:48 AM EDT COMPARISON: CT [...] for the patient's pain and vomiting. POS [id number] us Vitor Ramos MD IMG US ABDOMEN Final Result documented in this encounter Visit Diagnoses Diagnosis Abdominal pain, unspecified abdominal location Diarrhea, unspecified type Abdominal pain, unspecified abdominal location Diarrhea, unspecified type documented in this encounter Care Teams Voice Over Artist Relationship Specialty Start Date End Date Charissa Rico MD PCP - General 09/10/17 06/18/23 Charissa Rico MD [address] [place] [address] PCP - General Family Medicine 06/19/23 01/02/25 Pamela Campbell PA [address] [place] [address] PCP - General Physician Sales And Operations Trainee 01/03/25 Siobhan Grossman CNM [address] [place] [address], [address] [place] [address] Historical LMR Provider 09/10/17 05/23/21 Siobhan Cummins CNM [address] [place] [address] Historical LMR Provider 09/10/17 05/23/21 Alexsander Roger MD [address] [place] [address] Historical LMR Provider 09/10/17 05/23/21 Melody Bland NP [address] [place] [address] [email or web address] Historical LMR Provider 09/10/17 05/23/21 Grecia Garner MD [address] [place] [address] [email or web address] Historical LMR Provider 09/10/17 05/23/21 Sena Mc CNM [address] [place] [address] [email or web address] Historical LMR Provider 09/10/17 05/23/21 Jonnathan Guerrero DO [address] [place] [address] Orthopedics & Sports Medicine, [facility] [address] Historical LMR Provider 09/10/17 11/30/21 Charissa Rico MD [address] [place] [address] Historical LMR Provider 09/10/17 05/23/21 Lindsay Burns CNM [address] [place] [address] Historical LMR Provider 09/10/17 05/23/21 Rich Rodas MD [address] [place] [address] Historical LMR Provider 09/10/17 Ambrosio Mcclellan DO [address] [place] [address] [email or web address] Historical LMR Provider 09/10/17 11/30/21 Charissa Rico MD [address] [place] [address] Insurance Assigned Provider 02/20/18 09/25/18 Charissa Rico MD [address] [place] [address] Insurance Assigned Provider 11/27/18 08/01/23 Prashanth Jalloh, SHELL CORE AND MOLDING SUPERVISOR [address] [place] [address] [facility] Solar Sales Energy Advisor 04/29/21 10/26/22 Charissa Rico MD [address] [place] [address] Insurance Assigned Provider 10/07/25 documented as of this encounter Additional Source Comments The information contained in this document represents components of the legal health record. It is not the complete legal health record.[facility]
--- OUTSIDE RECORDS SUMMARY | 2025-11-09 17:35 | XMS_ITS | Encounter Summary ---
Author Organization [facility] Address [address] [place] [address] Phone Care Team Providers Care Cosmetics Machine Operator Name Role Phone Charissa Rico MD Primary Care Provider [phone] Siobhan Grossman CNM Unavailable Siobhan Cummins CNM Unavailable [phone] Alexsander Roger MD Unavailable Melody Bland NP Unavailable [phone] Grecia Garner MD Unavailable [phone] Sena Mc CNM Unavailable [phone] Jonnathan Guerrero DO Unavailable [phone] Charissa Rico MD Unavailable [phone] Lindsay Burns CNM Unavailable + [phone] Rich Rodas MD Unavailable [phone] Ambrosio Mcclellan DO Unavailable [phone] Charissa Rico MD Unavailable [phone] Prashanth Jalloh Unavailable [phone] Charissa Rico MD Primary Care Provider [phone] Pamela Campbell Primary Care Provider [phone] Charissa Rico MD Unavailable [phone] Encounter Details Date Type Department Care Team (Late st Contact Info) Description 01/07/2019 Procedure Pass [facility] L&D Procedures [address] [place] [address] Social History Tobacco Use Types Packs/Day Years [...] Start Date Job End Date Working at [employer] Not on file Not on file Not on f ile documented as of this encounter Plan of Treatment Not on file documented as of this encounter Visit Diagnoses Not on filedocumented in this encounter Care Teams Cosmetics Machine Operator Relationship Specialty Start Date End Date Charissa Rico MD PCP - General 09/10/17 06/18/23 Charissa Rico MD [address] [place] [address] PCP - General Family Medicine 06/19/23 01/02/25 Pamela Campbell PA [address] [place] [address] PCP - General Physician Instructional Support Specialist 01/03/25 Siobhan Grossman CNM [address] [place] [address] Historical LMR Provider 09/10/17 05/23/21 Siobhan Cummins CNM [address] [address] Historical LMR Provider 09/10/17 05/23/21 Alexsander Roger MD [address] [address] Historical LMR Provider 09/10/17 05/23/21 Melody Bland NP [address] [place] [address] [email or web address] Historical LMR Provider 09/10/17 05/23/21 Grecia Garner MD [address] [place] [address] Historical LMR Provider 09/10/17 05/23/21 Sena Mc CNM [address] [address] Historical LMR Provider 09/10/17 05/23/21 Jonnathan Guerrero DO [address] [place] [address] [facility], [place] [address] Historical LMR Provider 09/10/17 11/30/21 Charissa Rico MD [address] [place] [address] Historical LMR Provider 09/10/17 05/23/21 Lindsay Burns CNM [address] [address] Historical LMR Provider 09/10/17 05/23/21 Rich Rodas MD [address] [place] [address] Historical LMR Provider 09/10/17 Ambrosio Mcclellan DO [address] [place] [address] [email or web address] Historical LMR Provider 09/10/17 11/30/21 Charissa Rico MD [address] [place] [address] Insurance Assigned Provider 11/27/18 08/01/23 Prashanth Jalloh LICSW [address] [place] [address] PHC Property And Supply Officer 04/29/21 10/26/22 Charissa Rico MD [address] [place] [address] Insurance Assigned Provider 10/07/25 documented as of this encounter Additional Source Comments The information contained in this document represents components of the legal health record. It is not the complete legal health record.[facility]
--- OUTSIDE RECORDS SUMMARY | 2025-11-09 17:35 | XMS_ITS | Encounter Summary ---
Author Organization [facility] Address [address] [place] [address] Phone Care Team Providers Care Electrical Checkout Mechanic Name Role Phone Charissa Rico MD Primary Care Provider [phone] Siobhan Grossman CNM Unavailable Siobhan Cummins CNM Unavailable [phone] Alexsander Roger MD Unavailable Melody Bland [...] MD Unavailable [phone] Prashanth Jalloh Unavailable [phone] Charissa Rico MD Primary Care Provider [phone] Pamela Campbell Primary Care Provider [phone] Charissa Rico MD Unavailable [phone] Encounter Details Date Type Department Care Team (Latest Contact Info) Description 07/28/2018 Transcribe Orders [facility] Phleb [facility] [address] [place] [address] Siobhan Osullivan PA-C [address] [place] [address] [email or web address] Elevated LFTs (Primary Dx); Loss of weight; [...] Start Date Job End Date Working at [employer] Not on file Not on file Not on f ile documented as of this encounter Plan of Treatment Not on file documented as of this encounter Results * Ferritin (07/28/2018 2:00 PM EDT) FERRITIN 79 13 - 150 ug/L [facility] Blood 07/28/2018 2:00 PM EDT 07/28/2018 2:09 PM EDT us Siobhan Osullivan PA-C LAB BLOOD BKR ORDERABLES Final Result [facility] [address] [place] [address] * (ABNORMAL) TSH (07/28/2018 2:00 PM EDT) TSH <0.01(L) 0.27 - 4.20 uIU/mL [facility] Blood 07/28/2018 2:00 PM EDT 07/28/2018 2:09 PM EDT us Siobhan Osullivan PA-C LAB BLOOD BKR ORDERABLES Final Result Performing Organization Address City/[facility]/ZIP Co de Phone Number [address] [address] * Iron and iron binding capacity (07/28/2018 2:00 PM EDT) IRON 62 30 - 160 ug/dL [facility] IRON BINDING CAPACITY 342 228 - 428 ug/dL [facility] TRANSFERRIN SATURAT. 18 15 - 50 % [facility] Blood 07/28/2018 2:00 PM EDT 07/28/2018 2:09 PM EDT us Siobhan Osullivan PA-C LAB BLOOD BKR ORDERABLES Final Result Performing Organization Address [facility] Co de Phone Number [address] [address] * Hepatitis C antibody, qualitative (07/28/2018 2:00 PM EDT) HCV Negative Negative [facility] Comment: This is a screening test and should be confirmed with molecular testing Blood 07/28/2018 2:00 PM EDT 07/28/2018 2:09 PM EDT us Siobhan Osullivan PA-C LAB BLOOD BKR ORDERABLES Final Result [address] [address] * Hepatitis B surface antigen (07/28/2018 2:00 PM EDT) HBV SURFACE ANTIGEN Negative Negative [facility] Blood 07/28/2018 2:00 PM EDT 07/28/2018 2:09 PM EDT us Siobhan Osullivan PA-C LAB BLOOD BKR ORDERABLES Final Result [address] [place] [address] * Hepatitis A antibody, IgM (07/28/2018 2:00 PM EDT) Hepatitis A Antibody, IgM Negative Negative [facility] Blood 07/28/2018 2:00 PM EDT 07/28/2018 2:09 PM EDT us Siobhan Osullivan PA-C LAB BLOOD BKR ORDERABLES Final Result [address] [address] * (ABNORMAL) Comprehensive metabolic panel (07/28/2018 2:00 PM EDT) SODIUM 137 133 - 146 mmol/L [facility] POTASSIUM 4.1 3.3 - 5.1 mmol/L [facility] CHLORIDE 100 96 - 108 mmol/L [facility] CO2 24 21 - 35 mmol/L [facility] BUN 7 6 - 19 mg/dL [facility] CREATININE <0.50(L) 0.5 - 1.5 mg/dL [facility] GLUCOSE 79 70 - 99 mg/dL [facility] ALBUMIN 4.1 3.9 - 4.8 g/dL [facility] TOTAL PROTEIN 7.5 6.5 - 8.0 g/dL [facility] CALCIUM 9.6 8.4 - 10.3 mg/dL [facility] ALKALINE PHOSPHATASE 57 39 - 117 U/L [facility] TOTAL BILIRUBIN 0.6 0.0 - 1.2 mg/dL [facility] AST 99(H) 0 - 37 U/L [facility] ALT 245(H) 0 - 40 U/L [facility] GLOBULIN 3.4 1 - 4.8 g/dL [facility] EGFR Not Done >59 mL/min/1.7 3m2 [facility] ANION GAP 17 10 - 20 mmol/L [facility] Blood 07/28/2018 2:00 PM EDT 07/28/2018 2:09 PM EDT us Siobhan Osullivan PA-C LAB BLOOD BKR ORDERABLES Final Result [facility] [address] [place] [address] * Ceruloplasmin (07/28/2018 2:00 PM EDT) CERULOPLASMIN,S 46.8 20.0 - 51.0 mg/dL [facility] DPT OF LAB MED AND PAT+ Blood 07/28/2018 2:00 PM EDT 07/28/2018 2:09 PM EDT us Siobhan Osullivan PA-C LAB BLOOD ORDERABLES Final Resu lt [facility] DPT OF LAB MED AND PAT+ [address] [place] [address] * (ABNORMAL) CBC (07/28/2018 2:00 PM EDT) WBC 12.57(H) 3.40 - 11.20 K/uL [facility] RBC 4.31 3.80 - 4.80 M/uL [facility] HGB 12.2 12.0 - 15.0 g/dL [facility] HCT 36.9 36.0 - 46.0 % [facility] PLT 277 130 - 400 K/uL [facility] MCV 85.6 79.0 - 98.0 fL [facility] MCH 28.3 27.0 - 34.8 pg [facility] MCHC 33.1 31.5 - 36.0 g/dL [facility] RDW 13.2 10.8 - 14.6 % [facility] MPV 12.0 9.4 - 12.4 fl [facility] NRBC 0.00 /100 WBCs [facility] ABSOLUTE NRBC 0.00 K/uL [facility] Blood 07/28/2018 2:00 PM EDT 07/28/2018 2:09 PM EDT us Siobhan Osullivan PA-C LAB BLOOD BKR ORDERABLES Final Result [facility] [address] [place] [address] * Tissue transglutaminase IgA (07/28/2018 2:00 PM EDT) TTG IGA ANTIBODY <1.2 <4.0 (Negative) U/mL [facility] DPT OF LAB MED AND PAT+ Blood 07/28/2018 2:00 PM EDT 07/28/2018 2:09 PM EDT Siobhan Osullivan PA-C LAB BLOOD BKR ORDERABLES Final Result Performing Organization Address [facility] Co de Phone Number [facility] DPT OF LAB MED AND PAT+ [address] [place] [address] * Smooth Muscle Antibody (07/28/2018 2:00 PM EDT) ANTI-SMOOTH MUSCLE AB Negative Negative [facility] DPT OF LAB MED AND PAT+ Comment: (NOTE) ADDITIONAL INFORMATION This test was developed and its performance characteristics determined by [facility] in a manner consistent with CLIA requirements. This test has not been cleared or approved by the U.S. Food and Drug Administration. Blood 07/28/2018 2:00 PM EDT 07/28/2018 2:09 PM EDT Siobhan Osullivan PA-C LAB BLOOD ORDERABLES Final Resu lt Performing Organization Address City/[facility]/ZIP Co de Phone Number [facility] DPT OF LAB MED AND PAT+ [address] [place] [address] * (ABNORMAL) Antinuclear antibody (LISA) (07/28/2018 2:00 PM EDT) LISA SCREEN ON HEP 2 Positive(A ) Negative [facility] Comment:An LISA Titer has bee n reflexed. The results will follow. Blood 07/28/2018 2:00 PM EDT 07/28/2018 2:09 PM EDT us Siobhan Osullivan PA-C LAB BLOOD BKR ORDERABLES Final Result [facility] [address] [place] [address] * Anti-Mitochondrial Antibody (AMA) (07/28/2018 2:00 PM EDT) MITOCHONDRIAL AB M2 <0.1 <0.1 (Negative) U [facility] DPT OF LAB MED AND PAT+ Blood 07/28/2018 2:00 PM EDT 07/28/2018 2:09 PM EDT us Siobhan Osullivan PA-C LAB BLOOD ORDERABLES Final Resu lt Performing Organization Address City/[facility] Co de Phone Number [facility] DPT OF LAB MED AND PAT+ [address] [place] [address] * (ABNORMAL) [id number] phenotyping (07/28/2018 2:00 PM EDT) ALPHA 1 ANTITRYPSIN 256(H) 100 - 190 mg/dL [facility] DPT OF LAB MED AND PAT+ A1A PHENOTYPE MM bands [facility] DPT OF LAB MED AND PAT+ Blood 07/28/2018 2:00 PM EDT 07/28/2018 2:09 PM EDT us Siobhan Osullivan PA-C LAB BLOOD ORDERABLES Final Resu lt Performing Organization Address City/[facility]/ZIP Co de Phone Number [facility] DPT OF LAB MED AND PAT+ [address] [place] [address] documented in this encounter Visit Diagnoses Diagnosis Elevated LFTs- Primary Other abnormal blood chemistry Loss of weight Hyperemesis Persistent vomiting documented in this encounter Care Teams Electrical Checkout Mechanic Relationship Specialty Start Date End Date Charissa Rico MD PCP - General 09/10/17 06/18/23 Charissa Rico MD [address] [place] [address] PCP - General Family Medicine 06/19/23 01/02/25 Pamela Campbell PA [address] [place] [address] PCP - General Physician Wash House Worker 01/03/25 Siobhan Grossman CNM [address] [place] [address] Historical LMR Provider 09/10/17 05/23/21 Siobhan Cummins CNM [address] [place] [address] Historical LMR Provider 09/10/17 05/23/21 Alexsander Roger MD [address] [place] [address] Historical LMR Provider 09/10/17 05/23/21 Melody Bland NP [address] [place] [address] [email or web address] Historical LMR Provider 09/10/17 05/23/21 Grecia Garner MD [address] [place] [address] Historical LMR Provider 09/10/17 05/23/21 Sena Mc CNM [address] [place] [address] Historical LMR Provider 09/10/17 05/23/21 Jonnathan Guerrero DO [address] [place] [address] [facility] Medicine, [place] [address] Historical LMR Provider 09/10/17 11/30/21 Charissa Rico MD [address] [place] [address] Historical LMR Provider 09/10/17 05/23/21 Lindsay Burns CNM [address] [place] [address] [email or web address] Historical LMR Provider 09/10/17 05/23/21 Rich Rodas MD [address] [place] [address] Historical LMR Provider 09/10/17 Ambrosio Mcclellan DO [address] [place] [address] [email or web address] Historical LMR Provider 09/10/17 11/30/21 Charissa Rico MD [address] [place] [address] Insurance Assigned Provider 02/20/18 09/25/18 Charissa Rico MD [address] [place] [address] [email or web address] Insurance Assigned Provider 11/27/18 08/01/23 Prashanth Jalloh LICSW [address] [place] [address] [email or web address] Off 04/29/21 10/26/22 Charissa Rico MD [address] [place] [address] [email or web address] Insurance Assigned Provider 10/07/25 documented as of this encounter Additional Source Comments The information contained in this document represents components of the legal health record. It is not the complete legal health record.[facility]
--- OUTSIDE RECORDS SUMMARY | 2025-11-09 17:35 | XMS_ITS | Encounter Summary ---
Author Organization [facility] Address [address] [place] [address] Phone Care Team Providers Care Project Architect Name Role Phone Charissa Rico MD Primary Care Provider [phone] Siobhan Grossman CNM Unavailable Siobhan Cummins CNM Unavailable [phone] Alexsander Roger MD Unavailable Melody Bland [...] MD Unavailable [phone] Prashanth Jalloh Unavailable [phone] Charissa Rico MD Primary Care Provider [phone] Pamela Campbell Primary Care Provider [phone] Charissa Rico MD Unavailable Encounter Details Date Type Department Care Team (Late st Contact Info) Description 12/31/2017 Ancillary Orders [facility] External Provider Virtual Department [address] [place] [address] Vitor Ramos MD [address] [place] [address] [email or web address] Abdominal pain, unspecified abdominal location Social History [...] Start Date Job End Date Working at [employer] Not on file Not on file Not on f ile documented as of this encounter Plan of Treatment Not on file documented as of this encounter Visit Diagnoses Diagnosis Abdominal pain, unspecified abdominal location documented in this encounter Care Teams Project Architect Relationship Specialty Start Date End Date Charissa Rico MD PCP - General 09/10/17 06/18/23 Charissa Rico MD [address] [place] [address] PCP - General Family Medicine 06/19/23 01/02/25 Pamela Campbell PA [address] [place] [address] PCP - General Physician Hip Hop Artist 01/03/25 Siobhan Grossman CNM [address] [place] [address] Historical LMR Provider 09/10/17 05/23/21 Siobhan Cummins CNM [address] [place] [address] Historical LMR Provider 09/10/17 05/23/21 Alexsander Roger MD [address] [place] [address] Historical LMR Provider 09/10/17 05/23/21 Melody Bland NP [address] [place] [address] [email or web address] Historical LMR Provider 09/10/17 05/23/21 Grecia Garner MD [address] [place] [address] [email or web address] Historical LMR Provider 09/10/17 05/23/21 Sena Mc CNM [address] [place] [address] Historical LMR Provider 09/10/17 05/23/21 Jonnathan Guerrero DO [address] [place] [address] [facility] Sports Medicine, [place] [address] Historical LMR Provider 09/10/17 11/30/21 Charissa Rico MD [address] [place] [address] Historical LMR Provider 09/10/17 05/23/21 Lindsay Burns CNM [address] [place] [address] Historical LMR Provider 09/10/17 05/23/21 Rich Rodas MD [address] [place] [address] Historical LMR Provider 09/10/17 Ambrosio Mcclellan DO [address] [place] [address] [email or web address] Historical LMR Provider 09/10/17 11/30/21 Charissa Rico MD [address] [place] [address] Insurance Assigned Provider 02/20/18 09/25/18 Charissa Rico MD [address] [place] [address] Insurance Assigned Provider 11/27/18 08/01/23 Prashanth Jalloh LICSW [address] [place] [address] PHCM Therapy Technician 04/29/21 10/26/22 Charissa Rico MD [address] [place] [address] [email or web address] Insurance Assigned Provider 10/07/25 documented as of this encounter Additional Source Comments The information contained in this document represents components of the legal health record. It is not the complete legal health record.[facility]
--- OUTSIDE RECORDS SUMMARY | 2025-11-09 17:35 | XMS_ITS | Encounter Summary ---
Author Organization [facility] Address [address] [place] [address] Phone Care Team Providers Care Epitaxial Reactor Technician Name Role Phone Charissa Rico MD Primary Care Provider [phone] Siobhan Grossman CNM Unavailable Siobhan Cummins CNM Unavailable [phone] Alexsander Roger MD Unavailable Melody Bland [...] MD Unavailable [phone] Prashanth Jalloh Unavailable Charissa Rico MD Primary Care Provider [phone] Pamela Campbell Primary Care Provider [phone] Charissa Rico MD Unavailable [phone] Encounter Details Date Type Department Care Team (Latest Contact Info) Description 08/12/2018 Transcribe Orders [facility] Phleb Dh[facility] [address] [place] [address] Siobhan Osullivan PA-Baljeet [address] [place] [address] [email or web address] Elevated liver function tests (Primary Dx) Social [...] Start Date Job End Date Working at [employer] Not on file Not on file Not on f ile documented as of this encounter Plan of Treatment Not on file documented as of this encounter Visit Diagnoses Diagnosis Elevated liver function tests- Primary Other abnormal blood chemistry documented in this encounter Care Teams Epitaxial Reactor Technician Relationship Specialty Start Date End Date Charissa Rico MD PCP - General 09/10/17 06/18/23 Charissa Rico MD [address] [place] [address] PCP - General Family Medicine 06/19/23 01/02/25 Pamela Campbell PA [address] [place] [address] PCP - General Physician Hotel Custodian 01/03/25 Siobhan Grossman CNM [address] [address] Historical LMR Provider 09/10/17 05/23/21 Siobhan Cummins CNM [address] [address] [email or web address] Historical LMR Provider 09/10/17 05/23/21 Alexsander Roger MD [address] [place] [address] Historical LMR Provider 09/10/17 05/23/21 Melody Bland NP [address] [place] [address] [email or web address] Historical LMR Provider 09/10/17 05/23/21 Grecia Garner MD [address] [place] [email or web address] Historical LMR Provider 09/10/17 05/23/21 Sena Mc CNM [address] [place] [address] Historical LMR Provider 09/10/17 05/23/21 Jonnathan Guerrero DO [address] [place] [address] [facility], [place], [place] [phone] Historical LMR Provider 09/10/17 11/30/21 Charissa Rico MD [address] [place] [address] Historical LMR Provider 09/10/17 05/23/21 Lindsay Burns CNM [address] [place] [address] Historical LMR Provider 09/10/17 05/23/21 Rich Rodas MD [address] [place] [address] Historical LMR Provider 09/10/17 Ambrosio Mcclellan DO [address] [place] [address] [email or web address] Historical LMR Provider 09/10/17 11/30/21 Charissa Rico MD [address] [place] [address] Insurance Assigned Provider 02/20/18 09/25/18 Charissa Rico MD [address] [place] [address] Insurance Assigned Provider 11/27/18 08/01/23 Prashanth Jalloh, ASSEMBLER WIRE [employer] GATE [address] [place] [address] [email or web address] [facility] Software Configuration Engineer 04/29/21 10/26/22 Charissa Rico MD [address] [place] [address] [email or web address] Insurance Assigned Provider 10/07/25 documented as of this encounter Additional Source Comments The information contained in this document represents components of the legal health record. It is not the complete legal health record.[facility]
--- OUTSIDE RECORDS SUMMARY | 2025-11-09 17:35 | XMS_ITS | Encounter Summary ---
Author Organization [facility] Address [address] [place] [address] Phone Care Team Providers Care Circle Cutting Saw Operator Name Role Phone Charissa Rico MD Primary Care Provider [phone] Siobhan Grossman CNM Unavailable Siobhan Cummins CNM Unavailable [phone] Alexsander Roger MD Unavailable Melody Bland NP Unavailable [phone] Grecia Garner MD Unavailable [phone] Sena Mc CNM Unavailable [phone] Jonnathan Guerrero DO Unavailable [phone] Charissa Rico MD Unavailable [phone] Lindsay Burns CNM Unavailable + [phone] Rich Rodas MD Unavailable +[phone] Ambrosio Mcclellan DO Unavailable +[phone] Charissa Rico MD Unavailable [phone] Prashanth Jalloh Unavailable [phone] Charissa Rico MD Primary Care Provider [phone] Pamela Campbell Primary Care Provider +[phone] Charissa Rico MD Unavailable [phone] Encounter Details Date Type Department Care Team (Late st Contact Info) Description 12/11/2020 Transcribe Orders Virtual Department [address] [place] [address] Pamela Campbell PA [address] [place] [address] Exposure to SARS-associated coronavirus (Primary Dx) Social [...] Start Date Job End Date Working at [employer] Not on file Not on file Not on f ile documented as of this encounter Plan of Treatment Not on file documented as of this encounter Results * COVID-19 PCR Order (12/12/2020 9:47 AM EST) COVID Testing Status Specimen received in analyzing lab. Results should be available within 24 to 48 hrs. [facility] Symptomatic? NO [facility] 12/12/2020 9:47 AM EST 12/12/2020 3:53 PM EST us Pamela BA LAB GENERAL ORDERABLES Final Re sult [facility] [address] [place] [address] [facility] [address] [place] [address] documented in this encounter Visit Diagnoses Diagnosis Exposure to SARS-associated coronavirus- Primary documented in this encounter Care Teams Circle Cutting Saw Operator Relationship Specialty Start Date End Date Charissa Rico MD PCP - General 09/10/17 06/18/23 Charissa Rico MD [address] [place] [address] PCP - General Family Medicine 06/19/23 01/02/25 Pamela Campbell PA [address] [place] [address] PCP - General Physician Director Epidemiology 01/03/25 Siobhan Grossman CNM [address] [place] [address] Historical LMR Provider 09/10/17 05/23/21 Siobhan Cummins CNM [address] [place] [address] Historical LMR Provider 09/10/17 05/23/21 Alexsander Roger MD [address] [place] [address] Historical LMR Provider 09/10/17 05/23/21 Melody Bland NP [address] [place] [address] [email or web address] Historical LMR Provider 09/10/17 05/23/21 Grecia Garner MD [address] [place] [address] Historical LMR Provider 09/10/17 05/23/21 Sena Mc CNM [address] [address] Historical LMR Provider 09/10/17 05/23/21 Jonnathan Guerrero DO [address] [place] [address] Orthopedics [facility] Sports Medicine, [place] [address] Historical LMR Provider 09/10/17 11/30/21 Charissa Rico MD [address] [place] [address] Historical LMR Provider 09/10/17 05/23/21 Lindsay Burns CNM [address] [place] [address] Historical LMR Provider 09/10/17 05/23/21 Rich Rodas MD [address] [place] [address] Historical LMR Provider 09/10/17 Ambrosio Mcclellan DO [address] [place] [address] [email or web address] Historical LMR Provider 09/10/17 11/30/21 Charissa Rico MD [address] [place] [address] [email or web address] Insurance Assigned Provider 11/27/18 08/01/23 Prashanth Jalloh LICSW [address] [place] [address] [email or web address] [facility] Wire Stockkeeper 04/29/21 10/26/22 Charissa Rico MD [address] [place] [address] [email or web address] Insurance Assigned Provider 10/07/25 documented as of this encounter Additional Source Comments The information contained in this document represents components of the legal health record. It is not the complete legal health record.[facility]
--- OUTSIDE RECORDS SUMMARY | 2025-11-09 17:35 | XMS_ITS | Encounter Summary ---
Author Organization [facility] Address [address] [place] [address] Phone Care Team Providers Care Plant Control Aide Name Role Phone Charissa Rico MD Primary Care Provider [phone] Siobhan Grossman CNM Unavailable Siobhan Cummins CNM Unavailable [phone] Alexsander Roger MD Unavailable Melody Bland [...] MD Unavailable [phone] Prashanth Jalloh Unavailable [phone] Charissa Rico MD Primary Care Provider [phone] Pamela Campbell Primary Care Provider [phone] Charissa Rico MD Unavailable [phone] Encounter Details Date Type Department Care Team (Late st Contact Info) Description 03/18/2018 Procedure Pass [place] Admitting Dept - Virtual Department [address] [place] [address] Social History Tobacco Use Types Packs/Day Years [...] Start Date Job End Date Working at [employer] Not on file Not on file Not on f ile documented as of this encounter Plan of Treatment Not on file documented as of this encounter Visit Diagnoses Not on filedocumented in this encounter Care Teams Plant Control Aide Relationship Specialty Start Date End Date Charissa Rico MD PCP - General 09/10/17 06/18/23 Charissa Rico MD [address] [place] [address] PCP - General Family Medicine 06/19/23 01/02/25 Pamela Campbell PA [address] [place] [address] PCP - General Physician Home Economist 01/03/25 Siobhan Grossman CNM [address] [facility], [address] [place] [address] Historical LMR Provider 09/10/17 05/23/21 Siobhan Cummins CNM [address] [address] Historical LMR Provider 09/10/17 05/23/21 Alexsander Roger MD [address] [place] [address] Historical LMR Provider 09/10/17 05/23/21 Melody Bland NP [address] [place] [address] [email or web address] Historical LMR Provider 09/10/17 05/23/21 Grecia Garner MD [address] [place] [address] [email or web address] Historical LMR Provider 09/10/17 05/23/21 Sena Mc CNM [address] [place] [address] Historical LMR Provider 09/10/17 05/23/21 Jonnathan Guerrero DO [address] [place] [address] Orthopedics & Sports Medicine, [facility] [place] [address] Historical LMR Provider 09/10/17 11/30/21 Charissa Rico MD [address] [place] [address] Historical LMR Provider 09/10/17 05/23/21 Lindsay Burns CNM [address] [place] [address] Historical LMR Provider 09/10/17 05/23/21 Rich Rodas MD [address] [place] [address] Historical LMR Provider 09/10/17 Ambrosio Mcclellan DO [address] [place] [address] [email or web address] Historical LMR Provider 09/10/17 11/30/21 Charissa Rico MD [address] [place] [address] Insurance Assigned Provider 02/20/18 09/25/18 Charissa Rico MD [address] [place] [address] Insurance Assigned Provider 11/27/18 08/01/23 Prashanth Jalloh, [employer] [address] [place] [address] [facility] Cutting Tool Sharpener 04/29/21 10/26/22 Charissa Rico MD [address] [place] [address] Insurance Assigned Provider 11/15/25 documented as of this encounter Additional Source Comments The information contained in this document represents components of the legal health record. It is not the complete legal health record.[facility]
--- OUTSIDE RECORDS SUMMARY | 2025-11-09 17:35 | XMS_ITS | Encounter Summary ---
Author Organization [facility] Address [address] [place] [address] Phone Care Team Providers Care Furnace Charger Name Role Phone Charissa Rico MD Primary Care Provider [phone] Siobhan Grossman CNM Unavailable Siobhan Cummins CNM Unavailable [phone] Alexsander Roger MD Unavailable Melody Bland NP Unavailable [phone] Grecia Garner MD Unavailable [phone] Sena Mc CNM Unavailable [phone] Jonnathan Guerrero DO Unavailable [phone] Charissa Rico MD Unavailable [phone] Lindsay Burns CNM Unavailable + [phone] Rich Rodas MD Unavailable [phone] Ambrosio Mcclellan DO Unavailable [phone] Charissa Rico MD Unavailable [phone] Prashanth Jalloh Unavailable [phone] Charissa Rico MD Primary Care Provider [phone] Pamela Campbell Primary Care Provider +[phone] Charissa Rico MD Unavailable [phone] Encounter Details Date Type Department Care Team (Late st Contact Info) Description 01/24/2019 Procedure Pass [place] Admitting Dept - Virtual Department [address] [place] [address] Social History Tobacco Use Types Packs/Day Years [...] Start Date Job End Date Working at [employer] Not on file Not on file Not on f ile documented as of this encounter Plan of Treatment Not on file documented as of this encounter Visit Diagnoses Not on filedocumented in this encounter Care Teams Furnace Charger Relationship Specialty Start Date End Date Charissa Rico MD PCP - General 09/10/17 06/18/23 Charissa Rico MD [address] [place] [address] PCP - General Family Medicine 06/19/23 01/02/25 Pamela Campbell PA [address] [place] [address] PCP - General Physician Accounting Assistant 01/03/25 Siobhan Grossman CNM [address] [place] [address] [email or web address] Historical LMR Provider 09/10/17 05/23/21 Siobhan Cummins CNM [address] [place] [address] Historical LMR Provider 09/10/17 05/23/21 Alexsander Roger MD [address] [place] [address] Historical LMR Provider 09/10/17 05/23/21 Melody Bland NP [address] [place] [address] [email or web address] Historical LMR Provider 09/10/17 05/23/21 Grecia Garner MD [address] [place] [email or web address] Historical LMR Provider 09/10/17 05/23/21 Sena Mc CNM [address] [place] [address] Historical LMR Provider 09/10/17 05/23/21 Jonnathan Guerrero DO [address] [place] [address] Orthopedics & Sports Medicine, [facility] [place] [address] Historical LMR Provider 09/10/17 11/30/21 Charissa Rico MD [address] [place] [address] Historical LMR Provider 09/10/17 05/23/21 Lindsay Burns CNM [address] [place] [address] Historical LMR Provider 09/10/17 05/23/21 Rich Rodas MD [address] [place] [address] Historical LMR Provider 09/10/17 Ambrosio Mcclellan DO [address] [place] [address] [email or web address] Historical LMR Provider 09/10/17 11/30/21 Charissa Rico MD [address] [place] [address] Insurance Assigned Provider 11/27/18 08/01/23 Prashanth Jalloh LICSW [address] [place] [address] [facility] Director Of Flight Operations 04/29/21 10/26/22 Charissa Rico MD [address] [place] [address] Insurance Assigned Provider 10/07/25 documented as of this encounter Additional Source Comments The information contained in this document represents components of the legal health record. It is not the complete legal health record.[facility]
[2025-11-09 18:01] LABS: MANUAL DIFF FLAG NO
[2025-11-09 18:03] LABS: Hematocrit 37.2 % (37.0-47.0); Hemoglobin 12.0 g/dl (12.0-16.0); Imm Gran Abs Auto 0.07 X10*3/uL (0.00-0.03); Imm Gran Pct Auto 0.6 % (0.0-0.4); Lymphocytes Absolute Auto 2.5 X10*3/uL (1.2-4.9); Mean Corpuscular HGB Conc 32.3 g/dl (31.0-35.0); Mean Corpuscular Hemoglobin 29.1 pg (27.0-33.0); Mean Corpuscular Volume 90.3 fL (80.0-98.0); NRBC Abs Auto 0.000 X10*3/uL (0.0-0.012); NRBC Pct Auto 0.0 /100WBC (0.0-0.2); Platelet Count 255 X10*3/uL (160-400); Red Blood Count 4.12 X10*6/uL (4.20-5.50); White Blood Count 11.1 X10*3/uL (4.8-10.8)
[2025-11-09 18:25] LABS: Alanine Aminotransferase 44 U/L (0-31); Aspartate Amino Transferase 30 U/L (5-31); Estimated Glomerular Filt Rate > 60
== END 2025-11-09 13:27 | disposition home or self-care (01) ==
LOC: HO.HKASLDS 13:26
PROVIDERS: Visit Provider Internal Medicine Rheumatology
DX: Z79.899 Other long term (current) drug therapy (principal)
CPT/HCPCS: 36415; 82565; 84450; 84460; 85025; 85652; 86140